=== PATIENT | female | born 1945 | race Caucasian/White ===

== ENCOUNTER 2016-07-25 10:18 | Inpatient (IN) | payer OTHER ==
[2016-07-25 10:36] VITALS: BMI 21.0
--- NOTE | 2016-07-25 10:41 | DR.GENAD ---
HPI - PCP Primary Care Physician: abigail - Complaint/Symptoms Chief Complaint:: EMS STATES FAMILY C/O PT HAS HAD FEVER, N/V/D, WEAKNESS AND LACERATION TO LT ELBOW S/P FALL. ALL OF PT'S SYMPTOMS BEGAN YESTERDAY. - Nurses notes reviewed Nurses Notes Review: Yes - Source History Provided: Patient, Family Member, EMS - Mode of Arrival Mode of Arrival: EMS - Timing Onset of Chief Complaint: 07/24/16 Came on: Gradually - Duration Duration: Constant How lon Duration: Days - Location Location: generalized - Severity Severity: Moderate - Associated Signs and Symptoms Associated Signs and Symptoms: chills PMH - PMH Past Medical History: Yes Past Medical History: Anemia, Arthritis, Coronary Artery Disease, Depression, Dyslipidemia, GERD, Gout, Hypertension, [place] Past Surgical History: Yes Surgical History: Angioplasty/Stents, , Hysterectomy - Family History History of Family Medical Conditions: Yes Family Medical History: Diabetes Mellitus, Hypertension - Social History Does any household member use tobacco: No Alcohol Use: None Do you use any recreational Drugs:: No Lives With: Family Lives Where: Home - infectious screening In the last 2 months have you had wt loss of >10#?: NO Have you had fever, night sweats or hemotysis?: No Have you traveled outside the country in the last 6 months?: No Isolation: Standard ROS - Review of Systems Constitutional: Chills Eyes: No Symptoms Reported ENTM: No Symptoms Reported Respiratoy: Non-Productive Cough Cardiovascular: Skin Mottling (lower legs) Gastrointestinal/Abdominal: Diarrhea, Vomiting Genitourinary: No Symptoms Reported Neurological: Other (confusion) Musculoskeletal: No Symptoms Reported Integumentary: Other (chronic PVD) Hematologic/Lymphatic: No Symptoms Reported Endocrine: No Symptoms Reported Psychiatric: Depression Unable to Obtain Due To: Dementia PE - Vital Signs Vitals: Temperature 99.9 F Pulse Rate 83 Respiratory Rate 20 Blood Pressure [Left Arm] 121/59 Blood Pressure [Right Arm] 136/63 Blood Pressure 162/71 O2 Sat by Pulse Oximetry 96 - General Limitations: Altered Mental Status (mild confusion ) General Appearance: Alert, In No Apparent Distress - Head Head Exam: Normal Inspection - Eyes Eye exam: Normal Appearance, PERRL, EOMI. negative: Scleral Icterus, Conjunctival Injection - ENT ENT Exam: Normal Exam, Normal Oropharynx External Ear Exam: Normal External Inspection - Neck Neck Exam: Normal Inspection, Full ROM, Trachea Midline - Chest Chest Inspection: Normal Inspection - Respiratory Respiratory Exam: negative: Accessory Muscle Use, Respiratory Distress - Cardiovascular Cardiovascular Exam: Regular Rate - Abdominal Exam Abdominal Exam: Normal Inspection, Normal Bowel Sounds, Soft - Extremities Extremities Exam: Full ROM, Other (chronic PVD with skin color changes) - Back Back Exam: Normal Inspection - Neurologic Neurological Exam: Alert, CN II-XII Intact. negative: Oriented X3 - Psychiatric Psychiatric Exam: Depressed - Skin Skin Exam: Mottled, Other (chronic skin lesions has home health nurse visits) Course - Treatment Treatment: 1400: discussed with Casandra STEPHEN admit to DR. Arndt ROR - Labs Reviewed Result Diagrams: 07/25/16 11:25 07/25/16 11:25 Laboratory: WBC 13.8 X10^3/uL (3.6-10.0) H 07/25/16 11:25 RBC 4.50 X10^6/uL (3.5-5.4) 07/25/16 11:25 Hgb 14.1 g/dL (12.0-16.0) 07/25/16 11:25 Hct 42.9 % (36.0-47.0) 07/25/16 11:25 MCV 95.3 fL (80.0-100.0) 07/25/16 11:25 MCH 31.3 pg (27.0-34.0) 07/25/16 11:25 MCHC 32.9 g/dL (33.0-35.0) L 07/25/16 11:25 RDW 17.2 % (11.6-16.5) H 07/25/16 11:25 Plt Count 103 X10^3/uL (150.0-450.0) L 07/25/16 11:25 Plt Count Comment Increased (ADEQUATE) A 07/25/16 11:25 MPV 9.4 fL (7.4-11.0) 07/25/16 11:25 Neut % 71.9 % (42.0-75.0) 07/25/16 11:25 Lymph % 15.3 % (21.0-51.0) L 07/25/16 11:25 Early % 11.9 % (0.0-13.0) 07/25/16 11:25 Eos % 0.1 % (0.9-2.9) L 07/25/16 11:25 Baso % 0.8 % (0.2-1.0) 07/25/16 11:25 Neut # 9.2 x10^3/uL (2.2-4.8) H 07/25/16 11:25 Lymph # 2.0 X10^3/uL (1.3-2.9) 07/25/16 11:25 Early # 1.5 x10^3/uL (0.3-0.8) H 07/25/16 11:25 Eos # 0.0 x10^3/uL (0.0-0.2) 07/25/16 11:25 Baso # 0.1 X10^3/uL (0.0-0.1) 07/25/16 11:25 Absolute Nucleated RBC 0.1 /100WBC 07/25/16 11:25 Plt Morphology Comment Normal (NORMAL) 07/25/16 11:25 RBC Morphology Normal (NORMAL) 07/25/16 11:25 Poikilocytosis Slight A 07/25/16 11:25 Sodium 139 mmol/L (136-145) 07/25/16 11:25 Corrected Sodium TNP 07/25/16 11:25 Potassium 3.8 mmol/L (3.5-5.1) 07/25/16 11:25 Chloride 105 mmol/L (98-107) 07/25/16 11:25 Carbon Dioxide 27.0 mmol/L (21-32) 07/25/16 11:25 BUN 10 mg/dL (7-18) 07/25/16 11:25 Creatinine 0.81 mg/dL (0.55-1.02) 07/25/16 11:25 Est GFR (MDRD) Af Amer > 60 (>60) 07/25/16 11:25 Est GFR (MDRD) Non-Af > 60 (>60) 07/25/16 11:25 Glucose 97 mg/dL (65-99) 07/25/16 11:25 Calcium 7.8 mg/dL (8.5-10.1) L 07/25/16 11:25 Corrected Calcium 8.7 mg/dL (8.5-10.1) 07/25/16 11:25 Total Bilirubin 0.70 mg/dL (0.2-1.0) 07/25/16 11:25 AST 61 Units/L (15-37) H 07/25/16 11:25 ALT 53 Units/L (12-78) 07/25/16 11:25 Alkaline Phosphatase 75 Units/L (46-116) 07/25/16 11:25 Total Protein 6.3 g/dL (6.4-8.2) L 07/25/16 11:25 Albumin 2.9 g/dL (3.4-5.0) L 07/25/16 11:25 Globulin 3.4 g/dL (2.5-4.5) 07/25/16 11:25 Albumin/Globulin Ratio 0.9 Ratio (1.1-2.1) L 07/25/16 11:25 - XRAY XRAY Interpreted by: Radiologist XRAY Findings: chest: CM no CHF - Diagnosis Discharge Problem: Vomiting and diarrhea Fever Qualifiers: Fever type: unspecified Qualified Code(s): R50.9 - Fever, unspecified - Discharge Plan Condition: Stable - Follow ups/Referrals Follow ups/Referrals: MAGY FANG [Primary Care Provider] - 3 days - Instructions
[2016-07-25] MEDS ORDERED: ZOFRAN INJ 4 MG VIAL IVP ONE (10:53)
[2016-07-25] MEDS ORDERED: ZOFRAN INJ 4 MG VIAL ONE (11:02)
--- NOTE | 2016-07-25 11:26 | RAD ---
HISTORY: Cough, weakness Study: Chest one view Comparison: February 06, 2015 Findings: The heart is enlarged. No definite congestive heart failure is noted. The aorta is calcified. The erika ngs are mildly hypoinflated but free of acute infiltrates. No pleural effusions are identified. The bony thorax is unremarkable. IMPRESSION: Cardiomegaly without congestive heart failure Lungs mildly hypoinflated but clear Reported By:
[2016-07-25 11:41] LABS: RED CELL DISTRIBUTION WIDTH 17.2 % (11.6-16.5)
[2016-07-25 11:55] LABS: ALANINE AMINOTRANSFERASE 53 Units/L (12-78); ALBUMIN 2.9 g/dL (3.4-5.0); ALKALINE PHOSPHATASE 75 Units/L (46-116); ASPARTATE AMINO TRANSFERASE 61 Units/L (15-37); BLOOD UREA NITROGEN 10 mg/dL (7-18); CALCIUM 7.8 mg/dL (8.5-10.1); CHLORIDE 105 mmol/L (98-107); COR CA(FOR HYPOALB) 8.7 mg/dL (8.5-10.1); CREATININE 0.81 mg/dL (0.55-1.02); GLUCOSE 97 mg/dL (65-99); SODIUM 139 mmol/L (136-145); TOTAL PROTEIN 6.3 g/dL (6.4-8.2); eGFR BLACK RACES > 60 (>60); eGFR NON BLACK RACES > 60 (>60)
[2016-07-25 12:07] LABS: BASOPHILS % (AUTO) 0.8 % (0.2-1.0); EOSINOPHILS % (AUTO) 0.1 % (0.9-2.9); LYMPHOCYTES % (AUTO) 15.3 % (21.0-51.0); MEAN CORPUSCULAR HEMOGLOBIN 31.3 pg (27.0-34.0); MEAN CORPUSCULAR HGB CONC 32.9 g/dL (33.0-35.0); MEAN CORPUSCULAR VOLUME 95.3 fL (80.0-100.0); MEAN PLATELET VOLUME 9.4 fL (7.4-11.0); MONOCYTES % (AUTO) 11.9 % (0.0-13.0); NEUTROPHILS # (AUTO) 9.2 x10^3/uL (2.2-4.8); NEUTROPHILS % (AUTO) 71.9 % (42.0-75.0)
[2016-07-25 12:08] LABS: BASOPHILS # (AUTO) 0.1 X10^3/uL (0.0-0.1); MONOCYTES # (AUTO) 1.5 x10^3/uL (0.3-0.8)
[2016-07-25 12:11] LABS: PLATELET MORPHOLOGY COMMENT NORMAL (NORMAL); POIKILOCYTOSIS SLIGHT
[2016-07-25] MEDS ORDERED: NS 500 ML IV 500 ML IV ONE (13:42)
[2016-07-25] MEDS ORDERED: ZOFRAN INJ 4 MG VIAL IVP PRN (14:03)
[2016-07-25] MEDS ORDERED: NS 1000 ML 1,000 ML IV SCH (15:00)
[2016-07-25] MEDS ORDERED: MOTRIN TAB 800 MG PO PRN (15:34)
[2016-07-25] MEDS ORDERED: TYLENOL SUPP 650 MG PR ONE (15:53)
[2016-07-25 17:35] LABS: BILIRUBIN,URINE NEGATIVE (NEGATIVE); BLOOD/HEMOGLOBIN,URINE 2+ (NEGATIVE); GLUCOSE, URINE NEGATIVE (NEGATIVE); KETONES,URINE NEGATIVE (NEGATIVE); LEUKOCYTE ESTERASE ,URINE 3+ (NEGATIVE); NITRITES,URINE NEGATIVE (NEGATIVE); PROTEIN,URINE 2+ (NEGATIVE); UROBILINOGEN,URINE NORMAL (NORMAL)
[2016-07-25] MEDS: PROTONIX INJ 40 MG VIAL IVP SCH (17:40)
[2016-07-25] MEDS: PEPCID 20 MG IV PREMIX* 20 MG/50 ML BAG IV SCH ×2 (17:40→21:43)
[2016-07-25 17:45] LABS: AMORPHOUS SEDIMENT,UR TRACE /HPF (NEGATIVE); APPEARANCE,URINE CLOUDY (CLEAR); BACTERIA,URINE TRACE /HPF (NEGATIVE); COLOR,URINE YELLOW (YELLOW); MUCUS,URINE RARE /HPF (NEGATIVE); SQUAMOUS EPITHELIAL CELL,UR FEW /HPF (NEGATIVE)
[2016-07-25] MEDS ORDERED: VISTARIL PO PRN (18:03)
--- NOTE | 2016-07-25 19:03 | CT ---
CT head without contrast Indication: Altered mental status, hypertension Comparison: 03/01/2015 Technique: CT images of the head were obtained without contrast. Automatic exposure control was util ized. Findings: There is age-appropriate mild generalized brain atrophy with concomitant ventricular and s ulcal enlargement. Diffuse periventricular and deep white matter microangiopathy appears similar to the prior study. No acute bleed, mass, mass effect, or abnormal extra-axial collection identified. N o acute skeletal abnormality is seen. The major paranasal sinuses and mastoid air cells are clear. Impression: No acute intracranial abnormality. Chronic findings as above. Reported By:
[2016-07-25] MEDS: NS 1000 ML 1,000 ML IV SCH ×2 (19:22→20:30)
[2016-07-25] MEDS: K-DUR TAB 20 MEQ PO SCH (21:42)
[2016-07-25] MEDS: PREDNISONE TAB 5 MG PO SCH (21:43)
[2016-07-25] MEDS: LIPITOR TAB 40 MG PO SCH (21:43)
[2016-07-25] MEDS: NEURONTIN TAB 600 MG PO SCH (21:43)
[2016-07-25] MEDS: XANAX PO SCH (21:43)
[2016-07-26] MEDS: NEURONTIN TAB 600 MG PO SCH ×3 (05:22→21:00)
[2016-07-26] MEDS: NS 1000 ML 1,000 ML IV SCH ×3 (05:23→23:56)
[2016-07-26 06:38] LABS: ALANINE AMINOTRANSFERASE 58 Units/L (12-78); ALBUMIN 2.3 g/dL (3.4-5.0); ALKALINE PHOSPHATASE 60 Units/L (46-116); ASPARTATE AMINO TRANSFERASE 79 Units/L (15-37); BLOOD UREA NITROGEN 12 mg/dL (7-18); CALCIUM 7.2 mg/dL (8.5-10.1); CARBON DIOXIDE 23.4 mmol/L (21-32); CHLORIDE 108 mmol/L (98-107); COR CA(FOR HYPOALB) 8.6 mg/dL (8.5-10.1); CREATININE 0.77 mg/dL (0.55-1.02); GLUCOSE 70 mg/dL (65-99); SODIUM 143 mmol/L (136-145); eGFR BLACK RACES > 60 (>60); eGFR NON BLACK RACES > 60 (>60)
[2016-07-26] MEDS ORDERED: POTASSIUM CHLORIDE LIQ 20 MEQ UDC PO PRN (06:56)
[2016-07-26] MEDS ORDERED: K-RIDER 10 MEQ/NS 100 ML 10 MEQ/100 ML BAG IV PRN (06:56)
[2016-07-26] MEDS ORDERED: K-LYTE EFFERVESCENT PO PRN (06:56)
[2016-07-26 08:08] LABS: BASOPHILS # (AUTO) 0.1 X10^3/uL (0.0-0.1); EOSINOPHILS % (AUTO) 0.1 % (0.9-2.9); HEMATOCRIT 35.8 % (36.0-47.0); HEMOGLOBIN 11.7 g/dL (12.0-16.0); LYMPHOCYTES # (AUTO) 1.1 X10^3/uL (1.3-2.9); LYMPHOCYTES % (AUTO) 15.9 % (21.0-51.0); MEAN CORPUSCULAR HEMOGLOBIN 31.3 pg (27.0-34.0); MEAN CORPUSCULAR HGB CONC 32.6 g/dL (33.0-35.0); MEAN PLATELET VOLUME 9.4 fL (7.4-11.0); MONOCYTES # (AUTO) 0.8 x10^3/uL (0.3-0.8); MONOCYTES % (AUTO) 11.8 % (0.0-13.0); NEUTROPHILS % (AUTO) 71.2 % (42.0-75.0); PLATELET COUNT 99 X10^3/uL (150.0-450.0); RED BLOOD COUNT 3.73 X10^6/uL (3.5-5.4); RED CELL DISTRIBUTION WIDTH 17.7 % (11.6-16.5)
[2016-07-26] MEDS: PROTONIX INJ 40 MG VIAL IVP SCH (09:03)
[2016-07-26] MEDS: TOPROL XL PO SCH (09:03)
[2016-07-26] MEDS: PEPCID 20 MG IV PREMIX* 20 MG/50 ML BAG IV SCH ×2 (09:03→20:55)
[2016-07-26] MEDS: ZYLOPRIM PO SCH (09:04)
[2016-07-26] MEDS: K-DUR TAB 20 MEQ PO PRN ×2 (09:04→12:16)
[2016-07-26] MEDS: PREDNISONE TAB 5 MG PO SCH ×2 (09:05→20:51)
[2016-07-26] MEDS: PLAVIX PO SCH (09:05)
[2016-07-26] MEDS: ARICEPT TAB 10 MG PO SCH (09:05)
[2016-07-26] MEDS: K-DUR TAB 20 MEQ PO SCH ×2 (09:26→20:51)
[2016-07-26] MEDS: TAMIFLU PO SCH ×2 (10:00→20:51)
--- NOTE | 2016-07-26 10:57 | DR.H&P ---
H&P - History & Physical for Day of: H&P Date: 07/25/16 - Chief Complaint Chief Complaint: N/V/D, FEVER - Allergies Allergies/Adverse Reactions: Allergies Allergy/AdvReac Type Severity Reaction Status Date / Time Sertraline [From Zoloft] Allergy Severe RASH Verified 05/07/15 15:52 - History of Present Illness History of Present Illness: THIS IS A 71 YEAR OLD MALE, WHO IS FOLLOWED IN OUR OFFICE BY MAUDE ARREOLA. SHE PRESENTS TO THE EMERGENCY ROOM, VIA EMS, WITH FAMILY REPORTING FEVER, N/V/D. FAMILY FURTHER REPORTS GENERALIZES WEAKNESS AND LACERATION TO LEFT ELBOW FOLLOWING A FALL AT HOME. FAMILY REPORTS ONSET OF SYMPTOMS WAS ONE DAY PRIOR TO ARRIVAL. PATIENT REPORTS CHILLS, FATIGUE , AND MALAISE. FAMILY STATES PATIENT HAS HAD CONFUSION AND IS UNABLE TO HOLD ANY FLUIDS DOWN AND HAS HAD DIARRHEA TOO NUERMOUS TO COUNT TODAY. TEMPERATURE IS 103F. BLOOD PRESSURE IS 82.51. LABS, CHEST XRAY, AND CT OBTAINED. CBC WNL EXCEPT: WBC 13.8, PLT COUNT 103. CMP WNL EXCEPT: CALCIUM 7.8, TOT PROTEIN 6.3, ALBUMIN 2.9. URINALYSIS ABNORMALS: PROTEIN 2+, OCCULT BLOOD 2+, LEUKOCYTE ESTERASE 3+, RBC 4-5, WBC 12-14, BACTERIA TRACE; CULTURE PENDING. CHEST XRAY REPORTS CARDIOMEGALY WITHOUT CHF; LUNGS CLEAR. BRAIN CT REPORTS NO ACUTE INTRACRANIAL ABNORMALITY. WE WILL ADMIT PATIENT FOR FURTHER TREATMENT AND EVALUATION. WE WILL START IV FLUIDS, IV ZOFRAN, PEPCID, PROTONIX, AND CONTINUE TO MONITOR. WE WILL FOLLOW UP IN AM WITH LABS. - Past Medical History Past Medical History: Anemia, Arthritis, Coronary Artery Disease, Depression, Dyslipidemia, GERD, Gout, Hypertension, [place] Additional Medical History: Venous Insufficiency, Rheumatoid Arthritis, Spondylosis Lumbar/Thoracic, Muscular Dystrophy, Osteoporosis, Degenerative Disc Disease, Chronic PVD, Cataracts, Pneumonia, Muscle Weakness, Previous Blood Transfusion - Past Surgical History Surgical History: Angioplasty/Stents, , Hysterectomy Additional Surgical History: Cataract Surgery, Two Cardiac Stents - Family History Family Medical History: Diabetes Mellitus, Coronary Artery Disease, Hypertension Family History Comment: CVA - Social History Does patient currently use any type of tobacco product: No Have you used tobacco products in the last 12 months: No Type of Tobacco Use: None Does any household member use tobacco: No Alcohol Use: None Drug Use: None - Medications Home Medications: Allopurinol 300 mg PO DAILY 01/13/14 Atorvastatin Calcium [LIPITOR Tab 40 mg *] 0.5 tab PO HS 01/13/14 Clopidogrel Bisulfate [Clopidogrel] 75 mg PO DAILY 01/13/14 Folic Acid 1 tab PO DAILY 01/13/14 Furosemide [LASIX TAB 20 MG *] 1 tab PO Q48H PRN 01/13/14 Gabapentin 600 mg PO TID 01/13/14 Metoprolol Succinate Ext Rel [TOPROL XL 25 MG *] 1 tab PO DAILY 01/13/14 Prednisone [PREDNISONE TAB 5 MG *] 1 tab PO BID 01/13/14 Ranitidine HCl [Ranitidine [address]] 150 mg PO BID 01/13/14 Alprazolam [XANAX 0.5 MG *] 1 tab PO HS 11/18/14 Ascorbic Acid [Vitamin C 500 mg] 1 tab PO DAILY 11/18/14 Famotidine [Pepcid] 20 mg PO BID #60 tab 12/19/14 Pantoprazole Sodium 40 mg [PROTONIX 40 MG *] 40 mg PO DAILY #30 tab 12/19/14 Hydroxyzine Pamoate [Vistaril] 25 mg PO Q6HR PRN 02/02/15 Potassium Chloride [Potassium Chloride ER] 20 meq PO BID 02/02/15 Donepezil Hydrochloride [ARICEPT TAB 10 MG *] 10 mg PO DAILY 05/07/15 - Review of Systems Constitutional: Fever, Chills, Weakness, Malaise Eyes: No Symptoms Reported. denies: Pain, Vision Change, Conjunctivae Inflammation, Eyelid Inflammation, Redness ENT: No Symptoms Reported. denies: Ear Pain, Ear Discharge, Nose Pain, Nose Discharge, Nose Congestion, Mouth Pain, Mouth Swelling, Throat Pain, Throat Swelling Respiratory: No Symptoms Reported. denies: Cough, Shortness of Breath, Hemoptysis, SOB with Excertion, Pleuritic Pain, Sputum, Wheezing Cardiovascular: No Symptoms Reported. denies: Chest Pain, Palpitations, Orthopnea, Paroxysmal Noc. Dyspnea, Edema, Light Headedness Gastrointestinal: Nausea, Vomiting, Abdominal Pain, Diarrhea. denies: Constipation, Melena, Hematochezia Genitourinary: Dysuria, Frequency. denies: Incontinence, Hematuria Musculoskeletal: Other (Muscle Weakness) Skin: Wound (Skin tear Left Elbow and Right Forearm ). denies: Rash, Lesions, Jaundice, Bruising - Physical Exam Vital Signs: Temperature 98.3 F Pulse Rate [Left Radial] 81 Pulse Rate [Right Radial] 81 Respiratory Rate 20 Blood Pressure [Left Arm] 106/54 O2 Sat by Pulse Oximetry 93 Oriented: Person, Other (Confusion) Eyes: Normal. negative: Blurred Vision, Diplopia, Discharge, Pain, Redness, Photophobia Ear: Normal. negative: Swelling, Ecchymosis, Hemotypanum, Abrasion, Laceration Nose: Normal. negative: Injected, Discharge, Blood Throat: Red, Dry. negative: Tonsillar Hypertrophy, Exudate Respiratory: Clear Throughout Cardiovascular: Normal. negative: Murmur, Edema : Dysuria, Hematuria, Frequency. negative: Discharge, Bleeding, Auscultation: Bowel Sounds: Increased. negative: Bruit Palpation: Normal. negative: Spleen Enlarged, Liver Enlarged, Mass Pulsatile Tenderness: Diffuse, Moderate. negative: Rebound, Guarding, Rigidity Skin: Decreased Turgur, Wound (Skin tear Left Elbow and Right Forearm). negative: Diaphoresis Musculoskeletal: Instability Psychiatric: Other (Confusion) Mood Description: Calm, Flat Affect: Flat Speech Pattern: Clear, Inappropriate - Assessment/Plan (1) Altered mental status Qualifiers: Altered mental status type: disorientation Coma depth: C Coma timing: C Qualified Code(s): R41.0 - Disorientation, unspecified Status: Acute Plan: ADMIT PATIENT, START IV FLUIDS, CONTINUE TO MONITOR. (2) Vomiting and diarrhea Status: Acute Plan: START IV FLUIDS, PEPCID, PROTONIX, IV ZOFRAN, MONITOR. (3) Fever Qualifiers: Fever type: unspecified Encounter type: E Qualified Code(s): R50.9 - Fever, unspecified Status: Acute Plan: CONTINUE TO MONITOR. (4) Fatigue Qualifiers: Fatigue type: other Encounter type: E Trimester: T Qualified Code(s): R53.83 - Other fatigue Status: Acute Plan: ABOVE. (5) Poor appetite Status: Acute Plan: ABOVE. (6) CAD (coronary artery disease) Qualifiers: Coronary Disease-Associated Artery/Lesion type: [place] artery [place] vs. 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 (8) Depression Qualifiers: Depression Type: major depressive disorder Major depression recurrence: M Active/Remission status: in full remission Major depression episode severity : M Psychotic features: P Trimester: T Status: Chronic (9) GERD (gastroesophageal reflux disease) Qualifiers: Esophagitis presence: esophagitis presence not specified Qualified Code(s) : K21.9 - Gastro-esophageal reflux disease without esophagitis Status: Chronic (10) H/O heart artery stent Status: Chronic (11) History of anemia Status: Chronic (12) Hyperlipidemia Qualifiers: Hyperlipidemia type: mixed hyperlipidemia Qualified Code(s): E78.2 - Mixed hyperlipidemia Status: Chronic (13) Hypertension Qualifiers: Hypertension type: essential hypertension Qualified Code(s): I10 - Essential (primary) hypertension Status: Chronic (14) Muscular dystrophy Status: Chronic (15) PVD (peripheral vascular disease) Status: Chronic (16) Rheumatoid arthritis Qualifiers: Rheumatoid arthritis location: multiple sites Rheumatoid factor presence: without rheumatoid factor Laterality: L Qualified Code(s): M06.09 - Rheumatoid arthritis without rheumatoid factor, multiple sites Status: Chronic
[2016-07-26] MEDS: ALBUMIN HUMAN 25%- 100ML 100 ML IV SCH (11:05)
--- NOTE | 2016-07-26 11:20 | PCM.PROG ---
Progress Note - Progress Note for Day of Date: 07/26/16 - Subjective Subjective: PATIENT CONTINUES WITH NAUSEA THIS MORNING. SHE REPORTS VOMITING HAS IMPROVED BUT CONTINUES WITH POOR APPETITE. PATIENT ATE 25% OF BREAKFAST THIS MORNING. PATIENT CONTINUES WITH FEVER AND IS NOTED WITH A TEMPERATURE OF 102.9F THROUGH THE NIGHT. PATIENT CONTINUES TO REPORT FATIGUE AND MALAISE ALONG WITH GENERALIZED WEAKNESS. INTERMITTENT CONFUSION IS NOTED. PATIENT IS POSITIVE FOR INFLUENZA A AND ALBUMIN IS LOW AT 2.3 THIS MORNING. CBC WNL EXCEPT : H/H 11.7/35.8, PLT COUNT 99. CMP WNL EXCEPT: POTASSIUM 3.3, CHL 108, CALCIUM 7.2, AST 79, TOT PROTEIN 5.0, ALBUMIN 2.3. WE WILL START ALBUMIN IV DAILY, TAMIFLU, AND CONTINUE TO MONITOR. WE WILL FOLLOW UP IN AM WITH LABS. - Past Medical Family Social History Past Med/Fam/Surg Hx: No changes since H&P Allergies: Allergies Sertraline [From Zoloft] Allergy (Severe, Verified 05/07/15 15:52) RASH - Review of Systems ROS: No change since H&P - Vital Signs and I&O's Vital Signs: Temperature 98.3 F Pulse Rate [Left Radial] 81 Pulse Rate [Right Radial] 81 Respiratory Rate 20 Blood Pressure [Left Arm] 106/54 O2 Sat by Pulse Oximetry 93 Intake and Output: Intake & Output 07/23/16 07/24/16 07/25/16 07/26/16 11:59 11:59 11:59 11:59 Intake Total 727 Balance 727 - Physical Exam Oriented: Person, Other (Confusion) Eyes: Normal. negative: Blurred Vision, Diplopia, Discharge, Pain, Redness, Photophobia Ear: Normal. negative: Swelling, Ecchymosis, Hemotypanum, Abrasion, Laceration Nose: Normal. negative: Injected, Discharge, Blood Throat: Red, Dry. negative: Tonsillar Hypertrophy, Exudate Respiratory: Normal Cardiovascular: Normal. negative: Murmur, Edema : Dysuria, Hematuria, Frequency. negative: Discharge, Bleeding, Auscultation: Bowel Sounds: Increased. negative: Bruit Palpation: Normal. negative: Spleen Enlarged, Liver Enlarged, Mass Pulsatile Tenderness: Diffuse, Moderate. negative: Rebound, Guarding, Rigidity Skin: Decreased Turgur, Wound (Skin tear Left Elbow and Right Forearm). negative: Diaphoresis Musculoskeletal: Instability Psychiatric: Other (Confusion) Mood Description: Calm Affect: Quiet Speech Pattern: Clear, Inappropriate - Laboratory and Diagnostics Result Diagrams: 07/26/16 05:20 07/26/16 05:20 Labs: 07/25/16 17:25 Urine,Catheterized Urine Culture - Preliminary Laboratory WBC 7.0 X10^3/uL (3.6-10.0) 07/26/16 05:20 RBC 3.73 X10^6/uL (3.5-5.4) 07/26/16 05:20 Hgb 11.7 g/dL (12.0-16.0) L 07/26/16 05:20 Hct 35.8 % (36.0-47.0) L 07/26/16 05:20 MCV 96.0 fL (80.0-100.0) 07/26/16 05:20 MCH 31.3 pg (27.0-34.0) 07/26/16 05:20 MCHC 32.6 g/dL (33.0-35.0) L 07/26/16 05:20 RDW 17.7 % (11.6-16.5) H 07/26/16 05:20 Plt Count 99 X10^3/uL (150.0-450.0) L 07/26/16 05:20 Plt Count Comment Increased (ADEQUATE) A 07/25/16 11:25 MPV 9.4 fL (7.4-11.0) 07/26/16 05:20 Neut % 71.2 % (42.0-75.0) 07/26/16 05:20 Lymph % 15.9 % (21.0-51.0) L 07/26/16 05:20 [place] % 11.8 % (0.0-13.0) 07/26/16 05:20 Eos % 0.1 % (0.9-2.9) L 07/26/16 05:20 Baso % 1.0 % (0.2-1.0) 07/26/16 05:20 Neut # 5.0 x10^3/uL (2.2-4.8) H 07/26/16 05:20 Lymph # 1.1 X10^3/uL (1.3-2.9) L 07/26/16 05:20 [place] # 0.8 x10^3/uL (0.3-0.8) 07/26/16 05:20 Eos # 0.0 x10^3/uL (0.0-0.2) 07/26/16 05:20 Baso # 0.1 X10^3/uL (0.0-0.1) 07/26/16 05:20 Absolute Nucleated RBC 0.1 /100WBC 07/26/16 05:20 Plt Morphology Comment Normal (NORMAL) 07/25/16 11:25 RBC Morphology Normal (NORMAL) 07/25/16 11:25 Poikilocytosis Slight A 07/25/16 11:25 Sodium 143 mmol/L (136-145) 07/26/16 05:20 Corrected Sodium TNP 07/26/16 05:20 Potassium 3.3 mmol/L (3.5-5.1) L 07/26/16 05:20 Chloride 108 mmol/L (98-107) H 07/26/16 05:20 Carbon Dioxide 23.4 mmol/L (21-32) 07/26/16 05:20 BUN 12 mg/dL (7-18) 07/26/16 05:20 Creatinine 0.77 mg/dL (0.55-1.02) 07/26/16 05:20 Est GFR (MDRD) Af Amer > 60 (>60) 07/26/16 05:20 Est GFR (MDRD) Non-Af > 60 (>60) 07/26/16 05:20 Glucose 70 mg/dL (65-99) 07/26/16 05:20 Calcium 7.2 mg/dL (8.5-10.1) L 07/26/16 05:20 Corrected Calcium 8.6 mg/dL (8.5-10.1) 07/26/16 05:20 Total Bilirubin 0.60 mg/dL (0.2-1.0) 07/26/16 05:20 AST 79 Units/L (15-37) H 07/26/16 05:20 ALT 58 Units/L (12-78) 07/26/16 05:20 Alkaline Phosphatase 60 Units/L (46-116) 07/26/16 05:20 Total Protein 5.0 g/dL (6.4-8.2) L 07/26/16 05:20 Albumin 2.3 g/dL (3.4-5.0) L 07/26/16 05:20 Globulin 2.7 g/dL (2.5-4.5) 07/26/16 05:20 Albumin/Globulin Ratio 0.9 Ratio (1.1-2.1) L 07/26/16 05:20 Specimen Type Catherized urine 07/25/16 17:25 Urine Color Yellow (YELLOW) 07/25/16 17:25 Urine Appearance Cloudy (CLEAR) 07/25/16 17:25 Urine pH 6.0 (5.0 - 8.0) 07/25/16 17:25 Ur Specific [place] 1.015 (1.000-1.030) 07/25/16 17:25 Urine Protein 2+ (NEGATIVE) 07/25/16 17:25 Urine Glucose (UA) Negative (NEGATIVE) 07/25/16 17:25 Urine Ketones Negative (NEGATIVE) 07/25/16 17:25 Urine Occult Blood 2+ (NEGATIVE) 07/25/16 17:25 Urine Nitrite Negative (NEGATIVE) 07/25/16 17:25 Urine Bilirubin Negative (NEGATIVE) 07/25/16 17:25 Urine Urobilinogen Normal (NORMAL) 07/25/16 17:25 Ur Leukocyte Esterase 3+ (NEGATIVE) 07/25/16 17:25 Urine RBC 4-5 /HPF (NEGATIVE) 07/25/16 17:25 Urine WBC 12-14 /HPF (NEGATIVE) 07/25/16 17:25 Ur Squamous Epith Cells Few /HPF (NEGATIVE) 07/25/16 17:25 Amorphous Sediment Trace /HPF (NEGATIVE) 07/25/16 17:25 Urine Bacteria Trace /HPF (NEGATIVE) 07/25/16 17:25 Urine Mucus Rare /HPF (NEGATIVE) 07/25/16 17:25 Ur Culture Indicated? Yes/culture set up 07/25/16 17:25 Influenza A (H1N1) PCR Not detected (NOT DETECT) 07/25/16 20:19 Influenza Type A (PCR) Positive (NEGATIVE) A 07/25/16 20:19 Influenza Type B (PCR) Negative (NEGATIVE) 07/25/16 20:19 - Plan (1) Altered mental status Status: Acute Qualifiers: Altered mental status type: disorientation Coma depth: C Coma timing: C Qualified Code(s): R41.0 - Disorientation, unspecified Plan: CONTINUE IV FLUIDS, CONTINUE TO MONITOR. (2) Vomiting and diarrhea Status: Acute Plan: CONTINUE IV FLUIDS, PEPCID, PROTONIX, IV ZOFRAN, MONITOR. (3) Fever Status: Acute Qualifiers: Fever type: unspecified Encounter type: E Qualified Code(s): R50.9 - Fever, unspecified Plan: CONTINUE TO MONITOR. (4) Fatigue Status: Acute Qualifiers: Fatigue type: other Encounter type: E Trimester: T Qualified Code(s): R53.83 - Other fatigue Plan: ABOVE. (5) Poor appetite Status: Acute Plan: ABOVE. (6) Influenza A Status: Acute Plan: START TAMIFLU, MONITOR. (7) CAD (coronary artery disease) Status: Chronic Qualifiers: Coronary Disease-Associated Artery/Lesion type: [place] artery [place] vs. transplanted heart: [place] heart Associated angina: without angina Qualified Code(s): I25.10 - Atherosclerotic heart disease of [place] coronary artery without angina pectoris (8) CHF (congestive heart failure) Status: Chronic Qualifiers: Congestive heart failure type: combined Congestive heart failure chronicity : chronic Qualified Code(s): I50.42 - Chronic combined systolic (congestive) and diastolic (congestive) heart failure (9) Depression Status: Chronic Qualifiers: Depression Type: major depressive disorder Major depression recurrence: M Active/Remission status: in full remission Major depression episode severity : M Psychotic features: P Trimester: T (10) GERD (gastroesophageal reflux disease) Status: Chronic Qualifiers: Esophagitis presence: esophagitis presence not specified Qualified Code(s) : K21.9 - Gastro-esophageal reflux disease without esophagitis (11) H/O heart artery stent Status: Chronic (12) History of anemia Status: Chronic (13) Hyperlipidemia Status: Chronic Qualifiers: Hyperlipidemia type: mixed hyperlipidemia Qualified Code(s): E78.2 - Mixed hyperlipidemia (14) Hypertension Status: Chronic Qualifiers: Hypertension type: essential hypertension Qualified Code(s): I10 - Essential (primary) hypertension (15) Muscular dystrophy Status: Chronic (16) PVD (peripheral vascular disease) Status: Chronic (17) Rheumatoid arthritis Status: Chronic Qualifiers: Rheumatoid arthritis location: multiple sites Rheumatoid factor presence: without rheumatoid factor Laterality: L Qualified Code(s): M06.09 - Rheumatoid arthritis without rheumatoid factor, multiple sites
[2016-07-26 13:52] LABS: HEMATOCRIT 42.9 % (36.0-47.0); HEMOGLOBIN 14.1 g/dL (12.0-16.0); WHITE BLOOD COUNT 13.8 X10^3/uL (3.6-10.0)
[2016-07-26 13:53] LABS: PLATELET COUNT 103 X10^3/uL (150.0-450.0)
[2016-07-26] MEDS: BUTT CREAM (COMPOUND) TOP PRN (17:53)
[2016-07-26] MEDS: XANAX PO SCH (20:51)
[2016-07-26] MEDS: LIPITOR TAB 40 MG PO SCH (20:52)
[2016-07-27] MEDS: NEURONTIN TAB 600 MG PO SCH ×3 (05:28→21:28)
[2016-07-27 06:04] LABS: BASOPHILS % (AUTO) 0.2 % (0.2-1.0); HEMATOCRIT 32.3 % (36.0-47.0); HEMOGLOBIN 10.6 g/dL (12.0-16.0); LYMPHOCYTES # (AUTO) 1.1 X10^3/uL (1.3-2.9); LYMPHOCYTES % (AUTO) 20.3 % (21.0-51.0); MEAN CORPUSCULAR HEMOGLOBIN 31.4 pg (27.0-34.0); MEAN CORPUSCULAR HGB CONC 32.9 g/dL (33.0-35.0); MEAN CORPUSCULAR VOLUME 95.4 fL (80.0-100.0); MEAN PLATELET VOLUME 9.3 fL (7.4-11.0); MONOCYTES # (AUTO) 0.6 x10^3/uL (0.3-0.8); MONOCYTES % (AUTO) 11.2 % (0.0-13.0); NEUTROPHILS # (AUTO) 3.7 x10^3/uL (2.2-4.8); NEUTROPHILS % (AUTO) 68.3 % (42.0-75.0); PLATELET COUNT 87 X10^3/uL (150.0-450.0); RED BLOOD COUNT 3.39 X10^6/uL (3.5-5.4); RED CELL DISTRIBUTION WIDTH 17.4 % (11.6-16.5); WHITE BLOOD COUNT 5.4 X10^3/uL (3.6-10.0)
[2016-07-27] MEDS: NS 1000 ML 1,000 ML IV SCH ×2 (06:21→14:15)
[2016-07-27 07:28] LABS: ALANINE AMINOTRANSFERASE 56 Units/L (12-78); ALBUMIN 2.5 g/dL (3.4-5.0); ALKALINE PHOSPHATASE 61 Units/L (46-116); ASPARTATE AMINO TRANSFERASE 62 Units/L (15-37); BLOOD UREA NITROGEN 10 mg/dL (7-18); CALCIUM 7.6 mg/dL (8.5-10.1); CARBON DIOXIDE 25.3 mmol/L (21-32); CHLORIDE 113 mmol/L (98-107); COR CA(FOR HYPOALB) 8.8 mg/dL (8.5-10.1); CREATININE 0.68 mg/dL (0.55-1.02); GLUCOSE 96 mg/dL (65-99); SODIUM 145 mmol/L (136-145); eGFR BLACK RACES > 60 (>60); eGFR NON BLACK RACES > 60 (>60)
[2016-07-27] MEDS: DUONEB 0.5 MG/3 MG NEB SCH ×4 (09:47→20:54)
[2016-07-27] MEDS: ALBUMIN HUMAN 25%- 100ML 100 ML IV SCH (09:54)
[2016-07-27] MEDS: PEPCID 20 MG IV PREMIX* 20 MG/50 ML BAG IV SCH ×2 (09:54→20:39)
[2016-07-27] MEDS: TAMIFLU PO SCH ×2 (09:55→20:39)
[2016-07-27] MEDS: PREDNISONE TAB 5 MG PO SCH ×2 (09:55→20:39)
[2016-07-27] MEDS: TOPROL XL PO SCH (09:55)
[2016-07-27] MEDS: K-DUR TAB 20 MEQ PO SCH ×2 (09:55→20:38)
[2016-07-27] MEDS: PLAVIX PO SCH (09:55)
[2016-07-27] MEDS: ZYLOPRIM PO SCH (09:55)
[2016-07-27] MEDS: PROTONIX INJ 40 MG VIAL IVP SCH (09:55)
[2016-07-27] MEDS: ARICEPT TAB 10 MG PO SCH (09:55)
[2016-07-27] MEDS: LEVAQUIN PREMIX IV 500 MG 500 MG/100 ML BAG IV SCH (09:56)
[2016-07-27] MEDS: BUTT CREAM (COMPOUND) TOP PRN (14:15)
[2016-07-27] MEDS: LIPITOR TAB 40 MG PO SCH (20:38)
[2016-07-27] MEDS: XANAX PO SCH (20:38)
[2016-07-28] MEDS: NS 1000 ML 1,000 ML IV SCH ×5 (02:27→21:38)
[2016-07-28 05:28] LABS: BASOPHILS % (AUTO) 0.3 % (0.2-1.0); EOSINOPHILS % (AUTO) 0.1 % (0.9-2.9); HEMOGLOBIN 10.2 g/dL (12.0-16.0); LYMPHOCYTES # (AUTO) 1.1 X10^3/uL (1.3-2.9); LYMPHOCYTES % (AUTO) 27.2 % (21.0-51.0); MEAN CORPUSCULAR HEMOGLOBIN 31.5 pg (27.0-34.0); MEAN CORPUSCULAR VOLUME 95.4 fL (80.0-100.0); MEAN PLATELET VOLUME 9.4 fL (7.4-11.0); MONOCYTES # (AUTO) 0.5 x10^3/uL (0.3-0.8); MONOCYTES % (AUTO) 12.5 % (0.0-13.0); NEUTROPHILS # (AUTO) 2.4 x10^3/uL (2.2-4.8); NEUTROPHILS % (AUTO) 59.9 % (42.0-75.0); PLATELET COUNT 84 X10^3/uL (150.0-450.0); RED BLOOD COUNT 3.25 X10^6/uL (3.5-5.4); RED CELL DISTRIBUTION WIDTH 17.5 % (11.6-16.5); WHITE BLOOD COUNT 3.9 X10^3/uL (3.6-10.0)
[2016-07-28] MEDS: NEURONTIN TAB 600 MG PO SCH ×3 (05:30→21:34)
[2016-07-28 05:32] LABS: ALANINE AMINOTRANSFERASE 45 Units/L (12-78); ALBUMIN 2.7 g/dL (3.4-5.0); ALKALINE PHOSPHATASE 58 Units/L (46-116); ASPARTATE AMINO TRANSFERASE 43 Units/L (15-37); BLOOD UREA NITROGEN 5 mg/dL (7-18); CALCIUM 7.2 mg/dL (8.5-10.1); CARBON DIOXIDE 25.1 mmol/L (21-32); CHLORIDE 114 mmol/L (98-107); COR CA(FOR HYPOALB) 8.2 mg/dL (8.5-10.1); COR NA(FOR HYPERGLY) 147 mmol/L (136-145); CREATININE 0.57 mg/dL (0.55-1.02); GLUCOSE 116 mg/dL (65-99); SODIUM 147 mmol/L (136-145); eGFR BLACK RACES > 60 (>60); eGFR NON BLACK RACES > 60 (>60)
[2016-07-28] MEDS: DUONEB 0.5 MG/3 MG NEB SCH ×4 (08:27→21:16)
[2016-07-28] MEDS: ALBUMIN HUMAN 25%- 100ML 100 ML IV SCH (09:33)
[2016-07-28] MEDS: PEPCID 20 MG IV PREMIX* 20 MG/50 ML BAG IV SCH ×2 (09:34→21:38)
[2016-07-28] MEDS: PREDNISONE TAB 5 MG PO SCH ×2 (09:34→21:34)
[2016-07-28] MEDS: PROTONIX INJ 40 MG VIAL IVP SCH (09:34)
[2016-07-28] MEDS: ARICEPT TAB 10 MG PO SCH (09:34)
[2016-07-28] MEDS: TOPROL XL PO SCH (09:34)
[2016-07-28] MEDS: LEVAQUIN PREMIX IV 500 MG 500 MG/100 ML BAG IV SCH (09:34)
[2016-07-28] MEDS: PLAVIX PO SCH (09:34)
[2016-07-28] MEDS: TAMIFLU PO SCH ×2 (09:34→21:35)
[2016-07-28] MEDS: ZYLOPRIM PO SCH (09:34)
[2016-07-28] MEDS: BUTT CREAM (COMPOUND) TOP PRN (09:35)
[2016-07-28] MEDS: K-DUR TAB 20 MEQ PO SCH ×2 (09:35→21:34)
[2016-07-28 11:37] LABS: CRYPTOSPORIDIUM PARVUM ANTIGEN NEGATIVE (NEGATIVE); GIARDIA LAMBLIA ANTIGEN NEGATIVE (NEGATIVE)
--- NOTE | 2016-07-28 17:13 | PCM.PROG ---
Progress Note - Progress Note for Day of Date: 07/27/16 - Subjective Subjective: PATIENT CONTINUES WITH NAUSEA THIS MORNING. SHE REPORTS VOMITING HAS IMPROVED BUT CONTINUES WITH POOR APPETITE. PATIENT AFEBRILE. PATIENT CONTINUES TO REPORT FATIGUE AND MALAISE ALONG WITH GENERALIZED WEAKNESS. INTERMITTENT CONFUSION IS NOTED. PATIENT CONTINUES WITH A POOR APPETITE AND IS CONTINUES WITH ALBUMIN LEVEL OF 2.5. ON AUSCULTATION, LUNGS ARE NOTED WITH HARSH WHEEZES ON THE RIGHT SIDE. COUGH IS INTERMITTENT, COARSE, NON- PRODUCTIVE. CBC WNL EXCEPT: H/H 10.6/32.3, PLT COUNT 87. CMP WNL EXCEPT: CHL 113, CALCIUM 7.6, AST 62, TOT PROTEIN 5.0, ALBUMIN 2.5. WE WILL START LEVAQUIN IV, DUONEBS, CONTINUE ALBUMIN, TAMIFLU, AND CONTINUE TO MONITOR. WE WILL FOLLOW UP IN AM WITH LABS. - Past Medical Family Social History Past Med/Fam/Surg Hx: No changes since H&P Allergies: Allergies Sertraline [From Zoloft] Allergy (Severe, Verified 05/07/15 15:52) RASH - Review of Systems ROS: No change since H&P - Vital Signs and I&O's Vital Signs: Temperature 98.2 F Pulse Rate [Left Radial] 64 Pulse Rate [Right Radial] 82 Pulse Rate 85 Respiratory Rate 20 Blood Pressure [Left Arm] 106/55 Blood Pressure [Right Arm] 173/92 O2 Sat by Pulse Oximetry 95 Intake and Output: Intake & Output 07/26/16 07/27/16 07/28/16 07/29/16 11:59 11:59 11:59 11:59 Intake Total 727 2139 2856 1570 Balance 727 2139 2856 1570 - Physical Exam Oriented: Normal, Time, Person, Place Eyes: Normal. negative: Blurred Vision, Diplopia, Discharge, Pain, Redness, Photophobia Ear: Normal. negative: Swelling, Ecchymosis, Hemotypanum, Abrasion, Laceration Nose: Normal. negative: Injected, Discharge, Blood Throat: Red, Dry. negative: Tonsillar Hypertrophy, Exudate Respiratory: Normal Cardiovascular: Normal. negative: Murmur, Edema : Dysuria, Hematuria, Frequency. negative: Discharge, Bleeding, Auscultation: Bowel Sounds: Normal. negative: Bruit Palpation: Normal. negative: Spleen Enlarged, Liver Enlarged, Mass Pulsatile Tenderness: Diffuse, Moderate. negative: Rebound, Guarding, Rigidity Skin: Decreased Turgur, Wound (Skin tear Left Elbow and Right Forearm). negative: Diaphoresis Musculoskeletal: Instability Psychiatric: Normal Mood Description: Calm Affect: Quiet Speech Pattern: Clear, Appropriate - Laboratory and Diagnostics Result Diagrams: 07/28/16 04:49 07/28/16 04:49 Labs: 07/28/16 08:44 Stool - Final 07/25/16 17:25 Urine,Catheterized Urine Culture - Final Laboratory WBC 3.9 X10^3/uL (3.6-10.0) 07/28/16 04:49 RBC 3.25 X10^6/uL (3.5-5.4) L 07/28/16 04:49 Hgb 10.2 g/dL (12.0-16.0) L 07/28/16 04:49 Hct 31.0 % (36.0-47.0) L 07/28/16 04:49 MCV 95.4 fL (80.0-100.0) 07/28/16 04:49 MCH 31.5 pg (27.0-34.0) 07/28/16 04:49 MCHC 33.0 g/dL (33.0-35.0) 07/28/16 04:49 RDW 17.5 % (11.6-16.5) H 07/28/16 04:49 Plt Count 84 X10^3/uL (150.0-450.0) L 07/28/16 04:49 Plt Count Comment Increased (ADEQUATE) A 07/25/16 11:25 MPV 9.4 fL (7.4-11.0) 07/28/16 04:49 Neut % 59.9 % (42.0-75.0) 07/28/16 04:49 Lymph % 27.2 % (21.0-51.0) 07/28/16 04:49 [place] % 12.5 % (0.0-13.0) 07/28/16 04:49 Eos % 0.1 % (0.9-2.9) L 07/28/16 04:49 Baso % 0.3 % (0.2-1.0) 07/28/16 04:49 Neut # 2.4 x10^3/uL (2.2-4.8) 07/28/16 04:49 Lymph # 1.1 X10^3/uL (1.3-2.9) L 07/28/16 04:49 [place] # 0.5 x10^3/uL (0.3-0.8) 07/28/16 04:49 Eos # 0.0 x10^3/uL (0.0-0.2) 07/28/16 04:49 Baso # 0.0 X10^3/uL (0.0-0.1) 07/28/16 04:49 Absolute Nucleated RBC 0.2 /100WBC 07/28/16 04:49 Plt Morphology Comment Normal (NORMAL) 07/25/16 11:25 RBC Morphology Normal (NORMAL) 07/25/16 11:25 Poikilocytosis Slight A 07/25/16 11:25 Sodium 147 mmol/L (136-145) H 07/28/16 04:49 Corrected Sodium 147 mmol/L (136-145) H 07/28/16 04:49 Potassium 4.5 mmol/L (3.5-5.1) 07/28/16 04:49 Chloride 114 mmol/L (98-107) H 07/28/16 04:49 Carbon Dioxide 25.1 mmol/L (21-32) 07/28/16 04:49 BUN 5 mg/dL (7-18) L 07/28/16 04:49 Creatinine 0.57 mg/dL (0.55-1.02) 07/28/16 04:49 Est GFR (MDRD) Af Amer > 60 (>60) 07/28/16 04:49 Est GFR (MDRD) Non-Af > 60 (>60) 07/28/16 04:49 Glucose 116 mg/dL (65-99) H 07/28/16 04:49 Calcium 7.2 mg/dL (8.5-10.1) L 07/28/16 04:49 Corrected Calcium 8.2 mg/dL (8.5-10.1) L 07/28/16 04:49 Total Bilirubin 0.30 mg/dL (0.2-1.0) 07/28/16 04:49 AST 43 Units/L (15-37) H 07/28/16 04:49 ALT 45 Units/L (12-78) 07/28/16 04:49 Alkaline Phosphatase 58 Units/L (46-116) 07/28/16 04:49 Total Protein 5.0 g/dL (6.4-8.2) L 07/28/16 04:49 Albumin 2.7 g/dL (3.4-5.0) L 07/28/16 04:49 Globulin 2.3 g/dL (2.5-4.5) L 07/28/16 04:49 Albumin/Globulin Ratio 1.2 Ratio (1.1-2.1) 07/28/16 04:49 Specimen Type Catherized urine 07/25/16 17:25 Urine Color Yellow (YELLOW) 07/25/16 17:25 Urine Appearance Cloudy (CLEAR) 07/25/16 17:25 Urine pH 6.0 (5.0 - 8.0) 07/25/16 17:25 Ur Specific [place] 1.015 (1.000-1.030) 07/25/16 17:25 Urine Protein 2+ (NEGATIVE) 07/25/16 17:25 Urine Glucose (UA) Negative (NEGATIVE) 07/25/16 17:25 Urine Ketones Negative (NEGATIVE) 07/25/16 17:25 Urine Occult Blood 2+ (NEGATIVE) 07/25/16 17:25 Urine Nitrite Negative (NEGATIVE) 07/25/16 17:25 Urine Bilirubin Negative (NEGATIVE) 07/25/16 17:25 Urine Urobilinogen Normal (NORMAL) 07/25/16 17:25 Ur Leukocyte Esterase 3+ (NEGATIVE) 07/25/16 17:25 Urine RBC 4-5 /HPF (NEGATIVE) 07/25/16 17:25 Urine WBC 12-14 /HPF (NEGATIVE) 07/25/16 17:25 Ur Squamous Epith Cells Few /HPF (NEGATIVE) 07/25/16 17:25 Amorphous Sediment Trace /HPF (NEGATIVE) 07/25/16 17:25 Urine Bacteria Trace /HPF (NEGATIVE) 07/25/16 17:25 Urine Mucus Rare /HPF (NEGATIVE) 07/25/16 17:25 Ur Culture Indicated? Yes/culture set up 07/25/16 17:25 Stool Description 40 g. brown/formed 07/28/16 08:44 Stl Occult Blood (IFOB) Positive (NEGATIVE) A 07/28/16 08:44 Stool for White Cells No wbc's seen (None) 07/28/16 08:44 Stl C. diff Tox B Gene Negative (NEGATIVE) 07/28/16 08:44 Stl C. diff [id number] Negative (NEGATIVE) 07/28/16 08:44 Cryptosporid parvum Ag Negative (NEGATIVE) 07/28/16 08:44 E. histolytica Antigen Negative (NEGATIVE) 07/28/16 08:44 Giardia lamblia Ag Negative (NEGATIVE) 07/28/16 08:44 Influenza A (H1N1) PCR Not detected (NOT DETECT) 07/25/16 20:19 Influenza Type A (PCR) Positive (NEGATIVE) A 07/25/16 20:19 Influenza Type B (PCR) Negative (NEGATIVE) 07/25/16 20:19 - Plan (1) Altered mental status Status: Acute Qualifiers: Altered mental status type: disorientation Coma depth: C Coma timing: C Qualified Code(s): R41.0 - Disorientation, unspecified Plan: CONTINUE IV FLUIDS, CONTINUE TO MONITOR. (2) Bronchitis Status: Acute Plan: START IV LEVAQUIN, DUONEBS, MONITOR LABS AND CHEST XRAY. (3) Vomiting and diarrhea Status: Acute Plan: CONTINUE IV FLUIDS, PEPCID, PROTONIX, IV ZOFRAN, MONITOR. (4) Fever Status: Acute Qualifiers: Fever type: unspecified Encounter type: E Qualified Code(s): R50.9 - Fever, unspecified Plan: CONTINUE TO MONITOR. (5) Fatigue Status: Acute Qualifiers: Fatigue type: other Encounter type: E Trimester: T Qualified Code(s): R53.83 - Other fatigue Plan: ABOVE. (6) Poor appetite Status: Acute Plan: ABOVE. (7) Influenza A Status: Acute Plan: START TAMIFLU, MONITOR. (8) CAD (coronary artery disease) Status: Chronic Qualifiers: Coronary Disease-Associated Artery/Lesion type: [place] artery [place] vs. transplanted heart: [place] heart Associated angina: without angina Qualified Code(s): I25.10 - Atherosclerotic heart disease of [place] coronary artery without angina pectoris (9) CHF (congestive heart failure) Status: Chronic Qualifiers: Congestive heart failure type: combined Congestive heart failure chronicity : chronic Qualified Code(s): I50.42 - Chronic combined systolic (congestive) and diastolic (congestive) heart failure (10) Depression Status: Chronic Qualifiers: Depression Type: major depressive disorder Major depression recurrence: M Active/Remission status: in full remission Major depression episode severity : M Psychotic features: P Trimester: T (11) GERD (gastroesophageal reflux disease) Status: Chronic Qualifiers: Esophagitis presence: esophagitis presence not specified Qualified Code(s) : K21.9 - Gastro-esophageal reflux disease without esophagitis (12) H/O heart artery stent Status: Chronic (13) History of anemia Status: Chronic (14) Hyperlipidemia Status: Chronic Qualifiers: Hyperlipidemia type: mixed hyperlipidemia Qualified Code(s): E78.2 - Mixed hyperlipidemia (15) Hypertension Status: Chronic Qualifiers: Hypertension type: essential hypertension Qualified Code(s): I10 - Essential (primary) hypertension (16) Muscular dystrophy Status: Chronic (17) PVD (peripheral vascular disease) Status: Chronic (18) Rheumatoid arthritis Status: Chronic Qualifiers: Rheumatoid arthritis location: multiple sites Rheumatoid factor presence: without rheumatoid factor Laterality: L Qualified Code(s): M06.09 - Rheumatoid arthritis without rheumatoid factor, multiple sites
--- NOTE | 2016-07-28 17:22 | PCM.PROG ---
Progress Note - Progress Note for Day of Date: 07/28/16 - Subjective Subjective: PATIENT CONTINUES WITH INTERMITTENT NAUSEA THIS MORNING. SHE REPORTS VOMITING HAS IMPROVED BUT CONTINUES WITH POOR APPETITE. PATIENT AFEBRILE. PATIENT CONTINUES TO REPORT FATIGUE AND MALAISE ALONG WITH GENERALIZED WEAKNESS. ON AUSCULTATION, LUNGS ARE NOTED WITH SCATTERED WHEEZES ON THE RIGHT SIDE. COUGH IS INTERMITTENT, COARSE, NON-PRODUCTIVE. CBC WNL EXCEPT: H/H 10.2/31.0, PLT COUNT 84. CMP WNL EXCEPT: SODIUM 147, CHL 114, GLUCOSE 116, CALCIUM 7.2, TOT PROTEIN 5.0, ALBUMIN 2.7. WE WILL START LEVAQUIN IV, DUONEBS, CONTINUE ALBUMIN, TAMIFLU, AND CONTINUE TO MONITOR. WE WILL FOLLOW UP IN AM WITH LABS. - Past Medical Family Social History Past Med/Fam/Surg Hx: No changes since H&P Allergies: Allergies Sertraline [From Zoloft] Allergy (Severe, Verified 05/07/15 15:52) RASH - Review of Systems ROS: No change since H&P - Vital Signs and I&O's Vital Signs: Temperature 98.2 F Pulse Rate [Left Radial] 64 Pulse Rate [Right Radial] 82 Pulse Rate 85 Respiratory Rate 20 Blood Pressure [Left Arm] 106/55 Blood Pressure [Right Arm] 173/92 O2 Sat by Pulse Oximetry 95 Intake and Output: Intake & Output 07/26/16 07/27/16 07/28/16 07/29/16 11:59 11:59 11:59 11:59 Intake Total 727 2139 2856 1570 Balance 727 2139 2856 1570 - Physical Exam Oriented: Normal, Time, Person, Place Eyes: Normal. negative: Blurred Vision, Diplopia, Discharge, Pain, Redness, Photophobia Ear: Normal. negative: Swelling, Ecchymosis, Hemotypanum, Abrasion, Laceration Nose: Normal. negative: Injected, Discharge, Blood Throat: Red, Dry. negative: Tonsillar Hypertrophy, Exudate Respiratory: Normal Cardiovascular: Normal. negative: Murmur, Edema : Dysuria, Hematuria, Frequency. negative: Discharge, Bleeding, Auscultation: Bowel Sounds: Normal. negative: Bruit Palpation: Normal. negative: Spleen Enlarged, Liver Enlarged, Mass Pulsatile Tenderness: Diffuse, Moderate. negative: Rebound, Guarding, Rigidity Skin: Decreased Turgur, Wound (Skin tear Left Elbow and Right Forearm). negative: Diaphoresis Musculoskeletal: Instability Psychiatric: Normal Mood Description: Calm Affect: Quiet Speech Pattern: Clear, Appropriate - Laboratory and Diagnostics Result Diagrams: 07/28/16 04:49 07/28/16 04:49 Labs: 07/28/16 08:44 Stool - Final 07/25/16 17:25 Urine,Catheterized Urine Culture - Final Laboratory WBC 3.9 X10^3/uL (3.6-10.0) 07/28/16 04:49 RBC 3.25 X10^6/uL (3.5-5.4) L 07/28/16 04:49 Hgb 10.2 g/dL (12.0-16.0) L 07/28/16 04:49 Hct 31.0 % (36.0-47.0) L 07/28/16 04:49 MCV 95.4 fL (80.0-100.0) 07/28/16 04:49 MCH 31.5 pg (27.0-34.0) 07/28/16 04:49 MCHC 33.0 g/dL (33.0-35.0) 07/28/16 04:49 RDW 17.5 % (11.6-16.5) H 07/28/16 04:49 Plt Count 84 X10^3/uL (150.0-450.0) L 07/28/16 04:49 Plt Count Comment Increased (ADEQUATE) A 07/25/16 11:25 MPV 9.4 fL (7.4-11.0) 07/28/16 04:49 Neut % 59.9 % (42.0-75.0) 07/28/16 04:49 Lymph % 27.2 % (21.0-51.0) 07/28/16 04:49 [place] % 12.5 % (0.0-13.0) 07/28/16 04:49 Eos % 0.1 % (0.9-2.9) L 07/28/16 04:49 Baso % 0.3 % (0.2-1.0) 07/28/16 04:49 Neut # 2.4 x10^3/uL (2.2-4.8) 07/28/16 04:49 Lymph # 1.1 X10^3/uL (1.3-2.9) L 07/28/16 04:49 [place] # 0.5 x10^3/uL (0.3-0.8) 07/28/16 04:49 Eos # 0.0 x10^3/uL (0.0-0.2) 07/28/16 04:49 Baso # 0.0 X10^3/uL (0.0-0.1) 07/28/16 04:49 Absolute Nucleated RBC 0.2 /100WBC 07/28/16 04:49 Plt Morphology Comment Normal (NORMAL) 07/25/16 11:25 RBC Morphology Normal (NORMAL) 07/25/16 11:25 Poikilocytosis Slight A 07/25/16 11:25 Sodium 147 mmol/L (136-145) H 07/28/16 04:49 Corrected Sodium 147 mmol/L (136-145) H 07/28/16 04:49 Potassium 4.5 mmol/L (3.5-5.1) 07/28/16 04:49 Chloride 114 mmol/L (98-107) H 07/28/16 04:49 Carbon Dioxide 25.1 mmol/L (21-32) 07/28/16 04:49 BUN 5 mg/dL (7-18) L 07/28/16 04:49 Creatinine 0.57 mg/dL (0.55-1.02) 07/28/16 04:49 Est GFR (MDRD) Af Amer > 60 (>60) 07/28/16 04:49 Est GFR (MDRD) Non-Af > 60 (>60) 07/28/16 04:49 Glucose 116 mg/dL (65-99) H 07/28/16 04:49 Calcium 7.2 mg/dL (8.5-10.1) L 07/28/16 04:49 Corrected Calcium 8.2 mg/dL (8.5-10.1) L 07/28/16 04:49 Total Bilirubin 0.30 mg/dL (0.2-1.0) 07/28/16 04:49 AST 43 Units/L (15-37) H 07/28/16 04:49 ALT 45 Units/L (12-78) 07/28/16 04:49 Alkaline Phosphatase 58 Units/L (46-116) 07/28/16 04:49 Total Protein 5.0 g/dL (6.4-8.2) L 07/28/16 04:49 Albumin 2.7 g/dL (3.4-5.0) L 07/28/16 04:49 Globulin 2.3 g/dL (2.5-4.5) L 07/28/16 04:49 Albumin/Globulin Ratio 1.2 Ratio (1.1-2.1) 07/28/16 04:49 Specimen Type Catherized urine 07/25/16 17:25 Urine Color Yellow (YELLOW) 07/25/16 17:25 Urine Appearance Cloudy (CLEAR) 07/25/16 17:25 Urine pH 6.0 (5.0 - 8.0) 07/25/16 17:25 Ur Specific [place] 1.015 (1.000-1.030) 07/25/16 17:25 Urine Protein 2+ (NEGATIVE) 07/25/16 17:25 Urine Glucose (UA) Negative (NEGATIVE) 07/25/16 17:25 Urine Ketones Negative (NEGATIVE) 07/25/16 17:25 Urine Occult Blood 2+ (NEGATIVE) 07/25/16 17:25 Urine Nitrite Negative (NEGATIVE) 07/25/16 17:25 Urine Bilirubin Negative (NEGATIVE) 07/25/16 17:25 Urine Urobilinogen Normal (NORMAL) 07/25/16 17:25 Ur Leukocyte Esterase 3+ (NEGATIVE) 07/25/16 17:25 Urine RBC 4-5 /HPF (NEGATIVE) 07/25/16 17:25 Urine WBC 12-14 /HPF (NEGATIVE) 07/25/16 17:25 Ur Squamous Epith Cells Few /HPF (NEGATIVE) 07/25/16 17:25 Amorphous Sediment Trace /HPF (NEGATIVE) 07/25/16 17:25 Urine Bacteria Trace /HPF (NEGATIVE) 07/25/16 17:25 Urine Mucus Rare /HPF (NEGATIVE) 07/25/16 17:25 Ur Culture Indicated? Yes/culture set up 07/25/16 17:25 Stool Description 40 g. brown/formed 07/28/16 08:44 Stl Occult Blood (IFOB) Positive (NEGATIVE) A 07/28/16 08:44 Stool for White Cells No wbc's seen (None) 07/28/16 08:44 Stl C. diff Tox B Gene Negative (NEGATIVE) 07/28/16 08:44 Stl C. diff [id number] Negative (NEGATIVE) 07/28/16 08:44 Cryptosporid parvum Ag Negative (NEGATIVE) 07/28/16 08:44 E. histolytica Antigen Negative (NEGATIVE) 07/28/16 08:44 Giardia lamblia Ag Negative (NEGATIVE) 07/28/16 08:44 Influenza A (H1N1) PCR Not detected (NOT DETECT) 07/25/16 20:19 Influenza Type A (PCR) Positive (NEGATIVE) A 07/25/16 20:19 Influenza Type B (PCR) Negative (NEGATIVE) 07/25/16 20:19 - Plan (1) Altered mental status Status: Acute Qualifiers: Altered mental status type: disorientation Coma depth: C Coma timing: C Qualified Code(s): R41.0 - Disorientation, unspecified Plan: CONTINUE IV FLUIDS, CONTINUE TO MONITOR. (2) Bronchitis Status: Acute Plan: CONTINUE IV LEVAQUIN, DUONEBS, MONITOR LABS AND CHEST XRAY. (3) Vomiting and diarrhea Status: Acute Plan: CONTINUE IV FLUIDS, PEPCID, PROTONIX, IV ZOFRAN, MONITOR. (4) Fever Status: Acute Qualifiers: Fever type: unspecified Encounter type: E Qualified Code(s): R50.9 - Fever, unspecified Plan: CONTINUE TO MONITOR. (5) Fatigue Status: Acute Qualifiers: Fatigue type: other Encounter type: E Trimester: T Qualified Code(s): R53.83 - Other fatigue Plan: ABOVE. (6) Poor appetite Status: Acute Plan: ABOVE. (7) Influenza A Status: Acute Plan: CONTINUE TAMIFLU, MONITOR. (8) CAD (coronary artery disease) Status: Chronic Qualifiers: Coronary Disease-Associated Artery/Lesion type: [place] artery [place] vs. transplanted heart: [place] heart Associated angina: without angina Qualified Code(s): I25.10 - Atherosclerotic heart disease of [place] coronary artery without angina pectoris (9) CHF (congestive heart failure) Status: Chronic Qualifiers: Congestive heart failure type: combined Congestive heart failure chronicity : chronic Qualified Code(s): I50.42 - Chronic combined systolic (congestive) and diastolic (congestive) heart failure (10) Depression Status: Chronic Qualifiers: Depression Type: major depressive disorder Major depression recurrence: M Active/Remission status: in full remission Major depression episode severity : M Psychotic features: P Trimester: T (11) GERD (gastroesophageal reflux disease) Status: Chronic Qualifiers: Esophagitis presence: esophagitis presence not specified Qualified Code(s) : K21.9 - Gastro-esophageal reflux disease without esophagitis (12) H/O heart artery stent Status: Chronic (13) History of anemia Status: Chronic (14) Hyperlipidemia Status: Chronic Qualifiers: Hyperlipidemia type: mixed hyperlipidemia Qualified Code(s): E78.2 - Mixed hyperlipidemia (15) Hypertension Status: Chronic Qualifiers: Hypertension type: essential hypertension Qualified Code(s): I10 - Essential (primary) hypertension (16) Muscular dystrophy Status: Chronic (17) PVD (peripheral vascular disease) Status: Chronic (18) Rheumatoid arthritis Status: Chronic Qualifiers: Rheumatoid arthritis location: multiple sites Rheumatoid factor presence: without rheumatoid factor Laterality: L Qualified Code(s): M06.09 - Rheumatoid arthritis without rheumatoid factor, multiple sites
[2016-07-28] MEDS: XANAX PO SCH (21:34)
[2016-07-28] MEDS: LIPITOR TAB 40 MG PO SCH (21:35)
[2016-07-29] MEDS: NEURONTIN TAB 600 MG PO SCH ×3 (05:34→21:42)
[2016-07-29 05:41] LABS: BASOPHILS % (AUTO) 0.2 % (0.2-1.0); EOSINOPHILS % (AUTO) 0.3 % (0.9-2.9); HEMATOCRIT 30.9 % (36.0-47.0); HEMOGLOBIN 10.4 g/dL (12.0-16.0); LYMPHOCYTES # (AUTO) 1.3 X10^3/uL (1.3-2.9); LYMPHOCYTES % (AUTO) 22.8 % (21.0-51.0); MEAN CORPUSCULAR HEMOGLOBIN 31.8 pg (27.0-34.0); MEAN CORPUSCULAR HGB CONC 33.6 g/dL (33.0-35.0); MEAN CORPUSCULAR VOLUME 94.6 fL (80.0-100.0); MEAN PLATELET VOLUME 9.7 fL (7.4-11.0); MONOCYTES # (AUTO) 0.7 x10^3/uL (0.3-0.8); MONOCYTES % (AUTO) 11.9 % (0.0-13.0); NEUTROPHILS # (AUTO) 3.7 x10^3/uL (2.2-4.8); NEUTROPHILS % (AUTO) 64.8 % (42.0-75.0); PLATELET COUNT 86 X10^3/uL (150.0-450.0); RED BLOOD COUNT 3.26 X10^6/uL (3.5-5.4); RED CELL DISTRIBUTION WIDTH 17.6 % (11.6-16.5); WHITE BLOOD COUNT 5.7 X10^3/uL (3.6-10.0)
[2016-07-29 05:48] LABS: ALANINE AMINOTRANSFERASE 40 Units/L (12-78); ALKALINE PHOSPHATASE 50 Units/L (46-116); ASPARTATE AMINO TRANSFERASE 37 Units/L (15-37); BLOOD UREA NITROGEN 6 mg/dL (7-18); CALCIUM 7.5 mg/dL (8.5-10.1); CHLORIDE 114 mmol/L (98-107); COR CA(FOR HYPOALB) 8.3 mg/dL (8.5-10.1); CREATININE 0.58 mg/dL (0.55-1.02); GLUCOSE 91 mg/dL (65-99); SODIUM 147 mmol/L (136-145); TOTAL PROTEIN 5.3 g/dL (6.4-8.2); eGFR BLACK RACES > 60 (>60); eGFR NON BLACK RACES > 60 (>60)
--- NOTE | 2016-07-29 07:21 | RAD ---
AP chest Indication: Fever with cough and congestion comparison: 07/25/2016 Findings: There is consolidation within the left lung base potentially representing developing infil trate versus atelectasis. Hazy opacity within the right lung base likely represents elevation of the hemidiaphragm; however a small infiltrate or layering pleural effusion is also not excluded. The re maining lungs are clear. Heart size is enlarged with tortuosity and likely a ectasia/mild dilatation of the thoracic aorta. No pneumothorax. No acute osseous abnormality. Impression: See above. Reported By:
[2016-07-29] MEDS: DUONEB 0.5 MG/3 MG NEB SCH ×4 (08:13→21:32)
[2016-07-29] MEDS: LEVAQUIN PREMIX IV 500 MG 500 MG/100 ML BAG IV SCH (08:32)
[2016-07-29] MEDS: ALBUMIN HUMAN 25%- 100ML 100 ML IV SCH (08:32)
[2016-07-29] MEDS: PEPCID 20 MG IV PREMIX* 20 MG/50 ML BAG IV SCH ×2 (08:32→20:23)
[2016-07-29] MEDS: PROTONIX INJ 40 MG VIAL IVP SCH (08:33)
[2016-07-29] MEDS: NS 1000 ML 1,000 ML IV SCH ×4 (08:33→22:56)
[2016-07-29] MEDS: TOPROL XL PO SCH (08:34)
[2016-07-29] MEDS: ARICEPT TAB 10 MG PO SCH (08:34)
[2016-07-29] MEDS: PREDNISONE TAB 5 MG PO SCH ×2 (08:34→20:21)
[2016-07-29] MEDS: ZYLOPRIM PO SCH (08:34)
[2016-07-29] MEDS: TAMIFLU PO SCH ×2 (08:34→20:22)
[2016-07-29] MEDS: K-DUR TAB 20 MEQ PO SCH ×2 (08:34→20:23)
[2016-07-29] MEDS: PLAVIX PO SCH (08:34)
--- NOTE | 2016-07-29 14:46 | PCM.PROG ---
Progress Note - Progress Note for Day of Date: 07/29/16 - Subjective Subjective: PATIENT IS NOTED WITH DEPRESSION THIS MORNING. DAUGHTER AT BEDSIDE. PATIENT CONTINUES WITH POOR APPETITE. PATIENT CONTINUES TREATMENT FOR BRONCHOPNEUMONIA SECONDARY TO INFLUENZA A AND POOR APPETITE. 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 UPON AMBULATING YESTERDAY, O2 SATURATION WAS 82% WITHOUT SUPPLEMENTAL OXYGEN. WE DISCUSS THIS WITH PATIENT AND HER DAUGHTER. BOTH ARE IN AGREEMENT WITH RE-EVALUATION FOR HOME O2. PATIENT AFEBRILE. PATIENT CONTINUES WITH FATIGUE AND MALAISE ALONG WITH GENERALIZED WEAKNESS. ON AUSCULTATION, LUNGS CONTINUE WITH SCATTERED WHEEZES ON THE RIGHT SIDE. COUGH IS INTERMITTENT, COARSE, NON-PRODUCTIVE. CBC WNL EXCEPT: H/H 10.4/30.9, PLT COUNT 86. CMP WNL EXCEPT: SODIUM 147, CHL 114, CALCIUM 7.5, TOT PROTEIN 5.3, ALBUMIN 3.0. WE WILL START BIPAP NEB TREATMENTS, OBTAIN SPUTUM CULTURE, CONTINUE LEVAQUIN IV, DUONEBS, CONTINUE ALBUMIN, TAMIFLU , AND CONTINUE TO MONITOR. WE WILL FOLLOW UP IN AM WITH LABS. - Past Medical Family Social History Past Med/Fam/Surg Hx: No changes since H&P Allergies: Allergies Sertraline [From Zoloft] Allergy (Severe, Verified 05/07/15 15:52) RASH - Review of Systems ROS: No change since H&P - Vital Signs and I&O's Vital Signs: Temperature 98.2 F Pulse Rate [Left Radial] 63 Pulse Rate [Right Radial] 53 Pulse Rate 59 Respiratory Rate 14 Blood Pressure [Right Arm] 145/65 O2 Sat by Pulse Oximetry 96 Intake and Output: Intake & Output 07/27/16 07/28/16 07/29/16 07/30/16 11:59 11:59 11:59 11:59 Intake Total 2380 Output Total 500 Balance 1880 - Physical Exam Oriented: Normal, Time, Person, Place Eyes: Normal. negative: Blurred Vision, Diplopia, Discharge, Pain, Redness, Photophobia Ear: Normal. negative: Swelling, Ecchymosis, Hemotypanum, Abrasion, Laceration Nose: Normal. negative: Injected, Discharge, Blood Throat: Red, Dry. negative: Tonsillar Hypertrophy, Exudate Respiratory: Generalized, Wheezes Cardiovascular: Normal. negative: Murmur, Edema : Normal. negative: Discharge, Bleeding, Auscultation: Bowel Sounds: Normal. negative: Bruit Palpation: Normal. negative: Spleen Enlarged, Liver Enlarged, Mass Pulsatile Tenderness: Diffuse, Moderate. negative: Rebound, Guarding, Rigidity Skin: Decreased [place], Wound (Skin tear Left Elbow and Right Forearm). negative: Diaphoresis Musculoskeletal: Instability Psychiatric: Normal Mood Description: Depressed Affect: Depressed Speech Pattern: Clear, Appropriate - Laboratory and Diagnostics Result Diagrams: 07/29/16 03:45 07/29/16 03:45 Labs: 07/29/16 11:34 Sputum - Expectorated Sputum Sputum Culture - Final 07/29/16 11:34 Sputum - Expectorated Sputum - Final 07/28/16 08:44 Stool Stool Culture - Preliminary 07/28/16 08:44 Stool - Final Laboratory WBC 5.7 X10^3/uL (3.6-10.0) 07/29/16 03:45 RBC 3.26 X10^6/uL (3.5-5.4) L 07/29/16 03:45 Hgb 10.4 g/dL (12.0-16.0) L 07/29/16 03:45 Hct 30.9 % (36.0-47.0) L 07/29/16 03:45 MCV 94.6 fL (80.0-100.0) 07/29/16 03:45 MCH 31.8 pg (27.0-34.0) 07/29/16 03:45 MCHC 33.6 g/dL (33.0-35.0) 07/29/16 03:45 RDW 17.6 % (11.6-16.5) H 07/29/16 03:45 Plt Count 86 X10^3/uL (150.0-450.0) L 07/29/16 03:45 Plt Count Comment Increased (ADEQUATE) A 07/25/16 11:25 MPV 9.7 fL (7.4-11.0) 07/29/16 03:45 Neut % 64.8 % (42.0-75.0) 07/29/16 03:45 Lymph % 22.8 % (21.0-51.0) 07/29/16 03:45 [place] % 11.9 % (0.0-13.0) 07/29/16 03:45 Eos % 0.3 % (0.9-2.9) L 07/29/16 03:45 Baso % 0.2 % (0.2-1.0) 07/29/16 03:45 Neut # 3.7 x10^3/uL (2.2-4.8) 07/29/16 03:45 Lymph # 1.3 X10^3/uL (1.3-2.9) 07/29/16 03:45 [place] # 0.7 x10^3/uL (0.3-0.8) 07/29/16 03:45 Eos # 0.0 x10^3/uL (0.0-0.2) 07/29/16 03:45 Baso # 0.0 X10^3/uL (0.0-0.1) 07/29/16 03:45 Absolute Nucleated RBC 0.1 /100WBC 07/29/16 03:45 Plt Morphology Comment Normal (NORMAL) 07/25/16 11:25 RBC Morphology Normal (NORMAL) 07/25/16 11:25 Poikilocytosis Slight A 07/25/16 11:25 Sodium 147 mmol/L (136-145) H 07/29/16 03:45 Corrected Sodium TNP 07/29/16 03:45 Potassium 4.4 mmol/L (3.5-5.1) 07/29/16 03:45 Chloride 114 mmol/L (98-107) H 07/29/16 03:45 Carbon Dioxide 26.0 mmol/L (21-32) 07/29/16 03:45 BUN 6 mg/dL (7-18) L 07/29/16 03:45 Creatinine 0.58 mg/dL (0.55-1.02) 07/29/16 03:45 Est GFR (MDRD) Af Amer > 60 (>60) 07/29/16 03:45 Est GFR (MDRD) Non-Af > 60 (>60) 07/29/16 03:45 Glucose 91 mg/dL (65-99) 07/29/16 03:45 Calcium 7.5 mg/dL (8.5-10.1) L 07/29/16 03:45 Corrected Calcium 8.3 mg/dL (8.5-10.1) L 07/29/16 03:45 Total Bilirubin 0.40 mg/dL (0.2-1.0) 07/29/16 03:45 AST 37 Units/L (15-37) 07/29/16 03:45 ALT 40 Units/L (12-78) 07/29/16 03:45 Alkaline Phosphatase 50 Units/L (46-116) 07/29/16 03:45 Total Protein 5.3 g/dL (6.4-8.2) L 07/29/16 03:45 Albumin 3.0 g/dL (3.4-5.0) L 07/29/16 03:45 Globulin 2.3 g/dL (2.5-4.5) L 07/29/16 03:45 Albumin/Globulin Ratio 1.3 Ratio (1.1-2.1) 07/29/16 03:45 Specimen Type Catherized urine 07/25/16 17:25 Urine Color Yellow (YELLOW) 07/25/16 17:25 Urine Appearance Cloudy (CLEAR) 07/25/16 17:25 Urine pH 6.0 (5.0 - 8.0) 07/25/16 17:25 Ur Specific [place] 1.015 (1.000-1.030) 07/25/16 17:25 Urine Protein 2+ (NEGATIVE) 07/25/16 17:25 Urine Glucose (UA) Negative (NEGATIVE) 07/25/16 17:25 Urine Ketones Negative (NEGATIVE) 07/25/16 17:25 Urine Occult Blood 2+ (NEGATIVE) 07/25/16 17:25 Urine Nitrite Negative (NEGATIVE) 07/25/16 17:25 Urine Bilirubin Negative (NEGATIVE) 07/25/16 17:25 Urine Urobilinogen Normal (NORMAL) 07/25/16 17:25 Ur Leukocyte Esterase 3+ (NEGATIVE) 07/25/16 17:25 Urine RBC 4-5 /HPF (NEGATIVE) 07/25/16 17:25 Urine WBC 12-14 /HPF (NEGATIVE) 07/25/16 17:25 Ur Squamous Epith Cells Few /HPF (NEGATIVE) 07/25/16 17:25 Amorphous Sediment Trace /HPF (NEGATIVE) 07/25/16 17:25 Urine Bacteria Trace /HPF (NEGATIVE) 07/25/16 17:25 Urine Mucus Rare /HPF (NEGATIVE) 07/25/16 17:25 Ur Culture Indicated? Yes/culture set up 07/25/16 17:25 Stool Description 40 g. brown/formed 07/28/16 08:44 Stl Occult Blood (IFOB) Positive (NEGATIVE) A 07/28/16 08:44 Stool for White Cells No wbc's seen (None) 07/28/16 08:44 Stl C. diff Tox B Gene Negative (NEGATIVE) 07/28/16 08:44 Stl C. diff [id number] Negative (NEGATIVE) 07/28/16 08:44 Cryptosporid parvum Ag Negative (NEGATIVE) 07/28/16 08:44 E. histolytica Antigen Negative (NEGATIVE) 07/28/16 08:44 Giardia lamblia Ag Negative (NEGATIVE) 07/28/16 08:44 Influenza A (H1N1) PCR Not detected (NOT DETECT) 07/25/16 20:19 Influenza Type A (PCR) Positive (NEGATIVE) A 07/25/16 20:19 Influenza Type B (PCR) Negative (NEGATIVE) 07/25/16 20:19 - Plan (1) Bronchopneumonia due to Haemophilus influenzae Status: Acute Plan: OBTAIN SPUTUM CULTURE, CONTINUE IV LEVAQUIN, DUONEBS, MONITOR LABS AND CHEST XRAY. (2) Altered mental status Status: Acute Qualifiers: Altered mental status type: disorientation Coma depth: C Coma timing: C Qualified Code(s): R41.0 - Disorientation, unspecified Plan: IMPROVED, CONTINUE IV FLUIDS, CONTINUE TO MONITOR. (3) Vomiting and diarrhea Status: Acute Plan: CONTINUE IV FLUIDS, PEPCID, PROTONIX, IV ZOFRAN, MONITOR. (4) Fever Status: Acute Qualifiers: Fever type: unspecified Encounter type: E Qualified Code(s): R50.9 - Fever, unspecified Plan: CONTINUE TO MONITOR. (5) Fatigue Status: Acute Qualifiers: Fatigue type: other Encounter type: E Trimester: T Qualified Code(s): R53.83 - Other fatigue Plan: ABOVE. (6) Poor appetite Status: Acute Plan: ABOVE. (7) Influenza A Status: Acute Plan: CONTINUE TAMIFLU, MONITOR. (8) CAD (coronary artery disease) Status: Chronic Qualifiers: Coronary Disease-Associated Artery/Lesion type: [place] artery [place] vs. transplanted heart: [place] heart Associated angina: without angina Qualified Code(s): I25.10 - Atherosclerotic heart disease of [place] coronary artery without angina pectoris (9) CHF (congestive heart failure) Status: Chronic Qualifiers: Congestive heart failure type: combined Congestive heart failure chronicity : chronic Qualified Code(s): I50.42 - Chronic combined systolic (congestive) and diastolic (congestive) heart failure (10) Depression Status: Chronic Qualifiers: Depression Type: major depressive disorder Major depression recurrence: M Active/Remission status: in full remission Major depression episode severity : M Psychotic features: P Trimester: T (11) GERD (gastroesophageal reflux disease) Status: Chronic Qualifiers: Esophagitis presence: esophagitis presence not specified Qualified Code(s) : K21.9 - Gastro-esophageal reflux disease without esophagitis (12) H/O heart artery stent Status: Chronic (13) History of anemia Status: Chronic (14) Hyperlipidemia Status: Chronic Qualifiers: Hyperlipidemia type: mixed hyperlipidemia Qualified Code(s): E78.2 - Mixed hyperlipidemia (15) Hypertension Status: Chronic Qualifiers: Hypertension type: essential hypertension Qualified Code(s): I10 - Essential (primary) hypertension (16) Muscular dystrophy Status: Chronic (17) PVD (peripheral vascular disease) Status: Chronic (18) Rheumatoid arthritis Status: Chronic Qualifiers: Rheumatoid arthritis location: multiple sites Rheumatoid factor presence: without rheumatoid factor Laterality: L Qualified Code(s): M06.09 - Rheumatoid arthritis without rheumatoid factor, multiple sites
[2016-07-29] MEDS: ROBITUSSIN DM PO SCH ×2 (16:39→20:21)
[2016-07-29] MEDS: LIPITOR TAB 40 MG PO SCH (20:21)
[2016-07-29] MEDS: XANAX PO SCH (20:21)
[2016-07-30] MEDS: DUONEB 0.5 MG/3 MG NEB SCH ×4 (01:04→12:12)
[2016-07-30] MEDS: NEURONTIN TAB 600 MG PO SCH ×2 (05:20→14:13)
[2016-07-30 05:22] LABS: BASOPHILS % (AUTO) 0.1 % (0.2-1.0); EOSINOPHILS % (AUTO) 0.1 % (0.9-2.9); HEMATOCRIT 31.2 % (36.0-47.0); HEMOGLOBIN 10.5 g/dL (12.0-16.0); LYMPHOCYTES # (AUTO) 1.5 X10^3/uL (1.3-2.9); LYMPHOCYTES % (AUTO) 26.1 % (21.0-51.0); MEAN CORPUSCULAR HEMOGLOBIN 31.8 pg (27.0-34.0); MEAN CORPUSCULAR HGB CONC 33.6 g/dL (33.0-35.0); MEAN CORPUSCULAR VOLUME 94.5 fL (80.0-100.0); MEAN PLATELET VOLUME 9.5 fL (7.4-11.0); MONOCYTES # (AUTO) 0.8 x10^3/uL (0.3-0.8); MONOCYTES % (AUTO) 13.5 % (0.0-13.0); NEUTROPHILS # (AUTO) 3.4 x10^3/uL (2.2-4.8); NEUTROPHILS % (AUTO) 60.2 % (42.0-75.0); PLATELET COUNT 84 X10^3/uL (150.0-450.0); RED CELL DISTRIBUTION WIDTH 16.8 % (11.6-16.5); WHITE BLOOD COUNT 5.6 X10^3/uL (3.6-10.0)
[2016-07-30 05:31] LABS: ALANINE AMINOTRANSFERASE 44 Units/L (12-78); ALBUMIN 3.1 g/dL (3.4-5.0); ALKALINE PHOSPHATASE 51 Units/L (46-116); ASPARTATE AMINO TRANSFERASE 32 Units/L (15-37); BLOOD UREA NITROGEN 5 mg/dL (7-18); CALCIUM 7.8 mg/dL (8.5-10.1); CARBON DIOXIDE 28.3 mmol/L (21-32); CHLORIDE 111 mmol/L (98-107); COR CA(FOR HYPOALB) 8.5 mg/dL (8.5-10.1); CREATININE 0.51 mg/dL (0.55-1.02); GLUCOSE 89 mg/dL (65-99); SODIUM 146 mmol/L (136-145); TOTAL PROTEIN 5.4 g/dL (6.4-8.2); eGFR BLACK RACES > 60 (>60); eGFR NON BLACK RACES > 60 (>60)
--- NOTE | 2016-07-30 06:55 | RAD ---
HISTORY: Fever, nausea, vomiting Study: Chest one view Comparison: July 29, 2016 Findings: The patient is rotated to the left. The heart remains enlarged. Mild pulmonary venous congestion is present. No interstitial edema, alveolar edema, or alveolar infiltrates are identified. Haziness in the right lung base is likely due to pleural effusion there is also likely a left pleural effusion p resent. The bony thorax is unremarkable. IMPRESSION: Cardiomegaly with mild pulmonary venous congestion Bilateral pleural effusions Reported By:
[2016-07-30] MEDS: LEVAQUIN PREMIX IV 500 MG 500 MG/100 ML BAG IV SCH ×2 (08:47→12:18)
[2016-07-30] MEDS: ROBITUSSIN DM PO SCH ×2 (08:48→14:12)
[2016-07-30] MEDS: ALBUMIN HUMAN 25%- 100ML 100 ML IV SCH ×2 (08:48→12:17)
[2016-07-30] MEDS: PROTONIX INJ 40 MG VIAL IVP SCH (08:48)
[2016-07-30] MEDS: PEPCID 20 MG IV PREMIX* 20 MG/50 ML BAG IV SCH (08:48)
[2016-07-30] MEDS: PREDNISONE TAB 5 MG PO SCH (08:49)
[2016-07-30] MEDS: K-DUR TAB 20 MEQ PO SCH (08:49)
[2016-07-30] MEDS: ZYLOPRIM PO SCH (08:49)
[2016-07-30] MEDS: ARICEPT TAB 10 MG PO SCH (08:49)
[2016-07-30] MEDS: TOPROL XL PO SCH (08:49)
[2016-07-30] MEDS: TAMIFLU PO SCH (08:49)
[2016-07-30] MEDS: PLAVIX PO SCH (08:53)
[2016-07-30 15:17] VITALS: BP 155/70
[2016-07-30] MEDS: NS 1000 ML 1,000 ML IV SCH (15:17)
== END 2016-07-30 15:50 | disposition home health service (06) | DRG 194 ==
LOC: ER 10:18 → OBS 14:50 → MED/SURG 18:50 → OBSVTOIN 07-28 08:00
PROVIDERS: ADMIT Internal Medicine; ATTEND Internal Medicine
DX: J10.1 Influenza due to other identified influenza virus with other respiratory manifestations (principal); J18.0 Bronchopneumonia, unspecified organism; R50.9 Fever, unspecified; R11.2 Nausea with vomiting, unspecified; R41.0 Disorientation, unspecified; R19.7 Diarrhea, unspecified; J20.8 Acute bronchitis due to other specified organisms; R26.89 Other abnormalities of gait and mobility; S51.012A Laceration without foreign body of left elbow, initial encounter; W18.39XA Other fall on same level, initial encounter; M13.89 Other specified arthritis, multiple sites; I25.10 Atherosclerotic heart disease of native coronary artery without angina pectoris; F32.89 Other specified depressive episodes; E78.2 Mixed hyperlipidemia; K21.9 Gastro-esophageal reflux disease without esophagitis; I10 Essential (primary) hypertension; I51.7 Cardiomegaly; R53.83 Other fatigue; I50.42 Chronic combined systolic (congestive) and diastolic (congestive) heart failure; M06.09 Rheumatoid arthritis without rheumatoid factor, multiple sites; I73.89 Other specified peripheral vascular diseases; G71.0 Muscular dystrophy; R63.0 Anorexia
CPT/HCPCS: 36415; 70450; 71010; 80053; 81001; 82270; 84132; 85025; 87040; 87045; 87086; 87205; 87328; 87329; 87336; 87427; 87493; 87502; 87503; 87899; 94640; 94660; 94760; 96374; 99284; A4222; A4618; A7030; C9113; G8978; G8979; G9035; P9047; S0028; G0378; J1956; J2405; J7506; J7620

== ENCOUNTER 2017-03-10 11:13 | Inpatient (IN) | payer OTHER ==
[2017-03-10 11:20] VITALS: BMI 24.8
[2017-03-10] MEDS ORDERED: NS IRRIGATION 1000 ML 1,000 ML ONE (11:32)
--- NOTE | 2017-03-10 11:52 | DR.GENAD ---
HPI - PCP Primary Care Physician: shelly - Complaint/Symptoms Chief Complaint Doctors Comments: Patient admits to falling three days ago and injured her right forearm and right hip. The are has a signiicant skin tear witch has become necrotic. Chief Complaint:: patient stated she fell at home yesterday morning at 2 am and laid there till 6 am. right for arm has skin tear and left forarm has skin tear. Self Treatment fo Chief Complaint: PT HAS AND LG PURPLE AND BLUE BRUISE TO HER RIGHT LATERAL HIP .. AND PT HAS A BRUISE TO THE LEFT SIDE OF HER HEAD ABOVE HER BROW BONE,, - Source History Provided: Patient - Mode of Arrival Mode of Arrival: Wheelchair - Timing Onset of Chief Complaint: 03/08/17 PMH - PMH Past Medical History: Yes Past Medical History: Anemia, Arthritis, Coronary Artery Disease, Depression, Dyslipidemia, GERD, Gout, Hypertension, [place] Past Surgical History: Yes Surgical History: Angioplasty/Stents, , Hysterectomy - Family History History of Family Medical Conditions: Yes Family Medical History: Diabetes Mellitus, Coronary Artery Disease, Hypertension - Social History Does patient currently use any type of tobacco product: No Have you used tobacco products in the last 12 months: No Type of Tobacco Use: None Does any household member use tobacco: No Alcohol Use: None Do you use any recreational Drugs:: No Lives With: Family Lives Where: Home - infectious screening In the last 2 months have you had wt loss of >10#?: NO Have you had fever, night sweats or hemotysis?: No Have you traveled outside the country in the last 6 months?: No Isolation: Standard ROS - Review of Systems Eyes: No Symptoms Reported ENTM: No Symptoms Reported Respiratoy: No Symptoms Reported Cardiovascular: No Symptoms Reported Gastrointestinal/Abdominal: No Symptoms Reported Genitourinary: No Symptoms Reported Neurological: No Symptoms Reported Musculoskeletal: No Symptoms Reported Integumentary: Change in Color (right hip and right forearm), Lesions (right forearm), Bruises (right hip,and right forearm) Hematologic/Lymphatic: No Symptoms Reported Endocrine: No Symptoms Reported Psychiatric: No Symptoms Reported All Other Systems: Reviewed and Negative PE - Vital Signs Vitals: Temperature 97.6 F Pulse Rate 86 Respiratory Rate 18 Blood Pressure [Left Arm] 155/70 Blood Pressure [Right Arm] 130/50 Blood Pressure 118/71 O2 Sat by Pulse Oximetry 96 - General Limitations: No Limitations General Appearance: Alert - Head Head Exam: Normal Inspection, Atraumatic - Eyes Eye exam: Normal Appearance, PERRL, EOMI - ENT ENT Exam: Normal Exam External Ear Exam: Normal External Inspection TM/Canal Exam: Bilateral Normal Nose Exam: Normal Nose Exam Mouth Exam: Normal Inspection Throat Exam: Normal Inspection - Neck Neck Exam: Normal Inspection - Chest Chest Inspection: Normal Inspection - Respiratory Respiratory Exam: Normal Lung Sounds Bilat Respiratory Exam: Bilateral Clear to Auscultation - Cardiovascular Cardiovascular Exam: Regular Rate, Normal Rhythm - Abdominal Exam Abdominal Exam: Normal Inspection Abdominal Tenderness: negative: RUQ, RLQ, LUQ, LLQ, Epigastrium, Suprapubic, Diffuse, Mild, Moderate, Severe, Other - Extremities Extremities Exam: Normal Inspection, Full ROM, Other (right forearm skin ecchymotic, abrasion of forearm with loose black discoloration) - Back Back Exam: Normal Inspection - Neurologic Neurological Exam: Alert, Oriented X3, CN II-XII Intact - Psychiatric Psychiatric Exam: Normal Affect, Normal Mood - Skin Skin Exam: Warm, Dry, Intact Course - Consultation Called: 14:50 (Agree to admit for further treatment) ROR - Labs Reviewed Result Diagrams: 03/10/17 12:40 03/10/17 12:40 Laboratory: WBC 12.5 X10^3/uL (3.6-10.0) H 03/10/17 12:40 RBC 3.80 X10^6/uL (3.5-5.4) 03/10/17 12:40 Hgb 12.9 g/dL (12.0-16.0) 03/10/17 12:40 Hct 37.5 % (36.0-47.0) 03/10/17 12:40 MCV 98.7 fL (80.0-100.0) 03/10/17 12:40 MCH 33.9 pg (27.0-34.0) 03/10/17 12:40 MCHC 34.3 g/dL (33.0-35.0) 03/10/17 12:40 RDW 15.6 % (11.6-16.5) 03/10/17 12:40 Plt Count 130 X10^3/uL (150.0-450.0) L 03/10/17 12:40 MPV 8.9 fL (7.4-11.0) 03/10/17 12:40 Neut % 75.0 % (42.0-75.0) 03/10/17 12:40 Lymph % 13.4 % (21.0-51.0) L 03/10/17 12:40 [place] % 9.9 % (0.0-13.0) 03/10/17 12:40 Eos % 0.6 % (0.9-2.9) L 03/10/17 12:40 Baso % 1.1 % (0.2-1.0) H 03/10/17 12:40 Neut # 9.3 x10^3/uL (2.2-4.8) H 03/10/17 12:40 Lymph # 1.7 X10^3/uL (1.3-2.9) 03/10/17 12:40 [place] # 1.2 x10^3/uL (0.3-0.8) H 03/10/17 12:40 Eos # 0.1 x10^3/uL (0.0-0.2) 03/10/17 12:40 Baso # 0.1 X10^3/uL (0.0-0.1) 03/10/17 12:40 Absolute Nucleated RBC 0.0 /100WBC 03/10/17 12:40 Sodium 142 mmol/L (136-145) 03/10/17 12:40 Corrected Sodium TNP 03/10/17 12:40 Potassium 3.9 mmol/L (3.5-5.1) 03/10/17 12:40 Chloride 106 mmol/L (98-107) 03/10/17 12:40 Carbon Dioxide 27.7 mmol/L (21-32) 03/10/17 12:40 BUN 12 mg/dL (7-18) 03/10/17 12:40 Creatinine 0.76 mg/dL (0.55-1.02) 03/10/17 12:40 Est GFR (MDRD) Af Amer > 60 (>60) 03/10/17 12:40 Est GFR (MDRD) Non-Af > 60 (>60) 03/10/17 12:40 Glucose 83 mg/dL (65-99) 03/10/17 12:40 Calcium 8.6 mg/dL (8.5-10.1) 03/10/17 12:40 Corrected Calcium 9.7 mg/dL (8.5-10.1) 03/10/17 12:40 Total Bilirubin 1.60 mg/dL (0.2-1.0) H 03/10/17 12:40 AST 27 Units/L (15-37) 03/10/17 12:40 ALT 36 Units/L (12-78) 03/10/17 12:40 Alkaline Phosphatase 56 Units/L (46-116) 03/10/17 12:40 C-Reactive Protein 154.20 mg/L (0-3.0) H 03/10/17 12:40 Total Protein 5.8 g/dL (6.4-8.2) L 03/10/17 12:40 Albumin 2.6 g/dL (3.4-5.0) L 03/10/17 12:40 Globulin 3.2 g/dL (2.5-4.5) 03/10/17 12:40 Albumin/Globulin Ratio 0.8 Ratio (1.1-2.1) L 03/10/17 12:40 - XRAY XRAY Interpreted by: Radiologist (Hip: no fracture identified) - Diagnosis Discharge Problem: Cellulitis of right forearm - Discharge Plan Condition: Stable - Follow ups/Referrals Follow ups/Referrals: Abisai Arndt [Primary Care Provider] - 3 days - Instructions
[2017-03-10 12:54] LABS: BASOPHILS # (AUTO) 0.1 X10^3/uL (0.0-0.1); BASOPHILS % (AUTO) 1.1 % (0.2-1.0); EOSINOPHILS # (AUTO) 0.1 x10^3/uL (0.0-0.2); EOSINOPHILS % (AUTO) 0.6 % (0.9-2.9); HEMATOCRIT 37.5 % (36.0-47.0); HEMOGLOBIN 12.9 g/dL (12.0-16.0); LYMPHOCYTES # (AUTO) 1.7 X10^3/uL (1.3-2.9); LYMPHOCYTES % (AUTO) 13.4 % (21.0-51.0); MEAN CORPUSCULAR HEMOGLOBIN 33.9 pg (27.0-34.0); MEAN CORPUSCULAR HGB CONC 34.3 g/dL (33.0-35.0); MEAN CORPUSCULAR VOLUME 98.7 fL (80.0-100.0); MEAN PLATELET VOLUME 8.9 fL (7.4-11.0); MONOCYTES # (AUTO) 1.2 x10^3/uL (0.3-0.8); MONOCYTES % (AUTO) 9.9 % (0.0-13.0); NEUTROPHILS # (AUTO) 9.3 x10^3/uL (2.2-4.8); PLATELET COUNT 130 X10^3/uL (150.0-450.0); RED CELL DISTRIBUTION WIDTH 15.6 % (11.6-16.5); WHITE BLOOD COUNT 12.5 X10^3/uL (3.6-10.0)
[2017-03-10 13:05] LABS: ALANINE AMINOTRANSFERASE 36 Units/L (12-78); ALBUMIN 2.6 g/dL (3.4-5.0); ALKALINE PHOSPHATASE 56 Units/L (46-116); ASPARTATE AMINO TRANSFERASE 27 Units/L (15-37); BLOOD UREA NITROGEN 12 mg/dL (7-18); CALCIUM 8.6 mg/dL (8.5-10.1); CARBON DIOXIDE 27.7 mmol/L (21-32); CHLORIDE 106 mmol/L (98-107); COR CA(FOR HYPOALB) 9.7 mg/dL (8.5-10.1); CREATININE 0.76 mg/dL (0.55-1.02); SODIUM 142 mmol/L (136-145); TOTAL PROTEIN 5.8 g/dL (6.4-8.2); eGFR BLACK RACES > 60 (>60); eGFR NON BLACK RACES > 60 (>60)
--- NOTE | 2017-03-10 14:03 | RAD ---
HISTORY: Injury, fall, right hip pain Study: Right hip AP, frog-leg, AP pelvis Comparison: None Findings: The bones are mildly osteopenic. The pelvic bones and SI joints appear intact. The right hip joint is intact. No joint erosions are noted. No fracture, lytic, or blastic lesion is identified. However if the patient continues to be symptomatic CT or MRI could be obtained in order to detect a fracture th at is radiographically occult due osteopenia. IMPRESSION: No fracture identified Osteopenia Reported By:
[2017-03-10] MEDS ORDERED: PHENERGAN TAB 25 MG PO PRN (15:06)
[2017-03-10] MEDS ORDERED: ZOFRAN INJ 4 MG VIAL IVP PRN (15:10)
[2017-03-10] MEDS: D5 1/2 NS + KCL 20 MEQ/L 1,000 ML IV SCH (16:28)
[2017-03-10] MEDS: VANCOMYCIN 1 GM PREMIX (ADDVANTAGE) 250 ML IV SCH ×2 (16:28→21:59)
[2017-03-10] MEDS ORDERED: NS IRRIGATION 500 ML IR ONE (16:45)
[2017-03-10] MEDS ORDERED: PATIENT'S HOME MEDICATION (Potassium Chloride [Potassium Chloride] 20 MEQ) PO SCH (21:00)
[2017-03-10] MEDS ORDERED: K-DUR TAB 20 MEQ PO SCH (21:00)
[2017-03-10] MEDS ORDERED: LIPITOR TAB 20 MG PO SCH (21:00)
[2017-03-10] MEDS ORDERED: ZOSYN VIAL 3.375 GM IV ONE (22:49)
[2017-03-10] MEDS ORDERED: NS 100 ML IV 100 ML IV ONE (22:57)
[2017-03-10] MEDS: ZOSYN VIAL 3.375 GM 3.375 GM in NS 100 ML IV + SPIKE MINIBAG* 100 ML IV SCH (23:14)
[2017-03-11 05:29] LABS: BASOPHILS % (AUTO) 0.2 % (0.2-1.0); EOSINOPHILS # (AUTO) 0.1 x10^3/uL (0.0-0.2); EOSINOPHILS % (AUTO) 0.8 % (0.9-2.9); HEMATOCRIT 38.8 % (36.0-47.0); LYMPHOCYTES # (AUTO) 1.6 X10^3/uL (1.3-2.9); MEAN CORPUSCULAR HEMOGLOBIN 33.6 pg (27.0-34.0); MEAN CORPUSCULAR HGB CONC 33.4 g/dL (33.0-35.0); MEAN CORPUSCULAR VOLUME 100.6 fL (80.0-100.0); MEAN PLATELET VOLUME 9.2 fL (7.4-11.0); MONOCYTES # (AUTO) 0.8 x10^3/uL (0.3-0.8); MONOCYTES % (AUTO) 8.1 % (0.0-13.0); NEUTROPHILS # (AUTO) 7.5 x10^3/uL (2.2-4.8); NEUTROPHILS % (AUTO) 74.9 % (42.0-75.0); PLATELET COUNT 124 X10^3/uL (150.0-450.0); RED BLOOD COUNT 3.86 X10^6/uL (3.5-5.4); RED CELL DISTRIBUTION WIDTH 15.6 % (11.6-16.5)
[2017-03-11 05:41] LABS: ALANINE AMINOTRANSFERASE 28 Units/L (12-78); ALBUMIN 2.4 g/dL (3.4-5.0); ALKALINE PHOSPHATASE 53 Units/L (46-116); ASPARTATE AMINO TRANSFERASE 22 Units/L (15-37); BLOOD UREA NITROGEN 8 mg/dL (7-18); CALCIUM 8.3 mg/dL (8.5-10.1); CARBON DIOXIDE 25.4 mmol/L (21-32); CHLORIDE 107 mmol/L (98-107); COR CA(FOR HYPOALB) 9.6 mg/dL (8.5-10.1); CREATININE 0.83 mg/dL (0.55-1.02); SODIUM 141 mmol/L (136-145); TOTAL PROTEIN 5.5 g/dL (6.4-8.2); eGFR BLACK RACES > 60 (>60); eGFR NON BLACK RACES > 60 (>60)
[2017-03-11] MEDS ORDERED: ZOSYN VIAL 3.375 GM IV ONE ×2 (06:39→14:33)
[2017-03-11] MEDS ORDERED: NS 100 ML IV 100 ML IV ONE ×2 (06:39→14:30)
[2017-03-11] MEDS: D5 1/2 NS + KCL 20 MEQ/L 1,000 ML IV SCH (06:58)
[2017-03-11] MEDS: ZOSYN VIAL 3.375 GM 3.375 GM in NS 100 ML IV + SPIKE MINIBAG* 100 ML IV SCH ×2 (06:58→14:27)
[2017-03-11] MEDS: HYDROCHLOROTHIAZIDE 12.5 MG CAP PO SCH (08:55)
[2017-03-11] MEDS: PLAVIX PO SCH (08:55)
[2017-03-11] MEDS: K-DUR TAB 20 MEQ PO SCH ×2 (08:55→17:10)
[2017-03-11] MEDS: ARICEPT TAB 10 MG PO SCH (08:55)
[2017-03-11] MEDS: PROTONIX TAB 40 MG PO SCH (08:55)
[2017-03-11] MEDS: TOPROL XL PO SCH (08:55)
[2017-03-11] MEDS: FOLIC ACID TAB 1 MG PO SCH (08:55)
[2017-03-11] MEDS: VANCOMYCIN 1 GM PREMIX (ADDVANTAGE) 250 ML IV SCH ×2 (08:56→22:07)
[2017-03-11] MEDS ORDERED: XANAX PO SCH (09:00)
[2017-03-11] MEDS: MORPHINE SULFATE INJ 2 MG INJ IVP PRN (09:01)
--- NOTE | 2017-03-11 10:59 | DR.H&P ---
H&P - History & Physical for Day of: H&P Date: 03/10/17 - Chief Complaint Chief Complaint: LACERATION TO BILATERAL ARMS, SCATTERED BRUISING, FALL - Allergies Allergies/Adverse Reactions: Allergies Allergy/AdvReac Type Severity Reaction Status Date / Time sertraline [From Zoloft] Allergy Verified 03/10/17 14:54 - History of Present Illness History of Present Illness: IS A 71 YEAR OLD PATIENT OF OURS WHO PRESENTED TO THE EMERGENCY ROOM FOR COMPLAINTS OF BRUISING OT THE RIGHT LATERAL HIP, LEFT SIDE HEAD, AND A SKIN TEARS TO THE LEFT AND RIGHT FOREARM. PATIENT REPORTS FALLING AT HOME TWO DAYS AGO. PATIENT REPORTS THAT SHE FELL AT 2AM AND REMAINED THERE UNTIL SOMEONE HELPED HER UP AT 6AM. PATIENT STATES THAT SHE LIVES AT HOME WITH FAMILY. ON EXAMINATION, RIGHT ARM WAS NOTED WITH A SIGNIFICANT TEAR WHICH HAS BECAME NECROTIC. ON ARRIVAL TO THE EMERGENCY ROOM, PATIENTS VITAL SIGNS WERE 97.6-86-18-96% RA, 118/71. A CBC, CMP, AND HIP XRAY WERE OBTAINED. ABNORMAL LAB VALUES INCLUDE THE FOLLOWING: WBC 12.5, PLT COUNT 130, LYMPH% 13.4, EOS % 0.6, BASO% 1.1, NEUT# 9.3, MONO# 1.2, CALCIUM 8.3, TOTAL BILI 1.40, TOTAL PROTEIN 5.5, ALBUMIN 2.4, A/G RATIO 0.8. HIP XRAY REPORTED NO FRACTURE. OSTEOPENIA. WE ADMITTED PATIENT FOR FURTHER TREATMENT AND EVALUATION. WE WILL CONSULT FOR POSSIBLE DEBRIDEMENT OF NECROTIC TISSUE. SHE WAS STARTED ON IVF, ZOSYN 3.375GM IV Q8H, MORPHINE 1-2MG IV Q3H PRN PAIN, VANCOMYCIN 1GM IV Q12H, AND ZOFRAN 4MG IV Q8H PRN NAUSEA. HOME MEDICATIONS WILL BE REVIEWED. WE PLAN TO FOLLOW UP WITH AM LABS AND CONTINUE TO MONITOR PATIENT. - Past Medical History Past Medical History: Anemia, Arthritis, Coronary Artery Disease, Depression, Dyslipidemia, GERD, Gout, Hypertension, [place] Additional Medical History: Venous Insufficiency, Rheumatoid Arthritis, Spondylosis Lumbar/Thoracic, Muscular Dystrophy, Osteoporosis, Degenerative Disc Disease, Chronic PVD, Cataracts, Pneumonia, Muscle Weakness, Previous Blood Transfusion - Past Surgical History Surgical History: Angioplasty/Stents, , Hysterectomy Additional Surgical History: Cataract Surgery, Two Cardiac Stents - Family History Family Medical History: Diabetes Mellitus, Coronary Artery Disease, Hypertension - Social History Does patient currently use any type of tobacco product: No Have you used tobacco products in the last 12 months: No Type of Tobacco Use: None Does any household member use tobacco: No Alcohol Use: None Drug Use: None - Medications Home Medications: Alprazolam [XANAX 0.5 MG *] 0.5 tab PO DAILY 03/10/17 [History Confirmed ] Atorvastatin Calcium 20 mg PO HS 03/10/17 [History Confirmed 03/10/17] Clopidogrel Bisulfate [PLAVIX TAB 75 MG *] 75 mg PO DAILY 03/10/17 [History Confirmed 03/10/17] Donepezil Hydrochloride [ARICEPT TAB 10 MG *] 10 mg PO DAILY 03/10/17 [History Confirmed 03/10/17] Folic Acid 1 mg PO DAILY 03/10/17 [History Confirmed 03/10/17] Furosemide [Furosemide] 20 mg PO DAILY 03/10/17 [History Confirmed 03/10/17] Gabapentin [NEURONTIN TAB 600 MG *] 600 mg PO TID 03/10/17 [History Confirmed ] Metoprolol [place]/Hydrochlorothiaz [Metoprolol ER-Hctz 25-12.5 mg] 1 tab PO DAILY [History Confirmed 03/10/17] Pantoprazole Sodium 40 mg [PROTONIX 40 MG *] 40 mg PO DAILY 03/10/17 [History Confirmed 03/10/17] Potassium Chloride 20 meq PO BID 03/10/17 [History Confirmed 03/10/17] Prednisone 5 mg PO BID 03/10/17 [History Confirmed 03/10/17] Ranitidine HCl [ZANTAC TAB 150 MG *] 150 mg PO BID 03/10/17 [History Confirmed 03/10/17] - Review of Systems Constitutional: No Symptoms Reported, Weakness Eyes: No Symptoms Reported. denies: Vision Change, Conjunctivae Inflammation, Eyelid Inflammation ENT: No Symptoms Reported. denies: Ear Discharge, Nose Discharge, Nose Congestion, Mouth Swelling, Throat Pain, Throat Swelling Respiratory: No Symptoms Reported. denies: Cough, SOB with Excertion, Sputum, Wheezing Cardiovascular: No Symptoms Reported. denies: Chest Pain, Light Headedness Gastrointestinal: Nausea. denies: Abdominal Pain, Diarrhea, Constipation, Melena, Hematochezia Genitourinary: No Symptoms Reported. denies: Dysuria, Incontinence, Hematuria, Retention Musculoskeletal: See HPI, Other (RIGHT HIP PAIN) Skin: Bruising, Wound, Ecchymosis (RIGHT ARM LACERATION WITH NECROTIC TISSUE, SCATTERED BRUISING ) Neurological: Weakness. denies: Confusion, Seizures - Physical Exam Vital Signs: Temperature 99.0 F Pulse Rate [Right Brachial] 77 Pulse Rate 86 Respiratory Rate 18 Blood Pressure [Left Arm] 118/66 Blood Pressure [Right Arm] 109/58 Blood Pressure 118/71 O2 Sat by Pulse Oximetry 99 Oriented: Normal Eyes: Normal. negative: Blurred Vision, Diplopia, Photophobia Ear: Normal. negative: Hemotypanum, Abrasion, Laceration Nose: Normal Throat: Normal Respiratory: Clear Throughout Cardiovascular: Normal. negative: Murmur, Edema : Normal. negative: Hematuria, Frequency, Discharge, Bleeding, Auscultation: Bowel Sounds: Normal Palpation: Normal Tenderness: Normal. negative: Rebound, Guarding, Rigidity Skin: Wound (RIGHT ARM LACERATION WITH NECROTIC TISSUE, SCATTERED BRUISING ), Bruising Musculoskeletal: Right, Arm, Hip, Tender Psychiatric: Normal Mood Description: Calm Affect: Normal Speech Pattern: Clear - Assessment/Plan (1) Cellulitis of right forearm Status: Acute Plan: WOUND CARE, SURGICAL CONSULT FOR DEBRIDEMENT, ZOSYN 3.375GM IV Q8H, VANCOMYCIN 1GM IV Q12H, CONTINUE TO MONITOR
[2017-03-11] MEDS: PREDNISONE TAB 5 MG PO SCH (14:25)
[2017-03-11] MEDS: LASIX PO SCH (14:25)
[2017-03-11] MEDS: LIPITOR TAB 20 MG PO SCH (17:10)
[2017-03-11] MEDS: XANAX PO SCH (17:10)
[2017-03-11 22:03] LABS: CREATININE 0.75 mg/dL (0.55-1.02); VANCOMYCIN,TROUGH 19.6 ug/mL (15-20)
[2017-03-11] MEDS: ZOSYN VIAL 3.375 GM 3.375 GM in NS 50 ML IV 50 ML IV SCH (22:07)
[2017-03-12] MEDS: PREDNISONE TAB 5 MG PO SCH ×3 (03:17→20:58)
[2017-03-12 05:44] LABS: BASOPHILS % (AUTO) 0.4 % (0.2-1.0); EOSINOPHILS # (AUTO) 0.1 x10^3/uL (0.0-0.2); EOSINOPHILS % (AUTO) 1.1 % (0.9-2.9); HEMATOCRIT 35.6 % (36.0-47.0); HEMOGLOBIN 12.3 g/dL (12.0-16.0); LYMPHOCYTES # (AUTO) 1.4 X10^3/uL (1.3-2.9); LYMPHOCYTES % (AUTO) 16.7 % (21.0-51.0); MEAN CORPUSCULAR HEMOGLOBIN 34.2 pg (27.0-34.0); MEAN CORPUSCULAR HGB CONC 34.5 g/dL (33.0-35.0); MEAN CORPUSCULAR VOLUME 99.1 fL (80.0-100.0); MEAN PLATELET VOLUME 9.1 fL (7.4-11.0); MONOCYTES # (AUTO) 0.8 x10^3/uL (0.3-0.8); NEUTROPHILS # (AUTO) 5.9 x10^3/uL (2.2-4.8); NEUTROPHILS % (AUTO) 71.8 % (42.0-75.0); PLATELET COUNT 133 X10^3/uL (150.0-450.0); RED CELL DISTRIBUTION WIDTH 15.8 % (11.6-16.5); WHITE BLOOD COUNT 8.3 X10^3/uL (3.6-10.0)
[2017-03-12] MEDS: ZOSYN VIAL 3.375 GM 3.375 GM in NS 50 ML IV 50 ML IV SCH ×4 (06:01→22:22)
[2017-03-12 06:17] LABS: ALANINE AMINOTRANSFERASE 38 Units/L (12-78); ALBUMIN 2.2 g/dL (3.4-5.0); ALKALINE PHOSPHATASE 56 Units/L (46-116); ASPARTATE AMINO TRANSFERASE 36 Units/L (15-37); BLOOD UREA NITROGEN 6 mg/dL (7-18); CALCIUM 7.7 mg/dL (8.5-10.1); CARBON DIOXIDE 29.4 mmol/L (21-32); CHLORIDE 104 mmol/L (98-107); COR CA(FOR HYPOALB) 9.1 mg/dL (8.5-10.1); CREATININE 0.68 mg/dL (0.55-1.02); SODIUM 140 mmol/L (136-145); TOTAL PROTEIN 5.5 g/dL (6.4-8.2); eGFR BLACK RACES > 60 (>60); eGFR NON BLACK RACES > 60 (>60)
[2017-03-12 06:31] LABS: ERYTHROCYTE SEDIMENTATION RATE 63 MM/HOUR (0-20)
[2017-03-12] MEDS ORDERED: MAGNESIUM SULFATE 1 GM/100 mL PREMIX 1 GM/100 ML BAG IV PRN (07:37)
[2017-03-12] MEDS ORDERED: MAG-OX TAB PO PRN (07:37)
[2017-03-12] MEDS ORDERED: K-RIDER 10 MEQ/NS 100 ML 10 MEQ/100 ML BAG IV PRN (07:37)
[2017-03-12] MEDS: K-LYTE EFFERVESCENT PO PRN ×2 (07:39→14:40)
[2017-03-12] MEDS: TOPROL XL PO SCH (09:41)
[2017-03-12] MEDS: K-DUR TAB 20 MEQ PO SCH ×2 (09:41→16:47)
[2017-03-12] MEDS: PROTONIX TAB 40 MG PO SCH (09:42)
[2017-03-12] MEDS: LASIX PO SCH (09:42)
[2017-03-12] MEDS: FOLIC ACID TAB 1 MG PO SCH (09:42)
[2017-03-12] MEDS: ARICEPT TAB 10 MG PO SCH (09:42)
[2017-03-12] MEDS: HYDROCHLOROTHIAZIDE 12.5 MG CAP PO SCH (09:42)
[2017-03-12] MEDS: PLAVIX PO SCH (09:43)
[2017-03-12] MEDS: VANCOMYCIN 1 GM PREMIX (ADDVANTAGE) 250 ML IV SCH ×2 (09:43→20:59)
--- NOTE | 2017-03-12 09:52 | DR.CONSULT ---
Consult - Consultation for Day of: Date: 03/11/17 - Chief Complaint Chief Complaint: Upper extremity avulsion injury with necrosis. - Allergies Allergies/Adverse Reactions: Allergies Allergy/AdvReac Type Severity Reaction Status Date / Time sertraline [From Zoloft] Allergy Verified 03/10/17 14:54 - History of Present Illness History of Present Illness: The patient is a 71 year old female who fell at home and suffered skin tears to both upper extremities. She apparently was found the next morning by family after she was unable to summon assistance that night. The patient was admitted to the hospital and placed on IV abx due to signs of infection. Necrotic tissue was noted in the right forearm wound bed. She is on plavix. - Past Medical History Past Medical History: Anemia, Arthritis, Coronary Artery Disease, Depression, Dyslipidemia, GERD, Gout, Hypertension, [place] Additional Medical History: Venous Insufficiency, Rheumatoid Arthritis, Spondylosis Lumbar/Thoracic, Muscular Dystrophy, Osteoporosis, Degenerative Disc Disease, Chronic PVD, Cataracts, Pneumonia, Muscle Weakness, Previous Blood Transfusion - Past Surgical History Surgical History: Angioplasty/Stents, , Hysterectomy Additional Surgical History: Cataract Surgery, Two Cardiac Stents - Family History Family Medical History: Diabetes Mellitus, Coronary Artery Disease, Hypertension - Social History Does patient currently use any type of tobacco product: No Have you used tobacco products in the last 12 months: No Type of Tobacco Use: None Does any household member use tobacco: No Alcohol Use: None Drug Use: None - Medications Home Medications: Alprazolam [XANAX 0.5 MG *] 0.5 tab PO DAILY 03/10/17 [History Confirmed ] Atorvastatin Calcium 20 mg PO HS 03/10/17 [History Confirmed 03/10/17] Clopidogrel Bisulfate [PLAVIX TAB 75 MG *] 75 mg PO DAILY 03/10/17 [History Confirmed 03/10/17] Donepezil Hydrochloride [ARICEPT TAB 10 MG *] 10 mg PO DAILY 03/10/17 [History Confirmed 03/10/17] Folic Acid 1 mg PO DAILY 03/10/17 [History Confirmed 03/10/17] Furosemide [Furosemide] 20 mg PO DAILY 03/10/17 [History Confirmed 03/10/17] Gabapentin [NEURONTIN TAB 600 MG *] 600 mg PO TID 03/10/17 [History Confirmed ] Metoprolol [place]/Hydrochlorothiaz [Metoprolol ER-Hctz 25-12.5 mg] 1 tab PO DAILY [History Confirmed 03/10/17] Pantoprazole Sodium 40 mg [PROTONIX 40 MG *] 40 mg PO DAILY 03/10/17 [History Confirmed 03/10/17] Potassium Chloride 20 meq PO BID 03/10/17 [History Confirmed 03/10/17] Prednisone 5 mg PO BID 03/10/17 [History Confirmed 03/10/17] Ranitidine HCl [ZANTAC TAB 150 MG *] 150 mg PO BID 03/10/17 [History Confirmed 03/10/17] - Review of Systems Constitutional: Weakness (Chronic) Eyes: Other (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.) Respiratory: No Symptoms Reported Cardiovascular: No Symptoms Reported Gastrointestinal: No Symptoms Reported Musculoskeletal: No Symptoms Reported Skin: Other (See HPI.) Neurological: No Symptoms Reported - Physical Exam Vital Signs: Temperature 98.1 F Pulse Rate [Left Brachial] 77 Pulse Rate [Right Brachial] 70 Pulse Rate 86 Respiratory Rate 18 Blood Pressure [Left Arm] 125/62 Blood Pressure [Right Arm] 133/67 Blood Pressure 118/71 O2 Sat by Pulse Oximetry 98 Oriented: Normal Eyes: Other (Vision Loss) Ear: Normal Nose: Normal Respiratory: Clear Throughout Cardiovascular: Normal Auscultation: Bowel Sounds: Normal Palpation: Normal Tenderness: Normal Skin: Wound (Right forearm wound with escar and necrotic tissue. Wound bed approximately 12 x 6 cm. Minimal surrounding erythema. Upon taking dressing off, mild purulence noted laterally.), Bruising, Ecchymosis Musculoskeletal: Normal Psychiatric: Normal Mood Description: Calm Affect: Normal Speech Pattern: Clear - Plan Plan: 71 yo F s/p fall with right upper extremity traumatic avulsion. Necrotic tissue noted in wound bed. Area 12+ cm in length. Recommend excisional debridement in OR under MAC. Due to plavix use, will require cautery. Mild purulence noted on exam. Debride and monitor. The patient has a history of diabetes mellitus and chronic steroid use. If no signs of infection afterwards , may benefit from STSG or artificial skin graft. Risk / benefits d/w patient. All questions answered.
[2017-03-12] MEDS ORDERED: VERSED ONE (10:01)
[2017-03-12] MEDS ORDERED: DIPRIVAN VIAL ONE (10:01)
[2017-03-12] MEDS: NS 1000 ML 1,000 ML ONE ×2 (12:18→12:22)
[2017-03-12] MEDS ORDERED: FENTANYL INJ 100 mcg ONE (12:28)
[2017-03-12] MEDS ORDERED: XYLOCAINE 1 % (PLAIN) ONE (12:44)
[2017-03-12] MEDS ORDERED: MARCAINE 0.25% INJ ONE (12:45)
[2017-03-12] MEDS ORDERED: NS IRRIGATION 1000 ML 1,000 ML IR ONE (13:01)
[2017-03-12] MEDS ORDERED: BACTROBAN OINT ONE (13:09)
[2017-03-12] MEDS ORDERED: NEOSPORIN OINT ONE (13:11)
--- NOTE | 2017-03-12 13:45 | OR.GENERIC ---
Post-Op Note Generic - Post-Op Note Operative Report: Operative Report Date of Operation: March 12, 2017 Pre-Operative Diagnosis: Right upper extremity traumatic skin avulsion with necrotic skin and subcutaneous tissue. Post-Operative Diagnosis: Right upper extremity traumatic skin avulsion with necrotic skin and subcutaneous tissue (13 x 6 cm). Procedure: Excisional debridement of right upper extremity traumatic skin avulsion with necrotic skin and subcutaneous tissue. Surgeon: Robert Echevarria MD [employer] Spin[employer] Lathe: Janny Wilson CRNA Anesthesia: Monitored anesthesia care and local. Specimen: None. Estimated blood loss: Minimal Complications: None Summary: The patient is a 71 year old female who presented with a right upper extremity traumatic skin avulsion. This exhibited necrotic skin and subcutaneous tissue. The patient was offered excisional debridement. The risk and benefits of the procedure including difficulty with anesthesia, bleeding, infection, scar formation, and delayed healing were discussed with the patient. The patient understood these risks and requested the procedure. On March 12, 2017, the patient was brought to the operative theatre. A time out was performed verifying the patient and the procedure. After satisfactory induction of monitored anesthesia care, the right upper extremity was prepped with Chloraprep and draped in the usual fashion. The necrotic skin was debrided with a scalpel. The necrotic eschar and subcutaneous tissue in the wound beds were also debrided with a scalpel. The wound bed was scrubbed with a Hibiclens impregnated brush. Bleeding was controlled using electrocautery. The wound measured 13 x 6 cm. A small fascial defect was closed using a 3-0 Vicryl suture placed in a horizontal mattress. Neosporin followed by an [employer] were placed over the wound. A sterile dressing was placed. The patient was awakened and taken to the recovery room in stable condition. There were no complications. All counts were correct.
[2017-03-12] MEDS: MOTRIN TAB 600 MG PO PRN (16:46)
[2017-03-12] MEDS: XANAX PO SCH (16:46)
[2017-03-12] MEDS: LIPITOR TAB 20 MG PO SCH (16:46)
[2017-03-12] MEDS: EFFEXOR XR 37.5 MG CAP PO SCH (16:50)
[2017-03-12] MEDS: D5 1/2 NS + KCL 20 MEQ/L 1,000 ML IV SCH (19:28)
--- NOTE | 2017-03-12 21:01 | PCM.PROG ---
Progress Note - Progress Note for Day of Date: 03/11/17 - Subjective Subjective: WAS ADMITTED FOR CELLULITIS TO THE RIGHT ARM AND A LACERATION WITH NECROTIC TISSUE FOLLOWING A FALL. TODAY, SHE IS ALERT AND ORIENTED, LYING IN BED ON MORNING ROUNDS. SHE CONTINUES WITH COMPLAINTS OF PAIN TO THE RIGHT ARM. SHE ALSO CONTINUES WITH RIGHT HIP PAIN. RIGHT ARM IS NOTED WITH A KERLIX DRESSING. DRESSING REMOVED TO ASSESS WOUND. 12+ CM WOUND TO RIGHT ARM NOTED WITH ESCAR AND NECROTIC TISSUE IN WOUND BED. HER VITAL SIGNS THIS MORNING WERE 98.5-90-20-95%-99/66. ABNORMAL LAB VALUES INCLUDE THE FOLLOWING: PLT COUNT 124, CALCIUM 8.3, TOTAL BILI 1.40, TOTAL PROTEIN 5.5, ALBUMIN 2.4, A/ G RATIO 0.8. WE OBTAINED A WOUND CULTURE AND GRAM STAIN OF WOUND. CULTURE PENDING. TODAY, WE WILL CONSULT WITH FOR POSSIBLE DEBRIDEMENT OF WOUND. OTHERWISE, WE WILL CONTINUE WITH CURRENT PLAN OF CARE AND CONTINUE TO MONITOR PATIENT. - Past Medical Family Social History Past Med/Fam/Surg Hx: No changes since H&P Allergies: Allergies sertraline [From Zoloft] Allergy (Verified 03/10/17 14:54) - Review of Systems ROS: No change since H&P - Vital Signs and I&O's Vital Signs: Temperature 98.2 F Pulse Rate [Left Brachial] 93 Pulse Rate [Right Brachial] 79 Pulse Rate 86 Respiratory Rate 20 Blood Pressure [Left Arm] 121/78 Blood Pressure [Right Arm] 133/67 Blood Pressure 118/71 O2 Sat by Pulse Oximetry 97 Intake and Output: Intake & Output 03/10/17 03/11/17 03/12/17 03/13/17 11:59 11:59 11:59 11:59 Intake Total 480 3698 100 Output Total 200 600 700 Balance 280 3098 -600 - Physical Exam Oriented: Normal Eyes: Other (Vision Loss) Ear: Normal Nose: Normal Throat: Normal Respiratory: Normal Cardiovascular: Normal : Normal. negative: Hematuria, Frequency, Discharge, Bleeding, Auscultation: Bowel Sounds: Normal Palpation: Normal Tenderness: Normal Skin: Wound (Right forearm wound with escar and necrotic tissue. Wound bed approximately 12 x 6 cm. Minimal surrounding erythema. Upon taking dressing off, mild purulence noted laterally.), Bruising, Ecchymosis Musculoskeletal: Normal Psychiatric: Normal Mood Description: Calm Affect: Normal Speech Pattern: Clear - Laboratory and Diagnostics Result Diagrams: 03/12/17 03:40 03/12/17 17:45 Labs: 03/11/17 13:54 Arm - Right Gram Stain - Final 03/11/17 13:54 Arm - Right Wound Culture - Preliminary Laboratory WBC 8.3 X10^3/uL (3.6-10.0) 03/12/17 03:40 RBC 3.60 X10^6/uL (3.5-5.4) 03/12/17 03:40 Hgb 12.3 g/dL (12.0-16.0) 03/12/17 03:40 Hct 35.6 % (36.0-47.0) L 03/12/17 03:40 MCV 99.1 fL (80.0-100.0) 03/12/17 03:40 MCH 34.2 pg (27.0-34.0) H 03/12/17 03:40 MCHC 34.5 g/dL (33.0-35.0) 03/12/17 03:40 RDW 15.8 % (11.6-16.5) 03/12/17 03:40 Plt Count 133 X10^3/uL (150.0-450.0) L 03/12/17 03:40 MPV 9.1 fL (7.4-11.0) 03/12/17 03:40 Neut % 71.8 % (42.0-75.0) 03/12/17 03:40 Lymph % 16.7 % (21.0-51.0) L 03/12/17 03:40 [place] % 10.0 % (0.0-13.0) 03/12/17 03:40 Eos % 1.1 % (0.9-2.9) 03/12/17 03:40 Baso % 0.4 % (0.2-1.0) 03/12/17 03:40 Neut # 5.9 x10^3/uL (2.2-4.8) H 03/12/17 03:40 Lymph # 1.4 X10^3/uL (1.3-2.9) 03/12/17 03:40 [place] # 0.8 x10^3/uL (0.3-0.8) 03/12/17 03:40 Eos # 0.1 x10^3/uL (0.0-0.2) 03/12/17 03:40 Baso # 0.0 X10^3/uL (0.0-0.1) 03/12/17 03:40 Absolute Nucleated RBC 0.1 /100WBC 03/12/17 03:40 ESR 63 MM/HOUR (0-20) H 03/12/17 03:40 Sodium 140 mmol/L (136-145) 03/12/17 03:40 Corrected Sodium TNP 03/12/17 03:40 Potassium 3.5 mmol/L (3.5-5.1) 03/12/17 17:45 Chloride 104 mmol/L (98-107) 03/12/17 03:40 Carbon Dioxide 29.4 mmol/L (21-32) 03/12/17 03:40 BUN 6 mg/dL (7-18) L 03/12/17 03:40 Creatinine 0.68 mg/dL (0.55-1.02) 03/12/17 03:40 Est GFR (MDRD) Af Amer > 60 (>60) 03/12/17 03:40 Est GFR (MDRD) Non-Af > 60 (>60) 03/12/17 03:40 Glucose 108 mg/dL (65-99) H 03/12/17 03:40 Calcium 7.7 mg/dL (8.5-10.1) L 03/12/17 03:40 Corrected Calcium 9.1 mg/dL (8.5-10.1) 03/12/17 03:40 Magnesium 1.7 mg/dL (1.7-2.9) 03/12/17 03:40 Total Bilirubin 1.70 mg/dL (0.2-1.0) H 03/12/17 03:40 AST 36 Units/L (15-37) 03/12/17 03:40 ALT 38 Units/L (12-78) 03/12/17 03:40 Alkaline Phosphatase 56 Units/L (46-116) 03/12/17 03:40 C-Reactive Protein 107.00 mg/L (0-3.0) H 03/12/17 03:40 Total Protein 5.5 g/dL (6.4-8.2) L 03/12/17 03:40 Albumin 2.2 g/dL (3.4-5.0) L 03/12/17 03:40 Globulin 3.3 g/dL (2.5-4.5) 03/12/17 03:40 Albumin/Globulin Ratio 0.7 Ratio (1.1-2.1) L 03/12/17 03:40 Vancomycin Trough 19.6 ug/mL (15-20) 03/11/17 20:45 - Plan (1) Cellulitis of right forearm Status: Acute Plan: WOUND CARE, SURGICAL CONSULT FOR DEBRIDEMENT, ZOSYN 3.375GM IV Q8H, VANCOMYCIN 1GM IV Q12H, CONTINUE TO MONITOR
[2017-03-13] MEDS: D5 1/2 NS + KCL 20 MEQ/L 1,000 ML IV SCH (04:53)
[2017-03-13] MEDS ORDERED: NS 50 ML IV 50 ML IV ONE ×2 (05:15→21:16)
[2017-03-13 05:27] LABS: BASOPHILS % (AUTO) 0.3 % (0.2-1.0); EOSINOPHILS # (AUTO) 0.1 x10^3/uL (0.0-0.2); EOSINOPHILS % (AUTO) 0.7 % (0.9-2.9); HEMATOCRIT 35.1 % (36.0-47.0); HEMOGLOBIN 12.3 g/dL (12.0-16.0); LYMPHOCYTES # (AUTO) 1.3 X10^3/uL (1.3-2.9); LYMPHOCYTES % (AUTO) 15.2 % (21.0-51.0); MEAN CORPUSCULAR HEMOGLOBIN 34.2 pg (27.0-34.0); MEAN CORPUSCULAR VOLUME 97.9 fL (80.0-100.0); MEAN PLATELET VOLUME 9.5 fL (7.4-11.0); MONOCYTES # (AUTO) 0.9 x10^3/uL (0.3-0.8); NEUTROPHILS # (AUTO) 6.3 x10^3/uL (2.2-4.8); NEUTROPHILS % (AUTO) 73.8 % (42.0-75.0); PLATELET COUNT 160 X10^3/uL (150.0-450.0); RED BLOOD COUNT 3.59 X10^6/uL (3.5-5.4); RED CELL DISTRIBUTION WIDTH 15.5 % (11.6-16.5); WHITE BLOOD COUNT 8.5 X10^3/uL (3.6-10.0)
[2017-03-13 05:28] LABS: ERYTHROCYTE SEDIMENTATION RATE 72 MM/HOUR (0-20)
[2017-03-13] MEDS: ZOSYN VIAL 3.375 GM 3.375 GM in NS 50 ML IV 50 ML IV SCH ×3 (05:32→21:33)
[2017-03-13 05:33] LABS: ALANINE AMINOTRANSFERASE 32 Units/L (12-78); ALBUMIN 2.4 g/dL (3.4-5.0); ALKALINE PHOSPHATASE 59 Units/L (46-116); ASPARTATE AMINO TRANSFERASE 27 Units/L (15-37); BLOOD UREA NITROGEN 7 mg/dL (7-18); CALCIUM 8.1 mg/dL (8.5-10.1); CARBON DIOXIDE 30.5 mmol/L (21-32); CHLORIDE 103 mmol/L (98-107); COR CA(FOR HYPOALB) 9.4 mg/dL (8.5-10.1); CREATININE 1.04 mg/dL (0.55-1.02); SODIUM 140 mmol/L (136-145); TOTAL PROTEIN 5.7 g/dL (6.4-8.2); eGFR BLACK RACES > 60 (>60); eGFR NON BLACK RACES 55 (>60)
[2017-03-13] MEDS: VANCOMYCIN 1 GM PREMIX (ADDVANTAGE) 250 ML IV SCH ×2 (09:25→22:04)
[2017-03-13] MEDS: EFFEXOR XR 37.5 MG CAP PO SCH (09:26)
[2017-03-13] MEDS: LASIX PO SCH (09:26)
[2017-03-13] MEDS: PLAVIX PO SCH (09:26)
[2017-03-13] MEDS: TOPROL XL PO SCH (09:27)
[2017-03-13] MEDS: PREDNISONE TAB 5 MG PO SCH ×2 (09:27→21:32)
[2017-03-13] MEDS: PROTONIX TAB 40 MG PO SCH (09:27)
[2017-03-13] MEDS: FOLIC ACID TAB 1 MG PO SCH (09:27)
[2017-03-13] MEDS: K-DUR TAB 20 MEQ PO SCH ×2 (09:27→16:48)
[2017-03-13] MEDS: ARICEPT TAB 10 MG PO SCH (09:31)
[2017-03-13] MEDS: MOTRIN TAB 600 MG PO PRN (14:37)
[2017-03-13] MEDS: XANAX PO SCH (16:48)
[2017-03-13] MEDS: LIPITOR TAB 20 MG PO SCH (16:48)
[2017-03-13] MEDS ORDERED: NEOSPORIN OINT ONE (18:07)
[2017-03-13 21:04] LABS: CREATININE 1.5 mg/dL (0.55-1.02)
[2017-03-13 21:07] LABS: VANCOMYCIN,TROUGH 34.5 ug/mL (15-20)
[2017-03-13] MEDS ORDERED: NS 50 ML IV + SPIKE MINIBAG* 100 ML IV ONE (21:15)
[2017-03-13] MEDS ORDERED: ZOSYN VIAL 3.375 GM IV ONE (21:27)
--- NOTE | 2017-03-13 21:34 | PCM.PROG ---
Progress Note - Progress Note for Day of Date: 03/12/17 - Subjective Subjective: WAS ADMITTED FOR CELLULITIS TO THE RIGHT ARM AND A LACERATION WITH NECROTIC TISSUE FOLLOWING A FALL. TODAY, SHE IS ALERT AND ORIENTED, LYING IN BED ON MORNING ROUNDS. PATIENTS DAUGHTER IS AT BEDSIDE. SHE CONTINUES WITH COMPLAINTS OF PAIN TO THE RIGHT ARM. RIGHT ARM IS NOTED WITH A KERLIX DRESSING. DRESSING DRY AND INTACT WITH NO SIGNS OR SYMPTOMS OF INFECTION NOTED. ON EXAMINATION, LUNGS ARE CLEAR TO AUSCULTATION. ABDOMEN IS ROUND, SOFT, AND NON-TENDER WITH NORMAL BOWEL SOUNDS NOTED IN ALL QUADRANTS. HER VITAL SIGNS THIS MORNING WERE 98.1-70-18-98%-133/67. ABNORMAL LAB VALUES INCLUDE THE FOLLOWING: HCT 35.6, PLT COUNT 133, POTASSIUM 3.2, BUN 6, GLUCOSE 108, CALCIUM 7.7, TOTAL BILI 1.70, CRP 107.00, ESR 63, TOTAL PROTEIN 5.5, ALBUMIN 2.2, A/G RATIO 0.7. WE OBTAINED A WOUND CULTURE AND GRAM STAIN OF WOUND. CULTURE PENDING. CONSULTED WITH PATIENT THIS MORNING AND PLANS TO TAKE TO THE OR FOR DEBRIDEMENT OF WOUND. OTHERWISE, WE WILL CONTINUE WITH CURRENT PLAN OF CARE AND CONTINUE TO MONITOR PATIENT. WE WILL FOLLOW UP IN THE MORNING WITH LABS. - Past Medical Family Social History Past Med/Fam/Surg Hx: No changes since H&P Allergies: Allergies sertraline [From Zoloft] Allergy (Verified 03/10/17 14:54) - Review of Systems ROS: No change since H&P - Vital Signs and I&O's Vital Signs: Temperature 98.1 F Pulse Rate [Left Brachial] 69 Pulse Rate [Right Brachial] 79 Pulse Rate 86 Respiratory Rate 18 Blood Pressure [Left Arm] 145/80 Blood Pressure [Right Arm] 133/67 Blood Pressure 118/71 O2 Sat by Pulse Oximetry 96 Intake and Output: Intake & Output 03/11/17 03/12/17 03/13/17 03/14/17 11:59 11:59 11:59 11:59 Intake Total 480 3698 460 340 Output Total 200 600 700 400 Balance 280 3098 -240 -60 - Physical Exam Oriented: Normal Eyes: Other (Vision Loss) Ear: Normal Nose: Normal Throat: Normal Respiratory: Normal Cardiovascular: Normal : Normal. negative: Hematuria, Frequency, Discharge, Bleeding, Auscultation: Bowel Sounds: Normal Palpation: Normal Tenderness: Normal Skin: Wound (Right forearm wound with escar and necrotic tissue. Wound bed approximately 12 x 6 cm. Minimal surrounding erythema. Upon taking dressing off, mild purulence noted laterally.), Bruising, Ecchymosis Musculoskeletal: Normal Psychiatric: Normal Mood Description: Calm Affect: Normal Speech Pattern: Clear, Appropriate - Laboratory and Diagnostics Result Diagrams: 03/13/17 03:40 03/13/17 20:15 Labs: 03/11/17 13:54 Arm - Right Gram Stain - Final 03/11/17 13:54 Arm - Right Wound Culture - Preliminary Laboratory WBC 8.5 X10^3/uL (3.6-10.0) 03/13/17 03:40 RBC 3.59 X10^6/uL (3.5-5.4) 03/13/17 03:40 Hgb 12.3 g/dL (12.0-16.0) 03/13/17 03:40 Hct 35.1 % (36.0-47.0) L 03/13/17 03:40 MCV 97.9 fL (80.0-100.0) 03/13/17 03:40 MCH 34.2 pg (27.0-34.0) H 03/13/17 03:40 MCHC 35.0 g/dL (33.0-35.0) 03/13/17 03:40 RDW 15.5 % (11.6-16.5) 03/13/17 03:40 Plt Count 160 X10^3/uL (150.0-450.0) 03/13/17 03:40 MPV 9.5 fL (7.4-11.0) 03/13/17 03:40 Neut % 73.8 % (42.0-75.0) 03/13/17 03:40 Lymph % 15.2 % (21.0-51.0) L 03/13/17 03:40 [place] % 10.0 % (0.0-13.0) 03/13/17 03:40 Eos % 0.7 % (0.9-2.9) L 03/13/17 03:40 Baso % 0.3 % (0.2-1.0) 03/13/17 03:40 Neut # 6.3 x10^3/uL (2.2-4.8) H 03/13/17 03:40 Lymph # 1.3 X10^3/uL (1.3-2.9) 03/13/17 03:40 [place] # 0.9 x10^3/uL (0.3-0.8) H 03/13/17 03:40 Eos # 0.1 x10^3/uL (0.0-0.2) 03/13/17 03:40 Baso # 0.0 X10^3/uL (0.0-0.1) 03/13/17 03:40 Absolute Nucleated RBC 0.1 /100WBC 03/13/17 03:40 ESR 72 MM/HOUR (0-20) H 03/13/17 03:40 Sodium 140 mmol/L (136-145) 03/13/17 03:40 Corrected Sodium TNP 03/13/17 03:40 Potassium 3.6 mmol/L (3.5-5.1) 03/13/17 03:40 Chloride 103 mmol/L (98-107) 03/13/17 03:40 Carbon Dioxide 30.5 mmol/L (21-32) 03/13/17 03:40 BUN 7 mg/dL (7-18) 03/13/17 03:40 Creatinine 1.50 mg/dL (0.55-1.02) H 03/13/17 20:15 Est GFR (MDRD) Af Amer > 60 (>60) 03/13/17 03:40 Est GFR (MDRD) Non-Af 55 (>60) L 03/13/17 03:40 Glucose 87 mg/dL (65-99) 03/13/17 03:40 Calcium 8.1 mg/dL (8.5-10.1) L 03/13/17 03:40 Corrected Calcium 9.4 mg/dL (8.5-10.1) 03/13/17 03:40 Magnesium 1.7 mg/dL (1.7-2.9) 03/12/17 03:40 Total Bilirubin 1.60 mg/dL (0.2-1.0) H 03/13/17 03:40 AST 27 Units/L (15-37) 03/13/17 03:40 ALT 32 Units/L (12-78) 03/13/17 03:40 Alkaline Phosphatase 59 Units/L (46-116) 03/13/17 03:40 C-Reactive Protein 78.90 mg/L (0-3.0) H 03/13/17 03:40 Total Protein 5.7 g/dL (6.4-8.2) L 03/13/17 03:40 Albumin 2.4 g/dL (3.4-5.0) L 03/13/17 03:40 Globulin 3.3 g/dL (2.5-4.5) 03/13/17 03:40 Albumin/Globulin Ratio 0.7 Ratio (1.1-2.1) L 03/13/17 03:40 Vancomycin Trough 34.5 ug/mL (15-20) H* 03/13/17 20:15 - Plan (1) Cellulitis of right forearm Status: Acute Plan: WOUND CARE, SURGICAL CONSULT FOR DEBRIDEMENT, ZOSYN 3.375GM IV Q8H, VANCOMYCIN 1GM IV Q12H, CONTINUE TO MONITOR (2) Hypokalemia Status: Acute Plan: REPLACE WITH POTASSIUM PROTOCOL, CONTINUE TO MONITOR (3) Anxiety Status: Acute Plan: CONTINUE XANAX, CONTINUE TO MONITOR (4) CAD (coronary artery disease) Status: Chronic Qualifiers: Coronary Disease-Associated Artery/Lesion type: [place] artery [place] vs. transplanted heart: [place] heart Associated angina: without angina Qualified Code(s): I25.10 - Atherosclerotic heart disease of [place] coronary artery without angina pectoris Plan: CONTINUE PLAVIX 75MG DAILY, CONTINUE TO MONITOR (5) CHF (congestive heart failure) Status: Chronic Qualifiers: Congestive heart failure type: combined Congestive heart failure chronicity : chronic Qualified Code(s): I50.42 - Chronic combined systolic (congestive) and diastolic (congestive) heart failure Plan: CONTINUE LASIX, CONTINUE TO MONITOR (6) GERD (gastroesophageal reflux disease) Status: Chronic Qualifiers: Esophagitis presence: esophagitis presence not specified Qualified Code(s) : K21.9 - Gastro-esophageal reflux disease without esophagitis Plan: CONTINUE PROTONIX, CONTINUE ZANTAC, CONTINUE TO MONITOR (7) Hyperlipidemia Status: Chronic Qualifiers: Hyperlipidemia type: mixed hyperlipidemia Qualified Code(s): E78.2 - Mixed hyperlipidemia Plan: CONTINUE LIPITOR, CONTINUE TO MONITOR (8) Hypertension Status: Chronic Qualifiers: Hypertension type: essential hypertension Qualified Code(s): I10 - Essential (primary) hypertension Plan: CONTINUE METOPROLOL, CONTINUE TO MONITOR
[2017-03-13] MEDS: PHARMACY CONSULT - VANCOMYCIN XX SCH (22:02)
[2017-03-14] MEDS: MOTRIN TAB 600 MG PO PRN ×2 (01:59→08:14)
[2017-03-14] MEDS: D5 1/2 NS + KCL 20 MEQ/L 1,000 ML IV SCH (04:24)
[2017-03-14] MEDS ORDERED: ZOSYN VIAL 3.375 GM IV ONE (05:15)
[2017-03-14] MEDS: ZOSYN VIAL 3.375 GM 3.375 GM in NS 50 ML IV 50 ML IV SCH (05:21)
[2017-03-14 05:55] LABS: CREATININE 1.46 mg/dL (0.55-1.02); eGFR BLACK RACES 45 (>60); eGFR NON BLACK RACES 37 (>60)
[2017-03-14 05:56] LABS: BASOPHILS % (AUTO) 0.4 % (0.2-1.0); EOSINOPHILS % (AUTO) 0.4 % (0.9-2.9); HEMATOCRIT 33.3 % (36.0-47.0); HEMOGLOBIN 11.7 g/dL (12.0-16.0); LYMPHOCYTES # (AUTO) 1.3 X10^3/uL (1.3-2.9); LYMPHOCYTES % (AUTO) 13.1 % (21.0-51.0); MEAN CORPUSCULAR HEMOGLOBIN 33.9 pg (27.0-34.0); MEAN CORPUSCULAR HGB CONC 35.1 g/dL (33.0-35.0); MEAN CORPUSCULAR VOLUME 96.6 fL (80.0-100.0); MEAN PLATELET VOLUME 8.8 fL (7.4-11.0); MONOCYTES # (AUTO) 1.1 x10^3/uL (0.3-0.8); MONOCYTES % (AUTO) 11.3 % (0.0-13.0); NEUTROPHILS # (AUTO) 7.3 x10^3/uL (2.2-4.8); NEUTROPHILS % (AUTO) 74.8 % (42.0-75.0); PLATELET COUNT 167 X10^3/uL (150.0-450.0); RED BLOOD COUNT 3.45 X10^6/uL (3.5-5.4); RED CELL DISTRIBUTION WIDTH 15.5 % (11.6-16.5); WHITE BLOOD COUNT 9.8 X10^3/uL (3.6-10.0)
[2017-03-14 06:07] LABS: ALANINE AMINOTRANSFERASE 25 Units/L (12-78); ALBUMIN 2.4 g/dL (3.4-5.0); ALKALINE PHOSPHATASE 57 Units/L (46-116); ASPARTATE AMINO TRANSFERASE 26 Units/L (15-37); BLOOD UREA NITROGEN 9 mg/dL (7-18); CALCIUM 8.4 mg/dL (8.5-10.1); CARBON DIOXIDE 27.3 mmol/L (21-32); CHLORIDE 103 mmol/L (98-107); COR CA(FOR HYPOALB) 9.7 mg/dL (8.5-10.1); SODIUM 139 mmol/L (136-145); TOTAL PROTEIN 5.6 g/dL (6.4-8.2)
[2017-03-14 06:21] LABS: ERYTHROCYTE SEDIMENTATION RATE 69 MM/HOUR (0-20)
[2017-03-14] MEDS: ARICEPT TAB 10 MG PO SCH (08:11)
[2017-03-14] MEDS: FOLIC ACID TAB 1 MG PO SCH (08:12)
[2017-03-14] MEDS: K-DUR TAB 20 MEQ PO SCH ×2 (08:12→16:09)
[2017-03-14] MEDS: EFFEXOR XR 37.5 MG CAP PO SCH (08:12)
[2017-03-14] MEDS: PREDNISONE TAB 5 MG PO SCH ×2 (08:12→21:49)
[2017-03-14] MEDS: TOPROL XL PO SCH (08:12)
[2017-03-14] MEDS: LASIX PO SCH (08:13)
[2017-03-14] MEDS: PROTONIX TAB 40 MG PO SCH (08:13)
[2017-03-14] MEDS: PLAVIX PO SCH (08:14)
[2017-03-14] MEDS ORDERED: PHARMACY CONSULT - TPN XX SCH (10:00)
[2017-03-14] MEDS ORDERED: NEOSPORIN OINT ONE (10:54)
[2017-03-14 11:39] LABS: STOOL FOR WBC NEGATIVE (NEGATIVE)
[2017-03-14] MEDS ORDERED: HumuLIN R SUBCUT PRN (13:00)
[2017-03-14] MEDS: ALBUMIN HUMAN 25%- 100ML 100 ML IV SCH (13:13)
[2017-03-14] MEDS: ZINC SULFATE PO SCH (13:13)
[2017-03-14] MEDS: MEGACE PO SCH ×2 (13:14→21:49)
[2017-03-14] MEDS: VITAMIN C PO SCH (13:14)
[2017-03-14] MEDS ORDERED: XYLOCAINE 1 % (PLAIN) ONE (14:40)
[2017-03-14 15:05] LABS: STOOL FOR WBC NEGATIVE (NEGATIVE)
--- NOTE | 2017-03-14 15:29 | DR.UPDATE ---
H&P Update History and Physical Update: History and Physical reviewed and patient examined. Changes noted: NO Yes with the following:Agree with H&P from Dr Arndt. will place PICC line. Procedures (ALL) - Central Line Placement PCM.CLCO: written consent Time out performed: Yes Patient placed pm monitor/pulse ox: Yes prep: mask, gown, gloves, other Centrial line prep: chlorhexidine scrub Local anesthsia used: lidocane 1% Ultrasound used for placement: Yes (left basillic) Central line lumen ininserted: double (trimmed to 40 cm with 5cm exposed.) Post procedure: good blood return, all ports aspirated, flushed,capped, sterile dressing applied Post procedure xray: tip oc catheter in good position Patient tolerated procedure: Yes Complications: none
[2017-03-14] MEDS: NS IV SCH ×2 (15:30→21:50)
[2017-03-14] MEDS: ZOSYN IV SCH ×2 (15:30→21:50)
[2017-03-14] MEDS: CLINIMIX 5 %/25 % 1,000 ML with MVI INJ (ADULT) 10 ML, TRACE ELEMENTS INJ 10 ML, TPN EL... IV SCH ×5 (15:31)
--- NOTE | 2017-03-14 15:36 | RAD ---
AP chest Indication: PICC line placement Comparison: 07/30/2016 Findings: There is suboptimal inspiration with vascular crowding, no focal airspace opacity, pleural effusion or pneumothorax. Left-sided PICC line has been placed the tip of the catheter terminates lik darrell at the junction of the SVC and left brachiocephalic vein. Impression: No acute cardiopulmonary abnormality. Left-sided PICC line has been placed with its tip terminating likely in the junction of the SVC and l eft brachiocephalic vein. Reported By:
[2017-03-14] MEDS ORDERED: NS 100 ML IV 100 ML IV ONE (15:39)
[2017-03-14] MEDS: XANAX PO SCH (16:08)
[2017-03-14] MEDS: LIPITOR TAB 20 MG PO SCH (16:09)
[2017-03-14 16:31] LABS: GIARDIA LAMBLIA ANTIGEN NEGATIVE (NEGATIVE)
[2017-03-14 16:32] LABS: CRYPTOSPORIDIUM PARVUM ANTIGEN NEGATIVE (NEGATIVE)
[2017-03-14] MEDS: LIPOSYN III 20% 100ML 100 ML IV SCH (21:49)
[2017-03-14] MEDS: MORPHINE SULFATE INJ 2 MG INJ IVP PRN (21:55)
[2017-03-14] MEDS: PHARMACY CONSULT - VANCOMYCIN XX SCH (22:47)
[2017-03-15] MEDS: ZOSYN IV SCH ×3 (05:29→22:19)
[2017-03-15] MEDS: NS IV SCH ×3 (05:29→22:19)
[2017-03-15] MEDS: MORPHINE SULFATE INJ 2 MG INJ IVP PRN (05:30)
[2017-03-15 06:33] LABS: ALBUMIN 2.2 g/dL (3.4-5.0); BASOPHILS % (AUTO) 0.3 % (0.2-1.0); C-REACTIVE PROTEIN 21.8 mg/L (0-3.0); CALCIUM 8.3 mg/dL (8.5-10.1); CARBON DIOXIDE 29.2 mmol/L (21-32); COR CA(FOR HYPOALB) 9.7 mg/dL (8.5-10.1); CREATININE 1.36 mg/dL (0.55-1.02); EOSINOPHILS % (AUTO) 0.4 % (0.9-2.9); HEMOGLOBIN 11.2 g/dL (12.0-16.0); LYMPHOCYTES # (AUTO) 1.1 X10^3/uL (1.3-2.9); LYMPHOCYTES % (AUTO) 13.2 % (21.0-51.0); MEAN CORPUSCULAR HEMOGLOBIN 34.2 pg (27.0-34.0); MEAN CORPUSCULAR HGB CONC 35.1 g/dL (33.0-35.0); MEAN CORPUSCULAR VOLUME 97.5 fL (80.0-100.0); MEAN PLATELET VOLUME 8.5 fL (7.4-11.0); MONOCYTES % (AUTO) 11.3 % (0.0-13.0); NEUTROPHILS # (AUTO) 6.4 x10^3/uL (2.2-4.8); NEUTROPHILS % (AUTO) 74.8 % (42.0-75.0); PLATELET COUNT 166 X10^3/uL (150.0-450.0); RED BLOOD COUNT 3.28 X10^6/uL (3.5-5.4); RED CELL DISTRIBUTION WIDTH 15.6 % (11.6-16.5); TOTAL PROTEIN 5.3 g/dL (6.4-8.2); WHITE BLOOD COUNT 8.6 X10^3/uL (3.6-10.0)
[2017-03-15 07:08] LABS: ERYTHROCYTE SEDIMENTATION RATE 58 MM/HOUR (0-20)
[2017-03-15] MEDS ORDERED: LOMOTIL PO PRN (08:52)
[2017-03-15] MEDS: EFFEXOR XR 37.5 MG CAP PO SCH (09:37)
[2017-03-15] MEDS: ARICEPT TAB 10 MG PO SCH (09:37)
[2017-03-15] MEDS: TOPROL XL PO SCH (09:37)
[2017-03-15] MEDS: MEGACE PO SCH ×2 (09:37→22:20)
[2017-03-15] MEDS: PREDNISONE TAB 5 MG PO SCH ×2 (09:38→22:20)
[2017-03-15] MEDS: FOLIC ACID TAB 1 MG PO SCH (09:38)
[2017-03-15] MEDS: ALBUMIN HUMAN 25%- 100ML 100 ML IV SCH (09:38)
[2017-03-15] MEDS: PROTONIX TAB 40 MG PO SCH (09:38)
[2017-03-15] MEDS: ZINC SULFATE PO SCH (09:38)
[2017-03-15] MEDS: LASIX PO SCH (09:38)
[2017-03-15] MEDS: VITAMIN C PO SCH (09:38)
[2017-03-15] MEDS: K-DUR TAB 20 MEQ PO SCH ×2 (09:38→16:52)
[2017-03-15] MEDS: PLAVIX PO SCH (09:41)
[2017-03-15] MEDS: CLINIMIX 5 %/25 % 1,000 ML with MVI INJ (ADULT) 10 ML, TRACE ELEMENTS INJ 10 ML, TPN EL... IV SCH ×5 (11:50)
[2017-03-15] MEDS ORDERED: TYLENOL 325 MG TAB PO PRN (13:13)
[2017-03-15] MEDS ORDERED: NS 100 ML IV 100 ML IV ONE (13:32)
[2017-03-15] MEDS: LIPITOR TAB 20 MG PO SCH (16:52)
[2017-03-15] MEDS: XANAX PO SCH (16:52)
[2017-03-15] MEDS ORDERED: NEOSPORIN OINT ONE (17:05)
[2017-03-15] MEDS: LIPOSYN III 20% 100ML 100 ML IV SCH (22:19)
[2017-03-15] MEDS: PHARMACY CONSULT - VANCOMYCIN XX SCH (22:20)
[2017-03-16] MEDS: MORPHINE SULFATE INJ 2 MG INJ IVP PRN (05:36)
[2017-03-16] MEDS: ZOSYN IV SCH ×2 (05:36→13:48)
[2017-03-16] MEDS: NS IV SCH ×2 (05:36→13:48)
[2017-03-16] MEDS: CLINIMIX 5 %/25 % 1,000 ML with MVI INJ (ADULT) 10 ML, TRACE ELEMENTS INJ 10 ML, TPN EL... IV SCH ×5 (05:37)
[2017-03-16 06:07] LABS: BASOPHILS % (AUTO) 0.3 % (0.2-1.0); EOSINOPHILS # (AUTO) 0.1 x10^3/uL (0.0-0.2); EOSINOPHILS % (AUTO) 0.7 % (0.9-2.9); HEMATOCRIT 30.6 % (36.0-47.0); HEMOGLOBIN 10.9 g/dL (12.0-16.0); LYMPHOCYTES # (AUTO) 1.6 X10^3/uL (1.3-2.9); MEAN CORPUSCULAR HEMOGLOBIN 34.4 pg (27.0-34.0); MEAN CORPUSCULAR HGB CONC 35.5 g/dL (33.0-35.0); MEAN CORPUSCULAR VOLUME 96.7 fL (80.0-100.0); MEAN PLATELET VOLUME 8.5 fL (7.4-11.0); MONOCYTES # (AUTO) 1.3 x10^3/uL (0.3-0.8); MONOCYTES % (AUTO) 12.2 % (0.0-13.0); NEUTROPHILS # (AUTO) 7.5 x10^3/uL (2.2-4.8); NEUTROPHILS % (AUTO) 71.8 % (42.0-75.0); PLATELET COUNT 161 X10^3/uL (150.0-450.0); RED BLOOD COUNT 3.17 X10^6/uL (3.5-5.4); RED CELL DISTRIBUTION WIDTH 15.2 % (11.6-16.5); WHITE BLOOD COUNT 10.5 X10^3/uL (3.6-10.0)
[2017-03-16 06:24] LABS: ALBUMIN 2.6 g/dL (3.4-5.0); C-REACTIVE PROTEIN 10.4 mg/L (0-3.0); CALCIUM 8.6 mg/dL (8.5-10.1); CARBON DIOXIDE 29.1 mmol/L (21-32); COR CA(FOR HYPOALB) 9.7 mg/dL (8.5-10.1); CREATININE 1.24 mg/dL (0.55-1.02); TOTAL PROTEIN 5.4 g/dL (6.4-8.2)
[2017-03-16 06:57] LABS: ERYTHROCYTE SEDIMENTATION RATE 43 MM/HOUR (0-20)
--- NOTE | 2017-03-16 07:53 | PCM.PROG ---
Progress Note - Progress Note for Day of Date: 03/13/17 - Subjective Subjective: WAS ADMITTED FOR CELLULITIS TO THE RIGHT ARM AND A LACERATION WITH NECROTIC TISSUE FOLLOWING A FALL. TODAY, SHE IS ALERT AND ORIENTED, LYING IN BED ON MORNING ROUNDS. PATIENTS DAUGHTER IS AT BEDSIDE. PATIENT IS STATUS POST DEBRIDEMENT OF WOUND TO THE RIGHT ARM BY YESTERDAY. PATIENT CONTINUES WITH PAIN TO THE RIGHT ARM. ON EXAMINATION, LUNGS ARE CLEAR TO AUSCULTATION. ABDOMEN IS ROUND, SOFT, AND NON-TENDER WITH NORMAL BOWEL SOUNDS NOTED IN ALL QUADRANTS. RIGHT ARM IS NOTED WITH A KERLIX DRESSING. DRESSING REMOVED TO ASSESS WOUND. SUTURES INTACT. NO DRAINAGE NOTED. NO SIGNS OR SYMPTOMS OF INFECTION NOTED TO SITE. HER VITAL SIGNS THIS MORNING WERE 98.3- 95-18-95%-118/70. ABNORMAL LAB VALUES INCLUDE THE FOLLOWING: HCT 35.1, CREATININE 1.04, CALCIUM 8.1, TOTAL BILI 1.60, CRP 78.9, ESR 72, TOTAL PROTEIN 5.7, ALBUMIN 2.4, A/G RATIO 0.7. A WOUND CULTURE IS PENDING AT THIS TIME. PRELIMINARY RESULTS REPORT GROWTH OF COAGULASE NEGATIVE STAPH AT DAY 2. PATIENT S DAUGHTER VERBALIZES CONCERNS OF PATIENT RETURNING HOME ALONE DUE TO DECREASED STABILITY AND RECENT FALLS. WE DISCUSSED WITH PATIENT AND FAMILY THE NEED FOR AN EXTENDED PERIOD OF PHYSICAL THERAPY BEFORE RETURNING HOME. THEY ARE IN AGREEMENT. WE WILL FURTHER DISCUSS THIS WITH CASE MANAGEMENT. TODAY, WE WILL CONTINUE WITH WOUND CARE AND PHYSICAL THERAPY. WE WILL FOLLOW UP WITH AM LABS AND CONTINUE TO MONITOR PATIENT. - Past Medical Family Social History Past Med/Fam/Surg Hx: No changes since H&P Allergies: Allergies sertraline [From Zoloft] Allergy (Verified 03/10/17 14:54) - Review of Systems ROS: No change since H&P - Vital Signs and I&O's Vital Signs: Temperature 98.5 F Pulse Rate [Left Brachial] 62 Pulse Rate [Right Brachial] 81 Pulse Rate 86 Respiratory Rate 18 Blood Pressure [Left Arm] 132/62 Blood Pressure [Right Arm] 137/94 Blood Pressure 118/71 O2 Sat by Pulse Oximetry 96 Intake and Output: Intake & Output 03/13/17 03/14/17 03/15/17 03/16/17 11:59 11:59 11:59 10:59 Intake Total 601 997 3223 1110 Output Total 700 400 Balance -858 472 7408 1110 - Physical Exam Oriented: Normal Eyes: Other (Vision Loss) Ear: Normal Nose: Normal Throat: Normal Respiratory: Normal Cardiovascular: Normal : Normal. negative: Hematuria, Frequency, Discharge, Bleeding, Auscultation: Bowel Sounds: Normal Palpation: Normal Tenderness: Normal Skin: Wound, Bruising, Ecchymosis Musculoskeletal: Normal Psychiatric: Normal Mood Description: Calm Affect: Normal Speech Pattern: Clear, Appropriate - Laboratory and Diagnostics Result Diagrams: 03/16/17 04:55 03/16/17 04:55 Labs: 03/14/17 13:53 Stool Stool Culture - Preliminary 03/14/17 13:53 Stool - Final 03/11/17 13:54 Arm - Right Gram Stain - Final 03/11/17 13:54 Arm - Right Wound Culture - Final Laboratory WBC 10.5 X10^3/uL (3.6-10.0) H 03/16/17 04:55 RBC 3.17 X10^6/uL (3.5-5.4) L 03/16/17 04:55 Hgb 10.9 g/dL (12.0-16.0) L 03/16/17 04:55 Hct 30.6 % (36.0-47.0) L 03/16/17 04:55 MCV 96.7 fL (80.0-100.0) 03/16/17 04:55 MCH 34.4 pg (27.0-34.0) H 03/16/17 04:55 MCHC 35.5 g/dL (33.0-35.0) H 03/16/17 04:55 RDW 15.2 % (11.6-16.5) 03/16/17 04:55 Plt Count 161 X10^3/uL (150.0-450.0) 03/16/17 04:55 MPV 8.5 fL (7.4-11.0) 03/16/17 04:55 Neut % 71.8 % (42.0-75.0) 03/16/17 04:55 Lymph % 15.0 % (21.0-51.0) L 03/16/17 04:55 [place] % 12.2 % (0.0-13.0) 03/16/17 04:55 Eos % 0.7 % (0.9-2.9) L 03/16/17 04:55 Baso % 0.3 % (0.2-1.0) 03/16/17 04:55 Neut # 7.5 x10^3/uL (2.2-4.8) H 03/16/17 04:55 Lymph # 1.6 X10^3/uL (1.3-2.9) 03/16/17 04:55 [place] # 1.3 x10^3/uL (0.3-0.8) H 03/16/17 04:55 Eos # 0.1 x10^3/uL (0.0-0.2) 03/16/17 04:55 Baso # 0.0 X10^3/uL (0.0-0.1) 03/16/17 04:55 Absolute Nucleated RBC 0.0 /100WBC 03/16/17 04:55 ESR 43 MM/HOUR (0-20) H 03/16/17 04:55 Sodium 139 mmol/L (136-145) 03/16/17 04:55 Corrected Sodium 140 mmol/L (136-145) 03/16/17 04:55 Potassium 3.1 mmol/L (3.5-5.1) L 03/16/17 04:55 Chloride 104 mmol/L (98-107) 03/16/17 04:55 Carbon Dioxide 29.1 mmol/L (21-32) 03/16/17 04:55 BUN 23 mg/dL (7-18) H 03/16/17 04:55 Creatinine 1.24 mg/dL (0.55-1.02) H 03/16/17 04:55 Est GFR (MDRD) Af Amer 55 (>60) L 03/16/17 04:55 Est GFR (MDRD) Non-Af 45 (>60) L 03/16/17 04:55 Glucose 132 mg/dL (65-99) H 03/16/17 04:55 POC Glucose (mg/dL) 115 mg/dL (65-99) H 03/16/17 05:32 Calcium 8.6 mg/dL (8.5-10.1) 03/16/17 04:55 Corrected Calcium 9.7 mg/dL (8.5-10.1) 03/16/17 04:55 Magnesium 1.8 mg/dL (1.7-2.9) 03/15/17 04:57 Total Bilirubin 0.60 mg/dL (0.2-1.0) 03/16/17 04:55 AST 17 Units/L (15-37) 03/16/17 04:55 ALT 17 Units/L (12-78) 03/16/17 04:55 Alkaline Phosphatase 45 Units/L (46-116) L 03/16/17 04:55 C-Reactive Protein 10.40 mg/L (0-3.0) H 03/16/17 04:55 Total Protein 5.4 g/dL (6.4-8.2) L 03/16/17 04:55 Albumin 2.6 g/dL (3.4-5.0) L 03/16/17 04:55 Globulin 2.8 g/dL (2.5-4.5) 03/16/17 04:55 Albumin/Globulin Ratio 0.9 Ratio (1.1-2.1) L 03/16/17 04:55 Stool Description 20g,liquid,brown 03/14/17 13:53 Stl Occult Blood (IFOB) Negative (NEGATIVE) 03/14/17 13:53 Stool for White Cells Negative (NEGATIVE) 03/14/17 13:53 Stl C. diff Tox B Gene Negative (NEGATIVE) 03/14/17 13:53 Stl C. diff 027-NAP1-BI Negative (NEGATIVE) 03/14/17 13:53 Vancomycin Trough 34.5 ug/mL (15-20) H* 03/13/17 20:15 Random Vancomycin 25.6 ug/mL 03/14/17 11:55 Cryptosporid parvum Ag Negative (NEGATIVE) 03/14/17 13:53 E. histolytica Antigen Negative (NEGATIVE) 03/14/17 13:53 Giardia lamblia Ag Negative (NEGATIVE) 03/14/17 13:53 - Plan (1) Cellulitis of right forearm Status: Acute Plan: WOUND CARE, S/P DEBRIDEMENT, ZOSYN 3.375GM IV Q8H, VANCOMYCIN 1GM IV Q12H , CONTINUE TO MONITOR (2) Hypokalemia Status: Acute Plan: REPLACE WITH POTASSIUM PROTOCOL, CONTINUE TO MONITOR (3) Anxiety Status: Acute Plan: CONTINUE XANAX, CONTINUE TO MONITOR (4) CAD (coronary artery disease) Status: Chronic Qualifiers: Coronary Disease-Associated Artery/Lesion type: [place] artery [place] vs. transplanted heart: [place] heart Associated angina: without angina Qualified Code(s): I25.10 - Atherosclerotic heart disease of [place] coronary artery without angina pectoris Plan: CONTINUE PLAVIX 75MG DAILY, CONTINUE TO MONITOR (5) CHF (congestive heart failure) Status: Chronic Qualifiers: Congestive heart failure type: combined Congestive heart failure chronicity : chronic Qualified Code(s): I50.42 - Chronic combined systolic (congestive) and diastolic (congestive) heart failure Plan: CONTINUE LASIX, CONTINUE TO MONITOR (6) GERD (gastroesophageal reflux disease) Status: Chronic Qualifiers: Esophagitis presence: esophagitis presence not specified Qualified Code(s) : K21.9 - Gastro-esophageal reflux disease without esophagitis Plan: CONTINUE PROTONIX, CONTINUE ZANTAC, CONTINUE TO MONITOR (7) Hyperlipidemia Status: Chronic Qualifiers: Hyperlipidemia type: mixed hyperlipidemia Qualified Code(s): E78.2 - Mixed hyperlipidemia Plan: CONTINUE LIPITOR, CONTINUE TO MONITOR (8) Hypertension Status: Chronic Qualifiers: Hypertension type: essential hypertension Qualified Code(s): I10 - Essential (primary) hypertension Plan: CONTINUE METOPROLOL, CONTINUE TO MONITOR
--- NOTE | 2017-03-16 07:59 | PCM.PROG ---
Progress Note - Progress Note for Day of Date: 03/14/17 - Subjective Subjective: WAS ADMITTED FOR CELLULITIS TO THE RIGHT ARM AND A LACERATION WITH NECROTIC TISSUE FOLLOWING A FALL. TODAY, SHE IS ALERT AND ORIENTED, LYING IN BED ON MORNING ROUNDS. PATIENTS DAUGHTER IS AT BEDSIDE. PATIENT IS STATUS POST DEBRIDEMENT OF WOUND TO THE RIGHT ARM. PATIENT CONTINUES WITH PAIN TO THE RIGHT ARM. SHE IS ALSO NOTED WITH COMPLAINTS OF DIARRHEA AND DECRASED APPETITE. ON EXAMINATION, LUNGS ARE CLEAR TO AUSCULTATION. ABDOMEN IS ROUND, SOFT, AND NON-TENDER WITH NORMAL BOWEL SOUNDS NOTED IN ALL QUADRANTS. RIGHT ARM IS NOTED WITH A KERLIX DRESSING. DRESSING DRY AND INTACT WITH NO SIGNS OR SYMPTOMS OF INFECTION NOTED. NO DRAINAGE NOTED. HER VITAL SIGNS THIS MORNING WERE 99.0-66-20-93%-146/87. ABNORMAL LAB VALUES INCLUDE THE FOLLOWING: RBC 3.45, HGB 11.2, HCT 32, POTASSIUM 3.2, CREATININE 1.46, CALCIUM 8.4, TOTAL BILI 1.40, CRP 44.70, ESR 69, TOTAL PROTEIN 5.6, ALBUMIN 2.4, A/G RATIO 0.8. FINAL WOUND CULTURE RESULTS REPORT GROWTH OF COAGULASE NEGATIVE STAPH. TODAY, WE PLAN TO START TPN, ALBUMIN DAILY, MEGACE 40MG BID, AND WE WILL CONSULT ANESTHESIA FOR PLACEMENT OF A PICC LINE FOR AN EXTENDED COURSE OF ANTIBIOTICS. WE WILL OBTAIN STOOL STUDIES FOR PATIENTS COMPLAINTS OF DIARRHEA. OTHERWISE, WE WILL CONTINUE WITH ANTIBIOTICS, WOUND CARE AND PHYSICAL THERAPY. WE WILL FOLLOW UP WITH AM LABS AND CONTINUE TO MONITOR PATIENT. - Past Medical Family Social History Past Med/Fam/Surg Hx: No changes since H&P Allergies: Allergies sertraline [From Zoloft] Allergy (Verified 03/10/17 14:54) - Review of Systems ROS: No change since H&P - Vital Signs and I&O's Vital Signs: Temperature 98.5 F Pulse Rate [Left Brachial] 62 Pulse Rate [Right Brachial] 81 Pulse Rate 86 Respiratory Rate 18 Blood Pressure [Left Arm] 132/62 Blood Pressure [Right Arm] 137/94 Blood Pressure 118/71 O2 Sat by Pulse Oximetry 96 Intake and Output: Intake & Output 03/13/17 03/14/17 03/15/17 03/16/17 11:59 11:59 11:59 10:59 Intake Total 546 243 4198 1110 Output Total 700 400 Balance -179 863 3289 1110 - Physical Exam Oriented: Normal Eyes: Other (Vision Loss) Ear: Normal Nose: Normal Throat: Normal Respiratory: Normal Cardiovascular: Normal : Normal. negative: Hematuria, Frequency, Discharge, Bleeding, Auscultation: Bowel Sounds: Normal Palpation: Normal Tenderness: Normal Skin: Wound, Bruising, Ecchymosis Musculoskeletal: Normal Psychiatric: Normal Mood Description: Calm Affect: Normal Speech Pattern: Clear, Appropriate - Laboratory and Diagnostics Result Diagrams: 03/16/17 04:55 03/16/17 04:55 Labs: 03/14/17 13:53 Stool Stool Culture - Preliminary 03/14/17 13:53 Stool - Final 03/11/17 13:54 Arm - Right Gram Stain - Final 03/11/17 13:54 Arm - Right Wound Culture - Final Laboratory WBC 10.5 X10^3/uL (3.6-10.0) H 03/16/17 04:55 RBC 3.17 X10^6/uL (3.5-5.4) L 03/16/17 04:55 Hgb 10.9 g/dL (12.0-16.0) L 03/16/17 04:55 Hct 30.6 % (36.0-47.0) L 03/16/17 04:55 MCV 96.7 fL (80.0-100.0) 03/16/17 04:55 MCH 34.4 pg (27.0-34.0) H 03/16/17 04:55 MCHC 35.5 g/dL (33.0-35.0) H 03/16/17 04:55 RDW 15.2 % (11.6-16.5) 03/16/17 04:55 Plt Count 161 X10^3/uL (150.0-450.0) 03/16/17 04:55 MPV 8.5 fL (7.4-11.0) 03/16/17 04:55 Neut % 71.8 % (42.0-75.0) 03/16/17 04:55 Lymph % 15.0 % (21.0-51.0) L 03/16/17 04:55 [place] % 12.2 % (0.0-13.0) 03/16/17 04:55 Eos % 0.7 % (0.9-2.9) L 03/16/17 04:55 Baso % 0.3 % (0.2-1.0) 03/16/17 04:55 Neut # 7.5 x10^3/uL (2.2-4.8) H 03/16/17 04:55 Lymph # 1.6 X10^3/uL (1.3-2.9) 03/16/17 04:55 [place] # 1.3 x10^3/uL (0.3-0.8) H 03/16/17 04:55 Eos # 0.1 x10^3/uL (0.0-0.2) 03/16/17 04:55 Baso # 0.0 X10^3/uL (0.0-0.1) 03/16/17 04:55 Absolute Nucleated RBC 0.0 /100WBC 03/16/17 04:55 ESR 43 MM/HOUR (0-20) H 03/16/17 04:55 Sodium 139 mmol/L (136-145) 03/16/17 04:55 Corrected Sodium 140 mmol/L (136-145) 03/16/17 04:55 Potassium 3.1 mmol/L (3.5-5.1) L 03/16/17 04:55 Chloride 104 mmol/L (98-107) 03/16/17 04:55 Carbon Dioxide 29.1 mmol/L (21-32) 03/16/17 04:55 BUN 23 mg/dL (7-18) H 03/16/17 04:55 Creatinine 1.24 mg/dL (0.55-1.02) H 03/16/17 04:55 Est GFR (MDRD) Af Amer 55 (>60) L 03/16/17 04:55 Est GFR (MDRD) Non-Af 45 (>60) L 03/16/17 04:55 Glucose 132 mg/dL (65-99) H 03/16/17 04:55 POC Glucose (mg/dL) 115 mg/dL (65-99) H 03/16/17 05:32 Calcium 8.6 mg/dL (8.5-10.1) 03/16/17 04:55 Corrected Calcium 9.7 mg/dL (8.5-10.1) 03/16/17 04:55 Magnesium 1.8 mg/dL (1.7-2.9) 03/15/17 04:57 Total Bilirubin 0.60 mg/dL (0.2-1.0) 03/16/17 04:55 AST 17 Units/L (15-37) 03/16/17 04:55 ALT 17 Units/L (12-78) 03/16/17 04:55 Alkaline Phosphatase 45 Units/L (46-116) L 03/16/17 04:55 C-Reactive Protein 10.40 mg/L (0-3.0) H 03/16/17 04:55 Total Protein 5.4 g/dL (6.4-8.2) L 03/16/17 04:55 Albumin 2.6 g/dL (3.4-5.0) L 03/16/17 04:55 Globulin 2.8 g/dL (2.5-4.5) 03/16/17 04:55 Albumin/Globulin Ratio 0.9 Ratio (1.1-2.1) L 03/16/17 04:55 Stool Description 20g,liquid,brown 03/14/17 13:53 Stl Occult Blood (IFOB) Negative (NEGATIVE) 03/14/17 13:53 Stool for White Cells Negative (NEGATIVE) 03/14/17 13:53 Stl C. diff Tox B Gene Negative (NEGATIVE) 03/14/17 13:53 Stl C. diff 027-NAP1-BI Negative (NEGATIVE) 03/14/17 13:53 Vancomycin Trough 34.5 ug/mL (15-20) H* 03/13/17 20:15 Random Vancomycin 25.6 ug/mL 03/14/17 11:55 Cryptosporid parvum Ag Negative (NEGATIVE) 03/14/17 13:53 E. histolytica Antigen Negative (NEGATIVE) 03/14/17 13:53 Giardia lamblia Ag Negative (NEGATIVE) 03/14/17 13:53 - Plan (1) Cellulitis of right forearm Status: Acute Plan: WOUND CARE, S/P DEBRIDEMENT, ZOSYN 3.375GM IV Q8H, VANCOMYCIN 1GM IV Q12H , CONTINUE TO MONITOR (2) Hypoalbuminemia Status: Acute Plan: ALBUMIN 25% IV DAILY, TPN, MEGACE BID FOR APPETITE, CONTINUE TO MONITOR (3) Hypoproteinemia Status: Acute Plan: TPN, MEGACE 40MG PO BID FOR APPETITE, CONTINUE TO MONITOR (4) Hypokalemia Status: Acute Plan: REPLACE WITH POTASSIUM PROTOCOL, CONTINUE TO MONITOR (5) Anxiety Status: Acute Plan: CONTINUE XANAX, CONTINUE TO MONITOR (6) CAD (coronary artery disease) Status: Chronic Qualifiers: Coronary Disease-Associated Artery/Lesion type: [place] artery [place] vs. transplanted heart: [place] heart Associated angina: without angina Qualified Code(s): I25.10 - Atherosclerotic heart disease of [place] coronary artery without angina pectoris Plan: CONTINUE PLAVIX 75MG DAILY, CONTINUE TO MONITOR (7) CHF (congestive heart failure) Status: Chronic Qualifiers: Congestive heart failure type: combined Congestive heart failure chronicity : chronic Qualified Code(s): I50.42 - Chronic combined systolic (congestive) and diastolic (congestive) heart failure Plan: CONTINUE LASIX, CONTINUE TO MONITOR (8) GERD (gastroesophageal reflux disease) Status: Chronic Qualifiers: Esophagitis presence: esophagitis presence not specified Qualified Code(s) : K21.9 - Gastro-esophageal reflux disease without esophagitis Plan: CONTINUE PROTONIX, CONTINUE ZANTAC, CONTINUE TO MONITOR (9) Hyperlipidemia Status: Chronic Qualifiers: Hyperlipidemia type: mixed hyperlipidemia Qualified Code(s): E78.2 - Mixed hyperlipidemia Plan: CONTINUE LIPITOR, CONTINUE TO MONITOR (10) Hypertension Status: Chronic Qualifiers: Hypertension type: essential hypertension Qualified Code(s): I10 - Essential (primary) hypertension Plan: CONTINUE METOPROLOL, CONTINUE TO MONITOR
[2017-03-16] MEDS: PROTONIX TAB 40 MG PO SCH (09:09)
[2017-03-16] MEDS: K-DUR TAB 20 MEQ PO SCH ×2 (09:10→16:48)
[2017-03-16] MEDS: ZINC SULFATE PO SCH (09:10)
[2017-03-16] MEDS: VITAMIN C PO SCH (09:10)
[2017-03-16] MEDS: ARICEPT TAB 10 MG PO SCH (09:10)
[2017-03-16] MEDS: MEGACE PO SCH ×2 (09:10→21:20)
[2017-03-16] MEDS: TOPROL XL PO SCH (09:10)
[2017-03-16] MEDS: PREDNISONE TAB 5 MG PO SCH ×2 (09:10→21:21)
[2017-03-16] MEDS: FOLIC ACID TAB 1 MG PO SCH (09:10)
[2017-03-16] MEDS: EFFEXOR XR 37.5 MG CAP PO SCH (09:11)
[2017-03-16] MEDS: LASIX PO SCH (09:11)
[2017-03-16] MEDS: ALBUMIN HUMAN 25%- 100ML 100 ML IV SCH (09:12)
[2017-03-16] MEDS: NORCO 5/325 MG TAB PO PRN ×2 (09:13→21:20)
[2017-03-16] MEDS: PLAVIX PO SCH (09:13)
[2017-03-16] MEDS ORDERED: NS 500 ML IV 500 ML IV ONE (13:39)
[2017-03-16] MEDS ORDERED: BUTT CREAM (COMPOUND) TOP PRN (14:45)
[2017-03-16] MEDS: LIPITOR TAB 20 MG PO SCH (16:48)
[2017-03-16] MEDS: XANAX PO SCH (16:49)
[2017-03-16] MEDS: LIPOSYN III 20% 100ML 100 ML IV SCH (21:21)
[2017-03-17] MEDS: PHARMACY CONSULT - VANCOMYCIN XX SCH ×2 (00:02→23:06)
[2017-03-17] MEDS: NS IV SCH ×4 (00:02→21:53)
[2017-03-17] MEDS: ZOSYN IV SCH ×4 (00:02→21:53)
[2017-03-17 05:29] LABS: BASOPHILS % (AUTO) 0.3 % (0.2-1.0); EOSINOPHILS # (AUTO) 0.1 x10^3/uL (0.0-0.2); EOSINOPHILS % (AUTO) 0.6 % (0.9-2.9); HEMATOCRIT 32.4 % (36.0-47.0); HEMOGLOBIN 11.2 g/dL (12.0-16.0); LYMPHOCYTES # (AUTO) 1.4 X10^3/uL (1.3-2.9); LYMPHOCYTES % (AUTO) 13.1 % (21.0-51.0); MEAN CORPUSCULAR HEMOGLOBIN 33.8 pg (27.0-34.0); MEAN CORPUSCULAR HGB CONC 34.7 g/dL (33.0-35.0); MEAN CORPUSCULAR VOLUME 97.4 fL (80.0-100.0); MEAN PLATELET VOLUME 8.5 fL (7.4-11.0); MONOCYTES % (AUTO) 8.7 % (0.0-13.0); NEUTROPHILS # (AUTO) 8.5 x10^3/uL (2.2-4.8); NEUTROPHILS % (AUTO) 77.3 % (42.0-75.0); PLATELET COUNT 174 X10^3/uL (150.0-450.0); RED BLOOD COUNT 3.33 X10^6/uL (3.5-5.4)
[2017-03-17 05:34] LABS: ALBUMIN 2.9 g/dL (3.4-5.0); C-REACTIVE PROTEIN 6.3 mg/L (0-3.0); CALCIUM 9.1 mg/dL (8.5-10.1); CARBON DIOXIDE 29.2 mmol/L (21-32); CREATININE 1.22 mg/dL (0.55-1.02); MAGNESIUM 1.8 mg/dL (1.7-2.9); PHOSPHORUS 1.9 mg/dL (2.6-4.7); TOTAL PROTEIN 5.8 g/dL (6.4-8.2)
[2017-03-17] MEDS: CLINIMIX 5 %/25 % 1,000 ML with MVI INJ (ADULT) 10 ML, TRACE ELEMENTS INJ 10 ML, TPN EL... IV SCH ×10 (05:55→21:52)
[2017-03-17 06:15] LABS: ERYTHROCYTE SEDIMENTATION RATE 40 MM/HOUR (0-20)
[2017-03-17] MEDS: ALBUMIN HUMAN 25%- 100ML 100 ML IV SCH (09:31)
[2017-03-17] MEDS: EFFEXOR XR 37.5 MG CAP PO SCH (09:33)
[2017-03-17] MEDS: FOLIC ACID TAB 1 MG PO SCH (09:33)
[2017-03-17] MEDS: VITAMIN C PO SCH (09:33)
[2017-03-17] MEDS: PROTONIX TAB 40 MG PO SCH ×2 (09:33→20:03)
[2017-03-17] MEDS: TOPROL XL PO SCH (09:33)
[2017-03-17] MEDS: ZINC SULFATE PO SCH (09:33)
[2017-03-17] MEDS: K-DUR TAB 20 MEQ PO SCH ×2 (09:33→17:07)
[2017-03-17] MEDS: ARICEPT TAB 10 MG PO SCH (09:34)
[2017-03-17] MEDS: PREDNISONE TAB 5 MG PO SCH ×2 (09:34→20:03)
[2017-03-17] MEDS: MEGACE PO SCH ×2 (09:34→20:03)
[2017-03-17] MEDS: LASIX PO SCH (09:34)
[2017-03-17] MEDS: PLAVIX PO SCH (09:39)
[2017-03-17] MEDS: LEVSIN/MAALOX/LIDOC VISC PO SCH ×4 (11:07→20:02)
[2017-03-17] MEDS: PEPCID 20 MG IV PREMIX* 20 MG/50 ML BAG IV SCH ×2 (11:08→20:02)
[2017-03-17] MEDS: EFFEXOR XR 75 MG CAP PO SCH (11:14)
[2017-03-17] MEDS ORDERED: EFFEXOR XR 37.5 MG CAP PO ONE (12:00)
[2017-03-17] MEDS: XANAX PO SCH (17:07)
[2017-03-17] MEDS: LIPITOR TAB 20 MG PO SCH (17:07)
[2017-03-17] MEDS: LIPOSYN III 20% 100ML 100 ML IV SCH (20:01)
[2017-03-18] MEDS: NS IV SCH (05:21)
[2017-03-18] MEDS: ZOSYN IV SCH (05:21)
[2017-03-18 05:23] LABS: ALBUMIN 3.1 g/dL (3.4-5.0); CALCIUM 8.7 mg/dL (8.5-10.1); COR CA(FOR HYPOALB) 9.4 mg/dL (8.5-10.1); CREATININE 1.23 mg/dL (0.55-1.02); TOTAL PROTEIN 5.7 g/dL (6.4-8.2)
[2017-03-18 05:27] LABS: BASOPHILS % (AUTO) 0.2 % (0.2-1.0); EOSINOPHILS # (AUTO) 0.1 x10^3/uL (0.0-0.2); EOSINOPHILS % (AUTO) 0.5 % (0.9-2.9); HEMATOCRIT 30.4 % (36.0-47.0); HEMOGLOBIN 10.9 g/dL (12.0-16.0); LYMPHOCYTES # (AUTO) 1.6 X10^3/uL (1.3-2.9); LYMPHOCYTES % (AUTO) 14.4 % (21.0-51.0); MEAN CORPUSCULAR HEMOGLOBIN 34.7 pg (27.0-34.0); MEAN CORPUSCULAR HGB CONC 35.7 g/dL (33.0-35.0); MEAN CORPUSCULAR VOLUME 97.1 fL (80.0-100.0); MEAN PLATELET VOLUME 8.4 fL (7.4-11.0); MONOCYTES # (AUTO) 1.2 x10^3/uL (0.3-0.8); MONOCYTES % (AUTO) 11.1 % (0.0-13.0); NEUTROPHILS % (AUTO) 73.8 % (42.0-75.0); PLATELET COUNT 181 X10^3/uL (150.0-450.0); RED BLOOD COUNT 3.13 X10^6/uL (3.5-5.4); RED CELL DISTRIBUTION WIDTH 15.5 % (11.6-16.5); WHITE BLOOD COUNT 10.8 X10^3/uL (3.6-10.0)
[2017-03-18 05:48] LABS: PLATELET MORPHOLOGY COMMENT NORMAL (NORMAL)
[2017-03-18] MEDS: ZINC SULFATE PO SCH (09:42)
[2017-03-18] MEDS: PROTONIX TAB 40 MG PO SCH (09:43)
[2017-03-18] MEDS: PREDNISONE TAB 5 MG PO SCH (09:43)
[2017-03-18] MEDS: FOLIC ACID TAB 1 MG PO SCH (09:43)
[2017-03-18] MEDS: VITAMIN C PO SCH (09:43)
[2017-03-18] MEDS: MEGACE PO SCH (09:43)
[2017-03-18] MEDS: EFFEXOR XR 75 MG CAP PO SCH (09:43)
[2017-03-18] MEDS: ARICEPT TAB 10 MG PO SCH (09:43)
[2017-03-18] MEDS: TOPROL XL PO SCH (09:43)
[2017-03-18] MEDS: LASIX PO SCH (09:43)
[2017-03-18] MEDS: PLAVIX PO SCH (09:44)
[2017-03-18] MEDS: ALBUMIN HUMAN 25%- 100ML 100 ML IV SCH (09:44)
[2017-03-18] MEDS: LEVSIN/MAALOX/LIDOC VISC PO SCH (09:44)
[2017-03-18] MEDS: PEPCID 20 MG IV PREMIX* 20 MG/50 ML BAG IV SCH (09:44)
[2017-03-18] MEDS: K-DUR TAB 20 MEQ PO SCH (09:45)
--- NOTE | 2017-03-18 10:59 | PCM.PROG ---
Progress Note - Progress Note for Day of Date: 03/17/17 - Subjective Subjective: WAS ADMITTED FOR CELLULITIS TO THE RIGHT ARM AND A LACERATION WITH NECROTIC TISSUE FOLLOWING A FALL. TODAY, SHE IS ALERT AND ORIENTED, LYING IN BED ON MORNING ROUNDS. PATIENTS DAUGHTER IS AT BEDSIDE. PATIENT IS STATUS POST DEBRIDEMENT OF WOUND TO THE RIGHT ARM. PATIENT REPORTS FEELING SOMEWHAT BETTER THAN SHE HAS SINCE ADMISSION, BUT CONTINUES WITH SOME WEAKNESS AND PAIN TO THE RIGHT ARM. PATIENT REPORTS THAT SHE IS UNABLE TO EAT MUCH DUE TO HEARTBURN AND BURNING IN THE THROAT AFTER SHE EATS. ON EXAMINATION, LUNGS ARE CLEAR TO AUSCULTATION. ABDOMEN IS ROUND, SOFT, AND NON- TENDER WITH NORMAL BOWEL SOUNDS NOTED IN ALL QUADRANTS. RIGHT ARM IS NOTED WITH A KERLIX DRESSING. DRESSING DRY AND INTACT WITH NO SIGNS OR SYMPTOMS OF INFECTION NOTED. NO DRAINAGE NOTED. HER VITAL SIGNS THIS MORNING WERE 98.6-69-20 -98%-126/58. ABNORMAL LAB VALUES INCLUDE THE FOLLOWING: WBC 11.0, RBC 3.33, HGB 11.2, HCT 32.4, POTASSIUM 3.4, BUN 23, CREATININE 1.22, PHOSPHORUS 1.9, CRP 6.30 , ESR 40, TOTAL PROTEIN 5.8, ALBUMIN 2.9, A/G RATIO 1.0. TODAY, WE WILL START PEPCID, PROTONIX, AND GI COCKTAIL. PATIENT IS IN AGREEMENT WITH PLACEMENT AT [facility] FOR PHYSICAL THERAPY, WOUND CARE, AND IV ANTIBIOTICS. WE WILL FURTHER DISCUSS THIS WITH CASE MANAGEMENT. WE WILL FOLLOW UP WITH AM LABS AND CONTINUE TO MONITOR PATIENT. - Past Medical Family Social History Past Med/Fam/Surg Hx: No changes since H&P Allergies: Allergies sertraline [From Zoloft] Allergy (Verified 03/10/17 14:54) - Review of Systems ROS: No change since H&P - Vital Signs and I&O's Vital Signs: Temperature 99.4 F Pulse Rate [Left Posterior 69 Tibial] Pulse Rate [Left Brachial] 54 Pulse Rate [Right Brachial] 81 Pulse Rate 86 Respiratory Rate 18 Blood Pressure [Left [place]alf] 139/63 Blood Pressure [Left Arm] 158/64 Blood Pressure [Right Arm] 137/94 Blood Pressure 118/71 O2 Sat by Pulse Oximetry 99 Intake and Output: Intake & Output 03/15/17 03/16/17 03/17/17 03/18/17 12:59 11:59 11:59 11:59 Intake Total 1210 1600 Balance 1210 1600 - Physical Exam Oriented: Normal Eyes: Other (Vision Loss) Ear: Normal Nose: Normal Throat: Normal Respiratory: Normal Cardiovascular: Normal : Normal. negative: Hematuria, Frequency, Discharge, Bleeding, Auscultation: Bowel Sounds: Normal Palpation: Normal Tenderness: Epigastric Skin: Wound, Bruising, Ecchymosis Musculoskeletal: Normal Psychiatric: Normal Mood Description: Calm Affect: Normal Speech Pattern: Clear, Appropriate - Laboratory and Diagnostics Result Diagrams: 03/18/17 04:25 03/18/17 04:25 Labs: 03/14/17 13:53 Stool Stool Culture - Final 03/14/17 13:53 Stool - Final 03/11/17 13:54 Arm - Right Gram Stain - Final 03/11/17 13:54 Arm - Right Wound Culture - Final Laboratory WBC 10.8 X10^3/uL (3.6-10.0) H 03/18/17 04:25 RBC 3.13 X10^6/uL (3.5-5.4) L 03/18/17 04:25 Hgb 10.9 g/dL (12.0-16.0) L 03/18/17 04:25 Hct 30.4 % (36.0-47.0) L 03/18/17 04:25 MCV 97.1 fL (80.0-100.0) 03/18/17 04:25 MCH 34.7 pg (27.0-34.0) H 03/18/17 04:25 MCHC 35.7 g/dL (33.0-35.0) H 03/18/17 04:25 RDW 15.5 % (11.6-16.5) 03/18/17 04:25 Plt Count 181 X10^3/uL (150.0-450.0) 03/18/17 04:25 Plt Count Comment Adequate (ADEQUATE) 03/18/17 04:25 MPV 8.4 fL (7.4-11.0) 03/18/17 04:25 Neut % 73.8 % (42.0-75.0) 03/18/17 04:25 Lymph % 14.4 % (21.0-51.0) L 03/18/17 04:25 [place] % 11.1 % (0.0-13.0) 03/18/17 04:25 Eos % 0.5 % (0.9-2.9) L 03/18/17 04:25 Baso % 0.2 % (0.2-1.0) 03/18/17 04:25 Neut # 8.0 x10^3/uL (2.2-4.8) H 03/18/17 04:25 Lymph # 1.6 X10^3/uL (1.3-2.9) 03/18/17 04:25 [place] # 1.2 x10^3/uL (0.3-0.8) H 03/18/17 04:25 Eos # 0.1 x10^3/uL (0.0-0.2) 03/18/17 04:25 Baso # 0.0 X10^3/uL (0.0-0.1) 03/18/17 04:25 Absolute Nucleated RBC 0.1 /100WBC 03/18/17 04:25 Total Counted 100 03/18/17 04:25 Neutrophils % (Manual) 73 % (39-76) 03/18/17 04:25 Lymphocytes % (Manual) 20 % (13-43) 03/18/17 04:25 Monocytes % (Manual) 7 % (4-9) 03/18/17 04:25 Plt Morphology Comment Normal (NORMAL) 03/18/17 04:25 RBC Morphology Normal (NORMAL) 03/18/17 04:25 ESR 40 MM/HOUR (0-20) H 03/17/17 03:45 Sodium 139 mmol/L (136-145) 03/18/17 04:25 Corrected Sodium 140 mmol/L (136-145) 03/18/17 04:25 Potassium 3.2 mmol/L (3.5-5.1) L 03/18/17 04:25 Chloride 103 mmol/L (98-107) 03/18/17 04:25 Carbon Dioxide 29.0 mmol/L (21-32) 03/18/17 04:25 BUN 27 mg/dL (7-18) H 03/18/17 04:25 Creatinine 1.23 mg/dL (0.55-1.02) H 03/18/17 04:25 Est GFR (MDRD) Af Amer 55 (>60) L 03/18/17 04:25 Est GFR (MDRD) Non-Af 46 (>60) L 03/18/17 04:25 Glucose 153 mg/dL (65-99) H 03/18/17 04:25 POC Glucose (mg/dL) 152 mg/dL (65-99) H 03/18/17 04:48 Calcium 8.7 mg/dL (8.5-10.1) 03/18/17 04:25 Corrected Calcium 9.4 mg/dL (8.5-10.1) 03/18/17 04:25 Phosphorus 1.9 mg/dL (2.6-4.7) L 03/17/17 03:45 Magnesium 1.8 mg/dL (1.7-2.9) 03/17/17 03:45 Total Bilirubin 0.80 mg/dL (0.2-1.0) 03/18/17 04:25 AST 17 Units/L (15-37) 03/18/17 04:25 ALT 19 Units/L (12-78) 03/18/17 04:25 Alkaline Phosphatase 49 Units/L (46-116) 03/18/17 04:25 C-Reactive Protein 6.30 mg/L (0-3.0) H 03/17/17 03:45 Total Protein 5.7 g/dL (6.4-8.2) L 03/18/17 04:25 Albumin 3.1 g/dL (3.4-5.0) L 03/18/17 04:25 Globulin 2.6 g/dL (2.5-4.5) 03/18/17 04:25 Albumin/Globulin Ratio 1.2 Ratio (1.1-2.1) 03/18/17 04:25 Triglycerides 52 mg/dL (0-150) 03/17/17 03:45 Stool Description 20g,liquid,brown 03/14/17 13:53 Stl Occult Blood (IFOB) Negative (NEGATIVE) 03/14/17 13:53 Stool for White Cells Negative (NEGATIVE) 03/14/17 13:53 Stl C. diff Tox B Gene Negative (NEGATIVE) 03/14/17 13:53 Stl C. diff 027-NAP1-BI Negative (NEGATIVE) 03/14/17 13:53 Vancomycin Trough 34.5 ug/mL (15-20) H* 03/13/17 20:15 Random Vancomycin 25.6 ug/mL 03/14/17 11:55 Cryptosporid parvum Ag Negative (NEGATIVE) 03/14/17 13:53 E. histolytica Antigen Negative (NEGATIVE) 03/14/17 13:53 Giardia lamblia Ag Negative (NEGATIVE) 03/14/17 13:53 - Plan (1) Cellulitis of right forearm Status: Acute Plan: WOUND CARE, S/P DEBRIDEMENT, ZOSYN 3.375GM IV Q8H, VANCOMYCIN 1GM IV Q12H , CONTINUE TO MONITOR (2) Hypoalbuminemia Status: Acute Plan: ALBUMIN 25% IV DAILY, TPN, MEGACE BID FOR APPETITE, CONTINUE TO MONITOR (3) Hypoproteinemia Status: Acute Plan: TPN, MEGACE 40MG PO BID FOR APPETITE, CONTINUE TO MONITOR (4) Hypokalemia Status: Acute Plan: REPLACE WITH POTASSIUM PROTOCOL, CONTINUE TO MONITOR (5) Anxiety Status: Acute Plan: CONTINUE XANAX, CONTINUE TO MONITOR (6) CAD (coronary artery disease) Status: Chronic Qualifiers: Coronary Disease-Associated Artery/Lesion type: [place] artery [place] vs. transplanted heart: [place] heart Associated angina: without angina Qualified Code(s): I25.10 - Atherosclerotic heart disease of [place] coronary artery without angina pectoris Plan: CONTINUE PLAVIX 75MG DAILY, CONTINUE TO MONITOR (7) CHF (congestive heart failure) Status: Chronic Qualifiers: Congestive heart failure type: combined Congestive heart failure chronicity : chronic Qualified Code(s): I50.42 - Chronic combined systolic (congestive) and diastolic (congestive) heart failure Plan: CONTINUE LASIX, CONTINUE TO MONITOR (8) GERD (gastroesophageal reflux disease) Status: Chronic Qualifiers: Esophagitis presence: esophagitis presence not specified Qualified Code(s) : K21.9 - Gastro-esophageal reflux disease without esophagitis Plan: PEPCID 20MG IV BID, GI COCKTAIL QID, CONTINUE PROTONIX, CONTINUE ZANTAC, CONTINUE TO MONITOR (9) Hyperlipidemia Status: Chronic Qualifiers: Hyperlipidemia type: mixed hyperlipidemia Qualified Code(s): E78.2 - Mixed hyperlipidemia Plan: CONTINUE LIPITOR, CONTINUE TO MONITOR (10) Hypertension Status: Chronic Qualifiers: Hypertension type: essential hypertension Qualified Code(s): I10 - Essential (primary) hypertension Plan: CONTINUE METOPROLOL, CONTINUE TO MONITOR
[2017-03-18 12:17] VITALS: BP 146/66
== END 2017-03-18 15:50 | DRG 603 ==
LOC: ER 11:35 → MED/SURG 15:03
PROVIDERS: ADMIT Internal Medicine; ATTEND Internal Medicine
PROC: 0JBG0ZZ Excision of Right Lower Arm Subcutaneous Tissue and Fascia, Open Approach (ICD-10-PCS; principal; 2017-03-12 11:45)
PROC: 02HV33Z Insertion of Infusion Device into Superior Vena Cava, Percutaneous Approach (ICD-10-PCS; 2017-03-14)
PROC: B548ZZA Ultrasonography of Superior Vena Cava, Guidance (ICD-10-PCS; 2017-03-14)
DX: L03.113 Cellulitis of right upper limb (principal); I25.10 Atherosclerotic heart disease of native coronary artery without angina pectoris; I50.42 Chronic combined systolic (congestive) and diastolic (congestive) heart failure; E78.2 Mixed hyperlipidemia; K21.9 Gastro-esophageal reflux disease without esophagitis; Z91.81 History of falling; Z79.4 Long term (current) use of insulin; E87.6 Hypokalemia; I10 Essential (primary) hypertension; E88.09 Other disorders of plasma-protein metabolism, not elsewhere classified; E77.8 Other disorders of glycoprotein metabolism
CPT/HCPCS: 36415; 71010; 73501; 80053; 80202; 82270; 82565; 83630; 83735; 84100; 84132; 84478; 85025; 85652; 86140; 87045; 87070; 87075; 87205; 87328; 87329; 87336; 87493; 87899; 96365; 96374; 97535; 99100; 99231; 99284; A4216; A4222; B5200; P9047; Q0169; S0020; S0028; S0179; J2001; J2250; J2270; J2543; J3010; J3370; J3490; J7506

== ENCOUNTER 2017-05-15 18:40 | Observation (INO) | payer OTHER ==
[~2017-05-15 18:40] MED LIST: DIPRIVAN VIAL ONE; VERSED ONE
[2017-05-15 20:26] LABS: BASOPHILS # (AUTO) 0.1 X10^3/uL (0.0-0.1); BASOPHILS % (AUTO) 0.7 % (0.2-1.0); EOSINOPHILS # (AUTO) 0.1 x10^3/uL (0.0-0.2); EOSINOPHILS % (AUTO) 0.6 % (0.9-2.9); HEMATOCRIT 35.4 % (36.0-47.0); LYMPHOCYTES # (AUTO) 2.7 X10^3/uL (1.3-2.9); LYMPHOCYTES % (AUTO) 21.8 % (21.0-51.0); MEAN CORPUSCULAR HEMOGLOBIN 33.7 pg (27.0-34.0); MEAN CORPUSCULAR HGB CONC 33.8 g/dL (33.0-35.0); MEAN CORPUSCULAR VOLUME 99.7 fL (80.0-100.0); MEAN PLATELET VOLUME 9.3 fL (7.4-11.0); MONOCYTES % (AUTO) 7.9 % (0.0-13.0); NEUTROPHILS # (AUTO) 8.6 x10^3/uL (2.2-4.8); PLATELET COUNT 161 X10^3/uL (150.0-450.0); RED BLOOD COUNT 3.55 X10^6/uL (3.5-5.4); RED CELL DISTRIBUTION WIDTH 15.5 % (11.6-16.5); WHITE BLOOD COUNT 12.4 X10^3/uL (3.6-10.0)
[2017-05-15 20:38] LABS: ALBUMIN 2.5 g/dL (3.4-5.0); CARBON DIOXIDE 26.9 mmol/L (21-32); COR CA(FOR HYPOALB) 9.2 mg/dL (8.5-10.1); CREATININE 1.15 mg/dL (0.55-1.02); TOTAL PROTEIN 5.6 g/dL (6.4-8.2)
[2017-05-15 21:46] VITALS: BMI 21.9
--- NOTE | 2017-05-15 22:34 | RAD ---
Chest, AP Indication: Fever, cough Comparison: 04/10/2017 Findings: Cardiac silhouette is unchanged. The lungs are essentially clear without dense infiltrates or large effusion. Impression: No acute chest process. Reported By:
[2017-05-16 06:08] LABS: BASOPHILS % (AUTO) 0.3 % (0.2-1.0); EOSINOPHILS # (AUTO) 0.1 x10^3/uL (0.0-0.2); EOSINOPHILS % (AUTO) 0.7 % (0.9-2.9); HEMATOCRIT 35.7 % (36.0-47.0); HEMOGLOBIN 12.2 g/dL (12.0-16.0); LYMPHOCYTES # (AUTO) 2.9 X10^3/uL (1.3-2.9); LYMPHOCYTES % (AUTO) 23.6 % (21.0-51.0); MEAN CORPUSCULAR HEMOGLOBIN 33.8 pg (27.0-34.0); MEAN CORPUSCULAR HGB CONC 34.3 g/dL (33.0-35.0); MEAN CORPUSCULAR VOLUME 98.6 fL (80.0-100.0); MEAN PLATELET VOLUME 9.2 fL (7.4-11.0); MONOCYTES # (AUTO) 1.1 x10^3/uL (0.3-0.8); MONOCYTES % (AUTO) 9.2 % (0.0-13.0); NEUTROPHILS # (AUTO) 8.1 x10^3/uL (2.2-4.8); NEUTROPHILS % (AUTO) 66.2 % (42.0-75.0); PLATELET COUNT 162 X10^3/uL (150.0-450.0); RED BLOOD COUNT 3.62 X10^6/uL (3.5-5.4); RED CELL DISTRIBUTION WIDTH 15.5 % (11.6-16.5); WHITE BLOOD COUNT 12.3 X10^3/uL (3.6-10.0)
[2017-05-16 06:12] LABS: HEMOGLOBIN A1C 5.9 % (4.5-6.2)
[2017-05-16 06:18] LABS: ALANINE AMINOTRANSFERASE 53 Units/L (12-78); ALBUMIN 2.6 g/dL (3.4-5.0); ALKALINE PHOSPHATASE 68 Units/L (46-116); ASPARTATE AMINO TRANSFERASE 28 Units/L (15-37); BLOOD UREA NITROGEN 21 mg/dL (7-18); CALCIUM 8.3 mg/dL (8.5-10.1); CARBON DIOXIDE 29.2 mmol/L (21-32); CHLORIDE 108 mmol/L (98-107); COR CA(FOR HYPOALB) 9.4 mg/dL (8.5-10.1); CREATININE 0.76 mg/dL (0.55-1.02); SODIUM 143 mmol/L (136-145); TOTAL PROTEIN 5.7 g/dL (6.4-8.2); eGFR BLACK RACES > 60 (>60); eGFR NON BLACK RACES > 60 (>60)
[2017-05-16 06:52] LABS: BAND NEUTROPHILS % 5 % (0-10); PLATELET MORPHOLOGY COMMENT NORMAL (NORMAL)
[2017-05-16] MEDS: ALBUMIN HUMAN 25%- 100ML 100 ML IV SCH (10:33)
[2017-05-16] MEDS ORDERED: PHENERGAN TAB 25 MG PO PRN (10:41)
[2017-05-16] MEDS ORDERED: LOMOTIL PO PRN (10:41)
[2017-05-16] MEDS ORDERED: LEVSIN/MAALOX/LIDOC VISC PO PRN (10:41)
[2017-05-16 10:59] LABS: BILIRUBIN,URINE NEGATIVE (NEGATIVE); BLOOD/HEMOGLOBIN,URINE NEGATIVE (NEGATIVE); GLUCOSE, URINE NEGATIVE (NEGATIVE); KETONES,URINE NEGATIVE (NEGATIVE); LEUKOCYTE ESTERASE ,URINE NEGATIVE (NEGATIVE); NITRITES,URINE NEGATIVE (NEGATIVE); PROTEIN,URINE 1+ (NEGATIVE); UROBILINOGEN,URINE NORMAL (NORMAL)
[2017-05-16] MEDS ORDERED: PATIENT'S HOME MEDICATION PO SCH (11:00)
--- NOTE | 2017-05-16 11:07 | DR.H&P ---
H&P - History & Physical for Day of: H&P Date: 05/15/17 - Chief Complaint Chief Complaint: AMS, WEAKNESS, ABDOMINAL PAIN - Allergies Allergies/Adverse Reactions: Allergies Allergy/AdvReac Type Severity Reaction Status Date / Time sertraline [From Zoloft] Allergy Verified 03/10/17 14:54 - History of Present Illness History of Present Illness: IS A 71 YEAR OLD PATIENT OF OURS WHO IS A RESIDENT OF [facility]. PATIENT WAS A DIRECT ADMISSION FROM THE LONG TERM WITH COMPLAINTS OF ALTERED MENTAL STATUS, RIGHT SIDED WEAKNESS, AND ABDOMINAL PAIN. PATIENTS DAUGHTER REPORTS THAT SYMPTOMS STARTED EARLIER TODAY. PATIENT IS CURRENTLY A RESIDENT OF THE LONG TERM FOR PHYSICAL THERAPY. ON EXAMINATION, PUPILS PERRL. HEART IS REGULAR IN RATE AND RHYTHM. LUNG SOUNDS ARE NOTED TO BE DIMINISHED THROUGHOUT. ABDOMEN IS ROUND, SOFT, AND NOTED WITH MILD SUPRAPUBIC TENDERNESS. THERE IS SCATTERED BRUISING NOTED TO UPPER EXTREMITIES. NORMAL RANGE OF MOTION NOTED TO ALL EXTREMITIES. WE ADMITTED PATIENT TO THE HOSPITAL FOR FURTHER EVALUATION AND TREATMENT. ON ARRIVAL TO THE HOSPITAL, VITAL SIGNS WERE 98.0-68-24-93%-130/100. LABS AND CHEST XRAY WERE OBTAINED. ABNORMAL LAB VALUES INCLUDE THE FOLLOWING: WBC 12.4, HCT 35.4, BUN 23 , CREATININE 1.15, GLUCOSE 253, CALCIUM 8.0, TOTAL PROTEIN 5.6, ALBUMIN 2.5. WE HAVE ORDERED FOR A URINALYSIS AND URINE CULTURE TO BE COLLECTED. BLOOD CULTURES HAVE BEEN OBTAINED AND ARE PENDING. A CHEST XRAY WAS OBTAINED AND REPORTED NO ACUTE CHEST PROCESS. AN EKG WAS OBTAINED AND REPORTED NORMAL SINUS RHYTHM WITH HR 69. PATIENT IS NOTED WITH POOR PERIPHERAL IV ACCESS WITH SEVERAL ATTEMPTS FROM NURSING STAFF. WE WILL CONSULT GENERAL SURGERY FOR POSSIBLE PLACEMENT OF A PORT A CATH. WE PLAN TO OBTAIN A BRAIN CT IN THE MORNING AND FOLLOW UP WITH AM LABS. - Past Medical History Past Medical History: Anemia, Arthritis, Coronary Artery Disease, Depression, Dyslipidemia, GERD, Gout, Hypertension, [place] Additional Medical History: Venous Insufficiency, Rheumatoid Arthritis, Spondylosis Lumbar/Thoracic, Muscular Dystrophy, Osteoporosis, Degenerative Disc Disease, Chronic PVD, Cataracts, Pneumonia, Muscle Weakness, Previous Blood Transfusion - Past Surgical History Surgical History: Angioplasty/Stents, , Hysterectomy Additional Surgical History: Cataract Surgery, Two Cardiac Stents - Family History Family Medical History: Diabetes Mellitus, Coronary Artery Disease, Hypertension - Social History Does patient currently use any type of tobacco product: No Have you used tobacco products in the last 12 months: No Alcohol Use: None Drug Use: None - Medications Home Medications: Gi Cocktail [LEVSIN/Maalox/Lidoc Visc (GI COCKTAIL) *] 10 ml PO QID PRN [History Confirmed 05/15/17] Misc Home Med [Patient's Home Medication] 1 packet PO BID 05/15/17 [History Confirmed 05/15/17] Multivitamin [Multi-Vitamin Daily] 1 tab PO DAILY 05/15/17 [History Confirmed ] - Review of Systems Constitutional: See HPI, Fever, Weakness Eyes: No Symptoms Reported. denies: See HPI, Pain, Vision Change, Conjunctivae Inflammation, Eyelid Inflammation, Redness, Other ENT: No Symptoms Reported. denies: See HPI, Ear Pain, Ear Discharge, Nose Pain , Nose Discharge, Nose Congestion, Mouth Pain, Mouth Swelling, Throat Pain, Throat Swelling, Other Respiratory: No Symptoms Reported. denies: See HPI, Cough, Dry, Shortness of Breath, Hemoptysis, SOB with Excertion, Pleuritic Pain, Sputum, Wheezing, Other Cardiovascular: No Symptoms Reported. denies: Chest Pain, See HPI, Palpitations , Orthopnea, Paroxysmal Noc. Dyspnea, Edema, Light Headedness, Other Gastrointestinal: Nausea, Abdominal Pain. denies: Diarrhea, Constipation, Melena, Hematochezia Genitourinary: Dysuria Musculoskeletal: No Symptoms Reported. denies: See HPI, Shoulder Pain, Arm Pain , Back Pain, Hand Pain, Leg Pain, Foot Pain, Neck Pain, Other Skin: Bruising (SCATTERED BRUISING ) Neurological: Weakness, Confusion - Physical Exam Vital Signs: Temperature 98.4 F Pulse Rate [Left Radial] 71 Respiratory Rate 20 Blood Pressure [Left Calf] 139/63 Blood Pressure [Left Arm] 150/73 Blood Pressure [Right Arm] 137/94 Blood Pressure 146/66 O2 Sat by Pulse Oximetry 95 Oriented: Person Eyes: Normal Ear: Normal Nose: Normal Throat: Normal Respiratory: Diminished Throughout Cardiovascular: Normal. negative: S3, S4, Murmur, Edema : Dysuria Auscultation: Bowel Sounds: Normal Palpation: Normal Tenderness: Suprapubic, Mild Skin: Bruising (SCATTERED BRUISING ) Musculoskeletal: Normal Psychiatric: Normal Mood Description: Calm Affect: Normal Speech Pattern: Clear - Assessment/Plan (1) Generalized weakness Status: Acute (2) Abdominal pain Qualifiers: Abdominal location: generalized Qualified Code(s): R10.84 - Generalized abdominal pain Status: Acute Plan: OBTAIN URINALYSIS AND URINE CULTURE, CONTINUE TO MONITOR (3) Altered mental status Qualifiers: Altered mental status type: transient alteration of awareness Qualified Code(s): R40.4 - Transient alteration of awareness Status: Acute Plan: OBTAIN BRAIN CT, CONTINUE TO MONITOR
[2017-05-16 11:16] LABS: AMORPHOUS SEDIMENT,UR 2+ /HPF (NEGATIVE); APPEARANCE,URINE CLEAR (CLEAR); BACTERIA,URINE NEGATIVE /HPF (NEGATIVE); COLOR,URINE YELLOW (YELLOW); MUCUS,URINE FEW /HPF (NEGATIVE); RBC,URINE NONE SEEN /HPF (NEGATIVE); SQUAMOUS EPITHELIAL CELL,UR RARE /HPF (NEGATIVE)
[2017-05-16] MEDS: PROCALAMINE 3 % 1,000 ML IV SCH (13:00)
[2017-05-16] MEDS ORDERED: XYLOCAINE-MPF 1% ONE (13:18)
[2017-05-16] MEDS ORDERED: FENTANYL INJ 100 mcg ONE (13:31)
[2017-05-16] MEDS ORDERED: LR 1000 ML IV 1,000 ML IV ONE (13:35)
[2017-05-16] MEDS ORDERED: ANCEF VIAL 1 GM ONE (13:35)
[2017-05-16] MEDS ORDERED: NS 100 ML IV 100 ML IV ONE (13:35)
[2017-05-16] MEDS ORDERED: NS IRRIGATION 1000 ML 1,000 ML IR ONE (13:59)
--- NOTE | 2017-05-16 14:57 | RAD ---
HISTORY: Port placement Study: AP portable chest Comparison: 05/15/2017 Findings: Minimal subsegmental atelectasis is noted in the right lung base. Moderate cardiomegaly is noted. M oderately severe degenerative changes noted in both shoulders. There has been placement of a left-sided Port-A-Cath. The tip is at the cavoatrial junction hard jus t below it. No complicating features are noted. IMPRESSION: 1. Moderate cardiomegaly without evidence of failure. 2. Minimal subsegmental atelectasis in the right lung base. 3. Interval placement of a Port-A-Cath on the left. The tip is just at or slightly below the cavoatr ial junction. Reported By:
--- NOTE | 2017-05-16 15:10 | CT ---
HISTORY: Altered mental status Study: CT of the head Comparison: July 25, 2016 Technique: Serial axial images were obtained from the skullbase to the vertex without infusion of IV contrast. Coronal sagittal reformatted images were also submitted. Findings: The ventricles, sulci, and cisterns demonstrate an appearance consistent with a [id number] degr ee of generalized atrophy. Patchy and confluent areas of decreased attenuation within the periventric ular, subcortical, and subinsular white matter suggest changes of chronic small vessel ischemic disea se. Bilateral basal ganglia calcifications are noted. No evidence of significant midline shift is anna ntified. If symptoms or clinical concern persist recommend continued follow-up for further evaluation . IMPRESSION: No evidence of acute intracranial abnormality is appreciated. Mild to moderate generalized atrophy with findings consistent with changes of chronic small vessel is chemic disease. Reported By:
[2017-05-16] MEDS: MEGACE PO SCH ×2 (16:00→21:00)
[2017-05-16] MEDS: NEURONTIN TAB 600 MG PO SCH ×3 (16:00→21:00)
[2017-05-16] MEDS: FOLIC ACID TAB 1 MG PO SCH (16:00)
[2017-05-16] MEDS: EFFEXOR XR 75 MG CAP PO SCH (16:01)
[2017-05-16] MEDS: TAB-A-VITE PO SCH (16:01)
[2017-05-16] MEDS: PREDNISONE TAB 5 MG PO SCH ×2 (16:01→21:00)
[2017-05-16] MEDS: ARICEPT TAB 10 MG PO SCH (16:01)
[2017-05-16] MEDS: ZINC SULFATE PO SCH (16:01)
[2017-05-16] MEDS: ZANTAC PO SCH ×2 (16:01→21:00)
[2017-05-16] MEDS: LASIX PO SCH (16:01)
[2017-05-16] MEDS: PROTONIX TAB 40 MG PO SCH (16:01)
[2017-05-16] MEDS: VITAMIN C PO SCH (16:01)
[2017-05-16] MEDS: TOPROL XL PO SCH (16:02)
[2017-05-16] MEDS: XANAX PO SCH (16:02)
[2017-05-16] MEDS: LIPITOR TAB 20 MG PO SCH (21:00)
[2017-05-17] MEDS: NEURONTIN TAB 600 MG PO SCH ×3 (05:00→22:35)
[2017-05-17 05:19] LABS: BASOPHILS # (AUTO) 0.1 X10^3/uL (0.0-0.1); BASOPHILS % (AUTO) 0.4 % (0.2-1.0); EOSINOPHILS % (AUTO) 0.2 % (0.9-2.9); HEMATOCRIT 35.4 % (36.0-47.0); HEMOGLOBIN 12.1 g/dL (12.0-16.0); LYMPHOCYTES # (AUTO) 2.3 X10^3/uL (1.3-2.9); LYMPHOCYTES % (AUTO) 16.4 % (21.0-51.0); MEAN CORPUSCULAR HEMOGLOBIN 33.9 pg (27.0-34.0); MEAN CORPUSCULAR HGB CONC 34.1 g/dL (33.0-35.0); MEAN CORPUSCULAR VOLUME 99.4 fL (80.0-100.0); MEAN PLATELET VOLUME 9.1 fL (7.4-11.0); MONOCYTES # (AUTO) 1.2 x10^3/uL (0.3-0.8); MONOCYTES % (AUTO) 8.8 % (0.0-13.0); NEUTROPHILS # (AUTO) 10.3 x10^3/uL (2.2-4.8); NEUTROPHILS % (AUTO) 74.2 % (42.0-75.0); PLATELET COUNT 145 X10^3/uL (150.0-450.0); RED BLOOD COUNT 3.56 X10^6/uL (3.5-5.4); RED CELL DISTRIBUTION WIDTH 15.4 % (11.6-16.5); WHITE BLOOD COUNT 13.9 X10^3/uL (3.6-10.0)
[2017-05-17 05:42] LABS: ALANINE AMINOTRANSFERASE 54 Units/L (12-78); ALKALINE PHOSPHATASE 63 Units/L (46-116); ASPARTATE AMINO TRANSFERASE 31 Units/L (15-37); BLOOD UREA NITROGEN 18 mg/dL (7-18); CALCIUM 8.4 mg/dL (8.5-10.1); CARBON DIOXIDE 30.2 mmol/L (21-32); CHLORIDE 103 mmol/L (98-107); COR CA(FOR HYPOALB) 9.2 mg/dL (8.5-10.1); SODIUM 142 mmol/L (136-145); eGFR BLACK RACES > 60 (>60); eGFR NON BLACK RACES > 60 (>60)
[2017-05-17] MEDS: K-DUR TAB 20 MEQ PO SCH ×2 (08:58→20:34)
[2017-05-17] MEDS: LASIX PO SCH (08:58)
[2017-05-17] MEDS: VITAMIN C PO SCH (08:58)
[2017-05-17] MEDS: FOLIC ACID TAB 1 MG PO SCH (08:59)
[2017-05-17] MEDS: EFFEXOR XR 75 MG CAP PO SCH (08:59)
[2017-05-17] MEDS: ARICEPT TAB 10 MG PO SCH (08:59)
[2017-05-17] MEDS: TOPROL XL PO SCH (08:59)
[2017-05-17] MEDS: MEGACE PO SCH ×2 (08:59→20:33)
[2017-05-17] MEDS: TAB-A-VITE PO SCH (08:59)
[2017-05-17] MEDS: PROTONIX TAB 40 MG PO SCH (08:59)
[2017-05-17] MEDS: ZANTAC PO SCH ×2 (08:59→20:34)
[2017-05-17] MEDS: PREDNISONE TAB 5 MG PO SCH ×2 (08:59→20:34)
[2017-05-17] MEDS: XANAX PO SCH (09:00)
[2017-05-17] MEDS: ZINC SULFATE PO SCH (09:01)
[2017-05-17] MEDS: ALBUMIN HUMAN 25%- 100ML 100 ML IV SCH (09:03)
[2017-05-17] MEDS: PROCALAMINE 3 % 1,000 ML IV SCH (15:17)
[2017-05-17] MEDS: LIPITOR TAB 20 MG PO SCH (20:33)
[2017-05-17] MEDS: NORCO 5/325 MG TAB PO PRN (20:34)
--- NOTE | 2017-05-17 20:44 | PCM.PROG ---
Progress Note - Progress Note for Day of Date: 05/16/17 - Subjective Subjective: WAS ADMITTED FOR ALTERED MENTAL STATUS AND FEVER. TODAY, SHE IS ALERT AND ORIENTED, LYING IN BED ON MORNING ROUNDS. PATIENT HAS BEEN AFEBRILE THROUGHOUT THE NIGHT, HOWEVER, SHE IS NOTED WITH COMPLAINTS OF GENERALIZED WEAKNESS AND SCATTERED BRUISING. ON EXAMINATION, HEART IS REGULAR IN RATE AND RHYTHM. BILATERAL LUNGS ARE CLEAR TO AUSCULTATION. ABDOMEN IS ROUNDS , SOFRT, AND NON-TENDER WITH NORMAL BOWEL SOUNDS NOTED IN ALL QUADRANTS. THERE IS SCATTERED BRUISING NOTED TO UPPER AND LOWER EXTREMITIES. THERE IS NORMAL RANGE OF MOTION NOTED TO ALL EXTREMITITES. HER VITAL SIGNS TODAY ARE 98.4-71-20- 95%-150/73. HER WBC COUNT TODAY IS 12.3, OTHERWISE, SHE IS HEMODYNAMICALLY STABLE. A BRAIN MRI WAS OBTAINED TODAY AND REPORTED MILD TO MODERATE GENERALIZED ATROPHY WITH FINDINGS CONSISTENT WITH CHANGES OF CHRONIC SMALL VESSEL ISCHEMIC DISEASE. DUE TO POOR PERIPHERAL ACCESS, GENERAL SURGERY WAS CONSULTED FOR PLACEMENT OF A PORT A CATH. PLANS TO PLACE A PORT A CATH TODAY. WE ARE IN AGREEMENT WITH PLAN. WE WILL HOLD PATIENT NPO UNTIL AFTER PROCEDURE. OTHERWISE, WE WILL CONTINUE WITH CURRENT PLAN OF CARE. WE WILL FOLLOW UP WITH AM LABS AND CONTINUE TO MONITOR PATIENT. - Past Medical Family Social History Past Med/Fam/Surg Hx: No changes since H&P Allergies: Allergies sertraline [From Zoloft] Allergy (Verified 03/10/17 14:54) - Vital Signs and I&O's Vital Signs: Temperature 98.9 F Pulse Rate [Right Radial] 66 Pulse Rate [Left Radial] 62 Respiratory Rate 20 Blood Pressure [Left Calf] 139/63 Blood Pressure [Left Arm] 111/60 Blood Pressure [Right Arm] 112/62 Blood Pressure 146/66 O2 Sat by Pulse Oximetry 95 Intake and Output: Intake & Output 05/15/17 05/16/17 05/17/17 05/18/17 11:59 11:59 11:59 11:59 Intake Total 130 240 560 Output Total 45 300 Balance 130 195 260 - Physical Exam Oriented: Person Eyes: Normal Ear: Normal Nose: Normal Throat: Normal Respiratory: Normal Cardiovascular: Normal. negative: S3, S4, Murmur, Edema : Dysuria Auscultation: Bowel Sounds: Normal Palpation: Normal Tenderness: Suprapubic, Mild Skin: Bruising (SCATTERED BRUISING ) Musculoskeletal: Normal Psychiatric: Normal Mood Description: Calm Affect: Normal Speech Pattern: Clear, Appropriate - Laboratory and Diagnostics Result Diagrams: 05/17/17 04:45 05/17/17 04:45 Labs: 05/15/17 20:07 Blood Blood Culture - Preliminary 05/15/17 20:07 Blood Blood Culture - Preliminary 05/16/17 10:42 Urine,Catheterized Urine Culture - Preliminary Laboratory WBC 13.9 X10^3/uL (3.6-10.0) H 05/17/17 04:45 RBC 3.56 X10^6/uL (3.5-5.4) 05/17/17 04:45 Hgb 12.1 g/dL (12.0-16.0) 05/17/17 04:45 Hct 35.4 % (36.0-47.0) L 05/17/17 04:45 MCV 99.4 fL (80.0-100.0) 05/17/17 04:45 MCH 33.9 pg (27.0-34.0) 05/17/17 04:45 MCHC 34.1 g/dL (33.0-35.0) 05/17/17 04:45 RDW 15.4 % (11.6-16.5) 05/17/17 04:45 Plt Count 145 X10^3/uL (150.0-450.0) L 05/17/17 04:45 Plt Count Comment Adequate (ADEQUATE) 05/16/17 04:40 MPV 9.1 fL (7.4-11.0) 05/17/17 04:45 Neut % 74.2 % (42.0-75.0) 05/17/17 04:45 Lymph % 16.4 % (21.0-51.0) L 05/17/17 04:45 [place] % 8.8 % (0.0-13.0) 05/17/17 04:45 Eos % 0.2 % (0.9-2.9) L 05/17/17 04:45 Baso % 0.4 % (0.2-1.0) 05/17/17 04:45 Neut # 10.3 x10^3/uL (2.2-4.8) H 05/17/17 04:45 Lymph # 2.3 X10^3/uL (1.3-2.9) 05/17/17 04:45 [place] # 1.2 x10^3/uL (0.3-0.8) H 05/17/17 04:45 Eos # 0.0 x10^3/uL (0.0-0.2) 05/17/17 04:45 Baso # 0.1 X10^3/uL (0.0-0.1) 05/17/17 04:45 Absolute Nucleated RBC 0.0 /100WBC 05/17/17 04:45 Total Counted 100 05/16/17 04:40 Neutrophils % (Manual) 70 % (39-76) 05/16/17 04:40 Band Neutrophils % 5 % (0-10) 05/16/17 04:40 Lymphocytes % (Manual) 15 % (13-43) 05/16/17 04:40 Monocytes % (Manual) 10 % (4-9) H 05/16/17 04:40 Plt Morphology Comment Normal (NORMAL) 05/16/17 04:40 RBC Morphology Normal (NORMAL) 05/16/17 04:40 INR Target Range - 05/16/17 11:36 INR 0.97 (0.8-1.3) 05/16/17 11:36 Sodium 142 mmol/L (136-145) 05/17/17 04:45 Corrected Sodium TNP 05/17/17 04:45 Potassium 4.0 mmol/L (3.5-5.1) 05/17/17 04:45 Chloride 103 mmol/L (98-107) 05/17/17 04:45 Carbon Dioxide 30.2 mmol/L (21-32) 05/17/17 04:45 BUN 18 mg/dL (7-18) 05/17/17 04:45 Creatinine 0.70 mg/dL (0.55-1.02) 05/17/17 04:45 Est GFR (MDRD) Af Amer > 60 (>60) 05/17/17 04:45 Est GFR (MDRD) Non-Af > 60 (>60) 05/17/17 04:45 Glucose 101 mg/dL (65-99) H 05/17/17 04:45 POC Glucose (mg/dL) 141 mg/dL (65-99) H 05/17/17 20:29 Hemoglobin A1c 5.9 % (4.5-6.2) 05/16/17 04:40 Calcium 8.4 mg/dL (8.5-10.1) L 05/17/17 04:45 Corrected Calcium 9.2 mg/dL (8.5-10.1) 05/17/17 04:45 Total Bilirubin 1.10 mg/dL (0.2-1.0) H 05/17/17 04:45 AST 31 Units/L (15-37) 05/17/17 04:45 ALT 54 Units/L (12-78) 05/17/17 04:45 Alkaline Phosphatase 63 Units/L (46-116) 05/17/17 04:45 Total Protein 6.0 g/dL (6.4-8.2) L 05/17/17 04:45 Albumin 3.0 g/dL (3.4-5.0) L 05/17/17 04:45 Globulin 3.0 g/dL (2.5-4.5) 05/17/17 04:45 Albumin/Globulin Ratio 1.0 Ratio (1.1-2.1) L 05/17/17 04:45 Specimen Type Catherized urine 05/16/17 10:42 Urine Color Yellow (YELLOW) 05/16/17 10:42 Urine Appearance Clear (CLEAR) 05/16/17 10:42 Urine pH 6.0 (5.0 - 8.0) 05/16/17 10:42 Ur Specific [place] 1.020 (1.000-1.030) 05/16/17 10:42 Urine Protein 1+ (NEGATIVE) 05/16/17 10:42 Urine Glucose (UA) Negative (NEGATIVE) 05/16/17 10:42 Urine Ketones Negative (NEGATIVE) 05/16/17 10:42 Urine Occult Blood Negative (NEGATIVE) 05/16/17 10:42 Urine Nitrite Negative (NEGATIVE) 05/16/17 10:42 Urine Bilirubin Negative (NEGATIVE) 05/16/17 10:42 Urine Urobilinogen Normal (NORMAL) 05/16/17 10:42 Ur Leukocyte Esterase Negative (NEGATIVE) 05/16/17 10:42 Urine RBC None seen /HPF (NEGATIVE) 05/16/17 10:42 Urine WBC None seen /HPF (NEGATIVE) 05/16/17 10:42 Ur Squamous Epith Cells Rare /HPF (NEGATIVE) 05/16/17 10:42 Ur Transition Epith Cell Cancelled 05/16/17 10:42 Ur Renal Epithelial Cell Cancelled 05/16/17 10:42 Calcium Oxalate Crystal Cancelled 05/16/17 10:42 Cystine Crystals Cancelled 05/16/17 10:42 Uric Acid Crystals Cancelled 05/16/17 10:42 Triple Phos Crystals Cancelled 05/16/17 10:42 Tyrosine Crystals Cancelled 05/16/17 10:42 Other Crystals Cancelled 05/16/17 10:42 Amorphous Sediment 2+ /HPF (NEGATIVE) 05/16/17 10:42 Urine Bacteria Negative /HPF (NEGATIVE) 05/16/17 10:42 Hyaline Casts Cancelled 05/16/17 10:42 Granular Casts Cancelled 05/16/17 10:42 Fine Granular Casts Cancelled 05/16/17 10:42 Coarse Granular Casts Cancelled 05/16/17 10:42 WBC Casts Cancelled 05/16/17 10:42 Other Casts Cancelled 05/16/17 10:42 Urine Mucus Few /HPF (NEGATIVE) 05/16/17 10:42 Urine Trichomonas Cancelled 05/16/17 10:42 Urine Yeast Cancelled 05/16/17 10:42 Urine Sperm Cancelled 05/16/17 10:42 Ur Culture Indicated? Yes/culture set up 05/16/17 10:42 - Plan (1) Generalized weakness Status: Acute (2) Abdominal pain Status: Acute Qualifiers: Abdominal location: generalized Qualified Code(s): R10.84 - Generalized abdominal pain Plan: OBTAIN URINALYSIS AND URINE CULTURE, CONTINUE TO MONITOR (3) Altered mental status Status: Acute Qualifiers: Altered mental status type: transient alteration of awareness Qualified Code(s): R40.4 - Transient alteration of awareness Plan: CONTINUE TO MONITOR
[2017-05-18] MEDS: NEURONTIN TAB 600 MG PO SCH ×3 (05:56→22:10)
[2017-05-18 06:42] LABS: BASOPHILS % (AUTO) 0.3 % (0.2-1.0); EOSINOPHILS % (AUTO) 0.3 % (0.9-2.9); HEMOGLOBIN 11.9 g/dL (12.0-16.0); LYMPHOCYTES # (AUTO) 2.4 X10^3/uL (1.3-2.9); LYMPHOCYTES % (AUTO) 20.2 % (21.0-51.0); MEAN CORPUSCULAR HEMOGLOBIN 33.3 pg (27.0-34.0); MEAN PLATELET VOLUME 9.4 fL (7.4-11.0); MONOCYTES # (AUTO) 1.2 x10^3/uL (0.3-0.8); MONOCYTES % (AUTO) 10.2 % (0.0-13.0); NEUTROPHILS # (AUTO) 8.1 x10^3/uL (2.2-4.8); PLATELET COUNT 145 X10^3/uL (150.0-450.0); RED BLOOD COUNT 3.57 X10^6/uL (3.5-5.4); RED CELL DISTRIBUTION WIDTH 15.1 % (11.6-16.5); WHITE BLOOD COUNT 11.7 X10^3/uL (3.6-10.0)
[2017-05-18 06:56] LABS: ALANINE AMINOTRANSFERASE 43 Units/L (12-78); ALBUMIN 3.3 g/dL (3.4-5.0); ALKALINE PHOSPHATASE 53 Units/L (46-116); ASPARTATE AMINO TRANSFERASE 21 Units/L (15-37); BLOOD UREA NITROGEN 20 mg/dL (7-18); CALCIUM 8.5 mg/dL (8.5-10.1); CARBON DIOXIDE 29.3 mmol/L (21-32); CHLORIDE 103 mmol/L (98-107); COR CA(FOR HYPOALB) 9.1 mg/dL (8.5-10.1); SODIUM 141 mmol/L (136-145); TOTAL PROTEIN 6.2 g/dL (6.4-8.2); eGFR BLACK RACES > 60 (>60); eGFR NON BLACK RACES > 60 (>60)
--- NOTE | 2017-05-18 07:01 | RAD ---
Examination: Right knee, three views History: Fell Findings: There is marked degenerative change involving articular compartments. Smooth depression of the lateral tibial plateau is present but this may not be acute. There is no evidence for bone destru ction or dislocation. Marked arterial calcification is observed. There is mild valgus deformity. Impression: Advanced tricompartmental osteoarthritis with genu valgum. Chondrocalcinosis is suggested , consistent with CPPD. No acute fracture identified. Reported By:
--- NOTE | 2017-05-18 07:01 | RAD ---
Examination: Left knee, three views History: Fall Findings: No definite fracture or dislocation. Mild degenerative change. Advanced arteriosclerosis. N o definite synovial effusion or patellar displacement. Impression: No acute injury identified. Reported By:
[2017-05-18 08:12] LABS: BAND NEUTROPHILS % 3 % (0-10); BASOPHILS % (MANUAL) 2 % (0-1); PLATELET MORPHOLOGY COMMENT NORMAL (NORMAL)
[2017-05-18] MEDS: ALBUMIN HUMAN 25%- 100ML 100 ML IV SCH (09:56)
[2017-05-18] MEDS: LASIX PO SCH (09:57)
[2017-05-18] MEDS: ZANTAC PO SCH ×2 (09:57→20:56)
[2017-05-18] MEDS: PROTONIX TAB 40 MG PO SCH (09:57)
[2017-05-18] MEDS: EFFEXOR XR 75 MG CAP PO SCH (09:57)
[2017-05-18] MEDS: TAB-A-VITE PO SCH (09:57)
[2017-05-18] MEDS: FOLIC ACID TAB 1 MG PO SCH (09:57)
[2017-05-18] MEDS: TOPROL XL PO SCH (09:58)
[2017-05-18] MEDS: XANAX PO SCH (09:58)
[2017-05-18] MEDS: ARICEPT TAB 10 MG PO SCH (09:58)
[2017-05-18] MEDS: VITAMIN C PO SCH (09:58)
[2017-05-18] MEDS: K-DUR TAB 20 MEQ PO SCH ×2 (09:58→20:56)
[2017-05-18] MEDS: PREDNISONE TAB 5 MG PO SCH ×2 (09:58→20:56)
[2017-05-18] MEDS: ZINC SULFATE PO SCH (09:58)
[2017-05-18] MEDS: MEGACE PO SCH ×2 (09:59→20:56)
--- NOTE | 2017-05-18 12:52 | RAD ---
Examination: Portable AP chest History: SOB Comparison reference 05/16/2017 Findings:Stable cardiac size and nonspecific widening of mediastinum. No change in position of left s ubclavian injection port. Persistent parenchymal density at the right base consistent with infiltrate /atelectasis. No developing pneumothorax or pleural fluid identified. Impression: No change since 05/16/2017. Reported By:
[2017-05-18] MEDS: PROCALAMINE 3 % 1,000 ML IV SCH (13:54)
[2017-05-18] MEDS ORDERED: BUTT CREAM (COMPOUND) TOP PRN (18:36)
[2017-05-18] MEDS: LIPITOR TAB 20 MG PO SCH (20:56)
[2017-05-18] MEDS: NORCO 5/325 MG TAB PO PRN (20:56)
--- NOTE | 2017-05-18 22:23 | PCM.PROG ---
Progress Note - Progress Note for Day of Date: 05/17/17 - Subjective Subjective: WAS ADMITTED FOR ALTERED MENTAL STATUS AND FEVER. TODAY, SHE IS ALERT AND ORIENTED, LYING IN BED ON MORNING ROUNDS. PATIENTS DAUGHTER IS AT BEDSIDE. PATIENT IS NOTED WITH COMPLAINTS OF SHORTNESS OF BREATH AND BILATERAL KNEE PAIN. PATIENT REPORTS FALLING APPROXIMATELY ONE W[facility]GO [facility]. ON EXAMINATION, HEART IS REGULAR IN RATE AND RHYTHM. BILATERAL LUNGS ARE CLEAR TO AUSCULTATION. ABDOMEN IS ROUNDS, SOFRT, AND NON-TENDER WITH NORMAL BOWEL SOUNDS NOTED IN ALL QUADRANTS. THERE IS SCATTERED BRUISING NOTED TO UPPER AND LOWER EXTREMITIES. THERE IS NORMAL RANGE OF MOTION NOTED TO ALL EXTREMITITES. HER VITAL SIGNS TODAY ARE 98.8-67-20-94%-145/70. HER WBC COUNT TODAY IS 13.9, OTHERWISE, SHE IS HEMODYNAMICALLY STABLE. PATIENT HAD PLACEMENT OF A PORT A CATH YESTERDAY. IV FLUIDS ARE INFUSING TO PORT WITHOUT DIFFICULTY. TODAY, WE WILL OBTAIN BILATERAL KNEE XRAYS. OTHERWISE, WE WILL CONTINUE WITH CURRENT PLAN OF CARE. WE WILL FOLLOW UP WITH AM LABS AND CONTINUE TO MONITOR PATIENT. - Past Medical Family Social History Past Med/Fam/Surg Hx: No changes since H&P Allergies: Allergies sertraline [From Zoloft] Allergy (Verified 03/10/17 14:54) - Review of Systems ROS: No change since H&P - Vital Signs and I&O's Vital Signs: Temperature 99.2 F Pulse Rate [Right Radial] 65 Pulse Rate [Left Radial] 62 Respiratory Rate 18 Blood Pressure [Left Calf] 139/63 Blood Pressure [Left Arm] 111/60 Blood Pressure [Right Arm] 129/68 Blood Pressure 146/66 O2 Sat by Pulse Oximetry 96 Intake and Output: Intake & Output 05/16/17 05/17/17 05/18/17 05/19/17 11:59 11:59 11:59 11:59 Intake Total 130 240 560 620 Output Total 45 300 Balance 130 195 260 620 - Physical Exam Oriented: Person Eyes: Normal Ear: Normal Nose: Normal Throat: Normal Respiratory: Normal Cardiovascular: Normal. negative: S3, S4, Murmur, Edema : Dysuria Auscultation: Bowel Sounds: Normal Palpation: Normal Tenderness: Normal Skin: Bruising (SCATTERED BRUISING ) Musculoskeletal: Right, Left, Knee, Tender Psychiatric: Normal Mood Description: Calm Affect: Normal Speech Pattern: Clear, Appropriate - Laboratory and Diagnostics Result Diagrams: 05/18/17 05:35 05/18/17 05:35 Labs: 05/16/17 10:42 Urine,Catheterized Urine Culture - Final 05/15/17 20:07 Blood Blood Culture - Preliminary 05/15/17 20:07 Blood Blood Culture - Preliminary Laboratory WBC 11.7 X10^3/uL (3.6-10.0) H 05/18/17 05:35 RBC 3.57 X10^6/uL (3.5-5.4) 05/18/17 05:35 Hgb 11.9 g/dL (12.0-16.0) L 05/18/17 05:35 Hct 35.0 % (36.0-47.0) L 05/18/17 05:35 MCV 98.0 fL (80.0-100.0) 05/18/17 05:35 MCH 33.3 pg (27.0-34.0) 05/18/17 05:35 MCHC 34.0 g/dL (33.0-35.0) 05/18/17 05:35 RDW 15.1 % (11.6-16.5) 05/18/17 05:35 Plt Count 145 X10^3/uL (150.0-450.0) L 05/18/17 05:35 Plt Count Comment Adequate (ADEQUATE) 05/18/17 05:35 MPV 9.4 fL (7.4-11.0) 05/18/17 05:35 Neut % 69.0 % (42.0-75.0) 05/18/17 05:35 Lymph % 20.2 % (21.0-51.0) L 05/18/17 05:35 [place] % 10.2 % (0.0-13.0) 05/18/17 05:35 Eos % 0.3 % (0.9-2.9) L 05/18/17 05:35 Baso % 0.3 % (0.2-1.0) 05/18/17 05:35 Neut # 8.1 x10^3/uL (2.2-4.8) H 05/18/17 05:35 Lymph # 2.4 X10^3/uL (1.3-2.9) 05/18/17 05:35 [place] # 1.2 x10^3/uL (0.3-0.8) H 05/18/17 05:35 Eos # 0.0 x10^3/uL (0.0-0.2) 05/18/17 05:35 Baso # 0.0 X10^3/uL (0.0-0.1) 05/18/17 05:35 Absolute Nucleated RBC 0.1 /100WBC 05/18/17 05:35 Total Counted 100 05/18/17 05:35 Neutrophils % (Manual) 52 % (39-76) 05/18/17 05:35 Band Neutrophils % 3 % (0-10) 05/18/17 05:35 Lymphocytes % (Manual) 41 % (13-43) 05/18/17 05:35 Monocytes % (Manual) 1 % (4-9) L 05/18/17 05:35 Eosinophils % (Manual) 1 % (0-6) 05/18/17 05:35 Basophils % (Manual) 2 % (0-1) H 05/18/17 05:35 Plt Morphology Comment Normal (NORMAL) 05/18/17 05:35 RBC Morphology Normal (NORMAL) 05/18/17 05:35 INR Target Range - 05/16/17 11:36 INR 0.97 (0.8-1.3) 05/16/17 11:36 Sodium 141 mmol/L (136-145) 05/18/17 05:35 Corrected Sodium TNP 05/18/17 05:35 Potassium 3.9 mmol/L (3.5-5.1) 05/18/17 05:35 Chloride 103 mmol/L (98-107) 05/18/17 05:35 Carbon Dioxide 29.3 mmol/L (21-32) 05/18/17 05:35 BUN 20 mg/dL (7-18) H 05/18/17 05:35 Creatinine 0.70 mg/dL (0.55-1.02) 05/18/17 05:35 Est GFR (MDRD) Af Amer > 60 (>60) 05/18/17 05:35 Est GFR (MDRD) Non-Af > 60 (>60) 05/18/17 05:35 Glucose 101 mg/dL (65-99) H 05/18/17 05:35 POC Glucose (mg/dL) 130 mg/dL (65-99) H 05/18/17 20:54 Hemoglobin A1c 5.9 % (4.5-6.2) 05/16/17 04:40 Calcium 8.5 mg/dL (8.5-10.1) 05/18/17 05:35 Corrected Calcium 9.1 mg/dL (8.5-10.1) 05/18/17 05:35 Total Bilirubin 0.90 mg/dL (0.2-1.0) 05/18/17 05:35 AST 21 Units/L (15-37) 05/18/17 05:35 ALT 43 Units/L (12-78) 05/18/17 05:35 Alkaline Phosphatase 53 Units/L (46-116) 05/18/17 05:35 Total Protein 6.2 g/dL (6.4-8.2) L 05/18/17 05:35 Albumin 3.3 g/dL (3.4-5.0) L 05/18/17 05:35 Globulin 2.9 g/dL (2.5-4.5) 05/18/17 05:35 Albumin/Globulin Ratio 1.1 Ratio (1.1-2.1) 05/18/17 05:35 Specimen Type Catherized urine 05/16/17 10:42 Urine Color Yellow (YELLOW) 05/16/17 10:42 Urine Appearance Clear (CLEAR) 05/16/17 10:42 Urine pH 6.0 (5.0 - 8.0) 05/16/17 10:42 Ur Specific [place] 1.020 (1.000-1.030) 05/16/17 10:42 Urine Protein 1+ (NEGATIVE) 05/16/17 10:42 Urine Glucose (UA) Negative (NEGATIVE) 05/16/17 10:42 Urine Ketones Negative (NEGATIVE) 05/16/17 10:42 Urine Occult Blood Negative (NEGATIVE) 05/16/17 10:42 Urine Nitrite Negative (NEGATIVE) 05/16/17 10:42 Urine Bilirubin Negative (NEGATIVE) 05/16/17 10:42 Urine Urobilinogen Normal (NORMAL) 05/16/17 10:42 Ur Leukocyte Esterase Negative (NEGATIVE) 05/16/17 10:42 Urine RBC None seen /HPF (NEGATIVE) 05/16/17 10:42 Urine WBC None seen /HPF (NEGATIVE) 05/16/17 10:42 Ur Squamous Epith Cells Rare /HPF (NEGATIVE) 05/16/17 10:42 Ur Transition Epith Cell Cancelled 05/16/17 10:42 Ur Renal Epithelial Cell Cancelled 05/16/17 10:42 Calcium Oxalate Crystal Cancelled 05/16/17 10:42 Cystine Crystals Cancelled 05/16/17 10:42 Uric Acid Crystals Cancelled 05/16/17 10:42 Triple Phos Crystals Cancelled 05/16/17 10:42 Tyrosine Crystals Cancelled 05/16/17 10:42 Other Crystals Cancelled 05/16/17 10:42 Amorphous Sediment 2+ /HPF (NEGATIVE) 05/16/17 10:42 Urine Bacteria Negative /HPF (NEGATIVE) 05/16/17 10:42 Hyaline Casts Cancelled 05/16/17 10:42 Granular Casts Cancelled 05/16/17 10:42 Fine Granular Casts Cancelled 05/16/17 10:42 Coarse Granular Casts Cancelled 05/16/17 10:42 WBC Casts Cancelled 05/16/17 10:42 Other Casts Cancelled 05/16/17 10:42 Urine Mucus Few /HPF (NEGATIVE) 05/16/17 10:42 Urine Trichomonas Cancelled 05/16/17 10:42 Urine Yeast Cancelled 05/16/17 10:42 Urine Sperm Cancelled 05/16/17 10:42 Ur Culture Indicated? Yes/culture set up 05/16/17 10:42 - Plan (1) Generalized weakness Status: Acute (2) Abdominal pain Status: Acute Qualifiers: Abdominal location: generalized Qualified Code(s): R10.84 - Generalized abdominal pain Plan: OBTAIN URINALYSIS AND URINE CULTURE, CONTINUE TO MONITOR (3) Altered mental status Status: Acute Qualifiers: Altered mental status type: transient alteration of awareness Qualified Code(s): R40.4 - Transient alteration of awareness Plan: CONTINUE TO MONITOR (4) Hypoalbuminemia Status: Acute Plan: ALBUMIN 25GM IV DAILY, TPN, CONTINUE TO MONITOR (5) Hypoproteinemia Status: Acute Plan: PERIPHERAL TPN, CONTINUE TO MONITOR
--- NOTE | 2017-05-18 22:29 | PCM.PROG ---
Progress Note - Progress Note for Day of Date: 05/18/17 - Subjective Subjective: WAS ADMITTED FOR ALTERED MENTAL STATUS AND FEVER. TODAY, SHE IS ALERT AND ORIENTED, LYING IN BED ON MORNING ROUNDS. PATIENT IS NOTED WITH COMPLAINTS OF SHORTNESS OF BREATH, COUGH, AND GENERALIZED WEAKNESS. ON EXAMINATION, HEART IS REGULAR IN RATE AND RHYTHM. BILATERAL LUNGS ARE NOTED WITH RHONCHI BILATERALLY TO AUSCULTATION. ABDOMEN IS ROUNDS, SOFT, AND NON- TENDER WITH NORMAL BOWEL SOUNDS NOTED IN ALL QUADRANTS. THERE IS SCATTERED BRUISING NOTED TO UPPER AND LOWER EXTREMITIES. THERE IS NORMAL RANGE OF MOTION NOTED TO ALL EXTREMITITES. HER VITAL SIGNS TODAY ARE 98.6-76-20-92%-186/79. HER WBC COUNT TODAY HAS DECREASED TO 11.7, OTHERWISE, SHE IS HEMODYNAMICALLY STABLE. BILATERAL KNEE XRAYS THAT WERE OBTAINED YESTERDAY WERE NEGATIVE FOR ACUTE INJURY. TODAY, WE PLAN TO CONTINUE WITH IV ANTIBIOTICS, TPN, AND ALBUMIN. PATIENT SHOULD BE READY FOR DISCHARGE BACK TO THE LONGTERM TOMORROW. WE WILL FOLLOW UP WITH AM LABS AND CONTINUE TO MONITOR PATIENT. - Past Medical Family Social History Past Med/Fam/Surg Hx: No changes since H&P Allergies: Allergies sertraline [From Zoloft] Allergy (Verified 03/10/17 14:54) - Review of Systems ROS: No change since H&P - Vital Signs and I&O's Vital Signs: Temperature 99.2 F Pulse Rate [Right Radial] 65 Pulse Rate [Left Radial] 62 Respiratory Rate 18 Blood Pressure [Left Calf] 139/63 Blood Pressure [Left Arm] 111/60 Blood Pressure [Right Arm] 129/68 Blood Pressure 146/66 O2 Sat by Pulse Oximetry 96 Intake and Output: Intake & Output 05/16/17 05/17/17 05/18/17 05/19/17 11:59 11:59 11:59 11:59 Intake Total 130 240 560 620 Output Total 45 300 Balance 130 195 260 620 - Physical Exam Oriented: Person Eyes: Normal Ear: Normal Nose: Normal Throat: Normal Respiratory: Right, Left, Generalized, Rhonchi Cardiovascular: Normal. negative: S3, S4, Murmur, Edema : Dysuria Auscultation: Bowel Sounds: Normal Palpation: Normal Tenderness: Normal Skin: Bruising (SCATTERED BRUISING ) Musculoskeletal: Right, Left, Knee, Tender Psychiatric: Normal Mood Description: Calm Affect: Normal Speech Pattern: Clear, Appropriate - Laboratory and Diagnostics Result Diagrams: 05/18/17 05:35 05/18/17 05:35 Labs: 05/16/17 10:42 Urine,Catheterized Urine Culture - Final 05/15/17 20:07 Blood Blood Culture - Preliminary 05/15/17 20:07 Blood Blood Culture - Preliminary Laboratory WBC 11.7 X10^3/uL (3.6-10.0) H 05/18/17 05:35 RBC 3.57 X10^6/uL (3.5-5.4) 05/18/17 05:35 Hgb 11.9 g/dL (12.0-16.0) L 05/18/17 05:35 Hct 35.0 % (36.0-47.0) L 05/18/17 05:35 MCV 98.0 fL (80.0-100.0) 05/18/17 05:35 MCH 33.3 pg (27.0-34.0) 05/18/17 05:35 MCHC 34.0 g/dL (33.0-35.0) 05/18/17 05:35 RDW 15.1 % (11.6-16.5) 05/18/17 05:35 Plt Count 145 X10^3/uL (150.0-450.0) L 05/18/17 05:35 Plt Count Comment Adequate (ADEQUATE) 05/18/17 05:35 MPV 9.4 fL (7.4-11.0) 05/18/17 05:35 Neut % 69.0 % (42.0-75.0) 05/18/17 05:35 Lymph % 20.2 % (21.0-51.0) L 05/18/17 05:35 [place] % 10.2 % (0.0-13.0) 05/18/17 05:35 Eos % 0.3 % (0.9-2.9) L 05/18/17 05:35 Baso % 0.3 % (0.2-1.0) 05/18/17 05:35 Neut # 8.1 x10^3/uL (2.2-4.8) H 05/18/17 05:35 Lymph # 2.4 X10^3/uL (1.3-2.9) 05/18/17 05:35 [place] # 1.2 x10^3/uL (0.3-0.8) H 05/18/17 05:35 Eos # 0.0 x10^3/uL (0.0-0.2) 05/18/17 05:35 Baso # 0.0 X10^3/uL (0.0-0.1) 05/18/17 05:35 Absolute Nucleated RBC 0.1 /100WBC 05/18/17 05:35 Total Counted 100 05/18/17 05:35 Neutrophils % (Manual) 52 % (39-76) 05/18/17 05:35 Band Neutrophils % 3 % (0-10) 05/18/17 05:35 Lymphocytes % (Manual) 41 % (13-43) 05/18/17 05:35 Monocytes % (Manual) 1 % (4-9) L 05/18/17 05:35 Eosinophils % (Manual) 1 % (0-6) 05/18/17 05:35 Basophils % (Manual) 2 % (0-1) H 05/18/17 05:35 Plt Morphology Comment Normal (NORMAL) 05/18/17 05:35 RBC Morphology Normal (NORMAL) 05/18/17 05:35 INR Target Range - 05/16/17 11:36 INR 0.97 (0.8-1.3) 05/16/17 11:36 Sodium 141 mmol/L (136-145) 05/18/17 05:35 Corrected Sodium TNP 05/18/17 05:35 Potassium 3.9 mmol/L (3.5-5.1) 05/18/17 05:35 Chloride 103 mmol/L (98-107) 05/18/17 05:35 Carbon Dioxide 29.3 mmol/L (21-32) 05/18/17 05:35 BUN 20 mg/dL (7-18) H 05/18/17 05:35 Creatinine 0.70 mg/dL (0.55-1.02) 05/18/17 05:35 Est GFR (MDRD) Af Amer > 60 (>60) 05/18/17 05:35 Est GFR (MDRD) Non-Af > 60 (>60) 05/18/17 05:35 Glucose 101 mg/dL (65-99) H 05/18/17 05:35 POC Glucose (mg/dL) 130 mg/dL (65-99) H 05/18/17 20:54 Hemoglobin A1c 5.9 % (4.5-6.2) 05/16/17 04:40 Calcium 8.5 mg/dL (8.5-10.1) 05/18/17 05:35 Corrected Calcium 9.1 mg/dL (8.5-10.1) 05/18/17 05:35 Total Bilirubin 0.90 mg/dL (0.2-1.0) 05/18/17 05:35 AST 21 Units/L (15-37) 05/18/17 05:35 ALT 43 Units/L (12-78) 05/18/17 05:35 Alkaline Phosphatase 53 Units/L (46-116) 05/18/17 05:35 Total Protein 6.2 g/dL (6.4-8.2) L 05/18/17 05:35 Albumin 3.3 g/dL (3.4-5.0) L 05/18/17 05:35 Globulin 2.9 g/dL (2.5-4.5) 05/18/17 05:35 Albumin/Globulin Ratio 1.1 Ratio (1.1-2.1) 05/18/17 05:35 Specimen Type Catherized urine 05/16/17 10:42 Urine Color Yellow (YELLOW) 05/16/17 10:42 Urine Appearance Clear (CLEAR) 05/16/17 10:42 Urine pH 6.0 (5.0 - 8.0) 05/16/17 10:42 Ur Specific [place] 1.020 (1.000-1.030) 05/16/17 10:42 Urine Protein 1+ (NEGATIVE) 05/16/17 10:42 Urine Glucose (UA) Negative (NEGATIVE) 05/16/17 10:42 Urine Ketones Negative (NEGATIVE) 05/16/17 10:42 Urine Occult Blood Negative (NEGATIVE) 05/16/17 10:42 Urine Nitrite Negative (NEGATIVE) 05/16/17 10:42 Urine Bilirubin Negative (NEGATIVE) 05/16/17 10:42 Urine Urobilinogen Normal (NORMAL) 05/16/17 10:42 Ur Leukocyte Esterase Negative (NEGATIVE) 05/16/17 10:42 Urine RBC None seen /HPF (NEGATIVE) 05/16/17 10:42 Urine WBC None seen /HPF (NEGATIVE) 05/16/17 10:42 Ur Squamous Epith Cells Rare /HPF (NEGATIVE) 05/16/17 10:42 Ur Transition Epith Cell Cancelled 05/16/17 10:42 Ur Renal Epithelial Cell Cancelled 05/16/17 10:42 Calcium Oxalate Crystal Cancelled 05/16/17 10:42 Cystine Crystals Cancelled 05/16/17 10:42 Uric Acid Crystals Cancelled 05/16/17 10:42 Triple Phos Crystals Cancelled 05/16/17 10:42 Tyrosine Crystals Cancelled 05/16/17 10:42 Other Crystals Cancelled 05/16/17 10:42 Amorphous Sediment 2+ /HPF (NEGATIVE) 05/16/17 10:42 Urine Bacteria Negative /HPF (NEGATIVE) 05/16/17 10:42 Hyaline Casts Cancelled 05/16/17 10:42 Granular Casts Cancelled 05/16/17 10:42 Fine Granular Casts Cancelled 05/16/17 10:42 Coarse Granular Casts Cancelled 05/16/17 10:42 WBC Casts Cancelled 05/16/17 10:42 Other Casts Cancelled 05/16/17 10:42 Urine Mucus Few /HPF (NEGATIVE) 05/16/17 10:42 Urine Trichomonas Cancelled 05/16/17 10:42 Urine Yeast Cancelled 05/16/17 10:42 Urine Sperm Cancelled 05/16/17 10:42 Ur Culture Indicated? Yes/culture set up 05/16/17 10:42 - Plan (1) Generalized weakness Status: Acute (2) Abdominal pain Status: Acute Qualifiers: Abdominal location: generalized Qualified Code(s): R10.84 - Generalized abdominal pain Plan: OBTAIN URINALYSIS AND URINE CULTURE, CONTINUE TO MONITOR (3) Altered mental status Status: Acute Qualifiers: Altered mental status type: transient alteration of awareness Qualified Code(s): R40.4 - Transient alteration of awareness Plan: CONTINUE TO MONITOR (4) Right pulmonary infiltrate on CXR Status: Acute Plan: LEVAQUIN 500MG IV DAILY, CONTINUE TO MONITOR
[2017-05-19] MEDS: NEURONTIN TAB 600 MG PO SCH ×2 (05:42→14:02)
[2017-05-19 05:45] LABS: BASOPHILS # (AUTO) 0.1 X10^3/uL (0.0-0.1); BASOPHILS % (AUTO) 0.7 % (0.2-1.0); EOSINOPHILS # (AUTO) 0.1 x10^3/uL (0.0-0.2); EOSINOPHILS % (AUTO) 0.6 % (0.9-2.9); HEMATOCRIT 35.5 % (36.0-47.0); HEMOGLOBIN 12.2 g/dL (12.0-16.0); LYMPHOCYTES # (AUTO) 2.4 X10^3/uL (1.3-2.9); LYMPHOCYTES % (AUTO) 17.3 % (21.0-51.0); MEAN CORPUSCULAR HGB CONC 34.3 g/dL (33.0-35.0); MEAN PLATELET VOLUME 9.2 fL (7.4-11.0); MONOCYTES # (AUTO) 1.2 x10^3/uL (0.3-0.8); MONOCYTES % (AUTO) 8.4 % (0.0-13.0); NEUTROPHILS # (AUTO) 10.1 x10^3/uL (2.2-4.8); PLATELET COUNT 139 X10^3/uL (150.0-450.0); RED BLOOD COUNT 3.58 X10^6/uL (3.5-5.4); RED CELL DISTRIBUTION WIDTH 15.5 % (11.6-16.5); WHITE BLOOD COUNT 13.8 X10^3/uL (3.6-10.0)
[2017-05-19 06:00] LABS: ALANINE AMINOTRANSFERASE 42 Units/L (12-78); ALBUMIN 3.6 g/dL (3.4-5.0); ALKALINE PHOSPHATASE 55 Units/L (46-116); ASPARTATE AMINO TRANSFERASE 25 Units/L (15-37); BLOOD UREA NITROGEN 21 mg/dL (7-18); CALCIUM 8.7 mg/dL (8.5-10.1); CARBON DIOXIDE 29.8 mmol/L (21-32); CHLORIDE 105 mmol/L (98-107); CREATININE 0.67 mg/dL (0.55-1.02); SODIUM 142 mmol/L (136-145); TOTAL PROTEIN 6.5 g/dL (6.4-8.2); eGFR BLACK RACES > 60 (>60); eGFR NON BLACK RACES > 60 (>60)
[2017-05-19] MEDS ORDERED: LEVAQUIN PREMIX IV 500 MG 500 MG/100 ML BAG IV SCH (09:00)
[2017-05-19] MEDS: ALBUMIN HUMAN 25%- 100ML 100 ML IV SCH (09:07)
[2017-05-19] MEDS: FOLIC ACID TAB 1 MG PO SCH (09:08)
[2017-05-19] MEDS: XANAX PO SCH (09:08)
[2017-05-19] MEDS: ZANTAC PO SCH (09:08)
[2017-05-19] MEDS: PROTONIX TAB 40 MG PO SCH (09:09)
[2017-05-19] MEDS: TOPROL XL PO SCH (09:09)
[2017-05-19] MEDS: EFFEXOR XR 75 MG CAP PO SCH (09:09)
[2017-05-19] MEDS: LASIX PO SCH (09:09)
[2017-05-19] MEDS: K-DUR TAB 20 MEQ PO SCH (09:09)
[2017-05-19] MEDS: ARICEPT TAB 10 MG PO SCH (09:09)
[2017-05-19] MEDS: VITAMIN C PO SCH (09:10)
[2017-05-19] MEDS: PREDNISONE TAB 5 MG PO SCH (09:10)
[2017-05-19] MEDS: ZINC SULFATE PO SCH (09:10)
[2017-05-19] MEDS: TAB-A-VITE PO SCH (09:17)
[2017-05-19] MEDS: MEGACE PO SCH (09:17)
[2017-05-19 12:17] VITALS: BP 127/81
[2017-05-19] MEDS ORDERED: DIPRIVAN VIAL ONE (15:35)
[2017-05-19] MEDS ORDERED: VERSED ONE (15:35)
== END 2017-05-19 16:18 ==
LOC: MED/SURG 18:40
PROVIDERS: ADMIT Internal Medicine; ATTEND Internal Medicine
PROC: B517ZZA Fluoroscopy of Left Subclavian Vein, Guidance (ICD-10-PCS; 2017-05-16)
PROC: 05H633Z Insertion of Infusion Device into Left Subclavian Vein, Percutaneous Approach (ICD-10-PCS; principal; 2017-05-16 13:15)
DX: R40.4 Transient alteration of awareness (principal); R53.1 Weakness; R10.84 Generalized abdominal pain; E88.09 Other disorders of plasma-protein metabolism, not elsewhere classified; Z91.81 History of falling; R06.02 Shortness of breath; I87.2 Venous insufficiency (chronic) (peripheral)
CPT/HCPCS: 36415; 70450; 71045; 73564; 76000; 80053; 81001; 83036; 85025; 85610; 87040; 87086; 93005; 93010; 99100; A4222; B5200; P9047; Q0169; S0179; G0378; J0690; J1956; J2250; J3010; J3490; J7120; J7506

== ENCOUNTER 2019-07-01 13:46 | Inpatient (IN) ==
[2019-07-01] MEDS ORDERED: HEPARIN SODIUM IN D5W 25,000 UNITS/500 ML BAG IV PRN (15:59)
[2019-07-01] MEDS ORDERED: NS 500 ML IV 0 ML IV ONE (16:17)
[2019-07-01] MEDS ORDERED: HEPARIN SODIUM INJ 5000 UNITS ONE (16:18)
[2019-07-01] MEDS ORDERED: HEPARIN SODIUM IN D5W 25,000 UNITS/500 ML BAG IV ONE (16:18)
[2019-07-01 16:25] LABS: BASOPHILS # (AUTO) 0.2 X10^3/uL (0.0-0.1); BASOPHILS % (AUTO) 1.4 % (0.2-1.0); EOSINOPHILS # (AUTO) 0.1 x10^3/uL (0.0-0.2); EOSINOPHILS % (AUTO) 0.5 % (0.9-2.9); HEMOGLOBIN 15.3 g/dL (12.0-16.0); LYMPHOCYTES # (AUTO) 3.1 X10^3/uL (1.3-2.9); LYMPHOCYTES % (AUTO) 22.4 % (21.0-51.0); MEAN CORPUSCULAR HEMOGLOBIN 35.2 pg (27.0-34.0); MEAN CORPUSCULAR HGB CONC 34.1 g/dL (33.0-35.0); MEAN CORPUSCULAR VOLUME 103.1 fL (80.0-100.0); MEAN PLATELET VOLUME 8.5 fL (7.4-11.0); MONOCYTES # (AUTO) 1.1 x10^3/uL (0.3-0.8); MONOCYTES % (AUTO) 8.3 % (0.0-13.0); NEUTROPHILS # (AUTO) 9.3 x10^3/uL (2.2-4.8); NEUTROPHILS % (AUTO) 67.4 % (42.0-75.0); PLATELET COUNT 155 X10^3/uL (150.0-450.0); RED BLOOD COUNT 4.36 X10^6/uL (3.5-5.4); RED CELL DISTRIBUTION WIDTH 14.8 % (11.6-16.5); WHITE BLOOD COUNT 13.8 X10^3/uL (3.6-10.0)
[2019-07-01] MEDS: HEPARIN SODIUM INJ 5000 UNITS IVP ONE ×2 (16:25→16:50)
[2019-07-01] MEDS ORDERED: NS 1000 ML 1,000 ML ONE (16:26)
[2019-07-01] MEDS: NS 1000 ML 1,000 ML IV SCH (16:29)
[2019-07-01 16:38] LABS: ALANINE AMINOTRANSFERASE 34 Units/L (12-78); ALBUMIN 2.4 g/dL (3.4-5.0); ALKALINE PHOSPHATASE 108 Units/L (46-116); ASPARTATE AMINO TRANSFERASE 27 Units/L (15-37); BLOOD UREA NITROGEN 21 mg/dL (7-18); CALCIUM 7.8 mg/dL (8.5-10.1); CARBON DIOXIDE 34.8 mmol/L (21-32); CHLORIDE 103 mmol/L (98-107); COR CA(FOR HYPOALB) 9.1 mg/dL (8.5-10.1); CREATININE 0.77 mg/dL (0.55-1.02); SODIUM 140 mmol/L (136-145); eGFR NON BLACK RACES > 60 (>60)
[2019-07-01 17:42] VITALS: BMI 27.3
[2019-07-01] MEDS ORDERED: PHARMACY CONSULT LTC MEDICATIONS XX SCH (18:00)
[2019-07-01 20:30] LABS: BILIRUBIN,URINE NEGATIVE (NEGATIVE); BLOOD/HEMOGLOBIN,URINE 2+ (NEGATIVE); GLUCOSE, URINE NEGATIVE (NEGATIVE); KETONES,URINE NEGATIVE (NEGATIVE); LEUKOCYTE ESTERASE ,URINE 3+ (NEGATIVE); NITRITES,URINE POSITIVE (NEGATIVE); PROTEIN,URINE 1+ (NEGATIVE); UROBILINOGEN,URINE NORMAL (NORMAL)
[2019-07-01 20:35] LABS: APPEARANCE,URINE HAZY (CLEAR); COLOR,URINE PALE YELLOW (YELLOW)
[2019-07-01 20:36] LABS: BACTERIA,URINE 2+ /HPF (NEGATIVE); SQUAMOUS EPITHELIAL CELL,UR RARE /HPF (NEGATIVE)
[2019-07-01] MEDS ORDERED: POTASSIUM CHL 60 MEQ/NS 0.45% 500 ML IV PRN (21:31)
[2019-07-01] MEDS ORDERED: K-DUR TAB 20 MEQ PO PRN (21:31)
[2019-07-01] MEDS ORDERED: POTASSIUM CHL 40 MEQ/NS 0.45% 500 ML IV PRN (21:31)
[2019-07-01] MEDS ORDERED: MICRO K EXTEN CAP 10 MEQ PO PRN (21:31)
[2019-07-01] MEDS ORDERED: KLOR-CON PO PRN (21:31)
[2019-07-01] MEDS ORDERED: K-RIDER 10 MEQ/NS 100 ML 10 MEQ/100 ML BAG IV PRN (21:31)
[2019-07-01] MEDS ORDERED: MAGNESIUM SULFATE 1 GRAM/100 mL PREMIX 1 GM/100 ML BAG IV PRN (21:31)
[2019-07-01] MEDS ORDERED: POTASSIUM CHLORIDE LIQ 20 MEQ UDC PO PRN (21:31)
[2019-07-01] MEDS ORDERED: MICRO K EXTEN CAP 10 MEQ PO ONE (21:33)
--- NOTE | 2019-07-01 22:30 | RAD ---
STUDY: CHEST, 1 VIEWCOMPARISON: NoneHISTORY: NEW ADMIT, DVT, NO CHEST COMPLAINTS AT THIS TIMEFINDINGS:The left subclavian chemotherapy port is in stable position. The cardiomediastinal contour is stable and is magnified on this portable technique. No consolidation, pleural effusion, or pneumothorax is seen. Stable elevation of the right hemidiaphragm is seen with decreased volume in the right lung. This is unchanged in appearance from the prior study. There is no radiographic evidence of pulmonary edema. Subsegmental atelectasis is noted.IMPRESSION:No significant change from prior studyElectronically signed by: Dionicio Camacho (Jul 01, 2019 22:29:28)
[2019-07-02] MEDS ORDERED: NS 100 ML IV 100 ML IV ONE (04:47)
[2019-07-02] MEDS: NS 1000 ML 1,000 ML IV SCH ×2 (06:03→20:31)
[2019-07-02 06:08] LABS: BASOPHILS % (AUTO) 0.5 % (0.2-1.0); EOSINOPHILS # (AUTO) 0.2 x10^3/uL (0.0-0.2); EOSINOPHILS % (AUTO) 2.3 % (0.9-2.9); HEMATOCRIT 45.9 % (36.0-47.0); HEMOGLOBIN 15.6 g/dL (12.0-16.0); LYMPHOCYTES # (AUTO) 2.6 X10^3/uL (1.3-2.9); LYMPHOCYTES % (AUTO) 27.8 % (21.0-51.0); MEAN CORPUSCULAR HEMOGLOBIN 35.5 pg (27.0-34.0); MEAN CORPUSCULAR VOLUME 104.5 fL (80.0-100.0); MEAN PLATELET VOLUME 9.2 fL (7.4-11.0); MONOCYTES # (AUTO) 0.9 x10^3/uL (0.3-0.8); MONOCYTES % (AUTO) 9.9 % (0.0-13.0); NEUTROPHILS # (AUTO) 5.5 x10^3/uL (2.2-4.8); NEUTROPHILS % (AUTO) 59.5 % (42.0-75.0); PLATELET COUNT 141 X10^3/uL (150.0-450.0); RED BLOOD COUNT 4.39 X10^6/uL (3.5-5.4); RED CELL DISTRIBUTION WIDTH 14.8 % (11.6-16.5); WHITE BLOOD COUNT 9.3 X10^3/uL (3.6-10.0)
[2019-07-02 06:32] LABS: ALANINE AMINOTRANSFERASE 35 Units/L (12-78); ALBUMIN 2.2 g/dL (3.4-5.0); ALKALINE PHOSPHATASE 97 Units/L (46-116); ASPARTATE AMINO TRANSFERASE 33 Units/L (15-37); BLOOD UREA NITROGEN 13 mg/dL (7-18); CALCIUM 7.8 mg/dL (8.5-10.1); CARBON DIOXIDE 35.5 mmol/L (21-32); CHLORIDE 106 mmol/L (98-107); COR CA(FOR HYPOALB) 9.2 mg/dL (8.5-10.1); CREATININE 0.69 mg/dL (0.55-1.02); SODIUM 143 mmol/L (136-145); TOTAL PROTEIN 5.6 g/dL (6.4-8.2); eGFR NON BLACK RACES > 60 (>60)
[2019-07-02] MEDS ORDERED: NS 250 ML IV 250 ML IV ONE (08:52)
[2019-07-02] MEDS ORDERED: ELIQUIS PO SCH (10:30)
[2019-07-02] MEDS ORDERED: NS 500 ML IV 500 ML IV ONE (11:24)
--- NOTE | 2019-07-02 11:29 | DR.H&P ---
H&P - History & Physical for Day of: H&P Date: 07/01/19 - Chief Complaint Chief Complaint: RIGHT LEG DVT - History of Present Illness History of Present Illness: IS A 74 YEAR OLD PATIENT OF OURS. SHE IS A RESIDENT OF [facility]. SHE WAS A DIRECT ADMISSION DUE TO Findings consistent with deep venous thrombosis involving the right common femoral vein. SHE IS NOTED WITH SWELLING AND COMPLAINTS OF PAIN TO THE RIGHT LEG. ON ADMISSION, VITALS WERE 98.3-74-35-94%-129/59. LABS WERE OBTAINED. ABNORMAL LAB VALUES INCLUDE THE FOLLOWING: WBC 13.8, CARBON DIOXIDE 34.8, BUN 21, CALCIUM 7.8, TOTAL PROTEIN 6.0, ALBUMIN 2.4. A URINALYSIS WAS OBTAINED AND REVEALED: WBC TNTC, RBC 10-20. URINE CULTURE WAS SET UP. EKG REVEALED: SINUS RHYTHM WITH HR 86. WE WILL OBTAIN A CHEST CTA TO RULE OUT PE. SHE WAS STARTED ON A HEPARIN DRIP, NS AT KVO, THE POTASSIUM AND MAGNESIUM PROTOCOLS, AND ROCEPHIN 1G IV DAILY FOR UTI. WE WILL REVIEW HER HOME MEDICATIONS. OTHERWISE, WE WILL FOLLOW UP WITH AM LABS AND CONTINUE TO MONITOR. - Past Medical History Past Medical History: [place], Coronary Artery Disease, Hypertension, Dyslipidemia, Depression, Anemia, GERD, Arthritis, Gout Additional Medical History: Venous Insufficiency, Rheumatoid Arthritis, Spondylosis Lumbar/Thoracic, Muscular Dystrophy, Osteoporosis, Degenerative Disc Disease, Chronic PVD, Cataracts, Pneumonia, Muscle Weakness, Previous Blood Transfusion - Past Surgical History Surgical History: Angioplasty/Stents, Additional Surgical History: Cataract Surgery, Two Cardiac Stents - Family History Family Medical History: Diabetes Mellitus, Hypertension - Social History Does patient currently use any type of tobacco product: No Have you used tobacco products in the last 12 months: No Type of Tobacco Use: None Does any household member use tobacco: No Alcohol Use: None Prescription drug monitoring program results: PDMP was not reviewed - Medications Home Medications: sertraline [From Zoloft] Allergy (Verified 03/10/17 14:54) CONTINUE taking the following medications allopurinol 300 mg PO DAILY 07/02/19 [History] allopurinol 300 mg PO DAILY 07/02/19 [History] ascorbic acid (vitamin C) [Vitamin C] 500 mg PO BID 07/02/19 [History] atorvastatin 20 mg PO DAILY 07/02/19 [History] clobetasol [Temovate] 1 applic TOPICAL BID 07/02/19 [History] clopidogrel 75 mg PO DAILY 07/02/19 [History] donepezil 10 mg PO DAILY 07/02/19 [History] fluticasone propionate 1 spray INTRANASAL DAILY 07/02/19 [History] folic acid 1 mg PO DAILY 07/02/19 [History] furosemide 20 mg PO DAILY 07/02/19 [History] gabapentin 600 mg PO TID 07/02/19 [History] ketotifen fumarate 1 drp OPHTHALMIC (EYE) BID 07/02/19 [History] metoprolol succinate 12.5 mg PO DAILY 07/02/19 [History] pantoprazole 40 mg PO DAILY 07/02/19 [History] potassium chloride 20 meq PO BID 07/02/19 [History] prednisone 5 mg PO BID 07/02/19 [History] tramadol 50 mg PO QID 07/02/19 [History] venlafaxine 37.5 mg PO DAILY 07/02/19 [History] - Review of Systems Constitutional: Weakness Eyes: No Symptoms Reported ENT: No Symptoms Reported Respiratory: Shortness of Breath, SOB with Excertion Cardiovascular: No Symptoms Reported Gastrointestinal: No Symptoms Reported Genitourinary: No Symptoms Reported Musculoskeletal: No Symptoms Reported Skin: No Symptoms Reported Neurological: Weakness - Physical Exam Vital Signs: Temperature 98.2 F Pulse Rate [Apical] 62 Pulse Rate 82 Respiratory Rate 30 Blood Pressure [Left Calf] 139/63 Blood Pressure [Left Arm] 111/60 Blood Pressure [Right Arm] 138/63 Blood Pressure 138/77 O2 Sat by Pulse Oximetry 94 Oriented: Normal Eyes: Normal Ear: Normal Nose: Normal Throat: Normal Respiratory: Diminished Throughout Cardiovascular: Normal : Normal Auscultation: Bowel Sounds: Normal Palpation: Normal Tenderness: Normal Skin: Red, Tender Musculoskeletal: Right, Leg, Swelling, Tender Psychiatric: Normal Mood Description: Calm Affect: Normal Speech Pattern: Clear - Assessment/Plan (1) DVT (deep venous thrombosis) Qualifiers: DVT location: lower extremity Affected thrombotic vein of extremity: femoral Chronicity: acute Laterality: right Qualified Code(s): I82.411 - Acute embolism and thrombosis of right femoral vein Status: Acute Plan: admit, heparin drip, obtain chest cta to r/o pe, continue to monitor - Allergies Allergies/Adverse Reactions: Allergies Allergy/AdvReac Type Severity Reaction Status Date / Time sertraline [From Zoloft] Allergy Verified 03/10/17 14:54
[2019-07-02] MEDS: ROCEPHIN VIAL 1 GRAM 1 G in NS 100 ML IV + SPIKE MINIBAG* 100 ML IV SCH (11:49)
[2019-07-02] MEDS ORDERED: BUTT CREAM (COMPOUND) ONE (12:12)
--- NOTE | 2019-07-02 14:13 | CT ---
HISTORYDVT LOWER LEGSTUDYCTA CHEST with IV contrastCOMPARISONX-ray 07/01/19TECHNIQUEMultiple axial images of the chest were obtained from the thoracic inlet to the upper abdomen after the administration of IV contrast. 100 cc Omnipaque 350 IV contrast. 3D reconstructions utilizing axial MIPS imaging was performed and reviewed. Dose reduction techniques including Automated Exposure Control (AEC) and adjustment of mA and kV were utilized.FINDINGSThere is elevation of the right hemidiaphragm with probable associated atelectasis. Mild atelectasis is seen in the dependent portion of the left lung, also. Increased subpleural fat deposition is seen without evidence of pleural effusion. Probable CHF and mild pulmonary edema. No pericardial effusion.There is a mass in the left lobe of the liver that measures 3.2 x 2.7 cm. It could possibly be an angioma but no enhancement is seen on this study. It should be further evaluated with dedicated dynamic contrast enhanced CT or MRI exam using hemangioma protocol.Ascending thoracic aorta is top normal limits in size measuring 3.8 cm in diameter. It tapers in the arch. No suggestion of aortic dissection but aorta is less than optimally enhanced. Multiple thoracic compression deformities are probably old.Partially occlusive pulmonary embolus is seen within a 2nd order branch of the right pulmonary artery in the right upper lobe of the lungs. RV/LV is 1.1.IMPRESSIONSingle, small, partially occlusive pulmonary embolus is seen in a 2nd order branch of the right pulmonary artery in the right upper lobe. RV/LV is 1.1.Probable CHF and pulmonary edema.3.2 cm mass in the left lobe of the liver should be further evaluated with dynamic contrast enhanced CT or MRI.Electronically signed by: Paul Dowling (Jul 02, 2019 14:12:03)
[2019-07-02] MEDS: PLAVIX PO SCH (15:50)
[2019-07-02] MEDS: FOLIC ACID TAB 1 MG PO SCH (15:50)
[2019-07-02] MEDS: NEURONTIN TAB 600 MG PO SCH ×2 (15:50→22:00)
[2019-07-02] MEDS: LASIX PO SCH (15:51)
[2019-07-02] MEDS: VITAMIN C PO SCH ×2 (15:51→20:30)
[2019-07-02] MEDS: ZYLOPRIM PO SCH (15:51)
[2019-07-02] MEDS: PROTONIX TAB 40 MG PO SCH (15:51)
[2019-07-02] MEDS: TOPROL XL PO SCH (15:52)
[2019-07-02] MEDS: PREDNISONE TAB 5 MG PO SCH ×2 (15:52→20:30)
[2019-07-02] MEDS: LIPITOR TAB 20 MG PO SCH ×2 (15:52→20:30)
[2019-07-02] MEDS: K-DUR TAB 20 MEQ PO SCH ×2 (15:53→20:30)
[2019-07-02] MEDS: ZADITOR EYE DROPS OP SCH ×2 (15:54→20:31)
[2019-07-02] MEDS: PATIENT'S HOME MEDICATION EACHEYE SCH ×4 (15:54→23:00)
[2019-07-02] MEDS: EFFEXOR XR 37.5 MG CAP PO SCH (15:57)
[2019-07-02] MEDS: ARICEPT TAB 10 MG PO SCH (15:57)
[2019-07-02] MEDS: FLONASE NASAL SPRAY ENOSTRIL SCH (16:13)
[2019-07-02] MEDS ORDERED: ULTRAM PO PRN (17:00)
[2019-07-02] MEDS: ELIQUIS PO SCH (20:29)
[2019-07-02] MEDS: TEMOVATE CREAM TOP SCH (20:31)
[2019-07-02] MEDS ORDERED: PATIENT'S HOME MEDICATION EACHEYE SCH (21:00)
[2019-07-03] MEDS: PATIENT'S HOME MEDICATION EACHEYE SCH ×8 (02:44→23:22)
[2019-07-03 04:36] LABS: BASOPHILS # (AUTO) 0.1 X10^3/uL (0.0-0.1); BASOPHILS % (AUTO) 0.6 % (0.2-1.0); EOSINOPHILS % (AUTO) 0.3 % (0.9-2.9); HEMATOCRIT 43.8 % (36.0-47.0); HEMOGLOBIN 14.9 g/dL (12.0-16.0); LYMPHOCYTES # (AUTO) 2.7 X10^3/uL (1.3-2.9); MEAN CORPUSCULAR HEMOGLOBIN 35.2 pg (27.0-34.0); MEAN CORPUSCULAR HGB CONC 34.2 g/dL (33.0-35.0); MEAN CORPUSCULAR VOLUME 103.1 fL (80.0-100.0); MEAN PLATELET VOLUME 8.9 fL (7.4-11.0); MONOCYTES # (AUTO) 0.7 x10^3/uL (0.3-0.8); MONOCYTES % (AUTO) 6.4 % (0.0-13.0); NEUTROPHILS # (AUTO) 8.2 x10^3/uL (2.2-4.8); NEUTROPHILS % (AUTO) 69.7 % (42.0-75.0); PLATELET COUNT 147 X10^3/uL (150.0-450.0); RED BLOOD COUNT 4.24 X10^6/uL (3.5-5.4); RED CELL DISTRIBUTION WIDTH 14.7 % (11.6-16.5); WHITE BLOOD COUNT 11.7 X10^3/uL (3.6-10.0)
[2019-07-03 04:47] LABS: ALANINE AMINOTRANSFERASE 71 Units/L (12-78); ALBUMIN 2.3 g/dL (3.4-5.0); ALKALINE PHOSPHATASE 115 Units/L (46-116); ASPARTATE AMINO TRANSFERASE 56 Units/L (15-37); BLOOD UREA NITROGEN 9 mg/dL (7-18); CALCIUM 7.8 mg/dL (8.5-10.1); CARBON DIOXIDE 35.8 mmol/L (21-32); CHLORIDE 103 mmol/L (98-107); COR CA(FOR HYPOALB) 9.2 mg/dL (8.5-10.1); COR NA(FOR HYPERGLY) 140 mmol/L (136-145); CREATININE 0.73 mg/dL (0.55-1.02); SODIUM 140 mmol/L (136-145); TOTAL PROTEIN 5.8 g/dL (6.4-8.2); eGFR NON BLACK RACES > 60 (>60)
[2019-07-03] MEDS: NEURONTIN TAB 600 MG PO SCH ×3 (05:50→23:21)
[2019-07-03] MEDS: NS 1000 ML 1,000 ML IV SCH ×2 (08:18→14:18)
[2019-07-03] MEDS: ROCEPHIN VIAL 1 GRAM 1 G in NS 100 ML IV + SPIKE MINIBAG* 100 ML IV SCH (09:12)
[2019-07-03] MEDS: VITAMIN C PO SCH ×2 (09:12→21:00)
[2019-07-03] MEDS: EFFEXOR XR 37.5 MG CAP PO SCH (09:13)
[2019-07-03] MEDS: ELIQUIS PO SCH ×2 (09:13→21:00)
[2019-07-03] MEDS: PREDNISONE TAB 5 MG PO SCH ×2 (09:14→21:00)
[2019-07-03] MEDS: TOPROL XL PO SCH (09:15)
[2019-07-03] MEDS: FOLIC ACID TAB 1 MG PO SCH (09:16)
[2019-07-03] MEDS: K-DUR TAB 20 MEQ PO SCH ×2 (09:16→21:00)
[2019-07-03] MEDS: ZYLOPRIM PO SCH (09:17)
[2019-07-03] MEDS: ARICEPT TAB 10 MG PO SCH (09:18)
[2019-07-03] MEDS: PROTONIX TAB 40 MG PO SCH (09:19)
[2019-07-03] MEDS: PLAVIX PO SCH (09:19)
[2019-07-03] MEDS: LASIX PO SCH (09:19)
[2019-07-03] MEDS: ZADITOR EYE DROPS OP SCH ×2 (09:23→23:21)
[2019-07-03] MEDS: FLONASE NASAL SPRAY ENOSTRIL SCH (09:25)
[2019-07-03] MEDS: TEMOVATE CREAM TOP SCH ×2 (09:25→21:00)
[2019-07-03] MEDS: LIPITOR TAB 20 MG PO SCH (23:20)
[2019-07-04] MEDS: NS 1000 ML 1,000 ML IV SCH ×2 (04:36→13:59)
[2019-07-04] MEDS: PATIENT'S HOME MEDICATION EACHEYE SCH ×8 (04:37→23:12)
[2019-07-04] MEDS: NEURONTIN TAB 600 MG PO SCH ×3 (06:02→21:26)
[2019-07-04 06:09] LABS: BASOPHILS % (AUTO) 0.2 % (0.2-1.0); EOSINOPHILS # (AUTO) 0.1 x10^3/uL (0.0-0.2); EOSINOPHILS % (AUTO) 0.9 % (0.9-2.9); HEMATOCRIT 42.1 % (36.0-47.0); HEMOGLOBIN 14.2 g/dL (12.0-16.0); LYMPHOCYTES # (AUTO) 2.3 X10^3/uL (1.3-2.9); LYMPHOCYTES % (AUTO) 19.9 % (21.0-51.0); MEAN CORPUSCULAR HEMOGLOBIN 35.5 pg (27.0-34.0); MEAN CORPUSCULAR HGB CONC 33.8 g/dL (33.0-35.0); MEAN PLATELET VOLUME 9.1 fL (7.4-11.0); MONOCYTES # (AUTO) 0.8 x10^3/uL (0.3-0.8); MONOCYTES % (AUTO) 6.7 % (0.0-13.0); NEUTROPHILS # (AUTO) 8.4 x10^3/uL (2.2-4.8); NEUTROPHILS % (AUTO) 72.3 % (42.0-75.0); PLATELET COUNT 137 X10^3/uL (150.0-450.0); RED CELL DISTRIBUTION WIDTH 14.8 % (11.6-16.5); WHITE BLOOD COUNT 11.6 X10^3/uL (3.6-10.0)
[2019-07-04 07:05] LABS: ALANINE AMINOTRANSFERASE 58 Units/L (12-78); ALBUMIN 2.3 g/dL (3.4-5.0); ALKALINE PHOSPHATASE 108 Units/L (46-116); ASPARTATE AMINO TRANSFERASE 38 Units/L (15-37); BLOOD UREA NITROGEN 9 mg/dL (7-18); CHLORIDE 102 mmol/L (98-107); COR CA(FOR HYPOALB) 9.4 mg/dL (8.5-10.1); COR NA(FOR HYPERGLY) 142 mmol/L (136-145); CREATININE 0.71 mg/dL (0.55-1.02); SODIUM 142 mmol/L (136-145); TOTAL PROTEIN 5.9 g/dL (6.4-8.2); eGFR NON BLACK RACES > 60 (>60)
[2019-07-04] MEDS: ROCEPHIN VIAL 1 GRAM 1 G in NS 100 ML IV + SPIKE MINIBAG* 100 ML IV SCH (08:20)
[2019-07-04] MEDS: PREDNISONE TAB 5 MG PO SCH ×2 (08:21→21:26)
[2019-07-04] MEDS: ELIQUIS PO SCH ×2 (08:21→21:25)
[2019-07-04] MEDS: FOLIC ACID TAB 1 MG PO SCH (08:21)
[2019-07-04] MEDS: ZYLOPRIM PO SCH (08:21)
[2019-07-04] MEDS: EFFEXOR XR 37.5 MG CAP PO SCH (08:22)
[2019-07-04] MEDS: TOPROL XL PO SCH (08:23)
[2019-07-04] MEDS: LASIX PO SCH (08:24)
[2019-07-04] MEDS: PROTONIX TAB 40 MG PO SCH (08:24)
[2019-07-04] MEDS: ARICEPT TAB 10 MG PO SCH (08:24)
[2019-07-04] MEDS: PLAVIX PO SCH (08:26)
[2019-07-04] MEDS: VITAMIN C PO SCH ×2 (08:26→21:26)
[2019-07-04] MEDS: K-DUR TAB 20 MEQ PO SCH ×2 (08:27→21:25)
[2019-07-04] MEDS: FLONASE NASAL SPRAY ENOSTRIL SCH (08:28)
[2019-07-04] MEDS: TEMOVATE CREAM TOP SCH ×2 (08:29→21:26)
[2019-07-04] MEDS: ZADITOR EYE DROPS OP SCH ×2 (08:47→21:26)
[2019-07-04] MEDS: LIPITOR TAB 20 MG PO SCH (21:25)
[2019-07-05] MEDS: PATIENT'S HOME MEDICATION EACHEYE SCH ×5 (04:09→15:30)
[2019-07-05] MEDS: NS 1000 ML 1,000 ML IV SCH (04:09)
[2019-07-05 05:29] LABS: BASOPHILS % (AUTO) 0.3 % (0.2-1.0); EOSINOPHILS # (AUTO) 0.1 x10^3/uL (0.0-0.2); EOSINOPHILS % (AUTO) 0.9 % (0.9-2.9); HEMATOCRIT 41.1 % (36.0-47.0); LYMPHOCYTES % (AUTO) 18.5 % (21.0-51.0); MEAN CORPUSCULAR HEMOGLOBIN 35.7 pg (27.0-34.0); MEAN PLATELET VOLUME 9.2 fL (7.4-11.0); MONOCYTES # (AUTO) 0.8 x10^3/uL (0.3-0.8); MONOCYTES % (AUTO) 7.6 % (0.0-13.0); NEUTROPHILS # (AUTO) 7.7 x10^3/uL (2.2-4.8); NEUTROPHILS % (AUTO) 72.7 % (42.0-75.0); PLATELET COUNT 143 X10^3/uL (150.0-450.0); RED BLOOD COUNT 3.91 X10^6/uL (3.5-5.4); RED CELL DISTRIBUTION WIDTH 14.9 % (11.6-16.5); WHITE BLOOD COUNT 10.6 X10^3/uL (3.6-10.0)
[2019-07-05 05:51] LABS: ALANINE AMINOTRANSFERASE 52 Units/L (12-78); ALBUMIN 2.2 g/dL (3.4-5.0); ALKALINE PHOSPHATASE 95 Units/L (46-116); ASPARTATE AMINO TRANSFERASE 34 Units/L (15-37); BLOOD UREA NITROGEN 10 mg/dL (7-18); CALCIUM 8.2 mg/dL (8.5-10.1); CHLORIDE 105 mmol/L (98-107); COR CA(FOR HYPOALB) 9.6 mg/dL (8.5-10.1); COR NA(FOR HYPERGLY) 143 mmol/L (136-145); CREATININE 0.61 mg/dL (0.55-1.02); SODIUM 143 mmol/L (136-145); TOTAL PROTEIN 5.8 g/dL (6.4-8.2); eGFR NON BLACK RACES > 60 (>60)
[2019-07-05] MEDS: NEURONTIN TAB 600 MG PO SCH ×2 (06:24→15:30)
[2019-07-05] MEDS: ELIQUIS PO SCH (08:58)
[2019-07-05] MEDS: ROCEPHIN VIAL 1 GRAM 1 G in NS 100 ML IV + SPIKE MINIBAG* 100 ML IV SCH (08:58)
[2019-07-05] MEDS: PLAVIX PO SCH (08:59)
[2019-07-05] MEDS: VITAMIN C PO SCH (08:59)
[2019-07-05] MEDS: FOLIC ACID TAB 1 MG PO SCH (08:59)
[2019-07-05] MEDS: EFFEXOR XR 37.5 MG CAP PO SCH (08:59)
[2019-07-05] MEDS: K-DUR TAB 20 MEQ PO SCH (09:00)
[2019-07-05] MEDS: LASIX PO SCH (09:00)
[2019-07-05] MEDS ORDERED: ZYLOPRIM PO SCH (09:00)
[2019-07-05] MEDS: PROTONIX TAB 40 MG PO SCH (09:00)
[2019-07-05] MEDS: PREDNISONE TAB 5 MG PO SCH (09:01)
[2019-07-05] MEDS: ARICEPT TAB 10 MG PO SCH (09:01)
[2019-07-05] MEDS: FLONASE NASAL SPRAY ENOSTRIL SCH (09:01)
[2019-07-05] MEDS: TOPROL XL PO SCH (09:01)
[2019-07-05] MEDS: TEMOVATE CREAM TOP SCH (09:03)
[2019-07-05] MEDS: ZADITOR EYE DROPS OP SCH (09:03)
--- NOTE | 2019-07-05 14:39 | US ---
HISTORYLIVER MASSSTUDYUltrasound of the liver and the right upper quadrant of the abdomenCOMPARISONCTA chest of July 02, 2019FINDINGSThe right lobe of the liver measures 18 cm sagittal length. Inferiorly in the left lobe of the liver is a hyperechoic rounded mass measuring up to 3 cm maximum diameter. No Doppler signal is demonstrated within this mass. There is no free fluid. There is appropriate flow in the hepatic and portal veins.The gallbladder is surgically absent and the common hepatic duct measures 6.5 mm diameter.The right kidney measures 9.94 cm length without mass or hydronephrosis.IMPRESSIONHyperechoic mass in the left lobe of the liver that may represent a cavernous hemangioma.Electronically signed by: HO GAR (Jul 05, 2019 14:37:56)
[2019-07-05 15:29] VITALS: BP 128/68
--- NOTE | 2019-07-05 21:26 | PCM.PROG ---
Progress Note - Progress Note for Day of Date of Exam: 07/03/19 - Subjective Subjective: WAS ADMITTED FOR TREATMENT OF A RIGHT LOWER EXTREMITY DVT. SHE WAS PLACED IN THE INTENSIVE CARE UNIT ON A HEPARIN DRIP. TODAY, SHE IS ALERT AND ORIENTED, LYING IN BED ON MORNING ROUNDS. SHE REPORTS BILATERAL LEG PAIN AND SHORTNESS OF BREATH TODAY. ON EXAMINATION, HEART IS REGULAR IN RATE AND RHYTHM. BILATERAL LUNGS ARE NOTED WITH DIMINISHED LUNG SOUNDS THROUGHOUT. ABDOMEN IS ROUND, SOFT, AND NON-TENDER WITH NORMAL BOWEL SOUNDS NOTED IN ALL QUADRANTS. RIGHT LEG IS NOTED WITH 1+ EDEMA. HER VITALS THIS MORNING ARE: 98.2-77-32-96%-118/79. LABS WERE OBTAINED. ABNORMAL LAB VALUES INCLUDE THE FOLLOWING: WBC 11.7, PLT COUNT 147, CARBON DIOXIDE 35.8, GLUCOSE 113, CALCIUM 7.8, AST 56, TOTAL PROTEIN 5.8, ALBUMIN 2.3. URINE CULTURE IS PENDING. A CHEST CTA WAS OBTAINED YESTERDAY AND REVEALED: Single, small, partially occlusive pulmonary embolus is seen in a 2nd order branch of the right pulmonary artery in the right upper lobe. RV/LV is 1.1. Probable CHF and pulmonary edema. 3.2 cm mass in the left lobe of the liver should be further evaluated with dynamic contrast enhanced CT or MRI. SHE IS CURRENTLY RECEIVING HEPARIN IV DRIP, NS AT KVO, THE POTASSIUM AND MAGNESIUM PROTOCOLS, AND ROCEPHIN 1G IV DAILY FOR UTI. WE WILL CONTINUE WITH CURRENT PLAN OF CARE TODAY. OTHERWISE, WE WILL FOLLOW UP WITH AM LABS AND CONTINUE TO MONITOR. - Past Medical Family Social History Past Med/Fam/Surg Hx: No changes since H&P Allergies: Allergies sertraline [From Zoloft] Allergy (Verified 03/10/17 14:54) - Review of Systems ROS: No change since H&P - Vital Signs and I&O's Vital Signs: Temperature 98.2 F Pulse Rate [Apical] 62 Pulse Rate 78 Respiratory Rate 25 Blood Pressure [Left Calf] 139/63 Blood Pressure [Left Arm] 111/60 Blood Pressure [Right Arm] 138/63 Blood Pressure 128/68 O2 Sat by Pulse Oximetry 99 Intake and Output: Intake & Output 07/03/19 07/04/19 07/05/19 07/06/19 11:59 11:59 11:59 11:59 Intake Total 2969 / 2969 2357 / 2357 2403 / 2403 990 / 990 Output Total 0 / 0 Balance 2969 / 2969 2357 / 2357 2403 / 2403 990 / 990 - Physical Exam Oriented: Normal Eyes: Normal Ear: Normal Nose: Normal Throat: Normal Respiratory: Generalized, Diminished Cardiovascular: Normal : Normal Auscultation: Bowel Sounds: Normal Palpation: Normal Tenderness: Normal Skin: Red, Tender Musculoskeletal: Right, Leg, Swelling, Tender Psychiatric: Normal Mood Description: Calm Affect: Normal Speech Pattern: Clear, Appropriate - Laboratory and Diagnostics Result Diagrams: 07/05/19 04:00 07/05/19 04:00 Labs: 07/01/19 20:15 Urine,Catheterized Urine Culture - Final Escherichia Coli Laboratory WBC 10.6 X10^3/uL (3.6-10.0) H 07/05/19 04:00 RBC 3.91 X10^6/uL (3.5-5.4) 07/05/19 04:00 Hgb 14.0 g/dL (12.0-16.0) 07/05/19 04:00 Hct 41.1 % (36.0-47.0) 07/05/19 04:00 MCV 105.0 fL (80.0-100.0) H 07/05/19 04:00 MCH 35.7 pg (27.0-34.0) H 07/05/19 04:00 MCHC 34.0 g/dL (33.0-35.0) 07/05/19 04:00 RDW 14.9 % (11.6-16.5) 07/05/19 04:00 Plt Count 143 X10^3/uL (150.0-450.0) L 07/05/19 04:00 MPV 9.2 fL (7.4-11.0) 07/05/19 04:00 Neut % (Auto) 72.7 % (42.0-75.0) 07/05/19 04:00 Lymph % (Auto) 18.5 % (21.0-51.0) L 07/05/19 04:00 [place] % (Auto) 7.6 % (0.0-13.0) 07/05/19 04:00 Eos % (Auto) 0.9 % (0.9-2.9) 07/05/19 04:00 Baso % (Auto) 0.3 % (0.2-1.0) 07/05/19 04:00 Neut # (Auto) 7.7 x10^3/uL (2.2-4.8) H 07/05/19 04:00 Lymph # (Auto) 2.0 X10^3/uL (1.3-2.9) 07/05/19 04:00 [place] # (Auto) 0.8 x10^3/uL (0.3-0.8) 07/05/19 04:00 Eos # (Auto) 0.1 x10^3/uL (0.0-0.2) 07/05/19 04:00 Baso # (Auto) 0.0 X10^3/uL (0.0-0.1) 07/05/19 04:00 Absolute Nucleated RBC 0.0 /100WBC 07/05/19 04:00 PT 12.1 SECONDS (11.8-14.3) 07/01/19 16:10 INR Target Range - 07/01/19 16:10 INR 0.93 (0.8-1.3) 07/01/19 16:10 APTT 69.9 SECONDS (22.9-36.5) H 07/02/19 10:58 PTT Comment - 07/02/19 10:58 Sodium 143 mmol/L (136-145) 07/05/19 04:00 Corrected Sodium 143 mmol/L (136-145) 07/05/19 04:00 Potassium 4.2 mmol/L (3.5-5.1) 07/05/19 04:00 Chloride 105 mmol/L (98-107) 07/05/19 04:00 Carbon Dioxide 36.0 mmol/L (21-32) H 07/05/19 04:00 BUN 10 mg/dL (7-18) 07/05/19 04:00 Creatinine 0.61 mg/dL (0.55-1.02) 07/05/19 04:00 Est GFR (MDRD) Af Amer > 60 (>60) 07/05/19 04:00 Est GFR (MDRD) Non-Af > 60 (>60) 07/05/19 04:00 Glucose 117 mg/dL (65-99) H 07/05/19 04:00 Calcium 8.2 mg/dL (8.5-10.1) L 07/05/19 04:00 Corrected Calcium 9.6 mg/dL (8.5-10.1) 07/05/19 04:00 Magnesium 2.0 mg/dL (1.7-2.9) 07/02/19 05:55 Total Bilirubin 0.30 mg/dL (0.2-1.0) 07/05/19 04:00 AST 34 Units/L (15-37) 07/05/19 04:00 ALT 52 Units/L (12-78) 07/05/19 04:00 Alkaline Phosphatase 95 Units/L (46-116) 07/05/19 04:00 Total Protein 5.8 g/dL (6.4-8.2) L 07/05/19 04:00 Albumin 2.2 g/dL (3.4-5.0) L 07/05/19 04:00 Globulin 3.6 g/dL (2.5-4.5) 07/05/19 04:00 Albumin/Globulin Ratio 0.6 Ratio (1.1-2.1) L 07/05/19 04:00 Specimen Type Catherized urine 07/01/19 20:15 Urine Color Pale yellow (YELLOW) 07/01/19 20:15 Urine Appearance Hazy (CLEAR) 07/01/19 20:15 Urine pH 6.0 (5.0 - 8.0) 07/01/19 20:15 Ur Specific [place] 1.010 (1.000-1.030) 07/01/19 20:15 Urine Protein 1+ (NEGATIVE) 07/01/19 20:15 Urine Glucose (UA) Negative (NEGATIVE) 07/01/19 20:15 Urine Ketones Negative (NEGATIVE) 07/01/19 20:15 Urine Occult Blood 2+ (NEGATIVE) 07/01/19 20:15 Urine Nitrite Positive (NEGATIVE) 07/01/19 20:15 Urine Bilirubin Negative (NEGATIVE) 07/01/19 20:15 Urine Urobilinogen Normal (NORMAL) 07/01/19 20:15 Ur Leukocyte Esterase 3+ (NEGATIVE) 07/01/19 20:15 Urine RBC 10-20 /HPF (0-3) A 07/01/19 20:15 Urine WBC Tntc /HPF (0-5) A 07/01/19 20:15 Ur Squamous Epith Cells Rare /HPF (NEGATIVE) 07/01/19 20:15 Urine Bacteria 2+ /HPF (NEGATIVE) 07/01/19 20:15 Ur Culture Indicated? Yes/culture set up 07/01/19 20:15 - Plan (1) DVT (deep venous thrombosis) Status: Acute Qualifiers: DVT location: lower extremity Affected thrombotic vein of extremity: femoral Chronicity: acute Laterality: right Qualified Code(s): I82.411 - Acute embolism and thrombosis of right femoral vein Plan: NS AT KVO, HEPARIN DRIP, continue to monitor (2) Pulmonary emboli Status: Acute Qualifiers: Pulmonary embolism type: unspecified Chronicity: acute Acute cor pulmonal e presence: without acute cor pulmonale Qualified Code(s): I26.99 - Other pulmonary embolism without acute cor pulmonale
--- NOTE | 2019-07-05 21:46 | PCM.PROG ---
Progress Note - Progress Note for Day of Date of Exam: 07/04/19 - Subjective Subjective: WAS ADMITTED FOR TREATMENT OF A RIGHT LOWER EXTREMITY DVT AND RUL PE. SHE WAS PLACED IN THE INTENSIVE CARE UNIT ON A HEPARIN DRIP AND HAS BEEN CONVERTED TO ELIQUIS 10MG PO BID. TODAY, SHE IS ALERT AND ORIENTED, LYING IN BED ON MORNING ROUNDS. SHE REPORTS BILATERAL LEG PAIN AND SHORTNESS OF BREATH TODAY. ON EXAMINATION, HEART IS REGULAR IN RATE AND RHYTHM. BILATERAL LUNGS ARE NOTED WITH DIMINISHED LUNG SOUNDS THROUGHOUT. ABDOMEN IS ROUND, SOFT, AND NON- TENDER WITH NORMAL BOWEL SOUNDS NOTED IN ALL QUADRANTS. RIGHT LEG IS NOTED WITH 1+ EDEMA. HER VITALS THIS MORNING ARE: 97.7-71-24-93%-139/65. LABS WERE OBTAINED. ABNORMAL LAB VALUES INCLUDE THE FOLLOWING: WBC 10.6, PLT COUNT 143, CARBON DIOXIDE 36.0, GLUCOSE 117, CALCIUM 8.2, TOTAL PROTEIN 5.8, ALBUMIN 2.2. URINE CULTURE IS PENDING. SHE IS CURRENTLY RECEIVING ELIQUIS 10MG PO BID, NS AT KVO, THE POTASSIUM AND MAGNESIUM PROTOCOLS, AND ROCEPHIN 1G IV DAILY FOR UTI. DUE TO PMH AND RISK OF BLEED, WE WILL DECREASE THE ELIQUIS TO 2.5MG PO BID. OTHERWISE, WE WILL FOLLOW UP WITH AM LABS AND CONTINUE TO MONITOR. - Past Medical Family Social History Past Med/Fam/Surg Hx: No changes since H&P Allergies: Allergies sertraline [From Zoloft] Allergy (Verified 03/10/17 14:54) - Review of Systems ROS: No change since H&P - Vital Signs and I&O's Vital Signs: Temperature 98.2 F Pulse Rate [Apical] 62 Pulse Rate 78 Respiratory Rate 25 Blood Pressure [Left Calf] 139/63 Blood Pressure [Left Arm] 111/60 Blood Pressure [Right Arm] 138/63 Blood Pressure 128/68 O2 Sat by Pulse Oximetry 99 Intake and Output: Intake & Output 07/03/19 07/04/19 07/05/19 07/06/19 11:59 11:59 11:59 11:59 Intake Total 2969 / 2969 2357 / 2357 2403 / 2403 990 / 990 Output Total 0 / 0 Balance 2969 / 2969 2357 / 2357 2403 / 2403 990 / 990 - Physical Exam Oriented: Normal Eyes: Normal Ear: Normal Nose: Normal Throat: Normal Respiratory: Generalized, Diminished Cardiovascular: Normal : Normal Auscultation: Bowel Sounds: Normal Tenderness: Normal Skin: Red, Tender Musculoskeletal: Right, Leg, Swelling, Tender Psychiatric: Normal Mood Description: Calm Affect: Normal Speech Pattern: Clear, Appropriate - Laboratory and Diagnostics Result Diagrams: 07/05/19 04:00 07/05/19 04:00 Labs: 07/01/19 20:15 Urine,Catheterized Urine Culture - Final Escherichia Coli Laboratory WBC 10.6 X10^3/uL (3.6-10.0) H 07/05/19 04:00 RBC 3.91 X10^6/uL (3.5-5.4) 07/05/19 04:00 Hgb 14.0 g/dL (12.0-16.0) 07/05/19 04:00 Hct 41.1 % (36.0-47.0) 07/05/19 04:00 MCV 105.0 fL (80.0-100.0) H 07/05/19 04:00 MCH 35.7 pg (27.0-34.0) H 07/05/19 04:00 MCHC 34.0 g/dL (33.0-35.0) 07/05/19 04:00 RDW 14.9 % (11.6-16.5) 07/05/19 04:00 Plt Count 143 X10^3/uL (150.0-450.0) L 07/05/19 04:00 MPV 9.2 fL (7.4-11.0) 07/05/19 04:00 Neut % (Auto) 72.7 % (42.0-75.0) 07/05/19 04:00 Lymph % (Auto) 18.5 % (21.0-51.0) L 07/05/19 04:00 [place] % (Auto) 7.6 % (0.0-13.0) 07/05/19 04:00 Eos % (Auto) 0.9 % (0.9-2.9) 07/05/19 04:00 Baso % (Auto) 0.3 % (0.2-1.0) 07/05/19 04:00 Neut # (Auto) 7.7 x10^3/uL (2.2-4.8) H 07/05/19 04:00 Lymph # (Auto) 2.0 X10^3/uL (1.3-2.9) 07/05/19 04:00 [place] # (Auto) 0.8 x10^3/uL (0.3-0.8) 07/05/19 04:00 Eos # (Auto) 0.1 x10^3/uL (0.0-0.2) 07/05/19 04:00 Baso # (Auto) 0.0 X10^3/uL (0.0-0.1) 07/05/19 04:00 Absolute Nucleated RBC 0.0 /100WBC 07/05/19 04:00 PT 12.1 SECONDS (11.8-14.3) 07/01/19 16:10 INR Target Range - 07/01/19 16:10 INR 0.93 (0.8-1.3) 07/01/19 16:10 APTT 69.9 SECONDS (22.9-36.5) H 07/02/19 10:58 PTT Comment - 07/02/19 10:58 Sodium 143 mmol/L (136-145) 07/05/19 04:00 Corrected Sodium 143 mmol/L (136-145) 07/05/19 04:00 Potassium 4.2 mmol/L (3.5-5.1) 07/05/19 04:00 Chloride 105 mmol/L (98-107) 07/05/19 04:00 Carbon Dioxide 36.0 mmol/L (21-32) H 07/05/19 04:00 BUN 10 mg/dL (7-18) 07/05/19 04:00 Creatinine 0.61 mg/dL (0.55-1.02) 07/05/19 04:00 Est GFR (MDRD) Af Amer > 60 (>60) 07/05/19 04:00 Est GFR (MDRD) Non-Af > 60 (>60) 07/05/19 04:00 Glucose 117 mg/dL (65-99) H 07/05/19 04:00 Calcium 8.2 mg/dL (8.5-10.1) L 07/05/19 04:00 Corrected Calcium 9.6 mg/dL (8.5-10.1) 07/05/19 04:00 Magnesium 2.0 mg/dL (1.7-2.9) 07/02/19 05:55 Total Bilirubin 0.30 mg/dL (0.2-1.0) 07/05/19 04:00 AST 34 Units/L (15-37) 07/05/19 04:00 ALT 52 Units/L (12-78) 07/05/19 04:00 Alkaline Phosphatase 95 Units/L (46-116) 07/05/19 04:00 Total Protein 5.8 g/dL (6.4-8.2) L 07/05/19 04:00 Albumin 2.2 g/dL (3.4-5.0) L 07/05/19 04:00 Globulin 3.6 g/dL (2.5-4.5) 07/05/19 04:00 Albumin/Globulin Ratio 0.6 Ratio (1.1-2.1) L 07/05/19 04:00 Specimen Type Catherized urine 07/01/19 20:15 Urine Color Pale yellow (YELLOW) 07/01/19 20:15 Urine Appearance Hazy (CLEAR) 07/01/19 20: Urine pH 6.0 (5.0 - 8.0) 07/01/19 20:15 Ur Specific [place] 1.010 (1.000-1.030) 07/01/19 20:15 Urine Protein 1+ (NEGATIVE) 07/01/19 20:15 Urine Glucose (UA) Negative (NEGATIVE) 07/01/19 20:15 Urine Ketones Negative (NEGATIVE) 07/01/19 20: Urine Occult Blood 2+ (NEGATIVE) 07/01/19 20:15 Urine Nitrite Positive (NEGATIVE) 07/01/19 20:15 Urine Bilirubin Negative (NEGATIVE) 07/01/19 20:15 Urine Urobilinogen Normal (NORMAL) 07/01/19 20:15 Ur Leukocyte Esterase 3+ (NEGATIVE) 07/01/19 20:15 Urine RBC 10-20 /HPF (0-3) A 07/01/19 20:15 Urine WBC Tntc /HPF (0-5) A 07/01/19 20:15 Ur Squamous Epith Cells Rare /HPF (NEGATIVE) 07/01/19 20: Urine Bacteria 2+ /HPF (NEGATIVE) 07/01/19 20:15 Ur Culture Indicated? Yes/culture set up 07/01/19 20:15 - Plan (1) DVT (deep venous thrombosis) Status: Acute Qualifiers: DVT location: lower extremity Affected thrombotic vein of extremity: femoral Chronicity: acute Laterality: right Qualified Code(s): I82.411 - Acute embolism and thrombosis of right femoral vein Plan: NS AT KVO, ELIQUIS 2.5MG PO BID, continue to monitor (2) Pulmonary emboli Status: Acute Qualifiers: Pulmonary embolism type: unspecified Chronicity: acute Acute cor pulmonale presence: without acute cor pulmonale Qualified Code(s): I26.99 - Other pulmonary embolism without acute cor pulmonale
== END 2019-07-05 16:10 | DRG 299 ==
LOC: ICU 15:04
PROVIDERS: ADMIT Internal Medicine; ATTEND Internal Medicine
DX: I26.99 Other pulmonary embolism without acute cor pulmonale; R94.31 Abnormal electrocardiogram [ECG] [EKG]; R16.0 Hepatomegaly, not elsewhere classified; I25.10 Atherosclerotic heart disease of native coronary artery without angina pectoris; R06.02 Shortness of breath; I82.411 Acute embolism and thrombosis of right femoral vein; I10 Essential (primary) hypertension; Z66 Do not resuscitate; E78.2 Mixed hyperlipidemia; F32.89 Other specified depressive episodes; N39.0 Urinary tract infection, site not specified; K21.9 Gastro-esophageal reflux disease without esophagitis
CPT/HCPCS: 36415; 71010; 71045; 71275; 76705; 80053; 81001; 83735; 84132; 85025; 85610; 85730; 87086; 87088; 87186; 93005; A4222; J0696; J1642; J1644; J7030; J7040; J7050; J7512

== ENCOUNTER 2020-10-19 16:11 | Observation (INO) ==
[2020-10-19] MEDS ORDERED: ASPIRIN PO ONE (16:22)
[2020-10-19] MEDS ORDERED: ASPIRIN ONE (16:26)
[2020-10-19 16:39] LABS: BASOPHILS # (AUTO) 0.2 X10^3/uL (0.0-0.1); BASOPHILS % (AUTO) 1.3 % (0.2-1.0); EOSINOPHILS # (AUTO) 0.2 x10^3/uL (0.0-0.2); EOSINOPHILS % (AUTO) 1.7 % (0.9-2.9); HEMATOCRIT 45.8 % (36.0-47.0); HEMOGLOBIN 15.5 g/dL (12.0-16.0); LYMPHOCYTES # (AUTO) 3.1 X10^3/uL (1.3-2.9); LYMPHOCYTES % (AUTO) 24.4 % (21.0-51.0); MEAN CORPUSCULAR HEMOGLOBIN 35.2 pg (27.0-34.0); MEAN CORPUSCULAR HGB CONC 33.9 g/dL (33.0-35.0); MEAN CORPUSCULAR VOLUME 103.8 fL (80.0-100.0); MEAN PLATELET VOLUME 8.9 fL (7.4-11.0); MONOCYTES # (AUTO) 0.9 x10^3/uL (0.3-0.8); MONOCYTES % (AUTO) 7.2 % (0.0-13.0); NEUTROPHILS # (AUTO) 8.3 x10^3/uL (2.2-4.8); NEUTROPHILS % (AUTO) 65.4 % (42.0-75.0); PLATELET COUNT 172 X10^3/uL (150.0-450.0); RED BLOOD COUNT 4.41 X10^6/uL (3.5-5.4); RED CELL DISTRIBUTION WIDTH 15.8 % (11.6-16.5); WHITE BLOOD COUNT 12.7 X10^3/uL (3.6-10.0)
[2020-10-19 16:51] LABS: ALANINE AMINOTRANSFERASE 46 Units/L (12-78); ALBUMIN 2.5 g/dL (3.4-5.0); ALKALINE PHOSPHATASE 136 Units/L (46-116); ASPARTATE AMINO TRANSFERASE 42 Units/L (15-37); BLOOD UREA NITROGEN 11 mg/dL (7-18); CALCIUM 8.4 mg/dL (8.5-10.1); CARBON DIOXIDE 32.7 mmol/L (21-32); CHLORIDE 102 mmol/L (98-107); COR CA(FOR HYPOALB) 9.6 mg/dL (8.5-10.1); COR NA(FOR HYPERGLY) 145 mmol/L (136-145); CREATININE 0.71 mg/dL (0.55-1.02); SODIUM 143 mmol/L (136-145); TOTAL PROTEIN 6.4 g/dL (6.4-8.2); TROPONIN I < 0.02 ng/mL (0-1.5); eGFR NON BLACK RACES > 60 (>60)
--- NOTE | 2020-10-19 17:14 | RAD ---
HISTORYCHEST PAINSTUDYCHEST, 1 [id number] cardiomediastinal silhouette. Underinflation. Tortuous thoracic aorta. Left subclavian Port-A-Cath again noted. Mild bibasilar atelectasis or less likely infiltrate. No sizable effusion or visible pneumothorax. No acute osseous finding.IMPRESSIONUnderinflation. Bibasilar atelectasis or less likely infiltrate.Electronically signed by: Mk Corrales (Oct 19, 2020 17:12:18)
[2020-10-19] MEDS ORDERED: NS 100 ML IV 100 ML ONE (17:32)
--- NOTE | 2020-10-19 18:02 | DR.CP ---
HPI Time Seen Time Seen by Provider: 10/19/20 16:19 PCP Primary Care Physician: IWONA CASTILLO HPI Comment HPI Comment: Chest pain, short of breath Pressure 7-8/10 at worst, now 3/10 No alleviating or aggravating factors Jaws ached with it No diaphoresis or nausea Complaint Chief Complaint:: PT REPORTS WHILE DOING CROSS WORD , AND SHE STARTED TO HAVE C/P ( PRESSURE THAT RADIATES TO HER JAW) IT WAS AN 8 AND HER PAIN WHEN SHE PRESENTED TO ER IT WAS A 3, BR PT STATES " THAT IF FELT LIKE IT DID WHEN SHE HAD AN AK A FEW YEARS AGO ". COVID-19 Coronavirus risk:travel/contact w/high risk person: No Has patient experienced Coronavirus symptoms: No Reviewed Nurses Notes Review: Yes Source History Provided: Patient Mode of Arrival Mode of Arrival: Wheelchair Timing Onset of Chief Complaint: 10/19/20 Duration Duration: Minutes (45) Location Chest Pain Radiation Location: Left Jaw Context Onset: At rest Cardiac Risk Factors: HTN, Diabetes and Other (Hx of CAD) History of: Similar pain in the past Prehospital Care: None Associated Signs and Symptoms Associated Signs and Symptoms: Shortness of Breath PMH PMH Past Medical History: Yes Past Medical History: Anemia, Arthritis, Coronary Artery Disease, Depression, Dyslipidemia, GERD, Gout, Hypertension and [place] Past Surgical History: Yes Surgical History: Angioplasty/Stents and Family History History of Family Medical Conditions: Yes Family Medical History: Diabetes Mellitus and Hypertension Social History Does patient currently use any type of tobacco product: No Have you used tobacco products in the last 12 months: No Type of Tobacco Use: None Does any household member use tobacco: No Alcohol Use: None Do you use any recreational Drugs:: No Lives With: Other Lives Where: [facility] Travel Risk Coronavirus risk:travel/contact w/high risk person: No Has patient experienced Coronavirus symptoms: No Infectious screening In the last 2 months have you had wt loss of >10#?: NO Have you had fever, night sweats or hemotysis?: No Have you traveled outside the country in the last 6 months?: No Isolation: Standard PE Vitals Vitals: Temperature 98.5 F Pulse Rate 79 Respiratory Rate 20 Blood Pressure [Left Calf] 139/63 Blood Pressure [Left Arm] 111/60 Blood Pressure [Right Arm] 118/82 Blood Pressure 148/72 O2 Sat by Pulse Oximetry 96 General Limitations: No Limitations General Appearance: Alert and In No Apparent Distress Head Head Exam: Normal Inspection Eyes Eye exam: Normal Appearance Chest Chest Inspection: Normal Inspection Respiratory Respiratory Exam: Normal Lung Sounds Bilat Respiratory Exam: Bilateral: Clear to Auscultation Cardiovascular Cardiovascular Exam: Regular Rate and Normal Rhythm Pulse: Normal Edema: Normal Abdominal Exam Abdominal Exam: Normal Inspection and Normal Bowel Sounds Extremities Extremities Exam: Normal Inspection, Full ROM and Normal Capillary Refill Neurologic Neurological Exam: Alert and Oriented X3 Psychiatric Psychiatric Exam: Normal Affect and Normal Mood Skin Skin Exam: Warm, Dry and Other (very thin, fragile skin) COURSE Treatment Treatment: Suspicious chest pain with history Has eased without intervention Trop normal CTA done due to nature of pain going into back and up neck--nothing acute on CTA Will admit for obs Reevaluation 1st: Resolved Consultation Consultation Comments: Dr. Smith--admit to Dr. Arndt ROR Labs Reviewed Laboratory Results Reviewed?: Yes Result Diagrams: 10/19/20 16:15 10/19/20 16:15 Laboratory: WBC 12.7 X10^3/uL (3.6-10.0) H 10/19/20 16:15 RBC 4.41 X10^6/uL (3.5-5.4) 10/19/20 16:15 Hgb 15.5 g/dL (12.0-16.0) 10/19/20 16:15 Hct 45.8 % (36.0-47.0) 10/19/20 16:15 MCV 103.8 fL (80.0-100.0) H 10/19/20 16:15 MCH 35.2 pg (27.0-34.0) H 10/19/20 16:15 MCHC 33.9 g/dL (33.0-35.0) 10/19/20 16:15 RDW 15.8 % (11.6-16.5) 10/19/20 16:15 Plt Count 172 X10^3/uL (150.0-450.0) 10/19/20 16:15 MPV 8.9 fL (7.4-11.0) 10/19/20 16:15 Neut % (Auto) 65.4 % (42.0-75.0) 10/19/20 16:15 Lymph % (Auto) 24.4 % (21.0-51.0) 10/19/20 16:15 [place] % (Auto) 7.2 % (0.0-13.0) 10/19/20 16:15 Eos % (Auto) 1.7 % (0.9-2.9) 10/19/20 16:15 Baso % (Auto) 1.3 % (0.2-1.0) H 10/19/20 16:15 Neut # (Auto) 8.3 x10^3/uL (2.2-4.8) H 10/19/20 16:15 Lymph # (Auto) 3.1 X10^3/uL (1.3-2.9) H 10/19/20 16:15 [place] # (Auto) 0.9 x10^3/uL (0.3-0.8) H 10/19/20 16:15 Eos # (Auto) 0.2 x10^3/uL (0.0-0.2) 10/19/20 16:15 Baso # (Auto) 0.2 X10^3/uL (0.0-0.1) H 10/19/20 16:15 Absolute Nucleated RBC 0.0 /100WBC 10/19/20 16:15 PT 12.0 SECONDS (11.8-14.3) 10/19/20 16:15 INR Target Range - 10/19/20 16:15 INR 0.93 (0.8-1.3) 10/19/20 16:15 APTT 26.2 SECONDS (22.9-36.5) 10/19/20 16:15 PTT Comment - 10/19/20 16:15 Sodium 143 mmol/L (136-145) 10/19/20 16:15 Corrected Sodium 145 mmol/L (136-145) 10/19/20 16:15 Potassium 3.7 mmol/L (3.5-5.1) 10/19/20 16:15 Chloride 102 mmol/L (98-107) 10/19/20 16:15 Carbon Dioxide 32.7 mmol/L (21-32) H 10/19/20 16:15 BUN 11 mg/dL (7-18) 10/19/20 16:15 Creatinine 0.71 mg/dL (0.55-1.02) 10/19/20 16:15 Est GFR (MDRD) Af Amer > 60 (>60) 10/19/20 16:15 Est GFR (MDRD) Non-Af > 60 (>60) 10/19/20 16:15 Glucose 190 mg/dL (65-99) H 10/19/20 16:15 Calcium 8.4 mg/dL (8.5-10.1) L 10/19/20 16:15 Corrected Calcium 9.6 mg/dL (8.5-10.1) 10/19/20 16:15 Total Bilirubin 0.50 mg/dL (0.2-1.0) 10/19/20 16:15 AST 42 Units/L (15-37) H 10/19/20 16:15 ALT 46 Units/L (12-78) 10/19/20 16:15 Alkaline Phosphatase 136 Units/L (46-116) H 10/19/20 16:15 Troponin I < 0.02 ng/mL (0-1.5) 10/19/20 16:15 Total Protein 6.4 g/dL (6.4-8.2) 10/19/20 16:15 Albumin 2.5 g/dL (3.4-5.0) L 10/19/20 16:15 Globulin 3.9 g/dL (2.5-4.5) 10/19/20 16:15 Albumin/Globulin Ratio 0.6 Ratio (1.1-2.1) L 10/19/20 16:15 XRAY XRAY Interpreted by: Radiologist X-ray Results: cxr--underinflation and atelectasis CTA chest--nothing acute Opioid Opioid Risk Tool Age (Miguel box if 16-45): No History of Preadolescent Sexual Abuse: No Total: 0 Total Score Risk Category: Low Risk Copyright: Dong [employer] predicting aberrant behaviors
--- NOTE | 2020-10-19 19:08 | CT ---
HISTORYCP, DYSPNEA, HX OF DVT hypertension. Evaluate pulmonary embolus.STUDYCTA CHESTCOMPARISONChest CT 07/02/2019TECHNIQUEMultiple CT axial images of the chest were obtained with IV contrast. Coronal and sagittal images were reconstructed. 3D reconstructions using axial MIPS imaging was performed and reviewed. Dose reduction techniques included Automated Exposure Control (AEC) and adjustment of mA and kV.Stenoses are measured using NASCET criteria.FINDINGSPulmonary arteries are identified to segmental branches. There are no pulmonary emboli.Cardiomegaly is present.Atherosclerotic calcifications are present in the coronary arteries. The pulmonary artery and aorta have a normal caliber. No mediastinal mass or significant lymphadenopathy.The thyroid is large. The left lobe of the thyroid extends into the superior mediastinum. It had a similar appearance on 07/02/2019.No axillary mass or significant axillary lymphadenopathy is identified. No significant pleural effusion. Minimal atelectasis seen in the right lower lobe. It was also present on the prior study.Surgical clips are present in the gallbladder fossa from a cholecystectomy. Degenerative changes are present in the spine. Multiple compression fractures are stable when compared to the prior study.IMPRESSION1. No pulmonary emboli2. Chronic right lower lobe atelectasis3. Cardiomegaly with CAD4. Stable goiterElectronically signed by: Chauncey Brandt (Oct 19, 2020 19:06:13)
[2020-10-19] MEDS ORDERED: ULTRAM PO PRN (21:54)
[2020-10-19] MEDS: NEURONTIN TAB 600 MG PO SCH (22:36)
[2020-10-19] MEDS: LIPITOR TAB 20 MG PO SCH (22:36)
[2020-10-20 00:26] VITALS: BMI 27.3
[2020-10-20] MEDS ORDERED: PHARMACY CONSULT LTC MEDICATIONS XX SCH (01:00)
[2020-10-20] MEDS: NEURONTIN TAB 600 MG PO SCH ×3 (05:22→21:40)
[2020-10-20] MEDS: ASPIRIN EC 81 MG PO SCH (08:35)
[2020-10-20] MEDS: ARICEPT TAB 10 MG PO SCH (08:35)
[2020-10-20] MEDS: K-DUR TAB 20 MEQ PO SCH ×2 (08:35→20:22)
[2020-10-20] MEDS: ZYLOPRIM PO SCH (08:35)
[2020-10-20] MEDS: EFFEXOR XR 37.5 MG CAP 24-HR PO SCH (08:35)
[2020-10-20] MEDS: PROTONIX TAB 40 MG PO SCH (08:35)
[2020-10-20] MEDS: VITAMIN C PO SCH ×2 (08:35→20:22)
[2020-10-20] MEDS: LASIX PO SCH (08:36)
[2020-10-20] MEDS: PREDNISONE TAB 5 MG PO SCH ×2 (08:36→20:22)
[2020-10-20] MEDS: PLAVIX PO SCH (08:36)
[2020-10-20] MEDS: FERROUS GLUCONATE PO SCH (08:36)
[2020-10-20] MEDS: FOLIC ACID TAB 1 MG PO SCH (08:36)
[2020-10-20] MEDS: TOPROL XL PO SCH (08:36)
[2020-10-20 08:39] LABS: BASOPHILS # (AUTO) 0.1 X10^3/uL (0.0-0.1); BASOPHILS % (AUTO) 0.9 % (0.2-1.0); EOSINOPHILS # (AUTO) 0.3 x10^3/uL (0.0-0.2); EOSINOPHILS % (AUTO) 2.6 % (0.9-2.9); HEMATOCRIT 46.8 % (36.0-47.0); HEMOGLOBIN 15.9 g/dL (12.0-16.0); LYMPHOCYTES # (AUTO) 2.3 X10^3/uL (1.3-2.9); LYMPHOCYTES % (AUTO) 21.4 % (21.0-51.0); MEAN CORPUSCULAR HEMOGLOBIN 35.3 pg (27.0-34.0); MEAN CORPUSCULAR HGB CONC 33.9 g/dL (33.0-35.0); MEAN PLATELET VOLUME 9.5 fL (7.4-11.0); MONOCYTES % (AUTO) 9.5 % (0.0-13.0); NEUTROPHILS % (AUTO) 65.6 % (42.0-75.0); PLATELET COUNT 158 X10^3/uL (150.0-450.0); RED CELL DISTRIBUTION WIDTH 15.9 % (11.6-16.5); WHITE BLOOD COUNT 10.7 X10^3/uL (3.6-10.0)
[2020-10-20 08:51] LABS: ALANINE AMINOTRANSFERASE 46 Units/L (12-78); ALBUMIN 2.4 g/dL (3.4-5.0); ALKALINE PHOSPHATASE 111 Units/L (46-116); ASPARTATE AMINO TRANSFERASE 46 Units/L (15-37); BLOOD UREA NITROGEN 10 mg/dL (7-18); CALCIUM 8.3 mg/dL (8.5-10.1); CARBON DIOXIDE 32.2 mmol/L (21-32); CHLORIDE 104 mmol/L (98-107); COR CA(FOR HYPOALB) 9.6 mg/dL (8.5-10.1); CREATININE 0.73 mg/dL (0.55-1.02); SODIUM 144 mmol/L (136-145); TOTAL PROTEIN 6.1 g/dL (6.4-8.2); eGFR NON BLACK RACES > 60 (>60)
[2020-10-20] MEDS: XARELTO PO SCH ×2 (10:32→20:22)
--- NOTE | 2020-10-20 15:29 | DR.H&P ---
H&P - History & Physical for Day of: H&P Date: 10/19/20 - Chief Complaint Chief Complaint: CHEST PAIN, SHORTNESS OF BREATH - History of Present Illness History of Present Illness: IS A 75 YEAR OLD PATIENT OF OURS. SHE PRESENTED TO THE ER WITH COMPLAINTS OF LEFT SIDED CHEST PAIN AND SHORTNESS OF BREATH. SYMPTOMS STARTED WHILE AT REST, APPROXIMATELY 45 MINUTES PRIOR TO ARRIVAL. PATIENT DESCRIBES PAIN PRESSURE AND RADIATES TO THE JAW. INITIALLY, PAIN WAS RATED AN 8. ON ARRIVAL TO THE ER, IT WAS A 3. PATIENT STATES, IT FELT LIKE IT DID WHEN I HAD AN VA A FEW YEARS AGO. ON ARRIVAL TO THE ER, VITALS WERE 98.5-95-22-91%-129/70. LABS WERE OBTAINED. ABNROMAL LAB VALUES INCLUDE THE FOLLOWING: WBC 12.7, CARBON DIOXIDE 32.7, GLUCOSE 190, CALCIUM 8.4, AST 42, ALK PHOS 136, ALBUMIN 2.5. TROPONIN NEGATIVE. COVID-19 NEGATIVE. AN EKG WAS OBTAINED AND REVEALED: SINUS RHYTHM WITH HR 84. A CHEST XRAY WAS OBTAINED AND REVEALED: Underinflation. Bibasilar atelectasis or less likely infiltrate. A CHEST CTA WAS OBTAINED AND REVEALED: 1. No pulmonary emboli 2. Chronic right lower lobe atelectasis 3. Cardiomegaly with CAD 4. Stable goiter. IN THE ER, SHE WAS GIVEN ASPIRIN 325MG PO X 1. SHE WAS ADMITTED FOR FURTHER EVALUATION AND TREATMENT OF CHEST PAIN RULE OUT ACUTE VA. SHE WILL BE PLACED ON THE TELESALES AGENT AND WE WILL RESUME HER HOME MEDICATIONS. WE WILL OBTAIN SERIAL TROPONIN AND EKGs. OTHERWISE, WE WILL FOLLOW UP WITH AM LABS AND CONTINUE TO MONITOR. TIME SPENT ON CLINICAL ASSESSMENT, REVIEWING LABS AND IMAGING, DECISION MAKING, AND DOCUMENTATION GREATER THAN 75 MINUTES. - Past Medical History Past Medical History: VA, Coronary Artery Disease, Hypertension, Dyslipidemia, Depression, Anemia, GERD, Arthritis, Gout Additional Medical History: Venous Insufficiency, Rheumatoid Arthritis, Spondylosis Lumbar/Thoracic, Muscular Dystrophy, Osteoporosis, Degenerative Disc Disease, Chronic PVD, Cataracts, Pneumonia, Muscle Weakness, Previous Blood Transfusion - Past Surgical History Surgical History: Angioplasty/Stents, Additional Surgical History: Cataract Surgery, Two Cardiac Stents - Family History Family Medical History: Diabetes Mellitus, Hypertension - Social History Does patient currently use any type of tobacco product: No Have you used tobacco products in the last 12 months: No Type of Tobacco Use: None Does any household member use tobacco: No Alcohol Use: None Drug Use: Prescription Drugs - Medications Home Medications: sertraline [From Zoloft] Allergy (Verified 03/10/17 14:54) CONTINUE taking the following medications aspirin [Aspir-81] 81 mg PO DAILY 10/19/20 [History] artificial tear([id number]) 1 drp OPHTHALMIC (EYE) Q6H PRN 10/20/20 [History] oxymetazoline [Afrin (oxymetazoline)] 1 drp INTRANASAL Q4H PRN 10/20/20 [History] rivaroxaban 2.5 mg PO BID 10/20/20 [History] - Review of Systems Constitutional: Weakness Eyes: No Symptoms Reported ENT: No Symptoms Reported Respiratory: See HPI, Shortness of Breath Cardiovascular: Chest Pain Gastrointestinal: No Symptoms Reported Genitourinary: No Symptoms Reported Musculoskeletal: No Symptoms Reported Skin: No Symptoms Reported Neurological: Weakness - Physical Exam Vital Signs: Temperature 99.8 F Pulse Rate [Left Brachial] 112 Pulse Rate 79 Respiratory Rate 26 Blood Pressure [Left Calf] 139/63 Blood Pressure [Left Arm] 130/73 Blood Pressure [Right Arm] 166/73 Blood Pressure 133/64 O2 Sat by Pulse Oximetry 93 Oriented: Normal Eyes: Normal Ear: Normal Nose: Normal Throat: Normal Respiratory: Diminished Throughout Cardiovascular: Normal : Normal Auscultation: Bowel Sounds: Normal Palpation: Normal Tenderness: Normal Skin: Normal Musculoskeletal: Normal Psychiatric: Normal Mood Description: Calm Affect: Normal Speech Pattern: Clear - Assessment/Plan (1) Chest pain, rule out acute myocardial infarction Status: Acute Plan: ADMIT, TELESALES AGENT, SERIAL EKG & TROPONIN, CONTINUE TO MONITOR - Allergies Allergies/Adverse Reactions: Allergies Allergy/AdvReac Type Severity Reaction Status Date / Time sertraline [From Zoloft] Allergy Verified 03/10/17 14:54
[2020-10-20] MEDS: LIPITOR TAB 20 MG PO SCH (20:22)
[2020-10-21 04:51] LABS: BASOPHILS # (AUTO) 0.1 X10^3/uL (0.0-0.1); BASOPHILS % (AUTO) 0.5 % (0.2-1.0); EOSINOPHILS # (AUTO) 0.1 x10^3/uL (0.0-0.2); EOSINOPHILS % (AUTO) 1.1 % (0.9-2.9); HEMOGLOBIN 14.6 g/dL (12.0-16.0); LYMPHOCYTES # (AUTO) 2.6 X10^3/uL (1.3-2.9); LYMPHOCYTES % (AUTO) 23.2 % (21.0-51.0); MEAN CORPUSCULAR HGB CONC 34.1 g/dL (33.0-35.0); MEAN CORPUSCULAR VOLUME 102.7 fL (80.0-100.0); MONOCYTES # (AUTO) 0.7 x10^3/uL (0.3-0.8); MONOCYTES % (AUTO) 6.3 % (0.0-13.0); NEUTROPHILS # (AUTO) 7.7 x10^3/uL (2.2-4.8); NEUTROPHILS % (AUTO) 68.9 % (42.0-75.0); PLATELET COUNT 160 X10^3/uL (150.0-450.0); RED BLOOD COUNT 4.18 X10^6/uL (3.5-5.4); RED CELL DISTRIBUTION WIDTH 15.5 % (11.6-16.5); WHITE BLOOD COUNT 11.2 X10^3/uL (3.6-10.0)
[2020-10-21 05:02] LABS: ALANINE AMINOTRANSFERASE 43 Units/L (12-78); ALBUMIN 2.4 g/dL (3.4-5.0); ALKALINE PHOSPHATASE 111 Units/L (46-116); ASPARTATE AMINO TRANSFERASE 41 Units/L (15-37); BLOOD UREA NITROGEN 12 mg/dL (7-18); CALCIUM 8.4 mg/dL (8.5-10.1); CARBON DIOXIDE 34.5 mmol/L (21-32); CHLORIDE 106 mmol/L (98-107); COR CA(FOR HYPOALB) 9.7 mg/dL (8.5-10.1); COR NA(FOR HYPERGLY) 143 mmol/L (136-145); SODIUM 143 mmol/L (136-145); eGFR NON BLACK RACES > 60 (>60)
[2020-10-21] MEDS: NEURONTIN TAB 600 MG PO SCH ×3 (05:56→21:30)
[2020-10-21 08:51] LABS: BILIRUBIN,URINE NEGATIVE (NEGATIVE); BLOOD/HEMOGLOBIN,URINE 1+ (NEGATIVE); GLUCOSE, URINE NEGATIVE (NEGATIVE); KETONES,URINE NEGATIVE (NEGATIVE); LEUKOCYTE ESTERASE ,URINE NEGATIVE (NEGATIVE); NITRITES,URINE NEGATIVE (NEGATIVE); PROTEIN,URINE 1+ (NEGATIVE); UROBILINOGEN,URINE NORMAL (NORMAL)
[2020-10-21 08:53] LABS: IRON 65 ug/dL (50-175)
[2020-10-21] MEDS: ASPIRIN EC 81 MG PO SCH (08:55)
[2020-10-21] MEDS: FOLIC ACID TAB 1 MG PO SCH (08:55)
[2020-10-21] MEDS: PROTONIX TAB 40 MG PO SCH (08:56)
[2020-10-21] MEDS: EFFEXOR XR 37.5 MG CAP 24-HR PO SCH (08:56)
[2020-10-21] MEDS: LASIX PO SCH (08:56)
[2020-10-21] MEDS: TOPROL XL PO SCH ×2 (08:56→08:57)
[2020-10-21] MEDS: PREDNISONE TAB 5 MG PO SCH ×2 (08:56→20:11)
[2020-10-21] MEDS: XARELTO PO SCH ×2 (08:56→20:14)
[2020-10-21] MEDS: VITAMIN C PO SCH ×2 (08:56→20:10)
[2020-10-21] MEDS: K-DUR TAB 20 MEQ PO SCH ×2 (08:56→20:11)
[2020-10-21] MEDS: ZYLOPRIM PO SCH (08:56)
[2020-10-21] MEDS: ARICEPT TAB 10 MG PO SCH (08:56)
[2020-10-21 09:01] LABS: APPEARANCE,URINE CLEAR (CLEAR); BACTERIA,URINE TRACE /HPF (NEGATIVE); COLOR,URINE YELLOW (YELLOW); MUCUS,URINE FEW /HPF (NEGATIVE); SQUAMOUS EPITHELIAL CELL,UR RARE /HPF (NEGATIVE)
[2020-10-21] MEDS: PLAVIX PO SCH (09:02)
[2020-10-21] MEDS: FERROUS GLUCONATE PO SCH (09:02)
[2020-10-21] MEDS: LIPITOR TAB 20 MG PO SCH (20:10)
[2020-10-22] MEDS: NEURONTIN TAB 600 MG PO SCH (06:14)
[2020-10-22 06:52] LABS: BASOPHILS # (AUTO) 0.1 X10^3/uL (0.0-0.1); BASOPHILS % (AUTO) 0.4 % (0.2-1.0); EOSINOPHILS # (AUTO) 0.2 x10^3/uL (0.0-0.2); EOSINOPHILS % (AUTO) 1.3 % (0.9-2.9); HEMATOCRIT 43.6 % (36.0-47.0); HEMOGLOBIN 14.6 g/dL (12.0-16.0); LYMPHOCYTES # (AUTO) 3.2 X10^3/uL (1.3-2.9); LYMPHOCYTES % (AUTO) 25.8 % (21.0-51.0); MEAN CORPUSCULAR HEMOGLOBIN 34.7 pg (27.0-34.0); MEAN CORPUSCULAR HGB CONC 33.4 g/dL (33.0-35.0); MEAN CORPUSCULAR VOLUME 103.7 fL (80.0-100.0); MEAN PLATELET VOLUME 8.9 fL (7.4-11.0); MONOCYTES # (AUTO) 0.9 x10^3/uL (0.3-0.8); MONOCYTES % (AUTO) 7.2 % (0.0-13.0); NEUTROPHILS # (AUTO) 8.1 x10^3/uL (2.2-4.8); NEUTROPHILS % (AUTO) 65.3 % (42.0-75.0); PLATELET COUNT 143 X10^3/uL (150.0-450.0); RED CELL DISTRIBUTION WIDTH 15.5 % (11.6-16.5); WHITE BLOOD COUNT 12.3 X10^3/uL (3.6-10.0)
[2020-10-22 07:10] LABS: ALANINE AMINOTRANSFERASE 46 Units/L (12-78); ALBUMIN 2.5 g/dL (3.4-5.0); ALKALINE PHOSPHATASE 104 Units/L (46-116); ASPARTATE AMINO TRANSFERASE 34 Units/L (15-37); BLOOD UREA NITROGEN 11 mg/dL (7-18); CALCIUM 8.4 mg/dL (8.5-10.1); CARBON DIOXIDE 34.4 mmol/L (21-32); CHLORIDE 105 mmol/L (98-107); COR CA(FOR HYPOALB) 9.6 mg/dL (8.5-10.1); COR NA(FOR HYPERGLY) 143 mmol/L (136-145); CREATININE 0.63 mg/dL (0.55-1.02); SODIUM 143 mmol/L (136-145); TOTAL PROTEIN 6.3 g/dL (6.4-8.2); eGFR NON BLACK RACES > 60 (>60)
[2020-10-22] MEDS: XARELTO PO SCH (08:52)
[2020-10-22] MEDS: TOPROL XL PO SCH (08:52)
[2020-10-22] MEDS: PROTONIX TAB 40 MG PO SCH (08:52)
[2020-10-22] MEDS: ZYLOPRIM PO SCH (08:52)
[2020-10-22] MEDS: PREDNISONE TAB 5 MG PO SCH (08:52)
[2020-10-22] MEDS: ARICEPT TAB 10 MG PO SCH (08:52)
[2020-10-22] MEDS: LASIX PO SCH (08:52)
[2020-10-22] MEDS: VITAMIN C PO SCH (08:52)
[2020-10-22] MEDS: FOLIC ACID TAB 1 MG PO SCH (08:52)
[2020-10-22] MEDS: ASPIRIN EC 81 MG PO SCH (08:53)
[2020-10-22] MEDS: K-DUR TAB 20 MEQ PO SCH (08:53)
[2020-10-22] MEDS: EFFEXOR XR 37.5 MG CAP 24-HR PO SCH (08:53)
[2020-10-22] MEDS: FERROUS GLUCONATE PO SCH (08:53)
[2020-10-22] MEDS: PLAVIX PO SCH (08:53)
[2020-10-22 09:09] VITALS: BP 144/63
== END 2020-10-22 11:27 ==
LOC: MED/SURG 16:11 → ER 16:11 → MED/SURG 22:15
PROVIDERS: ADMIT Family Medicine; ATTEND Internal Medicine
DX: E66.2 Morbid (severe) obesity with alveolar hypoventilation; K21.9 Gastro-esophageal reflux disease without esophagitis; E78.2 Mixed hyperlipidemia; R07.89 Other chest pain; Z20.822 Contact with and (suspected) exposure to COVID-19; I25.10 Atherosclerotic heart disease of native coronary artery without angina pectoris; I10 Essential (primary) hypertension; D72.828 Other elevated white blood cell count; R06.02 Shortness of breath; R26.89 Other abnormalities of gait and mobility

== ENCOUNTER 2021-07-11 11:00 | Observation (INO) ==
[2021-07-11 13:05] LABS: BASOPHILS # (AUTO) 0.1 X10^3/uL (0.0-0.1); BASOPHILS % (AUTO) 0.4 % (0.2-1.0); EOSINOPHILS # (AUTO) 0.1 x10^3/uL (0.0-0.2); EOSINOPHILS % (AUTO) 0.5 % (0.9-2.9); HEMATOCRIT 32.1 % (36.0-47.0); HEMOGLOBIN 10.6 g/dL (12.0-16.0); LYMPHOCYTES # (AUTO) 3.5 X10^3/uL (1.3-2.9); LYMPHOCYTES % (AUTO) 20.2 % (21.0-51.0); MEAN CORPUSCULAR HEMOGLOBIN 33.7 pg (27.0-34.0); MEAN CORPUSCULAR HGB CONC 33.1 g/dL (33.0-35.0); MEAN PLATELET VOLUME 8.9 fL (7.4-11.0); MONOCYTES # (AUTO) 1.3 x10^3/uL (0.3-0.8); MONOCYTES % (AUTO) 7.7 % (0.0-13.0); NEUTROPHILS # (AUTO) 12.3 x10^3/uL (2.2-4.8); NEUTROPHILS % (AUTO) 71.2 % (42.0-75.0); RED BLOOD COUNT 3.15 X10^6/uL (3.5-5.4); RED CELL DISTRIBUTION WIDTH 15.5 % (11.6-16.5); WHITE BLOOD COUNT 17.3 X10^3/uL (3.6-10.0)
[2021-07-11 13:07] LABS: PLATELET MORPHOLOGY COMMENT NORMAL (NORMAL)
[2021-07-11 13:53] VITALS: BMI 30.2
[2021-07-11 14:45] LABS: BILIRUBIN,URINE NEGATIVE (NEGATIVE); BLOOD/HEMOGLOBIN,URINE 2+ (NEGATIVE); GLUCOSE, URINE NEGATIVE (NEGATIVE); KETONES,URINE NEGATIVE (NEGATIVE); LEUKOCYTE ESTERASE ,URINE NEGATIVE (NEGATIVE); NITRITES,URINE NEGATIVE (NEGATIVE); PROTEIN,URINE 1+ (NEGATIVE); UROBILINOGEN,URINE NORMAL (NORMAL)
--- NOTE | 2021-07-11 14:47 | RAD ---
HISTORYELEVATED WBC, Relevant Clinical InformationSTUDYCHEST, 1 VIEWCOMPARISONChest x-ray dated November 15, 2020.FINDINGSStable appearance of a left chest Port-A-Cath. The trachea is midline. The cardiac silhouette is stably enlarged without overt signs of failure. Chronic emphysematous changes. Bibasilar scarring versus atelectasis. Nonspecific eventration of the right hemidiaphragm appears unchanged. The lungs are clear without focal infiltrate, pneumothorax, or effusion. The bony thorax is unremarkable.IMPRESSIONNo acute cardiopulmonary findings .Electronically signed by: BOGDAN GOODE (Jul 11, 2021 14:45:50)
[2021-07-11 14:55] LABS: APPEARANCE,URINE CLEAR (CLEAR); BACTERIA,URINE TRACE /HPF (NEGATIVE); COLOR,URINE YELLOW (YELLOW); SQUAMOUS EPITHELIAL CELL,UR RARE /HPF (NEGATIVE)
[2021-07-11] MEDS ORDERED: ARTIFICIAL TEARS DROPS AFFEYE PRN (17:12)
[2021-07-11 17:43] LABS: ALANINE AMINOTRANSFERASE 33 Units/L (12-78); ALBUMIN 2.5 g/dL (3.4-5.0); ALKALINE PHOSPHATASE 87 Units/L (46-116); ASPARTATE AMINO TRANSFERASE 26 Units/L (15-37); BLOOD UREA NITROGEN 25 mg/dL (7-18); CARBON DIOXIDE 39.1 mmol/L (21-32); CHLORIDE 102 mmol/L (98-107); COR CA(FOR HYPOALB) 9.2 mg/dL (8.5-10.1); CREATININE 0.58 mg/dL (0.55-1.02); SODIUM 143 mmol/L (136-145); TOTAL PROTEIN 5.8 g/dL (6.4-8.2); eGFR NON BLACK RACES > 60 (>60)
[2021-07-11] MEDS ORDERED: PHARMACY CONSULT LTC MEDICATIONS XX SCH (18:00)
[2021-07-11] MEDS ORDERED: NEURONTIN TAB 600 MG ONE (20:15)
[2021-07-11] MEDS: K-DUR TAB 20 MEQ PO SCH (20:32)
[2021-07-11] MEDS: LIPITOR TAB 20 MG PO SCH (20:34)
[2021-07-11] MEDS: VITAMIN C PO SCH (20:34)
[2021-07-11] MEDS ORDERED: LIPITOR TAB 20 MG PO SCH (21:00)
[2021-07-11] MEDS: NEURONTIN TAB 600 MG PO SCH (21:05)
[2021-07-12] MEDS: NEURONTIN TAB 600 MG PO SCH ×3 (05:18→21:00)
[2021-07-12 07:03] LABS: BASOPHILS # (AUTO) 0.2 X10^3/uL (0.0-0.1); EOSINOPHILS # (AUTO) 0.3 x10^3/uL (0.0-0.2); EOSINOPHILS % (AUTO) 2.1 % (0.9-2.9); HEMATOCRIT 31.8 % (36.0-47.0); HEMOGLOBIN 10.5 g/dL (12.0-16.0); LYMPHOCYTES # (AUTO) 3.3 X10^3/uL (1.3-2.9); LYMPHOCYTES % (AUTO) 21.7 % (21.0-51.0); MEAN CORPUSCULAR HEMOGLOBIN 34.1 pg (27.0-34.0); MEAN CORPUSCULAR HGB CONC 33.1 g/dL (33.0-35.0); MEAN PLATELET VOLUME 8.3 fL (7.4-11.0); MONOCYTES # (AUTO) 1.8 x10^3/uL (0.3-0.8); MONOCYTES % (AUTO) 11.6 % (0.0-13.0); NEUTROPHILS # (AUTO) 9.7 x10^3/uL (2.2-4.8); NEUTROPHILS % (AUTO) 63.6 % (42.0-75.0); RED BLOOD COUNT 3.09 X10^6/uL (3.5-5.4); RED CELL DISTRIBUTION WIDTH 15.9 % (11.6-16.5); WHITE BLOOD COUNT 15.2 X10^3/uL (3.6-10.0)
[2021-07-12] MEDS: ZYLOPRIM PO SCH (10:00)
[2021-07-12] MEDS: EFFEXOR XR 37.5 MG CAP 24-HR PO SCH (10:00)
[2021-07-12] MEDS: PROTONIX TAB 40 MG PO SCH (10:00)
[2021-07-12] MEDS: K-DUR TAB 20 MEQ PO SCH ×2 (10:00→20:52)
[2021-07-12] MEDS: TOPROL XL PO SCH (10:00)
[2021-07-12] MEDS: ARICEPT TAB 10 MG PO SCH (10:00)
[2021-07-12] MEDS: LASIX PO SCH (10:00)
[2021-07-12] MEDS: FOLIC ACID TAB 1 MG PO SCH (10:00)
[2021-07-12] MEDS: VITAMIN C PO SCH ×2 (10:00→20:54)
[2021-07-12] MEDS: HEMOCYTE-PLUS PO SCH (10:00)
--- NOTE | 2021-07-12 10:50 | DR.H&P ---
H&P - History & Physical for Day of: H&P Date: 07/11/21 - Chief Complaint Chief Complaint: NOSE BLEED, COUGHING UP BLOOD - History of Present Illness History of Present Illness: IS A 76 YEAR OLD PATIENT OF OURS. SHE IS A RESIDENT OF [facility]. [facility] [place] [facility] WITH COMPLAINTS OF COUGHING UP BLOOD. PATIENT REPORTS THAT SHE HAS ALSO HAD NOSE BLEEDS. PATIENT STATES, THE BLOOD FROM MY NOSE IS DRAINING DOWN MY THROAT AND CAUSING ME TO COUGH UP BLOOD. PATIENT REPORTS THAT ONSET WAS 2 DAYS PRIOR TO ARRIVAL. UPON ARRIVAL TO THE ER, NO ACTIVE BLEEDING WAS NOTED TO THE NOSE. PATIENT DID COUGH UP BRIGHT RED BLOOD INTO A [place]. HER PMH INCLUDES CAD, OR, CHRONIC CONSTIPATION, CHRONIC BACK PAIN, ANEMIA, ANXIETY, DEPRESSION, HYSTERECTOMY, AND CARDIAC STENTS. SHE IS CURRENTLY ON XARELTO, PLAVIX, AND ASPIRIN. ON ARRIVAL TO THE ER, VITALS WERE 98.0-20-107-80%-130/69. SHE WAS PLACED ON OXYGEN VIA NASAL CANNULA AT 2 LPM. SATURATIONS INCREASED TO THE 90s. LABS WERE OBTAINED. ABNORMAL LAB VALUES INCLUDE THE FOLLOWING: WBC 17.3, RBC 3.15, HGB 10.6, HCT 32.1, CARBON DIOXIDE 39.1, BUN 25, CALCIUM 8.0, TOTAL PROTEIN 5.8, ALBUMIN 2.5. LABS WERE OTHERWISE NORMAL. URINALYSIS REVEALED: WBC 0-2, RBC 3-5, LEUKOCYTES NEGATIVE, BACTERIA TRACE, OCCULT LOOD 2+. A CHEST XRAY WAS OBTAINED AND REVEALED: NO ACUTE CARDIOPULMONARY FINDINGS. SHE WAS ADMITTED TO THE HOSPITAL FOR FURTHER EVALUATION AND TREATMENT OF ACUTE EPISTAXIS, ANTICOAGULANT INDUCED BLEEDING, LEUKOCYTOSIS. SHE WAS STARTED ON ROCEPHIN 1G IV DAILY, AND HER HOME MEDICATIONS OF ALLOPURINOL, ASCORBIC ACID, LIPITOR, ARICEPT, FOLIC ACID, LASIX, NEURONTIN, METOPROLOL, HEMOCYTE PLUS, PROTONIX, K-DUR, EFFEXOR, AND XARELTO WERE RESUMED. WE WILL HOLD THE PLAVIX AND ASPIRIN. OTHERWISE, WE PLAN TO FOLLOW UP WITH AM LABS AND CONTINUE TO MONITOR. TIME SPENT ON CLINICAL ASSESSMENT, REVIEWING LABS AND IMAGING, DECISION MAKING, AND DOCUMENTATION GREATER THAN 75 MINUTES. - Past Medical History Past Medical History: [place], Coronary Artery Disease, Hypertension, Dyslipidemia, Depression, Anemia, GERD, Arthritis, Gout Additional Medical History: Venous Insufficiency, Rheumatoid Arthritis, Spondylosis Lumbar/Thoracic, Muscular Dystrophy, Osteoporosis, Degenerative Disc Disease, Chronic PVD, Cataracts, Pneumonia, Muscle Weakness, Previous Blood Transfusion - Past Surgical History Surgical History: Angioplasty/Stents, Additional Surgical History: Cataract Surgery, Two Cardiac Stents - Family History Family Medical History: Diabetes Mellitus, Hypertension - Social History Does any household member use tobacco: No Alcohol Use: None Drug Use: None - Medications Home Medications: sertraline [From Zoloft] Allergy (Verified 03/10/17 14:54) CONTINUE taking the following medications oxymetazoline [Afrin Sinus (oxymetazoline)] 2 spray INTRANASAL Q12H 07/12/21 [History] sodium chloride [Saline Nasal] 2 spray INTRANASAL Q12H 07/12/21 [History] - Review of Systems Constitutional: See HPI Eyes: No Symptoms Reported ENT: See HPI, Other (NOSE BLEEDS, COUGHING UP BLOOD ) Respiratory: No Symptoms Reported Cardiovascular: No Symptoms Reported Gastrointestinal: No Symptoms Reported Genitourinary: No Symptoms Reported Musculoskeletal: No Symptoms Reported Skin: No Symptoms Reported Neurological: No Symptoms Reported - Physical Exam Vital Signs: Temperature 98.6 F Pulse Rate [Right Radial] 111 Pulse Rate 90 Respiratory Rate 25 Blood Pressure [Right Arm] 117/61 Blood Pressure [Left Calf] 139/63 Blood Pressure [Left Arm] 114/67 Blood Pressure 118/85 O2 Sat by Pulse Oximetry 95 Oriented: Normal Eyes: Normal Ear: Normal Nose: Normal Throat: Normal Respiratory: Diminished Throughout Cardiovascular: Tachycardia : Normal Auscultation: Bowel Sounds: Normal Palpation: Normal Tenderness: Normal Skin: Normal Musculoskeletal: Normal Mood Description: Calm Affect: Normal Speech Pattern: Clear - Assessment/Plan (1) Acute anterior epistaxis Status: Acute Plan: ADMIT, ROCEPHIN 1G IV DAILY, AND HER HOME MEDICATIONS OF ALLOPURINOL, ASCORBIC ACID, LIPITOR, ARICEPT, FOLIC ACID, LASIX, NEURONTIN, METOPROLOL, HEMOCYTE PLUS, PROTONIX, K-DUR, EFFEXOR, AND XARELTO WERE RESUMED. WE WILL HOLD THE PLAVIX AND ASPIRIN. (2) Anticoagulant-induced bleeding Status: Acute (3) Leukocytosis Qualifiers: Leukocytosis type: unspecified Qualified Code(s): D72.829 - Elevated white blood cell count, unspecified Status: Acute - Allergies Allergies/Adverse Reactions: Allergies Allergy/AdvReac Type Severity Reaction Status Date / Time sertraline [From Zoloft] Allergy Verified 03/10/17 14:54
[2021-07-12] MEDS: ROCEPHIN VIAL 1 GRAM 1 G in NS 100 ML IV 100 ML IV SCH (13:00)
[2021-07-12] MEDS: AFRIN NASAL SPRAY ENOSTRIL SCH ×2 (15:51→20:51)
[2021-07-12] MEDS: AYR NASAL DROPS ENOSTRIL SCH ×2 (15:52→21:26)
[2021-07-12] MEDS: XARELTO PO SCH ×2 (15:52→20:55)
[2021-07-12] MEDS ORDERED: NS 100 ML IV 100 ML ONE (17:27)
[2021-07-12] MEDS: LIPITOR TAB 20 MG PO SCH (20:53)
[2021-07-12] MEDS ORDERED: VISTARIL PO PRN (21:06)
[2021-07-12] MEDS ORDERED: VISTARIL PO ONE (21:08)
[2021-07-13] MEDS: NEURONTIN TAB 600 MG PO SCH ×3 (05:07→21:34)
[2021-07-13 06:58] LABS: BASOPHILS # (AUTO) 0.1 X10^3/uL (0.0-0.1); BASOPHILS % (AUTO) 0.5 % (0.2-1.0); EOSINOPHILS # (AUTO) 0.3 x10^3/uL (0.0-0.2); HEMATOCRIT 28.7 % (36.0-47.0); HEMOGLOBIN 9.6 g/dL (12.0-16.0); LYMPHOCYTES # (AUTO) 3.6 X10^3/uL (1.3-2.9); LYMPHOCYTES % (AUTO) 24.2 % (21.0-51.0); MEAN CORPUSCULAR HEMOGLOBIN 34.3 pg (27.0-34.0); MEAN CORPUSCULAR HGB CONC 33.3 g/dL (33.0-35.0); MEAN CORPUSCULAR VOLUME 102.9 fL (80.0-100.0); MEAN PLATELET VOLUME 8.3 fL (7.4-11.0); MONOCYTES # (AUTO) 1.6 x10^3/uL (0.3-0.8); MONOCYTES % (AUTO) 10.9 % (0.0-13.0); NEUTROPHILS # (AUTO) 9.3 x10^3/uL (2.2-4.8); NEUTROPHILS % (AUTO) 62.4 % (42.0-75.0); RED BLOOD COUNT 2.79 X10^6/uL (3.5-5.4); RED CELL DISTRIBUTION WIDTH 15.8 % (11.6-16.5); WHITE BLOOD COUNT 14.8 X10^3/uL (3.6-10.0)
[2021-07-13 07:22] LABS: ALANINE AMINOTRANSFERASE 35 Units/L (12-78); ALBUMIN 2.5 g/dL (3.4-5.0); ALKALINE PHOSPHATASE 83 Units/L (46-116); ASPARTATE AMINO TRANSFERASE 31 Units/L (15-37); BLOOD UREA NITROGEN 18 mg/dL (7-18); CALCIUM 7.9 mg/dL (8.5-10.1); CARBON DIOXIDE 33.9 mmol/L (21-32); CHLORIDE 103 mmol/L (98-107); COR CA(FOR HYPOALB) 9.1 mg/dL (8.5-10.1); CREATININE 0.65 mg/dL (0.55-1.02); SODIUM 138 mmol/L (136-145); TOTAL PROTEIN 5.9 g/dL (6.4-8.2); eGFR NON BLACK RACES > 60 (>60)
[2021-07-13] MEDS: FOLIC ACID TAB 1 MG PO SCH (10:00)
[2021-07-13] MEDS: ROCEPHIN VIAL 1 GRAM 1 G in NS 100 ML IV 100 ML IV SCH (10:00)
[2021-07-13] MEDS: K-DUR TAB 20 MEQ PO SCH ×2 (10:00→21:35)
[2021-07-13] MEDS: VITAMIN C PO SCH ×2 (10:00→21:35)
[2021-07-13] MEDS: EFFEXOR XR 37.5 MG CAP 24-HR PO SCH (10:00)
[2021-07-13] MEDS: AYR NASAL DROPS ENOSTRIL SCH ×2 (10:00→21:50)
[2021-07-13] MEDS: AFRIN NASAL SPRAY ENOSTRIL SCH ×2 (10:00→21:43)
[2021-07-13] MEDS: TOPROL XL PO SCH (10:00)
[2021-07-13] MEDS: ARICEPT TAB 10 MG PO SCH (10:00)
[2021-07-13] MEDS: LASIX PO SCH (10:00)
[2021-07-13] MEDS: PROTONIX TAB 40 MG PO SCH (10:00)
[2021-07-13] MEDS: ZYLOPRIM PO SCH (10:00)
[2021-07-13] MEDS: HEMOCYTE-PLUS PO SCH (10:10)
[2021-07-13] MEDS: XARELTO PO SCH ×2 (10:12→21:34)
--- NOTE | 2021-07-13 10:15 | PCM.PROG ---
Progress Note - Progress Note for Day of Date of Exam: 07/13/21 - Subjective Subjective: WAS ADMITTED FOR ACUTE ANTERIOR EPISTAXIS, ANTICOAGULANT INDUCED BLEEDING, AND LEUKOCYTOSIS. WE HAVE HELD HER ASPIRIN AND PLAVIX, BUT RESUMED HER XARELTO. SHE HAS NOT HAD ANY ACTIVE BLEEDING SINCE ADMISSION. TODAY, SHE IS ALERT, LYING IN BED ON MORNING ROUNDS. HER DAUGHTER IS AT BEDSIDE. PATIENT IS DROWSY AND IS NOTED TO HAVE TREMORS. THIS IS NEW FOR HER. PATIENTS DAUGHTER REPORTS THAT PATIENT IS UNABLE TO FEED HERSELF THIS MORNING, WHICH IS UNUSUAL. NURSING STAFF REPORTS THAT PATIENT WAS GIVEN A VISTIRIL AT APPROXIMATELY 2100 LAST NIGHT DUE TO AGITATION. THIS COULD BE A PROLONGED EFFECT OF THE MEDICATION. ON EXAMINATION, HEART IS REGULAR IN RATE AND RHYTHM. BILATERAL LUNGS NOTED WITH DIMINISHED LUNG SOUNDS THROUGHOUT. ABDOMEN IS ROUND, SOFT, AND NON-TENDER WITH NORMAL BOWEL SOUNDS NOTED IN ALL QUADRANTS. HER VITALS THIS MORNING ARE: 98.3-100-20-95%-112/55. LABS WERE OBTAINED. WBC 14.8, RBC 2.79, HGB 9.6, HCT 28.7, CARBON DIOXIDE 33.9, CALCIUM 7.9, TOTAL PROTEIN 5.9, ALBUMIN 2.5. SHE IS CURRENTLY RECEIVING ROCEPHIN 1G IV DAILY, AND HER HOME MEDICATIONS OF ALLOPURINOL, ASCORBIC ACID, LIPITOR, ARICEPT, FOLIC ACID, LASIX, NEURONTIN, METOPROLOL, HEMOCYTE PLUS, PROTONIX, K-DUR, EFFEXOR, AND XARELTO WERE RESUMED. WE WILL CONTINUE WITH CURRENT PLAN OF CARE TODAY. OTHERWISE, WE PLAN TO FOLLOW UP WITH AM LABS AND CONTINUE TO MONITOR. TIME SPENT ON CLINICAL ASSESSMENT, REVIEWING LABS AND IMAGING, DECISION MAKING, AND DOCUMENTATION GREATER THAN 45 MINUTES. - Past Medical Family Social History Past Med/Fam/Surg Hx: No changes since H&P Allergies: Allergies sertraline [From Zoloft] Allergy (Verified 03/10/17 14:54) - Review of Systems ROS: No change since H&P - Vital Signs and I&O's Vital Signs: Temperature 98.3 F Pulse Rate [Right Radial] 107 Pulse Rate 100 Respiratory Rate 20 Blood Pressure [Right Arm] 122/89 Blood Pressure [Left Calf] 139/63 Blood Pressure [Left Arm] 112/55 Blood Pressure 118/85 O2 Sat by Pulse Oximetry 95 Intake and Output: Intake & Output 07/10/21 07/11/21 07/12/21 07/13/21 11:59 11:59 11:59 11:59 Intake Total 500 / 500 1140 / 1140 Balance 500 / 500 1140 / 1140 - Physical Exam Oriented: Normal Eyes: Normal Ear: Normal Nose: Normal Throat: Normal Respiratory: Generalized, Diminished Cardiovascular: Normal : Normal Auscultation: Bowel Sounds: Normal Palpation: Normal Tenderness: Normal Skin: Normal Musculoskeletal: Normal Mood Description: Calm Affect: Normal Speech Pattern: Clear, Appropriate - Laboratory and Diagnostics Result Diagrams: 07/13/21 06:17 07/13/21 06:17 Labs: Laboratory WBC 14.8 X10^3/uL (3.6-10.0) H 07/13/21 06:17 RBC 2.79 X10^6/uL (3.5-5.4) L 07/13/21 06:17 Hgb 9.6 g/dL (12.0-16.0) L 07/13/21 06:17 Hct 28.7 % (36.0-47.0) L 07/13/21 06:17 MCV 102.9 fL (80.0-100.0) H 07/13/21 06:17 MCH 34.3 pg (27.0-34.0) H 07/13/21 06:17 MCHC 33.3 g/dL (33.0-35.0) 07/13/21 06:17 RDW 15.8 % (11.6-16.5) 07/13/21 06:17 Plt Count 205 X10^3/uL (150.0-450.0) 07/13/21 06:17 Plt Count Comment Adequate (ADEQUATE) 07/11/21 11:23 MPV 8.3 fL (7.4-11.0) 07/13/21 06:17 Neut % (Auto) 62.4 % (42.0-75.0) 07/13/21 06:17 Lymph % (Auto) 24.2 % (21.0-51.0) 07/13/21 06:17 [place] % (Auto) 10.9 % (0.0-13.0) 07/13/21 06:17 Eos % (Auto) 2.0 % (0.9-2.9) 07/13/21 06:17 Baso % (Auto) 0.5 % (0.2-1.0) 07/13/21 06:17 Neut # (Auto) 9.3 x10^3/uL (2.2-4.8) H 07/13/21 06:17 Lymph # (Auto) 3.6 X10^3/uL (1.3-2.9) H 07/13/21 06:17 [place] # (Auto) 1.6 x10^3/uL (0.3-0.8) H 07/13/21 06:17 Eos # (Auto) 0.3 x10^3/uL (0.0-0.2) H 07/13/21 06:17 Baso # (Auto) 0.1 X10^3/uL (0.0-0.1) 07/13/21 06:17 Absolute Nucleated RBC 0.1 /100WBC 07/13/21 06:17 Total Counted 100 07/11/21 11:23 Neutrophils % (Manual) 65 % (39-76) 07/11/21 11:23 Lymphocytes % (Manual) 30 % (13-43) 07/11/21 11:23 Monocytes % (Manual) 5 % (4-9) 07/11/21 11:23 Plt Morphology Comment Normal (NORMAL) 07/11/21 11:23 RBC Morphology Normal (NORMAL) 07/11/21 11:23 PT 12.5 SECONDS (11.8-14.3) 07/12/21 06:02 INR Target Range - 07/12/21 06:02 INR 0.98 (0.8-1.3) 07/12/21 06:02 APTT 27.0 SECONDS (22.9-36.5) 07/12/21 06:02 PTT Comment - 07/12/21 06:02 Sodium 138 mmol/L (136-145) 07/13/21 06:17 Corrected Sodium TNP 07/13/21 06:17 Potassium 4.8 mmol/L (3.5-5.1) 07/13/21 06:17 Chloride 103 mmol/L (98-107) 07/13/21 06:17 Carbon Dioxide 33.9 mmol/L (21-32) H 07/13/21 06:17 BUN 18 mg/dL (7-18) 07/13/21 06:17 Creatinine 0.65 mg/dL (0.55-1.02) 07/13/21 06:17 Est GFR (MDRD) Af Amer > 60 (>60) 07/13/21 06:17 Est GFR (MDRD) Non-Af > 60 (>60) 07/13/21 06:17 Glucose 97 mg/dL (65-99) 07/13/21 06:17 Calcium 7.9 mg/dL (8.5-10.1) L 07/13/21 06:17 Corrected Calcium 9.1 mg/dL (8.5-10.1) 07/13/21 06:17 Total Bilirubin 0.60 mg/dL (0.2-1.0) 07/13/21 06:17 AST 31 Units/L (15-37) 07/13/21 06:17 ALT 35 Units/L (12-78) 07/13/21 06:17 Alkaline Phosphatase 83 Units/L (46-116) 07/13/21 06:17 Total Protein 5.9 g/dL (6.4-8.2) L 07/13/21 06:17 Albumin 2.5 g/dL (3.4-5.0) L 07/13/21 06:17 Globulin 3.4 g/dL (2.5-4.5) 07/13/21 06:17 Albumin/Globulin Ratio 0.7 Ratio (1.1-2.1) L 07/13/21 06:17 Specimen Type Clean catch urine 07/11/21 13:30 Urine Color Yellow (YELLOW) 07/11/21 13:30 Urine Appearance Clear (CLEAR) 07/11/21 13:30 Urine pH 7.0 (5.0 - 8.0) 07/11/21 13:30 Ur Specific [place] 1.005 (1.000-1.030) 07/11/21 13:30 Urine Protein 1+ (NEGATIVE) 07/11/21 13:30 Urine Glucose (UA) Negative (NEGATIVE) 07/11/21 13:30 Urine Ketones Negative (NEGATIVE) 07/11/21 13:30 Urine Occult Blood 2+ (NEGATIVE) 07/11/21 13:30 Urine Nitrite Negative (NEGATIVE) 07/11/21 13:30 Urine Bilirubin Negative (NEGATIVE) 07/11/21 13:30 Urine Urobilinogen Normal (NORMAL) 07/11/21 13:30 Ur Leukocyte Esterase Negative (NEGATIVE) 07/11/21 13:30 Urine RBC 3-5 /HPF (0-3) A 07/11/21 13:30 Urine WBC 0-2 /HPF (0-5) 07/11/21 13:30 Ur Squamous Epith Cells Rare /HPF (NEGATIVE) 07/11/21 13:30 Urine Bacteria Trace /HPF (NEGATIVE) 07/11/21 13:30 Ur Culture Indicated? No/not indicated 07/11/21 13:30 SARS CoV-2 RNA Rapid [place] Negative (NEGATIVE) 07/11/21 15:44 - Plan (1) Acute anterior epistaxis Status: Acute Plan: ROCEPHIN 1G IV DAILY, AND HER HOME MEDICATIONS OF ALLOPURINOL, ASCORBIC ACID, LIPITOR, ARICEPT, FOLIC ACID, LASIX, NEURONTIN, METOPROLOL, HEMOCYTE PLUS, PROTONIX, K-DUR, EFFEXOR, AND XARELTO WERE RESUMED. WE WILL HOLD THE PLAVIX AND ASPIRIN. (2) Anticoagulant-induced bleeding Status: Acute (3) Leukocytosis Status: Acute Qualifiers: Leukocytosis type: unspecified Qualified Code(s): D72.829 - Elevated white blood cell count, unspecified
[2021-07-13] MEDS: LIPITOR TAB 20 MG PO SCH (21:34)
[2021-07-14 05:21] LABS: BASOPHILS % (AUTO) 0.3 % (0.2-1.0); EOSINOPHILS # (AUTO) 0.1 x10^3/uL (0.0-0.2); EOSINOPHILS % (AUTO) 1.1 % (0.9-2.9); HEMATOCRIT 26.1 % (36.0-47.0); HEMOGLOBIN 8.9 g/dL (12.0-16.0); LYMPHOCYTES # (AUTO) 2.6 X10^3/uL (1.3-2.9); LYMPHOCYTES % (AUTO) 18.9 % (21.0-51.0); MEAN CORPUSCULAR HEMOGLOBIN 34.8 pg (27.0-34.0); MEAN CORPUSCULAR VOLUME 102.5 fL (80.0-100.0); MEAN PLATELET VOLUME 8.1 fL (7.4-11.0); MONOCYTES # (AUTO) 1.5 x10^3/uL (0.3-0.8); MONOCYTES % (AUTO) 10.7 % (0.0-13.0); NEUTROPHILS # (AUTO) 9.5 x10^3/uL (2.2-4.8); RED BLOOD COUNT 2.55 X10^6/uL (3.5-5.4); RED CELL DISTRIBUTION WIDTH 15.9 % (11.6-16.5); WHITE BLOOD COUNT 13.8 X10^3/uL (3.6-10.0)
[2021-07-14] MEDS: NEURONTIN TAB 600 MG PO SCH ×3 (05:32→21:24)
[2021-07-14 05:36] LABS: ALANINE AMINOTRANSFERASE 39 Units/L (12-78); ALBUMIN 2.2 g/dL (3.4-5.0); ALKALINE PHOSPHATASE 77 Units/L (46-116); ASPARTATE AMINO TRANSFERASE 36 Units/L (15-37); BLOOD UREA NITROGEN 14 mg/dL (7-18); CALCIUM 7.7 mg/dL (8.5-10.1); CHLORIDE 102 mmol/L (98-107); COR CA(FOR HYPOALB) 9.1 mg/dL (8.5-10.1); CREATININE 0.78 mg/dL (0.55-1.02); SODIUM 137 mmol/L (136-145); TOTAL PROTEIN 5.7 g/dL (6.4-8.2); eGFR NON BLACK RACES > 60 (>60)
[2021-07-14] MEDS: ROCEPHIN VIAL 1 GRAM 1 G in NS 100 ML IV 100 ML IV SCH (09:53)
[2021-07-14] MEDS: ARICEPT TAB 10 MG PO SCH (09:54)
[2021-07-14] MEDS: VITAMIN C PO SCH ×2 (09:54→21:21)
[2021-07-14] MEDS: EFFEXOR XR 37.5 MG CAP 24-HR PO SCH (09:55)
[2021-07-14] MEDS: TOPROL XL PO SCH (09:55)
[2021-07-14] MEDS: LASIX PO SCH (09:55)
[2021-07-14] MEDS: XARELTO PO SCH ×2 (09:56→21:19)
[2021-07-14] MEDS: HEMOCYTE-PLUS PO SCH (09:56)
[2021-07-14] MEDS: FOLIC ACID TAB 1 MG PO SCH (09:56)
[2021-07-14] MEDS: ZYLOPRIM PO SCH (09:56)
[2021-07-14] MEDS: PROTONIX TAB 40 MG PO SCH (09:57)
[2021-07-14] MEDS: AFRIN NASAL SPRAY ENOSTRIL SCH ×2 (09:57→21:23)
[2021-07-14] MEDS: AYR NASAL DROPS ENOSTRIL SCH ×2 (09:57→21:23)
[2021-07-14] MEDS: K-DUR TAB 20 MEQ PO SCH ×2 (14:54→21:20)
[2021-07-14] MEDS: LIPITOR TAB 20 MG PO SCH (21:24)
[2021-07-15 05:27] LABS: BASOPHILS # (AUTO) 0.1 X10^3/uL (0.0-0.1); BASOPHILS % (AUTO) 0.5 % (0.2-1.0); EOSINOPHILS # (AUTO) 0.3 x10^3/uL (0.0-0.2); EOSINOPHILS % (AUTO) 2.5 % (0.9-2.9); HEMATOCRIT 26.3 % (36.0-47.0); HEMOGLOBIN 8.9 g/dL (12.0-16.0); LYMPHOCYTES # (AUTO) 2.4 X10^3/uL (1.3-2.9); LYMPHOCYTES % (AUTO) 19.6 % (21.0-51.0); MEAN CORPUSCULAR HEMOGLOBIN 34.4 pg (27.0-34.0); MEAN CORPUSCULAR VOLUME 101.1 fL (80.0-100.0); MEAN PLATELET VOLUME 7.9 fL (7.4-11.0); MONOCYTES # (AUTO) 1.5 x10^3/uL (0.3-0.8); NEUTROPHILS # (AUTO) 8.1 x10^3/uL (2.2-4.8); NEUTROPHILS % (AUTO) 65.4 % (42.0-75.0); RED CELL DISTRIBUTION WIDTH 15.8 % (11.6-16.5); WHITE BLOOD COUNT 12.4 X10^3/uL (3.6-10.0)
[2021-07-15] MEDS: NEURONTIN TAB 600 MG PO SCH ×3 (05:28→21:59)
[2021-07-15 05:43] LABS: ALANINE AMINOTRANSFERASE 29 Units/L (12-78); ALBUMIN 2.2 g/dL (3.4-5.0); ALKALINE PHOSPHATASE 73 Units/L (46-116); ASPARTATE AMINO TRANSFERASE 28 Units/L (15-37); BLOOD UREA NITROGEN 12 mg/dL (7-18); CALCIUM 7.7 mg/dL (8.5-10.1); CARBON DIOXIDE 35.1 mmol/L (21-32); CHLORIDE 100 mmol/L (98-107); COR CA(FOR HYPOALB) 9.1 mg/dL (8.5-10.1); CREATININE 0.69 mg/dL (0.55-1.02); SODIUM 138 mmol/L (136-145); TOTAL PROTEIN 5.6 g/dL (6.4-8.2); eGFR NON BLACK RACES > 60 (>60)
[2021-07-15] MEDS: AYR NASAL DROPS ENOSTRIL SCH ×2 (08:58→21:59)
[2021-07-15] MEDS: HEMOCYTE-PLUS PO SCH (08:59)
[2021-07-15] MEDS: VITAMIN C PO SCH ×2 (09:00→21:59)
[2021-07-15] MEDS: ARICEPT TAB 10 MG PO SCH (09:17)
[2021-07-15] MEDS: K-DUR TAB 20 MEQ PO SCH ×2 (09:17→21:59)
[2021-07-15] MEDS: EFFEXOR XR 37.5 MG CAP 24-HR PO SCH (09:17)
[2021-07-15] MEDS: XARELTO PO SCH ×2 (09:17→21:58)
[2021-07-15] MEDS: AFRIN NASAL SPRAY ENOSTRIL SCH ×2 (09:17→21:59)
[2021-07-15] MEDS: LASIX PO SCH (09:17)
[2021-07-15] MEDS: FOLIC ACID TAB 1 MG PO SCH (09:17)
[2021-07-15] MEDS: PROTONIX TAB 40 MG PO SCH (09:17)
[2021-07-15] MEDS: ZYLOPRIM PO SCH (09:18)
[2021-07-15] MEDS: TOPROL XL PO SCH (09:18)
[2021-07-15] MEDS: ROCEPHIN VIAL 1 GRAM 1 G in NS 100 ML IV 100 ML IV SCH (09:18)
[2021-07-15] MEDS: LIPITOR TAB 20 MG PO SCH (21:59)
[2021-07-16] MEDS: NEURONTIN TAB 600 MG PO SCH (05:19)
[2021-07-16 06:02] LABS: BASOPHILS # (AUTO) 0.1 X10^3/uL (0.0-0.1); BASOPHILS % (AUTO) 0.5 % (0.2-1.0); EOSINOPHILS # (AUTO) 0.3 x10^3/uL (0.0-0.2); EOSINOPHILS % (AUTO) 3.2 % (0.9-2.9); HEMATOCRIT 26.2 % (36.0-47.0); HEMOGLOBIN 8.9 g/dL (12.0-16.0); LYMPHOCYTES % (AUTO) 18.7 % (21.0-51.0); MEAN CORPUSCULAR HEMOGLOBIN 34.7 pg (27.0-34.0); MEAN CORPUSCULAR HGB CONC 33.9 g/dL (33.0-35.0); MEAN CORPUSCULAR VOLUME 102.3 fL (80.0-100.0); MEAN PLATELET VOLUME 7.3 fL (7.4-11.0); MONOCYTES # (AUTO) 1.4 x10^3/uL (0.3-0.8); MONOCYTES % (AUTO) 12.6 % (0.0-13.0); RED BLOOD COUNT 2.56 X10^6/uL (3.5-5.4); RED CELL DISTRIBUTION WIDTH 16.2 % (11.6-16.5); WHITE BLOOD COUNT 10.8 X10^3/uL (3.6-10.0)
[2021-07-16 06:17] LABS: ALANINE AMINOTRANSFERASE 28 Units/L (12-78); ALBUMIN 2.2 g/dL (3.4-5.0); ALKALINE PHOSPHATASE 74 Units/L (46-116); ASPARTATE AMINO TRANSFERASE 26 Units/L (15-37); BLOOD UREA NITROGEN 9 mg/dL (7-18); CARBON DIOXIDE 35.6 mmol/L (21-32); CHLORIDE 97 mmol/L (98-107); COR CA(FOR HYPOALB) 9.4 mg/dL (8.5-10.1); CREATININE 0.61 mg/dL (0.55-1.02); SODIUM 136 mmol/L (136-145); TOTAL PROTEIN 5.7 g/dL (6.4-8.2); eGFR NON BLACK RACES > 60 (>60)
[2021-07-16] MEDS: PROTONIX TAB 40 MG PO SCH (10:00)
[2021-07-16] MEDS: ZYLOPRIM PO SCH (10:00)
[2021-07-16] MEDS: AYR NASAL DROPS ENOSTRIL SCH (10:00)
[2021-07-16] MEDS: FOLIC ACID TAB 1 MG PO SCH (10:00)
[2021-07-16] MEDS: EFFEXOR XR 37.5 MG CAP 24-HR PO SCH (10:00)
[2021-07-16] MEDS: K-DUR TAB 20 MEQ PO SCH (10:00)
[2021-07-16] MEDS: VITAMIN C PO SCH (10:00)
[2021-07-16] MEDS: HEMOCYTE-PLUS PO SCH (10:00)
[2021-07-16] MEDS: ROCEPHIN VIAL 1 GRAM 1 G in NS 100 ML IV 100 ML IV SCH (10:00)
[2021-07-16] MEDS: TOPROL XL PO SCH (10:00)
[2021-07-16] MEDS: ARICEPT TAB 10 MG PO SCH (10:00)
[2021-07-16] MEDS: XARELTO PO SCH (10:00)
[2021-07-16] MEDS: AFRIN NASAL SPRAY ENOSTRIL SCH (10:00)
[2021-07-16] MEDS: LASIX PO SCH (10:00)
--- NOTE | 2021-07-16 12:45 | PCM.PROG ---
Progress Note - Progress Note for Day of Date of Exam: 07/15/21 - Subjective Subjective: Ms. Bryan is a 76-year-old female who was admitted with a nosebleed. She is on long-term anticoagulant therapy with Xarelto. Since admission the patient has had controlled bleeding. She states she felt like it was bleeding from her sinuses, or she could feel it draining in her throat. She has been hemodynamically stable. She has had a general decrease in her hemoglobin. At admission it was 10.6. It was down to 8.9 today. She is currently not on any IV fluids. So, we are going to watch this strictly. White count is down to 10.8. She is on Rocephin for some sinusitis. Her blood pressure is stable. She does have a long history of severe rheumatoid arthritis with just chronic, diffuse weakness and complaints of chronic pain. She denies any chest pain or shortness of breath at rest this morning. Renal function is stable - Past Medical Family Social History Past Med/Fam/Surg Hx: No changes since H&P Allergies: Allergies sertraline [From Zoloft] Allergy (Verified 03/10/17 14:54) - Review of Systems ROS: No change since H&P - Vital Signs and I&O's Vital Signs: Temperature 98.9 F Pulse Rate [Left Brachial] 108 Pulse Rate [Right Radial] 106 Pulse Rate 102 Respiratory Rate 20 Blood Pressure [Right Arm] 140/69 Blood Pressure [Left Calf] 139/63 Blood Pressure [Left Arm] 133/53 Blood Pressure 118/85 O2 Sat by Pulse Oximetry 93 Intake and Output: Intake & Output 07/14/21 07/15/21 07/16/21 07/17/21 11:59 11:59 11:59 11:59 Intake Total 580 / 580 1200 / 1200 1141 / 1141 Balance 580 / 580 1200 / 1200 1141 / 1141 - Physical Exam Oriented: Normal Eyes: Normal Ear: Normal Nose: Normal Throat: Normal, Dry Respiratory: Generalized, Diminished Cardiovascular: Normal : Normal Auscultation: Bowel Sounds: Normal Tenderness: Normal Skin: Decreased Turgur Musculoskeletal: Right, Hand, Leg, Back:Lumbar, Tender, Motor Deficit, Sensory Deficit Mood Description: Calm Affect: Normal Speech Pattern: Clear, Appropriate - Laboratory and Diagnostics Result Diagrams: 07/16/21 05:50 07/16/21 05:50 Labs: Laboratory WBC 10.8 X10^3/uL (3.6-10.0) H 07/16/21 05:50 RBC 2.56 X10^6/uL (3.5-5.4) L 07/16/21 05:50 Hgb 8.9 g/dL (12.0-16.0) L 07/16/21 05:50 Hct 26.2 % (36.0-47.0) L 07/16/21 05:50 MCV 102.3 fL (80.0-100.0) H 07/16/21 05:50 MCH 34.7 pg (27.0-34.0) H 07/16/21 05:50 MCHC 33.9 g/dL (33.0-35.0) 07/16/21 05:50 RDW 16.2 % (11.6-16.5) 07/16/21 05:50 Plt Count 248 X10^3/uL (150.0-450.0) 07/16/21 05:50 Plt Count Comment Adequate (ADEQUATE) 07/11/21 11:23 MPV 7.3 fL (7.4-11.0) L 07/16/21 05:50 Neut % (Auto) 65.0 % (42.0-75.0) 07/16/21 05:50 Lymph % (Auto) 18.7 % (21.0-51.0) L 07/16/21 05:50 [place] % (Auto) 12.6 % (0.0-13.0) 07/16/21 05:50 Eos % (Auto) 3.2 % (0.9-2.9) H 07/16/21 05:50 Baso % (Auto) 0.5 % (0.2-1.0) 07/16/21 05:50 Neut # (Auto) 7.0 x10^3/uL (2.2-4.8) H 07/16/21 05:50 Lymph # (Auto) 2.0 X10^3/uL (1.3-2.9) 07/16/21 05:50 [place] # (Auto) 1.4 x10^3/uL (0.3-0.8) H 07/16/21 05:50 Eos # (Auto) 0.3 x10^3/uL (0.0-0.2) H 07/16/21 05:50 Baso # (Auto) 0.1 X10^3/uL (0.0-0.1) 07/16/21 05:50 Absolute Nucleated RBC 0.1 /100WBC 07/16/21 05:50 Total Counted 100 07/11/21 11:23 Neutrophils % (Manual) 65 % (39-76) 07/11/21 11:23 Lymphocytes % (Manual) 30 % (13-43) 07/11/21 11:23 Monocytes % (Manual) 5 % (4-9) 07/11/21 11:23 Plt Morphology Comment Normal (NORMAL) 07/11/21 11:23 RBC Morphology Normal (NORMAL) 07/11/21 11:23 PT 12.5 SECONDS (11.8-14.3) 07/12/21 06:02 INR Target Range - 07/12/21 06:02 INR 0.98 (0.8-1.3) 07/12/21 06:02 APTT 27.0 SECONDS (22.9-36.5) 07/12/21 06:02 PTT Comment - 07/12/21 06:02 Sodium 136 mmol/L (136-145) 07/16/21 05:50 Corrected Sodium TNP 07/16/21 05:50 Potassium 4.6 mmol/L (3.5-5.1) 07/16/21 05:50 Chloride 97 mmol/L (98-107) L 07/16/21 05:50 Carbon Dioxide 35.6 mmol/L (21-32) H 07/16/21 05:50 BUN 9 mg/dL (7-18) 07/16/21 05:50 Creatinine 0.61 mg/dL (0.55-1.02) 07/16/21 05:50 Est GFR (MDRD) Af Amer > 60 (>60) 07/16/21 05:50 Est GFR (MDRD) Non-Af > 60 (>60) 07/16/21 05:50 Glucose 87 mg/dL (65-99) 07/16/21 05:50 Calcium 8.0 mg/dL (8.5-10.1) L 07/16/21 05:50 Corrected Calcium 9.4 mg/dL (8.5-10.1) 07/16/21 05:50 Total Bilirubin 0.60 mg/dL (0.2-1.0) 07/16/21 05:50 AST 26 Units/L (15-37) 07/16/21 05:50 ALT 28 Units/L (12-78) 07/16/21 05:50 Alkaline Phosphatase 74 Units/L (46-116) 07/16/21 05:50 Total Protein 5.7 g/dL (6.4-8.2) L 07/16/21 05:50 Albumin 2.2 g/dL (3.4-5.0) L 07/16/21 05:50 Globulin 3.5 g/dL (2.5-4.5) 07/16/21 05:50 Albumin/Globulin Ratio 0.6 Ratio (1.1-2.1) L 07/16/21 05:50 Specimen Type Clean catch urine 07/11/21 13:30 Urine Color Yellow (YELLOW) 07/11/21 13:30 Urine Appearance Clear (CLEAR) 07/11/21 13:30 Urine pH 7.0 (5.0 - 8.0) 07/11/21 13:30 Ur Specific [place] 1.005 (1.000-1.030) 07/11/21 13:30 Urine Protein 1+ (NEGATIVE) 07/11/21 13:30 Urine Glucose (UA) Negative (NEGATIVE) 07/11/21 13:30 Urine Ketones Negative (NEGATIVE) 07/11/21 13:30 Urine Occult Blood 2+ (NEGATIVE) 07/11/21 13:30 Urine Nitrite Negative (NEGATIVE) 07/11/21 13:30 Urine Bilirubin Negative (NEGATIVE) 07/11/21 13:30 Urine Urobilinogen Normal (NORMAL) 07/11/21 13:30 Ur Leukocyte Esterase Negative (NEGATIVE) 07/11/21 13:30 Urine RBC 3-5 /HPF (0-3) A 07/11/21 13:30 Urine WBC 0-2 /HPF (0-5) 07/11/21 13:30 Ur Squamous Epith Cells Rare /HPF (NEGATIVE) 07/11/21 13:30 Urine Bacteria Trace /HPF (NEGATIVE) 07/11/21 13:30 Ur Culture Indicated? No/not indicated 07/11/21 13:30 SARS CoV-2 RNA Rapid [place] Negative (NEGATIVE) 07/11/21 15:44 - Plan (1) Acute anterior epistaxis Status: Acute Plan: ROCEPHIN 1G IV DAILY, AND HER HOME MEDICATIONS OF ALLOPURINOL, ASCORBIC ACID, LIPITOR, ARICEPT, FOLIC ACID, LASIX, NEURONTIN, METOPROLOL, HEMOCYTE PLUS, PROTONIX, K-DUR, EFFEXOR, AND XARELTO WERE RESUMED. WILL CONTINUE TO MONITOR H&H, DISCUSSED POSSIBLE DC BACK TO [place] TOMORROW IF STABLE HGB X 48 HRS (2) Generalized weakness Status: Acute (3) Anticoagulant-induced bleeding Status: Acute (4) CAD (coronary artery disease) Status: Chronic Qualifiers: Coronary Disease-Associated Artery/Lesion type: [place] artery [place] vs. transplanted heart: [place] heart Associated angina: without angina Qualified Code(s): I25.10 - Atherosclerotic heart disease of [place] coronary artery without angina pectoris (5) History of anemia Status: Chronic (6) Hypertension Status: Chronic Qualifiers: Hypertension type: essential hypertension Qualified Code(s): I10 - Essential (primary) hypertension (7) Rheumatoid arthritis Status: Chronic Qualifiers: Rheumatoid arthritis location: multiple sites Rheumatoid factor presence: without rheumatoid factor Qualified Code(s): M06.09 - Rheumatoid arthritis wit hout rheumatoid factor, multiple sites (8) GERD (gastroesophageal reflux disease) Status: Chronic Qualifiers: Esophagitis presence: esophagitis presence not specified Qualified Code(s): K21.9 - Gastro-esophageal reflux disease without esophagitis
[2021-07-16 14:22] VITALS: BP 123/59
== END 2021-07-16 13:55 ==
LOC: ER 11:00 → MED/SURG 11:00
PROVIDERS: ADMIT Internal Medicine; ATTEND Internal Medicine
DX: K21.9 Gastro-esophageal reflux disease without esophagitis; Z20.822 Contact with and (suspected) exposure to COVID-19; D68.32 Hemorrhagic disorder due to extrinsic circulating anticoagulants; J01.00 Acute maxillary sinusitis, unspecified; R26.89 Other abnormalities of gait and mobility; R04.2 Hemoptysis; R04.0 Epistaxis; M06.9 Rheumatoid arthritis, unspecified; I25.10 Atherosclerotic heart disease of native coronary artery without angina pectoris; I10 Essential (primary) hypertension

== ENCOUNTER 2022-06-05 22:05 | Inpatient (IN) ==
--- NOTE | 2022-06-05 22:23 | DR.GENAD ---
HPI Time Seen Time Seen by Provider: 06/05/22 22:22 PCP Primary Care Physician: shelly HPI Comment HPI Comment: A 76 y/o female [facility]dc resident brought to the ED for evaluation of low O2 sats. and chills. No cough, fever is reported. Complaint/Symptoms Chief Complaint:: [facility]dc staff gave report that pt's sat was running real low and shes shaking more than normal Nurses notes reviewed Nurses Notes Review: Yes Source History Provided: [facility] Mode of Arrival Mode of Arrival: Stretcher Timing Onset of Chief Complaint: 06/05/22 Came on: Gradually Duration Duration: Hours PMH PMH Past Medical History: Yes Past Medical History: Anemia, Arthritis, Coronary Artery Disease, Dementia, Depression, Dyslipidemia, GERD, Gout, Hypertension and [place] Past Surgical History: Yes Surgical History: Angioplasty/Stents and Family History History of Family Medical Conditions: Yes Family Medical History: Diabetes Mellitus and Hypertension Social History Do you use any recreational Drugs:: No Lives Where: [facility] Infectious screening Have you traveled outside the country in the last 6 months?: No Isolation: Respiratory ROS Review of Systems Constitutional: Chills and Other (low O2 saturation) Eyes: No Symptoms Reported ENTM: No Symptoms Reported Respiratoy: No Symptoms Reported Cardiovascular: No Symptoms Reported Gastrointestinal/Abdominal: No Symptoms Reported Genitourinary: No Symptoms Reported Neurological: No Symptoms Reported Musculoskeletal: No Symptoms Reported Integumentary: No Symptoms Reported Hematologic/Lymphatic: No Symptoms Reported Endocrine: No Symptoms Reported Psychiatric: No Symptoms Reported All Other Systems: Reviewed and Negative PE Vital Signs Vitals: Temperature 98.2 F Pulse Rate 105 Respiratory Rate 41 Blood Pressure [Right Arm] 123/59 Blood Pressure 122/96 O2 Sat by Pulse Oximetry 89 General Limitations: No Limitations General Appearance: Alert and In No Apparent Distress Head Head Exam: Normal Inspection, Atraumatic and Normocephalic Eyes Eye exam: Normal Appearance and EOMI ENT ENT Exam: Normal Exam, Normal Oropharynx, Normal External Ear Exam and Mucous Membranes Moist Neck Neck Exam: Normal Inspection, Full ROM and Trachea Midline Chest Chest Inspection: Normal Inspection and Symmetric Chest Wall Rise Respiratory Respiratory Exam: Normal Lung Sounds Bilat Cardiovascular Cardiovascular Exam: Normal Rhythm, Irregular Rhythm, Normal Heart Sounds, +S1 and +S2 Abdominal Exam Abdominal Exam: Normal Inspection, Normal Bowel Sounds and Soft Extremities Extremities Exam: Normal Inspection Back Back Exam: Normal Inspection Neurologic Neurological Exam: Alert Psychiatric Psychiatric Exam: Normal Affect and Normal Mood Skin Skin Exam: Dry, Intact and Normal Color COURSE Treatment Treatment: Upon arrival here from the custodial, her O2 sats was in the 90%s. Indeed shewas noted with chills but no fever. Her diagnostics was suggestive of a respiratory acidosis. CXR was noted she was administered some IV Lasix and she was placed on BIPAP. I discussed findings with Dr. Arndt and he agrees to her being admitted. Admit orders were written and home meds reconcilled. Repeat labs. put in for a.m. Reevaluation 1st: Improved Education/Counseling Education/Counseling: Education and Counseling Educated On: Treatment, Diagnosis, Prognosis and Needs for Follow Up ROR Labs Reviewed Laboratory Results Reviewed?: Yes Result Diagrams: 06/05/22 22:22 06/05/22 22: Laboratory: WBC 10.7 X10^3/uL (3.6-10.0) H 06/05/22 22: RBC 3.77 X10^6/uL (3.5-5.4) 06/05/22 22: Hgb 12.6 g/dL (12.0-16.0) 06/05/22 22: Hct 38.5 % (36.0-47.0) 06/05/22 22: MCV 102.2 fL (80.0-100.0) H 06/05/22 22: MCH 33.4 pg (27.0-34.0) 06/05/22 22: MCHC 32.7 g/dL (33.0-35.0) L 06/05/22 22: RDW 14.7 % (11.6-16.5) 06/05/22 22: Plt Count 170 X10^3/uL (150.0-450.0) 06/05/22 22: MPV 8.5 fL (7.4-11.0) 06/05/22 22: Neut % (Auto) 78.6 % (42.0-75.0) H 06/05/22: Lymph % (Auto) 15.5 % (21.0-51.0) L 06/05/22: [place] % (Auto) 4.8 % (0.0-13.0) 06/05/22 22:22 Eos % (Auto) 0.8 % (0.9-2.9) L 06/05/22 22:22 Baso % (Auto) 0.3 % (0.2-1.0) 06/05/22 22:22 Neut # (Auto) 8.4 x10^3/uL (2.2-4.8) H 06/05/22 22:22 Lymph # (Auto) 1.7 X10^3/uL (1.3-2.9) 06/05/22 22:22 [place] # (Auto) 0.5 x10^3/uL (0.3-0.8) 06/05/22 22:22 Eos # (Auto) 0.1 x10^3/uL (0.0-0.2) 06/05/22 22:22 Baso # (Auto) 0.0 X10^3/uL (0.0-0.1) 06/05/22 22:22 Absolute Nucleated RBC 0.0 /100WBC 06/05/22 22:22 Sample Site Rb 06/05/22 22:15 ABG pH 7.340 (7.35-7.45) L 06/05/22 22:15 ABG pCO2 106.0 mmHg (35.0-45.0) H* 06/05/22 22:15 ABG pO2 70.0 mmHg (80.0-100.0) L 06/05/22 22:15 ABG HCO3 57.2 mmol/L (22-26) H* 06/05/22 22:15 ABG O2 Saturation 93.0 % (90-100) 06/05/22 22:15 ABG Base Excess 25.5 mmol/L (-2.0-2.0) H 06/05/22 22:15 Satya Test Na 06/05/22 22:15 A-a Gradient -3.0 mmHg 06/05/22 22:15 FiO2 28.0 06/05/22 22:15 Blood Gas Comments [facility] well 06/05/22 22:15 Sodium 140 mmol/L (136-145) 06/05/22 22:22 Corrected Sodium 141 mmol/L (136-145) 06/05/22 22:22 Potassium 5.6 mmol/L (3.5-5.1) H 06/05/22 22:22 Chloride 99 mmol/L (98-107) 06/05/22 22:22 Carbon Dioxide > 45.0 mmol/L (21-32) H* 06/05/22 22:22 BUN 9 mg/dL (7-18) 06/05/22 22:22 Creatinine 0.48 mg/dL (0.55-1.02) L 06/05/22 22:22 Est GFR (MDRD) Af Amer > 60 (>60) 06/05/22 22:22 Est GFR (MDRD) Non-Af > 60 (>60) 06/05/22 22:22 Glucose 135 mg/dL (65-99) H 06/05/22 22:22 Calcium 8.3 mg/dL (8.5-10.1) L 06/05/22 22:22 Corrected Calcium 9.4 mg/dL (8.5-10.1) 06/05/22 22:22 Total Bilirubin 0.60 mg/dL (0.2-1.0) 06/05/22 22:22 AST 31 Units/L (15-37) 06/05/22 22:22 ALT 27 Units/L (12-78) 06/05/22 22:22 Alkaline Phosphatase 105 Units/L (46-116) 06/05/22 22:22 Creatine Kinase 45 Units/L (26-192) 06/05/22 22:22 Troponin I High Sens 21.0 ng/L (4.0-60.0) 06/05/22 22:22 B-Natriuretic Peptide 118 pg/mL (0-79) H 06/05/22 22:22 Total Protein 6.3 g/dL (6.4-8.2) L 06/05/22 22:22 Albumin 2.6 g/dL (3.4-5.0) L 06/05/22 22:22 Globulin 3.7 g/dL (2.5-4.5) 06/05/22 22:22 Albumin/Globulin Ratio 0.7 Ratio (1.1-2.1) L 06/05/22 22:22 XRAY XRAY Interpreted by: Self X-ray Results: CXR: Cardiomegaly and vascular congestion present. A left sided manoj-cath is noted. Radiologist report is pending. EKG Rate: 85 [place]: Normal Rhythm: NSR and PACs Block: None Hypertrophy: None ST: Normal Opioid Opioid Risk Tool Age (Miguel box if 16-45): No History of Preadolescent Sexual Abuse: No Total: 0 Total Score Risk Category: Low Risk Copyright: Dong MEI predicting aberrant behaviors Discharge Plan Diagnosis Discharge Problem: Acute respiratory acidosis, Hyperkalemia CHF (congestive heart failure) Qualifiers: Heart failure type: unspecified Heart failure chronicity: chronic Qualified Code(s): I50.9 - Heart failure, unspecified CAD (coronary artery disease) Qualifiers: Coronary Disease-Associated Artery/Lesion type: [place] artery [place] vs. t ransplanted heart: [place] heart Associated angina: without angina Qualified Code(s): I25.10 - Atherosclerotic heart disease of [place] coronary artery without angina pectoris Hyperlipidemia Qualifiers: Hyperlipidemia type: mixed hyperlipidemia Qualified Code(s): E78.2 - Mixed hyperlipidemia Discharge Plan Patient Disposition: 09 ADMITTED INPATIENT Condition: Stable Orders to Discharge Patient Discharge Orders: Transfer (Routine); Ordered 06/05/22 Ordered By: JENNA ZIMMER
[2022-06-05 22:32] LABS: EOSINOPHILS # (AUTO) 0.1 x10^3/uL (0.0-0.2); MEAN CORPUSCULAR HGB CONC 32.7 g/dL (33.0-35.0); NEUTROPHILS # (AUTO) 8.4 x10^3/uL (2.2-4.8); RED CELL DISTRIBUTION WIDTH 14.7 % (11.6-16.5)
[2022-06-05 22:38] LABS: BASOPHILS % (AUTO) 0.3 % (0.2-1.0); EOSINOPHILS % (AUTO) 0.8 % (0.9-2.9); HEMATOCRIT 38.5 % (36.0-47.0); HEMOGLOBIN 12.6 g/dL (12.0-16.0); LYMPHOCYTES # (AUTO) 1.7 X10^3/uL (1.3-2.9); LYMPHOCYTES % (AUTO) 15.5 % (21.0-51.0); MEAN CORPUSCULAR HEMOGLOBIN 33.4 pg (27.0-34.0); MEAN CORPUSCULAR VOLUME 102.2 fL (80.0-100.0); MEAN PLATELET VOLUME 8.5 fL (7.4-11.0); MONOCYTES # (AUTO) 0.5 x10^3/uL (0.3-0.8); MONOCYTES % (AUTO) 4.8 % (0.0-13.0); NEUTROPHILS % (AUTO) 78.6 % (42.0-75.0); RED BLOOD COUNT 3.77 X10^6/uL (3.5-5.4); WHITE BLOOD COUNT 10.7 X10^3/uL (3.6-10.0)
[2022-06-05 22:45] LABS: ALANINE AMINOTRANSFERASE 27 Units/L (12-78); ALBUMIN 2.6 g/dL (3.4-5.0); ALKALINE PHOSPHATASE 105 Units/L (46-116); ASPARTATE AMINO TRANSFERASE 31 Units/L (15-37); BLOOD UREA NITROGEN 9 mg/dL (7-18); CALCIUM 8.3 mg/dL (8.5-10.1); CHLORIDE 99 mmol/L (98-107); COR CA(FOR HYPOALB) 9.4 mg/dL (8.5-10.1); COR NA(FOR HYPERGLY) 141 mmol/L (136-145); CREATINE KINASE 45 Units/L (26-192); CREATININE 0.48 mg/dL (0.55-1.02); SODIUM 140 mmol/L (136-145); TOTAL PROTEIN 6.3 g/dL (6.4-8.2); eGFR NON BLACK RACES > 60 (>60)
[2022-06-05 22:50] LABS: ABG BASE EXCESS 25.5 mmol/L (-2.0-2.0)
[2022-06-05 22:51] LABS: CARBON DIOXIDE > 45.0 mmol/L (21-32)
[2022-06-05 22:52] LABS: ABG HCO3 57.2 mmol/L (22-26)
[2022-06-05] MEDS ORDERED: LASIX IVP ONE ×2 (23:05→23:08)
[2022-06-05] MEDS ORDERED: ATIVAN INJ 2 MG VIAL IVP PRN (23:23)
--- NOTE | 2022-06-05 23:28 | EKG ---
Test Reason : SOB Blood Pressure : */* mmHG Vent. Rate : 85 BPM Atrial Rate : 85 BPM P-R Int : 162 ms QRS Dur : 68 ms QT Int : 324 ms P-R-T Axes : -14 21 32 degrees QTc Int : 385 ms Sinus rhythm with premature atrial complexes Otherwise normal ECG No previous ECGs available Confirmed by Brian Negron ([id number]) on 06/08/2022 3:14:39 PM Referred By: Confirmed By: Brian Negron
[2022-06-05 23:33] LABS: BILIRUBIN,URINE NEGATIVE (NEGATIVE); BLOOD/HEMOGLOBIN,URINE 4+ (NEGATIVE); GLUCOSE, URINE NEGATIVE (NEGATIVE); KETONES,URINE NEGATIVE (NEGATIVE); LEUKOCYTE ESTERASE ,URINE 3+ (NEGATIVE); NITRITES,URINE POSITIVE (NEGATIVE); PROTEIN,URINE 2+ (NEGATIVE); UROBILINOGEN,URINE NORMAL (NORMAL)
[2022-06-05 23:40] LABS: APPEARANCE,URINE HAZY (CLEAR); COLOR,URINE YELLOW (YELLOW)
[2022-06-05 23:41] LABS: BACTERIA,URINE 3+ /HPF (NEGATIVE); HYALINE CASTS, URINE FEW /LPF (NEGATIVE); SQUAMOUS EPITHELIAL CELL,UR FEW /HPF (NEGATIVE)
[2022-06-06] MEDS: DUONEB 0.5 MG/3 MG (3 mL) NEB SCH ×4 (00:05→17:35)
[2022-06-06] MEDS: ARICEPT TAB 10 MG PO SCH ×2 (00:10→09:09)
[2022-06-06] MEDS: EFFEXOR XR 37.5 MG CAP 24-HR PO SCH ×2 (00:10→09:09)
[2022-06-06] MEDS: ZYLOPRIM PO SCH ×2 (00:10→09:09)
[2022-06-06] MEDS: PROTONIX TAB 40 MG PO SCH ×2 (00:11→09:10)
[2022-06-06] MEDS: LIPITOR TAB 20 MG PO SCH ×2 (00:11→09:10)
[2022-06-06] MEDS ORDERED: PHARMACY CONSULT LTC MEDICATIONS XX SCH (01:00)
--- NOTE | 2022-06-06 01:01 | RAD ---
PROCEDURE: Chest X-ray 1 View .HISTORY: Hypoxia and dyspnea.TECHNIQUE: AP portable done at 10:28 p.m..COMPARISON: 02/21/2022.TECHNICAL QUALITY: Satisfactory .FINDINGS:Left subclavian Port-A-Cath remains in good position.Unchanged mild cardiomegaly.Mediastinum and hilar regions show no masses or lymphadenopathy .Increased central vascularity.Consolidation lung bases probably related to edema. Possible small effusions bilaterally. No masses.No acute bony abnormality .IMPRESSION:Probable mild congestive heart failure.Electronically signed by: Efrain Coates (Jun 06, 2022 01:00:37)
[2022-06-06] MEDS: VISTARIL PO PRN ×2 (02:37→21:41)
[2022-06-06] MEDS ORDERED: ROCEPHIN VIAL 1 GRAM 1 G in NS 100 ML IV 100 ML IV ONE (02:48)
[2022-06-06] MEDS ORDERED: NS 500 ML IV 500 ML IV ONE (02:59)
[2022-06-06] MEDS: NEURONTIN TAB 600 MG PO SCH ×3 (05:06→21:41)
[2022-06-06 05:51] LABS: BASOPHILS # (AUTO) 0.1 X10^3/uL (0.0-0.1); BASOPHILS % (AUTO) 0.7 % (0.2-1.0); EOSINOPHILS # (AUTO) 0.1 x10^3/uL (0.0-0.2); EOSINOPHILS % (AUTO) 0.8 % (0.9-2.9); HEMATOCRIT 36.2 % (36.0-47.0); HEMOGLOBIN 12.1 g/dL (12.0-16.0); LYMPHOCYTES # (AUTO) 2.9 X10^3/uL (1.3-2.9); LYMPHOCYTES % (AUTO) 29.8 % (21.0-51.0); MEAN CORPUSCULAR HEMOGLOBIN 33.9 pg (27.0-34.0); MEAN CORPUSCULAR HGB CONC 33.5 g/dL (33.0-35.0); MEAN CORPUSCULAR VOLUME 101.2 fL (80.0-100.0); MEAN PLATELET VOLUME 8.2 fL (7.4-11.0); MONOCYTES # (AUTO) 0.8 x10^3/uL (0.3-0.8); MONOCYTES % (AUTO) 8.6 % (0.0-13.0); NEUTROPHILS % (AUTO) 60.1 % (42.0-75.0); RED BLOOD COUNT 3.58 X10^6/uL (3.5-5.4); RED CELL DISTRIBUTION WIDTH 14.7 % (11.6-16.5); WHITE BLOOD COUNT 9.9 X10^3/uL (3.6-10.0)
[2022-06-06 06:03] LABS: ALANINE AMINOTRANSFERASE 23 Units/L (12-78); ALBUMIN 2.4 g/dL (3.4-5.0); ALKALINE PHOSPHATASE 97 Units/L (46-116); ASPARTATE AMINO TRANSFERASE 22 Units/L (15-37); BLOOD UREA NITROGEN 9 mg/dL (7-18); CALCIUM 8.1 mg/dL (8.5-10.1); CHLORIDE 97 mmol/L (98-107); COR CA(FOR HYPOALB) 9.4 mg/dL (8.5-10.1); SODIUM 142 mmol/L (136-145); TOTAL PROTEIN 5.8 g/dL (6.4-8.2); eGFR NON BLACK RACES > 60 (>60)
[2022-06-06 06:14] LABS: CARBON DIOXIDE > 45.0 mmol/L (21-32)
[2022-06-06 07:28] LABS: ABG BASE EXCESS 29.3 mmol/L (-2.0-2.0)
[2022-06-06 07:29] LABS: ABG ALLEN TEST POS; ABG HCO3 57.5 mmol/L (22-26)
[2022-06-06] MEDS ORDERED: [UNRECOGNIZED DRUG - OTHER] INTRANASAL SCH (09:00)
[2022-06-06] MEDS ORDERED: LASIX PO SCH (09:00)
[2022-06-06] MEDS ORDERED: PREDNISONE TAB 5 MG PO SCH (09:00)
[2022-06-06] MEDS ORDERED: SODIUM CHLORIDE 0.65% INTRANASAL SCH (09:00)
[2022-06-06] MEDS: FLONASE NASAL SPRAY ENOSTRIL SCH ×2 (09:08→21:41)
[2022-06-06] MEDS: XARELTO PO SCH ×2 (09:09→21:41)
[2022-06-06] MEDS: PREDNISONE TAB 5 MG PO SCH ×2 (09:09→21:41)
[2022-06-06] MEDS: HEMOCYTE-PLUS PO SCH (09:09)
[2022-06-06] MEDS: TOPROL XL PO SCH (09:10)
[2022-06-06] MEDS: AYR NASAL DROPS ENOSTRIL SCH ×4 (09:10→21:41)
[2022-06-06] MEDS: VITAMIN C PO SCH ×2 (09:10→21:40)
[2022-06-06] MEDS: FOLIC ACID TAB 1 MG PO SCH (09:10)
[2022-06-06] MEDS: LEVAQUIN TAB 750 MG PO SCH (09:10)
[2022-06-06] MEDS: LASIX IVP SCH ×2 (10:49→17:05)
--- NOTE | 2022-06-06 11:28 | DR.H&P ---
H&P - History & Physical for Day of: H&P Date: 06/05/22 - Chief Complaint Chief Complaint: HYPOXIA, CHILLS - History of Present Illness History of Present Illness: IS A 76 YEAR OLD PATIENT OF OURS. SHE IS A RESIDENT OF [facility]. PATIENT WAS BROUGHT TO THE EMERGENCY DEPARTMENT BY THE GROUP HOME STAFF. GROUP HOME CHARGE NURSE REPORTS THAT WHILE SLEEPING, PATIENTS OXYGEN SATURATIONS WERE DROPPING INTO THE LOWER 80s AND PATIENT WAS HAVING CHILLS. SYMPTOMS REPORTEDLY STARTED EARLIER IN THE DAY. HER PMH INCLUDES: ANEMIA, ARTHRITIS, CAD, DEMENTIA, DEPRESSION, DYSLIPIDEMIA, GERD, GOUT, HTN, LA, CARDIAC STENTS, AND . ON ARRIVAL TO THE ER, HER VITALS WERE: 98.2-76-28-94%-113/73. PATIENT WAS WEARING OXYGEN VIA NASAL CANNULA AT 2LPM ON ARRIVAL. LABS WERE OBTAINED. WBC 10.7, RBC 3.77, HGB 12.6, HCT 38.5, PLT COUNT 170, SODIUM 140, POTASSIUM 5.6, CHLORIDE 99, CARBON DIOXIDE >45.0, BUN 9, CREATININE 0.48, GLUCOSE 135, CALCIUM 8.3, TOTAL BILI 0.60, AST 31, ALT 27, ALK PHOS 105, CREATINE KINASE 45, TROPONIN 21.0, BNP 118, TOTAL PROTEIN 6.3, ALBUMIN 2.6, LACTIC ACID 0.8. URINALYSIS WAS OBTAINED AND REVEALED: WBC TNTC, RBC 3-5, LEUKOCYTES 3+, BACTERIA 3+, BLOOD 4+, NITRITES POSITIVE. URINE AND BLOOD CULTURES WERE SET UP. AN ABG WAS OBTAINED AND REVEALED: PH 7.340, PC02 106, P02 70, HC03 57.2, 02 SAT 93, BASE EXCESS 25.5, A-A GRADIENT -3.0, FI02 28.0. A CHEST XRAY WAS OBTAINED AND REVEALED: Probable mild congestive heart failure. IN THE ER, PATIENT WAS GIVEN LASIX 40MG IV X 1 DOSE, ROCEPHIN 1G IV X 1 DOSE. SHE WAS ADMITTED TO THE HOSPITALS FOR FURTHER EVALUATION AND TREATMENT OF CHF, RESPIRATORY ACIDOSIS, HYPOXIA, UTI, HYPERKALEMIA. SHE WAS PLACED ON THE BIPAP. SHE WAS STARTED ON ROCEPHIN 1G IV HS, DUONEBS Q6H, FUROSEMIDE 20MG IV BID, VISTARIL 25-50MG PO Q8H PRN AGITATION, LEVAQUIN 750MG PO DAILY. HER HOME MEDICATIONS OF ZYLOPRIM, VITAMIN C, LIPITOR, DONEPEZIL, FLUTICASONE, FOLIC ACID, NEURONTIN, TOPROL, HEMOCYTE PLUS, PROTONIX, PREDNISONE, XARELTO, AND VENLAFAXINE WERE ALSO RESUMED. OTHERWISE, WE PLAN TO FOLLOW-UP WITH AM LABS, CHEST XRAY, ABG AND CONTINUE TO MONITOR. TIME SPENT ON CLINICAL ASSESSMENT, REVIWING LABS AND IMAGING, DECISION MAKING, AND DOCUMENTATION GREATER THAN 75 MINUTES. - Past Medical History Past Medical History: LA, Coronary Artery Disease, Hypertension, Dyslipidemia, Dementia, Depression, Anemia, GERD, Arthritis, Gout Additional Medical History: Venous Insufficiency, Rheumatoid Arthritis, Spondylosis Lumbar/Thoracic, Muscular Dystrophy, Osteoporosis, Degenerative Disc Disease, Chronic PVD, Cataracts, Pneumonia, Muscle Weakness, Previous Blood Transfusion - Past Surgical History Surgical History: Angioplasty/Stents, Additional Surgical History: Cataract Surgery, Two Cardiac Stents - Family History Family Medical History: Diabetes Mellitus, Hypertension - Social History Does patient currently use any type of tobacco product: No Have you used tobacco products in the last 12 months: No Type of Tobacco Use: None Does any household member use tobacco: No Alcohol Use: None Drug Use: None - Medications Home Medications: sertraline [From Zoloft] Allergy (Verified 03/10/17 14:54) CONTINUE taking the following medications allopurinol 300 mg tablet 1 tab PO QDAY 06/05/22 [History] ascorbic acid (vitamin C) 500 mg tablet (Vitamin C) 500 mg PO BID 06/05/22 [History] atorvastatin 20 mg tablet 1 tab PO QDAY 06/05/22 [History] donepezil 10 mg tablet 1 tab PO QDAY 06/05/22 [History] fluticasone propionate 50 mcg/actuation nasal spray,suspension 1 spray intranasal BID 06/05/22 [History] folic acid 1 mg tablet 1 mg PO QDAY 06/05/22 [History] furosemide 20 mg tablet (Lasix) 20 mg PO QAM 06/05/22 [History] gabapentin 600 mg tablet 600 mg PO TID 06/05/22 [History] iron-folic acid-multivitamin, mineral comb#15 106 mg iron-1 mg capsule 1 cap PO QDAY 06/05/22 [History] metoprolol succinate 25 mg tablet,extended release 24 hr 12.5 mg PO DAILY 06/05/22 [History] pantoprazole 40 mg tablet,delayed release 1 tab PO QDAY 06/05/22 [History] pantoprazole 40 mg tablet,delayed release (Protonix) 40 mg PO QDAY 06/05/22 [History] potassium chloride 20 mEq tablet,extended release(part/cryst) 2 tab PO BID 06/05/22 [History] prednisone 5 mg tablet 5 tab PO BID 06/05/22 [History] rivaroxaban 2.5 mg tablet (Xarelto) 2.5 tab PO BID 06/05/22 [History] sodium chloride 0.65 % nasal spray aerosol (Saline Mist) 1 spray intranasal BID 06/05/22 [History] venlafaxine 37.5 mg capsule,extended release 24 hr 1 cap PO QDAY 06/05/22 [History] - Review of Systems Constitutional: Chills, Weakness Eyes: No Symptoms Reported ENT: No Symptoms Reported Respiratory: Shortness of Breath, SOB with Excertion Cardiovascular: No Symptoms Reported Gastrointestinal: No Symptoms Reported Genitourinary: No Symptoms Reported Musculoskeletal: No Symptoms Reported Skin: No Symptoms Reported Neurological: Weakness, Confusion - Physical Exam Vital Signs: Temperature 98.5 F Pulse Rate [Left Brachial] 72 Pulse Rate 123 Respiratory Rate 22 Blood Pressure [Right Arm] 102/54 Blood Pressure 159/67 O2 Sat by Pulse Oximetry 92 Oriented: Normal Eyes: Normal Ear: Normal Nose: Normal Throat: Normal Respiratory: Diminished Throughout Cardiovascular: Normal : Normal Auscultation: Bowel Sounds: Normal Palpation: Normal Tenderness: Normal Skin: Normal Musculoskeletal: Normal Psychiatric: Anxiety Mood Description: Anxious Affect: Anxious, Normal Speech Pattern: Inappropriate - Assessment/Plan (1) CHF (congestive heart failure) Qualifiers: Heart failure type: unspecified Heart failure chronicity: acute on chronic Qualified Code(s): I50.9 - Heart failure, unspecified Status: Acute Plan: ADMIT, BIPAP, SUPPLEMENTAL OXYGEN, ROCEPHIN 1G IV HS, DUONEBS Q6H, FUROSEMIDE 20MG IV BID, VISTARIL 25-50MG PO Q8H PRN AGITATION, LEVAQUIN 750MG PO DAILY, RESUME HOME MEDS (2) Acute respiratory acidosis Status: Acute (3) Hypoxia Status: Acute (4) UTI (urinary tract infection) Qualifiers: Urinary tract infection type: acute cystitis Hematuria presence: with hematuria Qualified Code(s): N30.01 - Acute cystitis with hematuria Status: Acute (5) Hyperkalemia Status: Acute - Allergies Allergies/Adverse Reactions: Allergies Allergy/AdvReac Type Severity Reaction Status Date / Time sertraline [From Zoloft] Allergy Verified 03/10/17 14:54
[2022-06-06 15:19] VITALS: BMI 25.7
[2022-06-06] MEDS: ROCEPHIN VIAL 1 GRAM 1 G in NS 100 ML IV 100 ML IV SCH (21:42)
[2022-06-07] MEDS: DUONEB 0.5 MG/3 MG (3 mL) NEB SCH ×4 (00:15→17:14)
[2022-06-07 05:04] LABS: BASOPHILS # (AUTO) 0.1 X10^3/uL (0.0-0.1); BASOPHILS % (AUTO) 0.6 % (0.2-1.0); EOSINOPHILS # (AUTO) 0.1 x10^3/uL (0.0-0.2); EOSINOPHILS % (AUTO) 0.4 % (0.9-2.9); HEMATOCRIT 36.6 % (36.0-47.0); HEMOGLOBIN 12.2 g/dL (12.0-16.0); LYMPHOCYTES # (AUTO) 3.3 X10^3/uL (1.3-2.9); LYMPHOCYTES % (AUTO) 24.3 % (21.0-51.0); MEAN CORPUSCULAR HEMOGLOBIN 33.3 pg (27.0-34.0); MEAN CORPUSCULAR HGB CONC 33.4 g/dL (33.0-35.0); MEAN CORPUSCULAR VOLUME 99.9 fL (80.0-100.0); MEAN PLATELET VOLUME 8.3 fL (7.4-11.0); MONOCYTES # (AUTO) 0.9 x10^3/uL (0.3-0.8); MONOCYTES % (AUTO) 6.7 % (0.0-13.0); NEUTROPHILS # (AUTO) 9.3 x10^3/uL (2.2-4.8); RED BLOOD COUNT 3.66 X10^6/uL (3.5-5.4); RED CELL DISTRIBUTION WIDTH 14.7 % (11.6-16.5); WHITE BLOOD COUNT 13.6 X10^3/uL (3.6-10.0)
[2022-06-07 05:16] LABS: ALANINE AMINOTRANSFERASE 21 Units/L (12-78); ALBUMIN 2.3 g/dL (3.4-5.0); ALKALINE PHOSPHATASE 92 Units/L (46-116); ASPARTATE AMINO TRANSFERASE 21 Units/L (15-37); BLOOD UREA NITROGEN 11 mg/dL (7-18); CALCIUM 7.9 mg/dL (8.5-10.1); CHLORIDE 93 mmol/L (98-107); COR CA(FOR HYPOALB) 9.3 mg/dL (8.5-10.1); CREATININE 0.61 mg/dL (0.55-1.02); SODIUM 138 mmol/L (136-145); TOTAL PROTEIN 5.8 g/dL (6.4-8.2); eGFR NON BLACK RACES > 60 (>60)
[2022-06-07 05:26] LABS: CARBON DIOXIDE > 45.0 mmol/L (21-32)
[2022-06-07] MEDS ORDERED: KLOR-CON PO PRN (05:44)
[2022-06-07] MEDS ORDERED: POTASSIUM CHL 60 MEQ/NS 0.45% 500 ML IV PRN (05:44)
[2022-06-07] MEDS ORDERED: POTASSIUM CHL 40 MEQ/NS 0.45% 500 ML IV PRN (05:44)
[2022-06-07] MEDS ORDERED: MICRO K EXTEN CAP 10 MEQ PO PRN (05:44)
[2022-06-07] MEDS ORDERED: K-RIDER 10 MEQ/NS 100 ML 10 MEQ/100 ML BAG IV PRN (05:44)
[2022-06-07] MEDS ORDERED: POTASSIUM CHLORIDE LIQ 20 MEQ UDC PO PRN (05:44)
[2022-06-07] MEDS: NEURONTIN TAB 600 MG PO SCH ×3 (06:03→21:14)
[2022-06-07 06:18] LABS: ABG HCO3 55.3 mmol/L (22-26)
--- NOTE | 2022-06-07 07:50 | RAD ---
HISTORYShortness of breath, respiratory acidosisSTUDYChest AP [id number]/25/2023FINDINGSTher e is a port present on the left. The heart is mildly enlarged. No definite congestive heart failure is identified. The aorta is calcified and somewhat ectatic.. No definite acute infiltrates are identified. No right pleural effusion is identified. There is likely a small left pleural effusion present. Bony thorax is unremarkable.IMPRESSIONMild cardiomegaly without congestive heart failureSmall left pleural effusionElectronically signed by: POP FIELDS (Jun 07, 2022 07:49:47)
[2022-06-07] MEDS: AYR NASAL DROPS ENOSTRIL SCH ×4 (09:48→21:15)
[2022-06-07] MEDS: FLONASE NASAL SPRAY ENOSTRIL SCH ×2 (09:48→21:14)
[2022-06-07] MEDS: XARELTO PO SCH ×2 (09:56→21:14)
[2022-06-07] MEDS: TOPROL XL PO SCH (09:56)
[2022-06-07] MEDS: LASIX IVP SCH ×2 (09:56→16:25)
[2022-06-07] MEDS: EFFEXOR XR 37.5 MG CAP 24-HR PO SCH (09:56)
[2022-06-07] MEDS: PREDNISONE TAB 5 MG PO SCH ×2 (09:56→21:14)
[2022-06-07] MEDS: LEVAQUIN TAB 750 MG PO SCH (09:56)
[2022-06-07] MEDS: HEMOCYTE-PLUS PO SCH (09:57)
[2022-06-07] MEDS: ZYLOPRIM PO SCH (09:57)
[2022-06-07] MEDS: LIPITOR TAB 20 MG PO SCH (09:57)
[2022-06-07] MEDS: K-DUR TAB 20 MEQ PO PRN ×3 (09:57→16:25)
[2022-06-07] MEDS: VITAMIN C PO SCH ×2 (09:57→21:14)
[2022-06-07] MEDS: MAGNESIUM SULFATE 1 GRAM/100 mL PREMIX 1 G/100 ML BAG IV PRN ×2 (09:58→11:27)
[2022-06-07] MEDS: FOLIC ACID TAB 1 MG PO SCH (10:07)
[2022-06-07] MEDS: ARICEPT TAB 10 MG PO SCH (10:07)
[2022-06-07] MEDS: PROTONIX TAB 40 MG PO SCH (10:07)
[2022-06-07] MEDS: RESTORIL CAP 15 MG PO PRN (21:14)
[2022-06-07] MEDS: ROCEPHIN VIAL 1 GRAM 1 G in NS 100 ML IV 100 ML IV SCH (21:15)
[2022-06-08] MEDS: NEURONTIN TAB 600 MG PO SCH ×3 (05:04→21:09)
[2022-06-08] MEDS: DUONEB 0.5 MG/3 MG (3 mL) NEB SCH ×4 (06:00→17:24)
[2022-06-08 06:27] LABS: BASOPHILS % (AUTO) 0.3 % (0.2-1.0); EOSINOPHILS % (AUTO) 0.1 % (0.9-2.9); HEMATOCRIT 36.6 % (36.0-47.0); HEMOGLOBIN 12.2 g/dL (12.0-16.0); LYMPHOCYTES # (AUTO) 2.5 X10^3/uL (1.3-2.9); LYMPHOCYTES % (AUTO) 18.4 % (21.0-51.0); MEAN CORPUSCULAR HEMOGLOBIN 33.3 pg (27.0-34.0); MEAN CORPUSCULAR HGB CONC 33.4 g/dL (33.0-35.0); MEAN CORPUSCULAR VOLUME 99.6 fL (80.0-100.0); MEAN PLATELET VOLUME 8.3 fL (7.4-11.0); MONOCYTES % (AUTO) 7.6 % (0.0-13.0); NEUTROPHILS # (AUTO) 10.2 x10^3/uL (2.2-4.8); NEUTROPHILS % (AUTO) 73.6 % (42.0-75.0); RED BLOOD COUNT 3.68 X10^6/uL (3.5-5.4); WHITE BLOOD COUNT 13.8 X10^3/uL (3.6-10.0)
[2022-06-08 06:42] LABS: ALANINE AMINOTRANSFERASE 19 Units/L (12-78); ALBUMIN 2.3 g/dL (3.4-5.0); ALKALINE PHOSPHATASE 89 Units/L (46-116); ASPARTATE AMINO TRANSFERASE 22 Units/L (15-37); BLOOD UREA NITROGEN 9 mg/dL (7-18); CARBON DIOXIDE 41.7 mmol/L (21-32); CHLORIDE 96 mmol/L (98-107); COR CA(FOR HYPOALB) 9.4 mg/dL (8.5-10.1); CREATININE 0.61 mg/dL (0.55-1.02); SODIUM 138 mmol/L (136-145); eGFR NON BLACK RACES > 60 (>60)
--- NOTE | 2022-06-08 07:40 | RAD ---
HISTORYSOB HX: CAD, CHF, [place] SX: HYSTERECTOMY, STENTSSTUDYCHEST, 1 VIEWCOMPARISONChest one view from 06/07/2022.FINDINGSSupport devices: Unchanged left subclavian vein Port-A-Cath.Heart/mediastinum: Stable.Lungs: There are increased bilateral pulmonary opacities with a likely larger left pleural effusion. A small right pleural effusion is also suspected. No pneumothorax.Additional findings: None.IMPRESSIONInterval worsening of probable bilateral atelectasis/edema with a larger left pleural effusion and development of a probable small right pleural effusion.Electronically signed by: Daryl Colon (Jun 08, 2022 07:38:54)
[2022-06-08] MEDS: K-DUR TAB 20 MEQ PO PRN (09:14)
[2022-06-08] MEDS: LASIX IVP SCH ×2 (09:14→17:10)
[2022-06-08] MEDS: VITAMIN C PO SCH ×2 (09:15→21:05)
[2022-06-08] MEDS: XARELTO PO SCH ×2 (09:15→21:05)
[2022-06-08] MEDS: FOLIC ACID TAB 1 MG PO SCH (09:15)
[2022-06-08] MEDS: PROTONIX TAB 40 MG PO SCH (09:15)
[2022-06-08] MEDS: ZYLOPRIM PO SCH (09:15)
[2022-06-08] MEDS: TOPROL XL PO SCH (09:16)
[2022-06-08] MEDS: ARICEPT TAB 10 MG PO SCH (09:16)
[2022-06-08] MEDS: LIPITOR TAB 20 MG PO SCH (09:16)
[2022-06-08] MEDS: HEMOCYTE-PLUS PO SCH (09:16)
[2022-06-08] MEDS: PREDNISONE TAB 5 MG PO SCH ×2 (09:16→21:05)
[2022-06-08] MEDS: LEVAQUIN TAB 750 MG PO SCH (09:17)
[2022-06-08] MEDS: AYR NASAL DROPS ENOSTRIL SCH ×4 (09:19→21:04)
[2022-06-08] MEDS: FLONASE NASAL SPRAY ENOSTRIL SCH ×2 (09:19→21:04)
[2022-06-08] MEDS: EFFEXOR XR 37.5 MG CAP 24-HR PO SCH (09:20)
[2022-06-08] MEDS: RESTORIL CAP 15 MG PO PRN (21:05)
[2022-06-08] MEDS: ROCEPHIN VIAL 1 GRAM 1 G in NS 100 ML IV 100 ML IV SCH (21:05)
[2022-06-09] MEDS: NEURONTIN TAB 600 MG PO SCH ×3 (05:17→21:15)
[2022-06-09] MEDS: DUONEB 0.5 MG/3 MG (3 mL) NEB SCH ×4 (06:11→16:26)
[2022-06-09 06:29] LABS: BASOPHILS % (AUTO) 0.2 % (0.2-1.0); EOSINOPHILS % (AUTO) 0.1 % (0.9-2.9); HEMATOCRIT 35.5 % (36.0-47.0); LYMPHOCYTES # (AUTO) 2.6 X10^3/uL (1.3-2.9); LYMPHOCYTES % (AUTO) 22.3 % (21.0-51.0); MEAN CORPUSCULAR HEMOGLOBIN 33.6 pg (27.0-34.0); MEAN CORPUSCULAR HGB CONC 33.8 g/dL (33.0-35.0); MEAN CORPUSCULAR VOLUME 99.3 fL (80.0-100.0); MEAN PLATELET VOLUME 8.6 fL (7.4-11.0); MONOCYTES # (AUTO) 0.8 x10^3/uL (0.3-0.8); NEUTROPHILS # (AUTO) 8.3 x10^3/uL (2.2-4.8); NEUTROPHILS % (AUTO) 70.4 % (42.0-75.0); RED BLOOD COUNT 3.57 X10^6/uL (3.5-5.4); RED CELL DISTRIBUTION WIDTH 14.4 % (11.6-16.5); WHITE BLOOD COUNT 11.9 X10^3/uL (3.6-10.0)
[2022-06-09 06:35] LABS: ALANINE AMINOTRANSFERASE 17 Units/L (12-78); ALBUMIN 2.2 g/dL (3.4-5.0); ALKALINE PHOSPHATASE 81 Units/L (46-116); ASPARTATE AMINO TRANSFERASE 21 Units/L (15-37); BLOOD UREA NITROGEN 9 mg/dL (7-18); CALCIUM 8.1 mg/dL (8.5-10.1); CARBON DIOXIDE 40.6 mmol/L (21-32); CHLORIDE 94 mmol/L (98-107); COR CA(FOR HYPOALB) 9.5 mg/dL (8.5-10.1); CREATININE 0.55 mg/dL (0.55-1.02); SODIUM 139 mmol/L (136-145); TOTAL PROTEIN 5.8 g/dL (6.4-8.2); eGFR NON BLACK RACES > 60 (>60)
[2022-06-09] MEDS: PREDNISONE TAB 5 MG PO SCH ×2 (09:46→21:15)
[2022-06-09] MEDS: LIPITOR TAB 20 MG PO SCH (09:47)
[2022-06-09] MEDS: VITAMIN C PO SCH ×2 (09:47→21:15)
[2022-06-09] MEDS: HEMOCYTE-PLUS PO SCH (09:47)
[2022-06-09] MEDS: K-DUR TAB 20 MEQ PO PRN (09:47)
[2022-06-09] MEDS: LASIX IVP SCH ×2 (09:47→16:15)
[2022-06-09] MEDS: TOPROL XL PO SCH (09:47)
[2022-06-09] MEDS: PROTONIX TAB 40 MG PO SCH (09:47)
[2022-06-09] MEDS: ZYLOPRIM PO SCH (09:47)
[2022-06-09] MEDS: LEVAQUIN TAB 750 MG PO SCH (09:48)
[2022-06-09] MEDS: FOLIC ACID TAB 1 MG PO SCH (09:48)
[2022-06-09] MEDS: XARELTO PO SCH ×2 (09:48→21:15)
[2022-06-09] MEDS: ARICEPT TAB 10 MG PO SCH (09:48)
[2022-06-09] MEDS: AYR NASAL DROPS ENOSTRIL SCH ×4 (09:48→21:17)
[2022-06-09] MEDS: FLONASE NASAL SPRAY ENOSTRIL SCH ×2 (09:48→21:17)
[2022-06-09] MEDS: EFFEXOR XR 37.5 MG CAP 24-HR PO SCH (09:48)
--- NOTE | 2022-06-09 10:07 | RAD ---
HISTORYSOBSTUDYAP chestCOMPARISONJanuary 2022FINDINGSThere is no change in appearance of the heart, mediastinum or left subclavian port.Persistent bibasal densities obscuring the diaphragm surfaces and costophrenic angles. The upper lobes remain clear.IMPRESSIONNo change. Stable appearance of bibasal opacities consistent with pneumonia/atelectasis and probable pleural fluid.Electronically signed by: AMALIA BA (Jun 09, 2022 10:06:06)
[2022-06-09] MEDS: INVanz INJ 1 GRAM VIAL 1 G in NS 100 ML IV 100 ML IV SCH (10:59)
[2022-06-10] MEDS: DUONEB 0.5 MG/3 MG (3 mL) NEB SCH ×5 (00:15→16:37)
[2022-06-10] MEDS: NEURONTIN TAB 600 MG PO SCH ×4 (05:40→21:28)
[2022-06-10 06:10] LABS: ALANINE AMINOTRANSFERASE 18 Units/L (12-78); ALBUMIN 2.3 g/dL (3.4-5.0); ALKALINE PHOSPHATASE 78 Units/L (46-116); ASPARTATE AMINO TRANSFERASE 20 Units/L (15-37); BLOOD UREA NITROGEN 10 mg/dL (7-18); CALCIUM 7.9 mg/dL (8.5-10.1); CARBON DIOXIDE 41.3 mmol/L (21-32); CHLORIDE 98 mmol/L (98-107); COR CA(FOR HYPOALB) 9.3 mg/dL (8.5-10.1); COR NA(FOR HYPERGLY) 142 mmol/L (136-145); CREATININE 0.63 mg/dL (0.55-1.02); SODIUM 141 mmol/L (136-145); TOTAL PROTEIN 5.9 g/dL (6.4-8.2); eGFR NON BLACK RACES > 60 (>60)
[2022-06-10 06:16] LABS: BASOPHILS % (AUTO) 0.4 % (0.2-1.0); EOSINOPHILS # (AUTO) 0.1 x10^3/uL (0.0-0.2); EOSINOPHILS % (AUTO) 0.5 % (0.9-2.9); HEMOGLOBIN 12.2 g/dL (12.0-16.0); LYMPHOCYTES # (AUTO) 2.3 X10^3/uL (1.3-2.9); MEAN CORPUSCULAR HEMOGLOBIN 33.8 pg (27.0-34.0); MEAN CORPUSCULAR HGB CONC 33.9 g/dL (33.0-35.0); MEAN CORPUSCULAR VOLUME 99.8 fL (80.0-100.0); MEAN PLATELET VOLUME 8.7 fL (7.4-11.0); MONOCYTES # (AUTO) 0.8 x10^3/uL (0.3-0.8); MONOCYTES % (AUTO) 7.4 % (0.0-13.0); NEUTROPHILS # (AUTO) 8.2 x10^3/uL (2.2-4.8); NEUTROPHILS % (AUTO) 71.7 % (42.0-75.0); RED BLOOD COUNT 3.61 X10^6/uL (3.5-5.4); RED CELL DISTRIBUTION WIDTH 14.4 % (11.6-16.5); WHITE BLOOD COUNT 11.4 X10^3/uL (3.6-10.0)
[2022-06-10] MEDS: INVanz INJ 1 GRAM VIAL 1 G in NS 100 ML IV 100 ML IV SCH (10:01)
[2022-06-10] MEDS: ARICEPT TAB 10 MG PO SCH (10:01)
[2022-06-10] MEDS: LEVAQUIN TAB 750 MG PO SCH (10:01)
[2022-06-10] MEDS: HEMOCYTE-PLUS PO SCH (10:02)
[2022-06-10] MEDS: ZYLOPRIM PO SCH (10:02)
[2022-06-10] MEDS: FOLIC ACID TAB 1 MG PO SCH (10:02)
[2022-06-10] MEDS: PROTONIX TAB 40 MG PO SCH (10:02)
[2022-06-10] MEDS: VITAMIN C PO SCH ×2 (10:02→21:28)
[2022-06-10] MEDS: LIPITOR TAB 20 MG PO SCH (10:02)
[2022-06-10] MEDS: EFFEXOR XR 37.5 MG CAP 24-HR PO SCH (10:02)
[2022-06-10] MEDS: PREDNISONE TAB 5 MG PO SCH ×2 (10:02→21:28)
[2022-06-10] MEDS: LASIX IVP SCH ×2 (10:02→16:52)
[2022-06-10] MEDS: XARELTO PO SCH ×2 (10:03→21:28)
[2022-06-10] MEDS: TOPROL XL PO SCH (10:03)
[2022-06-10] MEDS: FLONASE NASAL SPRAY ENOSTRIL SCH ×2 (10:04→21:28)
[2022-06-10] MEDS: AYR NASAL DROPS ENOSTRIL SCH ×4 (10:05→21:28)
--- NOTE | 2022-06-10 15:41 | RAD ---
HISTORYSOB, RESPIRATORY ACIDOSISSTUDYCHEST x-ray, 1 VIEWCOMPARISONX-ray 06/09/2022FINDINGSPort catheter terminates in the region of the distal SVC. Probable moderate pleural effusions persist. There is cardiomegaly that may be greater than prior study. Patient is rotated to the right. No pneumothorax is seen.IMPRESSIONPossible worsening cardiomegaly.Electronically signed by: Paul Dowling (Jun 10, 2022 15:41:07)
[2022-06-11] MEDS: DUONEB 0.5 MG/3 MG (3 mL) NEB SCH ×3 (00:10→13:00)
[2022-06-11] MEDS: NEURONTIN TAB 600 MG PO SCH ×2 (05:32→13:58)
[2022-06-11 06:20] LABS: BASOPHILS % (AUTO) 0.5 % (0.2-1.0); EOSINOPHILS % (AUTO) 0.5 % (0.9-2.9); HEMATOCRIT 35.3 % (36.0-47.0); HEMOGLOBIN 11.8 g/dL (12.0-16.0); LYMPHOCYTES # (AUTO) 2.4 X10^3/uL (1.3-2.9); LYMPHOCYTES % (AUTO) 23.4 % (21.0-51.0); MEAN CORPUSCULAR HEMOGLOBIN 33.5 pg (27.0-34.0); MEAN CORPUSCULAR HGB CONC 33.5 g/dL (33.0-35.0); MEAN PLATELET VOLUME 9.1 fL (7.4-11.0); MONOCYTES # (AUTO) 0.9 x10^3/uL (0.3-0.8); MONOCYTES % (AUTO) 8.2 % (0.0-13.0); NEUTROPHILS % (AUTO) 67.4 % (42.0-75.0); RED BLOOD COUNT 3.53 X10^6/uL (3.5-5.4); RED CELL DISTRIBUTION WIDTH 14.7 % (11.6-16.5); WHITE BLOOD COUNT 10.4 X10^3/uL (3.6-10.0)
[2022-06-11 06:30] LABS: ALANINE AMINOTRANSFERASE 18 Units/L (12-78); ALBUMIN 2.2 g/dL (3.4-5.0); ALKALINE PHOSPHATASE 74 Units/L (46-116); ASPARTATE AMINO TRANSFERASE 28 Units/L (15-37); BLOOD UREA NITROGEN 6 mg/dL (7-18); CARBON DIOXIDE 42.1 mmol/L (21-32); CHLORIDE 97 mmol/L (98-107); COR CA(FOR HYPOALB) 9.4 mg/dL (8.5-10.1); COR NA(FOR HYPERGLY) 139 mmol/L (136-145); CREATININE 0.55 mg/dL (0.55-1.02); SODIUM 139 mmol/L (136-145); TOTAL PROTEIN 5.8 g/dL (6.4-8.2); eGFR NON BLACK RACES > 60 (>60)
--- NOTE | 2022-06-11 08:16 | RAD ---
HISTORYRESPIRATORY ACIDOSIS, SOBSTUDYSingle-view [id number]/30/2023FINDINGSThe trachea is midline. The cardiac silhouette is enlarged with a tortuous thoracic aorta. A Port-A-Cath overlying the left chest is observed the tip in the SVC. Blunting of the left costophrenic angle representing left-sided pleural effusion subsegmental atelectasis is observed. Improved aeration of the right mika thorax is noted. The bony thorax is unremarkable.IMPRESSIONPersistent pleural parenchymal opacity left base consistent with layering effusion and subsegmental atelectasis.Electronically signed by: SANDOVAL TELLO (Jun 11, 2022 08:15:03)
--- NOTE | 2022-06-11 09:01 | PCM.PROG ---
Progress Note - Progress Note for Day of Date of Exam: 06/07/22 - Subjective Subjective: IS CURRENTLY INPATIENT STATUS FOR TREATMENT OF CHF, RESPIRATORY ACIDOSIS, HYPOXIA, UTI, AND HYPERKALEMIA. TODAY, SHE IS ALERT, SITTING UP IN BED ON MORNING ROUNDS. SHE COMPLAINS OF WEAKNESS AND SHORTNESS OF BREATH, BUT DENIES OTHER COMPLAINTS. SHE IS CURRENTLY UTILIZING OXYGEN VIA NASAL CANNULA AT 3 LITERS/MINUTE. SHE DID UTILIZE THE BIPAP THROUGHOUT THE NIGHT. ON EXAMINATION, HEART IS REGULAR IN RATE AND RHYTHM. BILATERAL LUNGS ARE NOTED WITH DIMINISHED LUNG SOUNDS THROUGHOUT. ABDOMEN IS ROUND, SOFT, AND NON-TENDER WITH NORMAL BOWEL SOUNDS NOTED IN ALL QUADRANTS. STRATTON CATHETER NOTED TO BEDSIDE DRAINAGE. TRACE EDEMA NOTED TO BILATERAL LOWER EXTREMITIES. HER VITALS [facility] ARE: 98.8-64-20-93%-151/60. LABS WERE OBTAINED. WBC 13.6, RBC 3.66, HGB 12.2, HCT 36.6, PLT COUNT 161, SODIUM 138, POTASSIUM 3.1, CHLORIDE 93, CARBON DIOXIDE >45.0, BUN 11, CREATININE 0.61, GLUCOSE 90, CALCIUM 7.9, MAGNESIUM 1.5, TOTAL BILI 0.60, AST 21, ALT 21, ALK PHOS 93, BNP 81.4, TOTAL PROTEIN 5.8, ALBUMIN 2.3. ABG WAS REPEATED THIS MORNING AND REVEALED: PH 7.580, PC02 59, P02 69, HC03 55.3, 02 SAT 96, BASE EXCESS 29.0, A-A GRADIENT 85, FI02 32.0. URINE AND BLOOD CULTURES ARE PENDING. A CHEST XRAY WAS OBTAINED AND REVEALED: Mild cardiomegaly without congestive heart failure. Small left pleural effusion. SHE IS CURRENTLY RECEIVING ROCEPHIN 1G IV HS, DUONEBS Q6H, FUROSEMIDE 20MG IV BID, VISTARIL 25-50MG PO Q8H PRN AGITATION, LEVAQUIN 750MG PO DAILY. HER HOME MEDICATIONS OF ZYLOPRIM, VITAMIN C, LIPITOR, DONEPEZIL, FLUTICASONE, FOLIC ACID, NEURONTIN, TOPROL, HEMOCYTE PLUS, PROTONIX, PREDNISONE, XARELTO, AND VENLAFAXINE WERE ALSO RESUMED. WE WILL CONTINUE WITH CURRENT PLAN OF CARE TODAY AND ENCOURAGE THE USE OF THE BIPAP. OTHERWISE, WE WILL FOLLOW-UP WITH AM LABS AND CONTINUE TO MONITOR. TIME SPENT ON CLINICAL ASSESSMENT, REVIWING LABS AND IMAGING, DECISION MAKING, AND DOCUMENTATION GREATER THAN 45 MINUTES. - Past Medical Family Social History Past Med/Fam/Surg Hx: No changes since H&P Allergies: Allergies sertraline [From Zoloft] Allergy (Verified 03/10/17 14:54) - Review of Systems ROS: No change since H&P - Vital Signs and I&O's Vital Signs: Temperature 99.3 F Pulse Rate [Left Brachial] 89 Pulse Rate 93 Respiratory Rate 20 Blood Pressure [Left Arm] 133/76 Blood Pressure [Right Arm] 127/61 Blood Pressure 159/67 O2 Sat by Pulse Oximetry 97 Intake and Output: Intake & Output 06/08/22 06/09/22 06/10/22 06/11/22 11:59 11:59 11:59 11:59 Intake Total 1111 / 1111 598 / 598 680 / 680 1000 / 1000 Output Total 1720 / 1720 1490 / 1490 1575 / 1575 1999 / 1999 Balance -609 / -609 -892 / -892 -895 / -895 -1000 / -1000 - Physical Exam Oriented: Normal Eyes: Normal Ear: Normal Nose: Normal Throat: Normal Cardiovascular: Edema (TRACE LOWER EXTREMITY EDEMA ) : Normal Auscultation: Bowel Sounds: Normal Palpation: Normal Tenderness: Normal Skin: Other (CUTANEOUS HORN TO RIGHT SIDE FACE ) Musculoskeletal: Normal Psychiatric: Anxiety Mood Description: Anxious Affect: Anxious, Normal Speech Pattern: Clear, Appropriate - Laboratory and Diagnostics Result Diagrams: 06/11/22 05:10 06/11/22 05:10 Labs: 06/05/22 23:26 Urine,Catheterized Urine Culture - Final Escherichia Coli Escherichia Coli#2 06/06/22 11:39 Blood Blood Culture - Preliminary 06/06/22 11:28 Blood Blood Culture - Preliminary Laboratory WBC 10.4 X10^3/uL (3.6-10.0) H 06/11/22 05:10 RBC 3.53 X10^6/uL (3.5-5.4) 06/11/22 05:10 Hgb 11.8 g/dL (12.0-16.0) L 06/11/22 05:10 Hct 35.3 % (36.0-47.0) L 06/11/22 05:10 MCV 100.0 fL (80.0-100.0) 06/11/22 05:10 MCH 33.5 pg (27.0-34.0) 06/11/22 05:10 MCHC 33.5 g/dL (33.0-35.0) 06/11/22 05:10 RDW 14.7 % (11.6-16.5) 06/11/22 05:10 Plt Count 159 X10^3/uL (150.0-450.0) 06/11/22 05:10 MPV 9.1 fL (7.4-11.0) 06/11/22 05:10 Neut % (Auto) 67.4 % (42.0-75.0) 06/11/22 05:10 Lymph % (Auto) 23.4 % (21.0-51.0) 06/11/22 05:10 [place] % (Auto) 8.2 % (0.0-13.0) 06/11/22 05:10 Eos % (Auto) 0.5 % (0.9-2.9) L 06/11/22 05:10 Baso % (Auto) 0.5 % (0.2-1.0) 06/11/22 05:10 Neut # (Auto) 7.0 x10^3/uL (2.2-4.8) H 06/11/22 05:10 Lymph # (Auto) 2.4 X10^3/uL (1.3-2.9) 06/11/22 05:10 [place] # (Auto) 0.9 x10^3/uL (0.3-0.8) H 06/11/22 05:10 Eos # (Auto) 0.0 x10^3/uL (0.0-0.2) 06/11/22 05:10 Baso # (Auto) 0.0 X10^3/uL (0.0-0.1) 06/11/22 05:10 Absolute Nucleated RBC 0.0 /100WBC 06/11/22 05:10 Sample Site [facility] 06/07/22 06:11 ABG pH 7.580 (7.35-7.45) H* 06/07/22 06:11 ABG pCO2 59.0 mmHg (35.0-45.0) H* 06/07/22 06:11 ABG pO2 69.0 mmHg (80.0-100.0) L 06/07/22 06:11 ABG HCO3 55.3 mmol/L (22-26) H* 06/07/22 06:11 ABG O2 Saturation 96.0 % (90-100) 06/07/22 06:11 ABG Base Excess 29.0 mmol/L (-2.0-2.0) H 06/07/22 06:11 Satya Test Na 06/07/22 06:11 A-a Gradient 85.0 mmHg 06/07/22 06:11 FiO2 32.0 06/07/22 06:11 Blood Gas Comments [facility]g [facility] 06/07/22 06:11 Sodium 139 mmol/L (136-145) 06/11/22 05:10 Corrected Sodium 139 mmol/L (136-145) 06/11/22 05:10 Potassium 3.5 mmol/L (3.5-5.1) 06/11/22 05:10 Chloride 97 mmol/L (98-107) L 06/11/22 05:10 Carbon Dioxide 42.1 mmol/L (21-32) H 06/11/22 05:10 BUN 6 mg/dL (7-18) L 06/11/22 05:10 Creatinine 0.55 mg/dL (0.55-1.02) 06/11/22 05:10 Est GFR (MDRD) Af Amer > 60 (>60) 06/11/22 05:10 Est GFR (MDRD) Non-Af > 60 (>60) 06/11/22 05:10 Glucose 114 mg/dL (65-99) H 06/11/22 05:10 Lactic Acid 0.8 mmol/L (0.4-2.0) 06/05/22 22:22 Calcium 8.0 mg/dL (8.5-10.1) L 06/11/22 05:10 Corrected Calcium 9.4 mg/dL (8.5-10.1) 06/11/22 05:10 Magnesium 2.0 mg/dL (2.0-2.9) 06/08/22 06:05 Total Bilirubin 0.40 mg/dL (0.2-1.0) 06/11/22 05:10 AST 28 Units/L (15-37) 06/11/22 05:10 ALT 18 Units/L (12-78) 06/11/22 05:10 Alkaline Phosphatase 74 Units/L (46-116) 06/11/22 05:10 Creatine Kinase 45 Units/L (26-192) 06/05/22 22:22 Troponin I High Sens 21.0 ng/L (4.0-60.0) 06/05/22 22:22 B-Natriuretic Peptide 126 pg/mL (0-79) H 06/11/22 05:10 Total Protein 5.8 g/dL (6.4-8.2) L 06/11/22 05:10 Albumin 2.2 g/dL (3.4-5.0) L 06/11/22 05:10 Globulin 3.6 g/dL (2.5-4.5) 06/11/22 05:10 Albumin/Globulin Ratio 0.6 Ratio (1.1-2.1) L 06/11/22 05:10 Specimen Type Catherized urine 06/05/22 23: Urine Color Yellow (YELLOW) 06/05/22 23: Urine Appearance Hazy (CLEAR) 06/05/22 23: Urine pH 6.0 (5.0 - 8.0) 06/05/22 23: Ur Specific [place] 1.015 (1.000-1.030) 06/05/22 23:26 Urine Protein 2+ (NEGATIVE) 06/05/22 23:26 Urine Glucose (UA) Negative (NEGATIVE) 06/05/22 23: Urine Ketones Negative (NEGATIVE) 06/05/22 23: Urine Blood 4+ (NEGATIVE) 06/05/22 23:26 Urine Nitrite Positive (NEGATIVE) 06/05/22 23:26 Urine Bilirubin Negative (NEGATIVE) 06/05/22 23:26 Urine Urobilinogen Normal (NORMAL) 06/05/22 23:26 Ur Leukocyte Esterase 3+ (NEGATIVE) 06/05/22 23:26 Urine RBC 3-5 /HPF (0-3) A 06/05/22 23:26 Urine WBC Tntc /HPF (0-5) A 06/05/22 23:26 Ur Squamous Epith Cells Few /HPF (NEGATIVE) 06/05/22 23:26 Urine Bacteria 3+ /HPF (NEGATIVE) 06/05/22 23:26 Hyaline Casts Few /LPF (NEGATIVE) 06/05/22 23:26 Urine Mucus Many /HPF (NEGATIVE) 06/05/22 23:26 Ur Culture Indicated? Yes/culture set up 06/05/22 23:26 - Plan (1) CHF (congestive heart failure) Status: Acute Qualifiers: Heart failure type: unspecified Heart failure chronicity: acute on chronic Qualified Code(s): I50.9 - Heart failure, unspecified Plan: ADMIT, BIPAP, SUPPLEMENTAL OXYGEN, ROCEPHIN 1G IV HS, DUONEBS Q6H, FUROSEMIDE 20MG IV BID, VISTARIL 25-50MG PO Q8H PRN AGITATION, LEVAQUIN 750MG PO DAILY, POTASSIUM AND MAGNESIUM PROTOCOLS, RESUME HOME MEDS (2) Acute respiratory acidosis Status: Acute (3) Hypoxia Status: Acute (4) UTI (urinary tract infection) Status: Acute Qualifiers: Urinary tract infection type: acute cystitis Hematuria presence: with hematuria Qualified Code(s): N30.01 - Acute cystitis with hematuria (5) Hyperkalemia Status: Acute (6) Hypomagnesemia Status: Acute
--- NOTE | 2022-06-11 09:08 | PCM.PROG ---
Progress Note - Progress Note for Day of Date of Exam: 06/08/22 - Subjective Subjective: IS CURRENTLY INPATIENT STATUS FOR TREATMENT OF CHF, RESPIRATORY ACIDOSIS, HYPOXIA, UTI, AND HYPERKALEMIA. TODAY, SHE IS ALERT, SITTING UP IN BED ON MORNING ROUNDS. SHE COMPLAINS OF WEAKNESS AND SHORTNESS OF BREATH, BUT DENIES OTHER COMPLAINTS. SHE IS CURRENTLY UTILIZING OXYGEN VIA NASAL CANNULA AT 3 LITERS/MINUTE. SHE HAS BEEN UNABLE TO TOLERATED THE USE OF THE BIPAP. ON EXAMINATION, HEART IS REGULAR IN RATE AND RHYTHM. BILATERAL LUNGS ARE NOTED WITH DIMINISHED LUNG SOUNDS THROUGHOUT. ABDOMEN IS ROUND, SOFT, AND NON- TENDER WITH NORMAL BOWEL SOUNDS NOTED IN ALL QUADRANTS. STRATTON CATHETER NOTED TO BEDSIDE DRAINAGE. TRACE EDEMA NOTED TO BILATERAL LOWER EXTREMITIES. HER VITALS THIS MORNING ARE: 98.1-93-22-93%-118/64. LABS WERE OBTAINED. WBC 13.8, RBC 3.68, HGB 12.2, HCT 36.6, PLT COUNT 166, SODIUM 138, POTASSIUM 3.8, CHLORIDE 96, CARBON DIOXIDE 41.7, BUN 9, CREATININE 0.61, GLUCOSE 93, CALCIUM 8.0, MAGNESIUM 2.0, AST 22, ALT 19, ALK PHOS 89, BNP 64.5, TOTAL PROTEIN 6.0, ALBUMIN 2.3. URINE AND BLOOD CULTURES ARE PENDING. A CHEST XRAY WAS OBTAINED AND REVEALED: Interval worsening of probable bilateral atelectasis/edema with a larger left pleural effusion and development of a probable small right pleural effusion. SHE IS CURRENTLY RECEIVING ROCEPHIN 1G IV HS, DUONEBS Q6H, FUROSEMIDE 20MG IV BID, VISTARIL 25-50MG PO Q8H PRN AGITATION, LEVAQUIN 750MG PO DAILY. HER HOME M EDICATIONS OF ZYLOPRIM, VITAMIN C, LIPITOR, DONEPEZIL, FLUTICASONE, FOLIC ACID, NEURONTIN, TOPROL, HEMOCYTE PLUS, PROTONIX, PREDNISONE, XARELTO, AND VENLAFAXINE WERE ALSO RESUMED. WE WILL CONTINUE WITH CURRENT PLAN OF CARE TODAY. OTHERWISE, WE WILL FOLLOW-UP WITH AM LABS AND CONTINUE TO MONITOR. TIME SPENT ON CLINICAL ASSESSMENT, REVIWING LABS AND IMAGING, DECISION MAKING, AND DOCUMENTATION GREATE R THAN 45 MINUTES. - Past Medical Family Social History Past Med/Fam/Surg Hx: No changes since H&P Allergies: Allergies sertraline [From Zoloft] Allergy (Verified 03/10/17 14:54) - Review of Systems ROS: No change since H&P - Vital Signs and I&O's Vital Signs: Temperature 99.3 F Pulse Rate [Left Brachial] 89 Pulse Rate 93 Respiratory Rate 20 Blood Pressure [Left Arm] 133/76 Blood Pressure [Right Arm] 127/61 Blood Pressure 159/67 O2 Sat by Pulse Oximetry 97 Intake and Output: Intake & Output 06/08/22 06/09/22 06/10/22 06/11/22 11:59 11:59 11:59 11:59 Intake Total 1111 / 1111 598 / 598 680 / 680 1000 / 1000 Output Total 1720 / 1720 1490 / 1490 1575 / 1575 1999 Balance -609 / -609 -892 / -892 -895 / -895 -1000 / -1000 - Physical Exam Oriented: Normal Eyes: Normal Ear: Normal Nose: Normal Throat: Normal Respiratory: Diminished Cardiovascular: Edema (TRACE LOWER EXTREMITY EDEMA ) : Normal Auscultation: Bowel Sounds: Normal Palpation: Normal Tenderness: Normal Skin: Other (CUTANEOUS HORN TO RIGHT SIDE FACE ) Musculoskeletal: Normal Psychiatric: Anxiety Mood Description: Anxious Affect: Anxious, Normal Speech Pattern: Clear, Appropriate - Laboratory and Diagnostics Result Diagrams: 06/11/22 05:10 06/11/22 05:10 Labs: 06/05/22 23:26 Urine,Catheterized Urine Culture - Final Escherichia Coli Escherichia Coli#2 06/06/22 11:39 Blood Blood Culture - Preliminary 06/06/22 11:28 Blood Blood Culture - Preliminary Laboratory WBC 10.4 X10^3/uL (3.6-10.0) H 06/11/22 05:10 RBC 3.53 X10^6/uL (3.5-5.4) 06/11/22 05:10 Hgb 11.8 g/dL (12.0-16.0) L 06/11/22 05:10 Hct 35.3 % (36.0-47.0) L 06/11/22 05:10 MCV 100.0 fL (80.0-100.0) 06/11/22 05:10 MCH 33.5 pg (27.0-34.0) 06/11/22 05:10 MCHC 33.5 g/dL (33.0-35.0) 06/11/22 05:10 RDW 14.7 % (11.6-16.5) 06/11/22 05:10 Plt Count 159 X10^3/uL (150.0-450.0) 06/11/22 05:10 MPV 9.1 fL (7.4-11.0) 06/11/22 05:10 Neut % (Auto) 67.4 % (42.0-75.0) 06/11/22 05:10 Lymph % (Auto) 23.4 % (21.0-51.0) 06/11/22 05:10 [place] % (Auto) 8.2 % (0.0-13.0) 06/11/22 05:10 Eos % (Auto) 0.5 % (0.9-2.9) L 06/11/22 05:10 Baso % (Auto) 0.5 % (0.2-1.0) 06/11/22 05:10 Neut # (Auto) 7.0 x10^3/uL (2.2-4.8) H 06/11/22 05:10 Lymph # (Auto) 2.4 X10^3/uL (1.3-2.9) 06/11/22 05:10 [place] # (Auto) 0.9 x10^3/uL (0.3-0.8) H 06/11/22 05:10 Eos # (Auto) 0.0 x10^3/uL (0.0-0.2) 06/11/22 05:10 Baso # (Auto) 0.0 X10^3/uL (0.0-0.1) 06/11/22 05:10 Absolute Nucleated RBC 0.0 /100WBC 06/11/22 05:10 Sample Site Rbra 06/07/22 06:11 ABG pH 7.580 (7.35-7.45) H* 06/07/22 06:11 ABG pCO2 59.0 mmHg (35.0-45.0) H* 06/07/22 06:11 ABG pO2 69.0 mmHg (80.0-100.0) L 06/07/22 06:11 ABG HCO3 55.3 mmol/L (22-26) H* 06/07/22 06:11 ABG O2 Saturation 96.0 % (90-100) 06/07/22 06:11 ABG Base Excess 29.0 mmol/L (-2.0-2.0) H 06/07/22 06:11 Satya Test Na 06/07/22 06:11 A-a Gradient 85.0 mmHg 06/07/22 06:11 FiO2 32.0 06/07/22 06:11 Blood Gas Comments Ashley abg well-mtf 06/07/22 06:11 Sodium 139 mmol/L (136-145) 06/11/22 05:10 Corrected Sodium 139 mmol/L (136-145) 06/11/22 05:10 Potassium 3.5 mmol/L (3.5-5.1) 06/11/22 05:10 Chloride 97 mmol/L (98-107) L 06/11/22 05:10 Carbon Dioxide 42.1 mmol/L (21-32) H 06/11/22 05:10 BUN 6 mg/dL (7-18) L 06/11/22 05:10 Creatinine 0.55 mg/dL (0.55-1.02) 06/11/22 05:10 Est GFR (MDRD) Af Amer > 60 (>60) 06/11/22 05:10 Est GFR (MDRD) Non-Af > 60 (>60) 06/11/22 05:10 Glucose 114 mg/dL (65-99) H 06/11/22 05:10 Lactic Acid 0.8 mmol/L (0.4-2.0) 06/05/22 22:22 Calcium 8.0 mg/dL (8.5-10.1) L 06/11/22 05:10 Corrected Calcium 9.4 mg/dL (8.5-10.1) 06/11/22 05:10 Magnesium 2.0 mg/dL (2.0-2.9) 06/08/22 06:05 Total Bilirubin 0.40 mg/dL (0.2-1.0) 06/11/22 05:10 AST 28 Units/L (15-37) 06/11/22 05:10 ALT 18 Units/L (12-78) 06/11/22 05:10 Alkaline Phosphatase 74 Units/L (46-116) 06/11/22 05:10 Creatine Kinase 45 Units/L (26-192) 06/05/22 22:22 Troponin I High Sens 21.0 ng/L (4.0-60.0) 06/05/22 22:22 B-Natriuretic Peptide 126 pg/mL (0-79) H 06/11/22 05:10 Total Protein 5.8 g/dL (6.4-8.2) L 06/11/22 05:10 Albumin 2.2 g/dL (3.4-5.0) L 06/11/22 05:10 Globulin 3.6 g/dL (2.5-4.5) 06/11/22 05:10 Albumin/Globulin Ratio 0.6 Ratio (1.1-2.1) L 06/11/22 05:10 Specimen Type Catherized urine 06/05/22 23:26 Urine Color Yellow (YELLOW) 06/05/22 23:26 Urine Appearance Hazy (CLEAR) 06/05/22 23: Urine pH 6.0 (5.0 - 8.0) 06/05/22 23:26 Ur Specific [place] 1.015 (1.000-1.030) 06/05/22 23: Urine Protein 2+ (NEGATIVE) 06/05/22 23: Urine Glucose (UA) Negative (NEGATIVE) 06/05/22 23: Urine Ketones Negative (NEGATIVE) 06/05/22 23:26 Urine Blood 4+ (NEGATIVE) 06/05/22 23:26 Urine Nitrite Positive (NEGATIVE) 06/05/22 23: Urine Bilirubin Negative (NEGATIVE) 06/05/22 23:26 Urine Urobilinogen Normal (NORMAL) 06/05/22 23:26 Ur Leukocyte Esterase 3+ (NEGATIVE) 06/05/22 23:26 Urine RBC 3-5 /HPF (0-3) A 06/05/22 23:26 Urine WBC Tntc /HPF (0-5) A 06/05/22 23:26 Ur Squamous Epith Cells Few /HPF (NEGATIVE) 06/05/22 23:26 Urine Bacteria 3+ /HPF (NEGATIVE) 06/05/22 23:26 Hyaline Casts Few /LPF (NEGATIVE) 06/05/22 23:26 Urine Mucus Many /HPF (NEGATIVE) 06/05/22 23:26 Ur Culture Indicated? Yes/culture set up 06/05/22 23:26 - Plan (1) CHF (congestive heart failure) Status: Acute Qualifiers: Heart failure type: unspecified Heart failure chronicity: acute on chronic Qualified Code(s): I50.9 - Heart failure, unspecified Plan: SUPPLEMENTAL OXYGEN, ROCEPHIN 1G IV HS, DUONEBS Q6H, FUROSEMIDE 20MG IV BID, VISTARIL 25-50MG PO Q8H PRN AGITATION, LEVAQUIN 750MG PO DAILY, POTASSIUM AND MAGNESIUM PROTOCOLS, RESUME HOME MEDS (2) Acute respiratory acidosis Status: Acute (3) Hypoxia Status: Acute (4) UTI (urinary tract infection) Status: Acute Qualifiers: Urinary tract infection type: acute cystitis Hematuria presence: with hematuria Qualified Code(s): N30.01 - Acute cystitis with hematuria (5) Hyperkalemia Status: Acute (6) Hypomagnesemia Status: Acute
[2022-06-11] MEDS: INVanz INJ 1 GRAM VIAL 1 G in NS 100 ML IV 100 ML IV SCH (09:15)
[2022-06-11] MEDS: ZYLOPRIM PO SCH (09:16)
[2022-06-11] MEDS: XARELTO PO SCH (09:16)
[2022-06-11] MEDS: HEMOCYTE-PLUS PO SCH (09:16)
[2022-06-11] MEDS: TOPROL XL PO SCH (09:16)
[2022-06-11] MEDS: PROTONIX TAB 40 MG PO SCH (09:16)
[2022-06-11] MEDS: PREDNISONE TAB 5 MG PO SCH (09:16)
[2022-06-11] MEDS: EFFEXOR XR 37.5 MG CAP 24-HR PO SCH (09:16)
[2022-06-11] MEDS: ARICEPT TAB 10 MG PO SCH (09:17)
[2022-06-11] MEDS: VITAMIN C PO SCH (09:17)
[2022-06-11] MEDS: FOLIC ACID TAB 1 MG PO SCH (09:18)
[2022-06-11] MEDS: FLONASE NASAL SPRAY ENOSTRIL SCH (09:18)
[2022-06-11] MEDS: LIPITOR TAB 20 MG PO SCH (09:18)
[2022-06-11] MEDS: LASIX IVP SCH (09:18)
[2022-06-11] MEDS: AYR NASAL DROPS ENOSTRIL SCH ×2 (09:19→13:55)
--- NOTE | 2022-06-11 11:05 | PCM.PROG ---
Progress Note - Progress Note for Day of Date of Exam: 06/09/22 - Subjective Subjective: IS CURRENTLY INPATIENT STATUS FOR TREATMENT OF CHF, RESPIRATORY ACIDOSIS, HYPOXIA, UTI, AND HYPERKALEMIA. TODAY, SHE IS ALERT, SITTING UP IN BED ON MORNING ROUNDS. SHE COMPLAINS OF WEAKNESS AND SHORTNESS OF BREATH, BUT DENIES OTHER COMPLAINTS. SHE IS CURRENTLY UTILIZING THE BIPAP. [facility] THE USE OF THE BIPAP WITH OXYGEN VIA NASAL CANNULA AT 3 LPM. ON EXAMINATION, HEART IS REGULAR IN RATE AND RHYTHM. BILATERAL LUNGS ARE NOTED WITH DIMINISHED LUNG SOUNDS THROUGHOUT. ABDOMEN IS ROUND, SOFT, AND NON- TENDER WITH NORMAL BOWEL SOUNDS NOTED IN ALL QUADRANTS. TRACE EDEMA NOTED TO BILATERAL LOWER EXTREMITIES. HER VITALS THIS MORNING ARE: 98.4-69-22-95%-126/59. LABS WERE OBTAINED. WBC 11.9, RBC 3.57, HGB 12.0, HCT 35.5, PLT COUNT 155, SODIUM 139, POTASSIUM 3.0, CHLORIDE 94, CARBON DIOXIDE 40.6, BUN 9, CREATININE 0.55, GLUCOSE 105, CALCIUM 8.1, AST 21, ALT 17, ALK PHOS 81, BNP 97.5, TOTAL PROTEIN 5.8, ALBUMIN 2.2. URINE CULTURES ARE POSITIVE FOR GROWTH OF E.COLI AND E.COLI #2. BLOOD CULTURES ARE NEGATIVE. A CHEST XRAY WAS OBTAINED AND REVEALED: No change. Stable appearance of bibasal opacities consistent with pneumonia/atelectasis and probable pleural fluid. SHE IS CURRENTLY RECEIVING ROCEPHIN 1G IV HS, DUONEBS Q6H, FUROSEMIDE 20MG IV BID, VISTARIL 25-50MG PO Q8H PRN AGITATION, LEVAQUIN 750MG PO DAILY. HER HOME MEDICATIONS OF ZYLOPRIM, VITAMIN C, LIPITOR, DONEPEZIL, FLUTICASONE, FOLIC ACID, NEURONTIN, TOPROL, HEMOCYTE PLUS, PROTONIX, PREDNISONE, XARELTO, AND VENLAFAXINE WERE ALSO RESUMED. WE WILL CHANGE ROCEPHIN TO INVANZ 1G IV DAILY. OTHERWISE, WE WILL CONTINUE WITH CURRENT PLAN OF CARE TODAY. WE WILL FOLLOW-UP WITH AM LABS AND CONTINUE TO MONITOR. TIME SPENT ON CLINICAL ASSESSMENT, REVIWING LABS AND IMAGING, DECISION MAKING, AND DOCUMENTATION GREATER THAN 45 MINUTES. - Past Medical Family Social History Past Med/Fam/Surg Hx: No changes since H&P Allergies: Allergies sertraline [From Zoloft] Allergy (Verified 03/10/17 14:54) - Review of Systems ROS: No change since H&P - Vital Signs and I&O's Vital Signs: Temperature 98 F Pulse Rate [Left Brachial] 103 Pulse Rate 93 Respiratory Rate 18 Blood Pressure [Left Arm] 133/76 Blood Pressure [Right Arm] 123/59 Blood Pressure 159/67 O2 Sat by Pulse Oximetry 95 Intake and Output: Intake & Output 06/08/22 06/09/22 06/10/22 06/11/22 11:59 11:59 11:59 11:59 Intake Total 1111 / 1111 598 / 598 680 / 680 1000 / 1000 Output Total 1720 / 1720 1490 / 1490 1575 / 1575 1999 Balance -609 / -609 -892 / -892 -895 / -895 -1000 / -1000 - Physical Exam Oriented: Normal Eyes: Normal Ear: Normal Nose: Normal Throat: Normal Respiratory: Diminished Cardiovascular: Edema (TRACE LOWER EXTREMITY EDEMA ) : Normal Auscultation: Bowel Sounds: Normal Palpation: Normal Tenderness: Normal Skin: Other (CUTANEOUS HORN TO RIGHT SIDE FACE ) Musculoskeletal: Normal Psychiatric: Anxiety Mood Description: Anxious Affect: Anxious, Normal Speech Pattern: Clear, Appropriate - Laboratory and Diagnostics Result Diagrams: 06/11/22 05:10 06/11/22 05:10 Labs: 06/05/22 23:26 Urine,Catheterized Urine Culture - Final Escherichia Coli Escherichia Coli#2 06/06/22 11:39 Blood Blood Culture - Preliminary 06/06/22 11:28 Blood Blood Culture - Preliminary Laboratory WBC 10.4 X10^3/uL (3.6-10.0) H 06/11/22 05:10 RBC 3.53 X10^6/uL (3.5-5.4) 06/11/22 05:10 Hgb 11.8 g/dL (12.0-16.0) L 06/11/22 05:10 Hct 35.3 % (36.0-47.0) L 06/11/22 05:10 MCV 100.0 fL (80.0-100.0) 06/11/22 05:10 MCH 33.5 pg (27.0-34.0) 06/11/22 05:10 MCHC 33.5 g/dL (33.0-35.0) 06/11/22 05:10 RDW 14.7 % (11.6-16.5) 06/11/22 05:10 Plt Count 159 X10^3/uL (150.0-450.0) 06/11/22 05:10 MPV 9.1 fL (7.4-11.0) 06/11/22 05:10 Neut % (Auto) 67.4 % (42.0-75.0) 06/11/22 05:10 Lymph % (Auto) 23.4 % (21.0-51.0) 06/11/22 05:10 [place] % (Auto) 8.2 % (0.0-13.0) 06/11/22 05:10 Eos % (Auto) 0.5 % (0.9-2.9) L 06/11/22 05:10 Baso % (Auto) 0.5 % (0.2-1.0) 06/11/22 05:10 Neut # (Auto) 7.0 x10^3/uL (2.2-4.8) H 06/11/22 05:10 Lymph # (Auto) 2.4 X10^3/uL (1.3-2.9) 06/11/22 05:10 [place] # (Auto) 0.9 x10^3/uL (0.3-0.8) H 06/11/22 05:10 Eos # (Auto) 0.0 x10^3/uL (0.0-0.2) 06/11/22 05:10 Baso # (Auto) 0.0 X10^3/uL (0.0-0.1) 06/11/22 05:10 Absolute Nucleated RBC 0.0 /100WBC 06/11/22 05:10 Sample Site Rbra 06/07/22 06:11 ABG pH 7.580 (7.35-7.45) H* 06/07/22 06:11 ABG pCO2 59.0 mmHg (35.0-45.0) H* 06/07/22 06:11 ABG pO2 69.0 mmHg (80.0-100.0) L 06/07/22 06:11 ABG HCO3 55.3 mmol/L (22-26) H* 06/07/22 06:11 ABG O2 Saturation 96.0 % (90-100) 06/07/22 06:11 ABG Base Excess 29.0 mmol/L (-2.0-2.0) H 06/07/22 06:11 Satya Test Na 06/07/22 06:11 A-a Gradient 85.0 mmHg 06/07/22 06:11 FiO2 32.0 06/07/22 06:11 Blood Gas Comments Ashley abg well-mtf 06/07/22 06:11 Sodium 139 mmol/L (136-145) 06/11/22 05:10 Corrected Sodium 139 mmol/L (136-145) 06/11/22 05:10 Potassium 3.5 mmol/L (3.5-5.1) 06/11/22 05:10 Chloride 97 mmol/L (98-107) L 06/11/22 05:10 Carbon Dioxide 42.1 mmol/L (21-32) H 06/11/22 05:10 BUN 6 mg/dL (7-18) L 06/11/22 05:10 Creatinine 0.55 mg/dL (0.55-1.02) 06/11/22 05:10 Est GFR (MDRD) Af Amer > 60 (>60) 06/11/22 05:10 Est GFR (MDRD) Non-Af > 60 (>60) 06/11/22 05:10 Glucose 114 mg/dL (65-99) H 06/11/22 05:10 Lactic Acid 0.8 mmol/L (0.4-2.0) 06/05/22 22:22 Calcium 8.0 mg/dL (8.5-10.1) L 06/11/22 05:10 Corrected Calcium 9.4 mg/dL (8.5-10.1) 06/11/22 05:10 Magnesium 2.0 mg/dL (2.0-2.9) 06/08/22 06:05 Total Bilirubin 0.40 mg/dL (0.2-1.0) 06/11/22 05:10 AST 28 Units/L (15-37) 06/11/22 05:10 ALT 18 Units/L (12-78) 06/11/22 05:10 Alkaline Phosphatase 74 Units/L (46-116) 06/11/22 05:10 Creatine Kinase 45 Units/L (26-192) 06/05/22 22:22 Troponin I High Sens 21.0 ng/L (4.0-60.0) 06/05/22 22:22 B-Natriuretic Peptide 126 pg/mL (0-79) H 06/11/22 05:10 Total Protein 5.8 g/dL (6.4-8.2) L 06/11/22 05:10 Albumin 2.2 g/dL (3.4-5.0) L 06/11/22 05:10 Globulin 3.6 g/dL (2.5-4.5) 06/11/22 05:10 Albumin/Globulin Ratio 0.6 Ratio (1.1-2.1) L 06/11/22 05:10 Specimen Type Catherized urine 06/05/22 23:26 Urine Color Yellow (YELLOW) 06/05/22 23: Urine Appearance Hazy (CLEAR) 06/05/22 23: Urine pH 6.0 (5.0 - 8.0) 06/05/22 23: Ur Specific [place] 1.015 (1.000-1.030) 06/05/22 23: Urine Protein 2+ (NEGATIVE) 06/05/22 23: Urine Glucose (UA) Negative (NEGATIVE) 06/05/22 23: Urine Ketones Negative (NEGATIVE) 06/05/22 23: Urine Blood 4+ (NEGATIVE) 06/05/22 23: Urine Nitrite Positive (NEGATIVE) 06/05/22 23: Urine Bilirubin Negative (NEGATIVE) 06/05/22 23: Urine Urobilinogen Normal (NORMAL) 06/05/22 23:26 Ur Leukocyte Esterase 3+ (NEGATIVE) 06/05/22 23: Urine RBC 3-5 /HPF (0-3) A 06/05/22 23: Urine WBC Tntc /HPF (0-5) A 06/05/22 23:26 Ur Squamous Epith Cells Few /HPF (NEGATIVE) 06/05/22 23:26 Urine Bacteria 3+ /HPF (NEGATIVE) 06/05/22 23: Hyaline Casts Few /LPF (NEGATIVE) 06/05/22 23: Urine Mucus Many /HPF (NEGATIVE) 06/05/22 23:26 Ur Culture Indicated? Yes/culture set up 06/05/22 23:26 - Plan (1) CHF (congestive heart failure) Status: Acute Qualifiers: Heart failure type: unspecified Heart failure chronicity: acute on chronic Qualified Code(s): I50.9 - Heart failure, unspecified Plan: SUPPLEMENTAL OXYGEN, INVANZ 1G IV DAILY, DUONEBS Q6H, FUROSEMIDE 20MG IV BID, VISTARIL 25-50MG PO Q8H PRN AGITATION, LEVAQUIN 750MG PO DAILY, POTASSIUM AND MAGNESIUM PROTOCOLS, RESUME HOME MEDS (2) Acute respiratory acidosis Status: Acute (3) Hypoxia Status: Acute (4) UTI (urinary tract infection) Status: Acute Qualifiers: Urinary tract infection type: acute cystitis Hematuria presence: with hematuria Qualified Code(s): N30.01 - Acute cystitis with hematuria (5) Hyperkalemia Status: Acute (6) Hypomagnesemia Status: Acute
--- NOTE | 2022-06-11 11:11 | PCM.PROG ---
Progress Note - Progress Note for Day of Date of Exam: 06/10/22 - Subjective Subjective: IS CURRENTLY INPATIENT STATUS FOR TREATMENT OF CHF, RESPIRATORY ACIDOSIS, HYPOXIA, UTI, AND HYPERKALEMIA. TODAY, SHE IS ALERT, SITTING UP IN BED ON MORNING ROUNDS. SHE COMPLAINS OF WEAKNESS AND SHORTNESS OF BREATH, BUT DENIES OTHER COMPLAINTS. SHE REPORTS SLIGHT IMPROVEMENT IN SYMPTOMS SINCE ADMISSION. SHE IS CURRENTLY OXYGEN VIA NASAL CANNULA AT 3 LPM. PATIENT HAS BEEN ROTATING THE USE OF THE BIPAP WITH OXYGEN VIA NASAL CANNULA. ON EXAMINATION, HEART IS REGULAR IN RATE AND RHYTHM. BILATERAL LUNGS ARE NOTED WITH DIMINISHED LUNG SOUNDS THROUGHOUT. ABDOMEN IS ROUND, SOFT, AND NON-TENDER WITH NORMAL BOWEL SOUNDS NOTED IN ALL QUADRANTS. TRACE EDEMA NOTED TO BILATERAL LOWER EXTREMITIES. HER VITALS THIS MORNING ARE: 98.3-55-22-99%-132/78. LABS WERE OBTAINED. WBC 11.4, RBC 3.61, HGB 12.2, HCT 36.0, PLT COUNT 174, SODIUM 139, POTASSIUM 3.0, CHLORIDE 94, CARBON DIOXIDE 40.6, BUN 9, CREATININE 0.55, GLUCOSE 105, CALCIUM 8.1, TOTAL BILI 0.50, AST 21, ALT 17, ALK PHOS 81, BNP 97.5, TOTAL PROTEIN 5.8, ALBUMIN 2.2. URINE CULTURES ARE POSITIVE FOR GROWTH OF E.COLI AND E.COLI #2. BLOOD CULTURES ARE NEGATIVE. A CHEST XRAY WAS OBTAINED AND REVEALED: Port catheter terminates in the region of the distal SVC. Probable moderate pleural effusions persist. There is cardiomegaly that may be greater than prior study. Patient is rotated to the right. No pneumothorax is seen. SHE IS CURRE NTLY RECEIVING INVANZ 1G IV DAILY, DUONEBS Q6H, FUROSEMIDE 20MG IV BID, VISTARIL 25-50MG PO Q8H PRN AGITATION, LEVAQUIN 750MG PO DAILY. HER HOME MEDICATIONS OF ZYLOPRIM, VITAMIN C, LIPITOR, DONEPEZIL, FLUTICASONE, FOLIC ACID, NEURONTIN, TOPROL, HEMOCYTE PLUS, PROTONIX, PREDNISONE, XARELTO, AND VENLAFAXINE WERE ALSO RESUMED. WE WILL CHANGE ROCEPHIN TO INVANZ 1G IV DAILY. OTHERWISE, WE WILL CONTINUE WITH CURRENT PLAN OF CARE TODAY. WE WILL FOLLOW-UP WITH AM LABS AND CONTINUE TO MONITOR. TIME SPENT ON CLINICAL ASSESSMENT, REVIWING LABS AND IMAGING, DECISION MAKING, AND DOCUMENTATION GREATER THAN 45 MINUTES. - Past Medical Family Social History Past Med/Fam/Surg Hx: No changes since H&P Allergies: Allergies sertraline [From Zoloft] Allergy (Verified 03/10/17 14:54) - Review of Systems ROS: No change since H&P - Vital Signs and I&O's Vital Signs: Temperature 98 F Pulse Rate [Left Brachial] 103 Pulse Rate 93 Respiratory Rate 18 Blood Pressure [Left Arm] 133/76 Blood Pressure [Right Arm] 123/59 Blood Pressure 159/67 O2 Sat by Pulse Oximetry 95 Intake and Output: Intake & Output 06/08/22 06/09/22 06/10/22 06/11/22 11:59 11:59 11:59 11:59 Intake Total 1111 / 1111 598 / 598 680 / 680 1000 / 1000 Output Total 1720 / 1720 1490 / 1490 1575 / 1575 1999 / 1999 Balance -609 / -609 -892 / -892 -895 / -895 -1000 / -1000 - Physical Exam Oriented: Normal Eyes: Normal Ear: Normal Nose: Normal Throat: Normal Respiratory: Diminished Cardiovascular: Edema (TRACE LOWER EXTREMITY EDEMA ) : Normal Auscultation: Bowel Sounds: Normal Palpation: Normal Tenderness: Normal Skin: Other (CUTANEOUS HORN TO RIGHT SIDE FACE ) Musculoskeletal: Normal Psychiatric: Anxiety Mood Description: Anxious Affect: Anxious, Normal Speech Pattern: Clear, Appropriate - Laboratory and Diagnostics Result Diagrams: 06/11/22 05:10 06/11/22 05:10 Labs: 06/05/22 23:26 Urine,Catheterized Urine Culture - Final Escherichia Coli Escherichia Coli#2 06/06/22 11:39 Blood Blood Culture - Preliminary 06/06/22 11:28 Blood Blood Culture - Preliminary Laboratory WBC 10.4 X10^3/uL (3.6-10.0) H 06/11/22 05:10 RBC 3.53 X10^6/uL (3.5-5.4) 06/11/22 05:10 Hgb 11.8 g/dL (12.0-16.0) L 06/11/22 05:10 Hct 35.3 % (36.0-47.0) L 06/11/22 05:10 MCV 100.0 fL (80.0-100.0) 06/11/22 05:10 MCH 33.5 pg (27.0-34.0) 06/11/22 05:10 MCHC 33.5 g/dL (33.0-35.0) 06/11/22 05:10 RDW 14.7 % (11.6-16.5) 06/11/22 05:10 Plt Count 159 X10^3/uL (150.0-450.0) 06/11/22 05:10 MPV 9.1 fL (7.4-11.0) 06/11/22 05:10 Neut % (Auto) 67.4 % (42.0-75.0) 06/11/22 05:10 Lymph % (Auto) 23.4 % (21.0-51.0) 06/11/22 05:10 [facility] % (Auto) 8.2 % (0.0-13.0) 06/11/22 05:10 Eos % (Auto) 0.5 % (0.9-2.9) L 06/11/22 05:10 Baso % (Auto) 0.5 % (0.2-1.0) 06/11/22 05:10 Neut # (Auto) 7.0 x10^3/uL (2.2-4.8) H 06/11/22 05:10 Lymph # (Auto) 2.4 X10^3/uL (1.3-2.9) 06/11/22 05:10 [facility] # (Auto) 0.9 x10^3/uL (0.3-0.8) H 06/11/22 05:10 Eos # (Auto) 0.0 x10^3/uL (0.0-0.2) 06/11/22 05:10 Baso # (Auto) 0.0 X10^3/uL (0.0-0.1) 06/11/22 05:10 Absolute Nucleated RBC 0.0 /100WBC 06/11/22 05:10 Sample Site [facility] 06/07/22 06:11 ABG pH 7.580 (7.35-7.45) H* 06/07/22 06:11 ABG pCO2 59.0 mmHg (35.0-45.0) H* 06/07/22 06:11 ABG pO2 69.0 mmHg (80.0-100.0) L 06/07/22 06:11 ABG HCO3 55.3 mmol/L (22-26) H* 06/07/22 06:11 ABG O2 Saturation 96.0 % (90-100) 06/07/22 06:11 ABG Base Excess 29.0 mmol/L (-2.0-2.0) H 06/07/22 06:11 Satya Test Na 06/07/22 06:11 A-a Gradient 85.0 mmHg 06/07/22 06:11 FiO2 32.0 06/07/22 06:11 Blood Gas Comments [facility]g well-mtf 06/07/22 06:11 Sodium 139 mmol/L (136-145) 06/11/22 05:10 Corrected Sodium 139 mmol/L (136-145) 06/11/22 05:10 Potassium 3.5 mmol/L (3.5-5.1) 06/11/22 05:10 Chloride 97 mmol/L (98-107) L 06/11/22 05:10 Carbon Dioxide 42.1 mmol/L (21-32) H 06/11/22 05:10 BUN 6 mg/dL (7-18) L 06/11/22 05:10 Creatinine 0.55 mg/dL (0.55-1.02) 06/11/22 05:10 Est GFR (MDRD) Af Amer > 60 (>60) 06/11/22 05:10 Est GFR (MDRD) Non-Af > 60 (>60) 06/11/22 05:10 Glucose 114 mg/dL (65-99) H 06/11/22 05:10 Lactic Acid 0.8 mmol/L (0.4-2.0) 06/05/22 22:22 Calcium 8.0 mg/dL (8.5-10.1) L 06/11/22 05:10 Corrected Calcium 9.4 mg/dL (8.5-10.1) 06/11/22 05:10 Magnesium 2.0 mg/dL (2.0-2.9) 06/08/22 06:05 Total Bilirubin 0.40 mg/dL (0.2-1.0) 06/11/22 05:10 AST 28 Units/L (15-37) 06/11/22 05:10 ALT 18 Units/L (12-78) 06/11/22 05:10 Alkaline Phosphatase 74 Units/L (46-116) 06/11/22 05:10 Creatine Kinase 45 Units/L (26-192) 06/05/22 22:22 Troponin I High Sens 21.0 ng/L (4.0-60.0) 06/05/22 22:22 B-Natriuretic Peptide 126 pg/mL (0-79) H 06/11/22 05:10 Total Protein 5.8 g/dL (6.4-8.2) L 06/11/22 05:10 Albumin 2.2 g/dL (3.4-5.0) L 06/11/22 05:10 Globulin 3.6 g/dL (2.5-4.5) 06/11/22 05:10 Albumin/Globulin Ratio 0.6 Ratio (1.1-2.1) L 06/11/22 05:10 Specimen Type Catherized urine 06/05/22 23: Urine Color Yellow (YELLOW) 06/05/22 23: Urine Appearance Hazy (CLEAR) 06/05/22 23: Urine pH 6.0 (5.0 - 8.0) 06/05/22 23: Ur Specific [place] 1.015 (1.000-1.030) 06/05/22 23:26 Urine Protein 2+ (NEGATIVE) 06/05/22 23:26 Urine Glucose (UA) Negative (NEGATIVE) 06/05/22 23: Urine Ketones Negative (NEGATIVE) 06/05/22 23: Urine Blood 4+ (NEGATIVE) 06/05/22 23:26 Urine Nitrite Positive (NEGATIVE) 06/05/22 23:26 Urine Bilirubin Negative (NEGATIVE) 06/05/22 23:26 Urine Urobilinogen Normal (NORMAL) 06/05/22 23:26 Ur Leukocyte Esterase 3+ (NEGATIVE) 06/05/22 23:26 Urine RBC 3-5 /HPF (0-3) A 06/05/22 23:26 Urine WBC Tntc /HPF (0-5) A 06/05/22 23:26 Ur Squamous Epith Cells Few /HPF (NEGATIVE) 06/05/22 23:26 Urine Bacteria 3+ /HPF (NEGATIVE) 01/25/23 23:26 Hyaline Casts Few /LPF (NEGATIVE) 06/05/22 23:26 Urine Mucus Many /HPF (NEGATIVE) 06/05/22 23:26 Ur Culture Indicated? Yes/culture set up 06/05/22 23:26 - Plan (1) CHF (congestive heart failure) Status: Acute Qualifiers: Heart failure type: unspecified Heart failure chronicity: acute on chronic Qualified Code(s): I50.9 - Heart failure, unspecified Plan: SUPPLEMENTAL OXYGEN, INVANZ 1G IV DAILY, DUONEBS Q6H, FUROSEMIDE 20MG IV BID, VISTARIL 25-50MG PO Q8H PRN AGITATION, LEVAQUIN 750MG PO DAILY, POTASSIUM AND MAGNESIUM PROTOCOLS, RESUME HOME MEDS (2) Acute respiratory acidosis Status: Acute (3) Hypoxia Status: Acute (4) UTI (urinary tract infection) Status: Acute Qualifiers: Urinary tract infection type: acute cystitis Hematuria presence: with hematuria Qualified Code(s): N30.01 - Acute cystitis with hematuria (5) Hyperkalemia Status: Acute (6) Hypomagnesemia Status: Acute
[2022-06-11 14:03] VITALS: BP 140/89
== END 2022-06-11 14:35 | DRG 189 ==
LOC: ER 22:05 → MED/SURG 23:21
PROVIDERS: ADMIT Internal Medicine; ATTEND Internal Medicine